=== PATIENT | male | born 1940 | race Caucasian/White ===

== ENCOUNTER 2020-04-04 17:44 | Inpatient (IN) | payer MEDICARE ==
[2020-04-04] MEDS ORDERED: IPRATROPIUM-ALBUTEROL 3 ML NEB INHALATION PRN (17:57)
[2020-04-04] MEDS ORDERED: ASPIRIN 325 MG TAB PO STA (17:57)
[2020-04-04] MEDS ORDERED: FUROSEMIDE 10 MG/ML 4 ML VIAL IV SCH (18:00)
--- NOTE | 2020-04-04 18:10 | ED ---
General Adult HPI - General Chief complaint: Shortness of Breath Stated complaint: Dyspnea Time Seen by Provider: 04/04/20 17:45 Source: patient, EMS, RN notes reviewed Mode of arrival: EMS Limitations: no limitations - History of Present Illness Initial comments: Patient is a pleasant 79-year-old male presenting to the emergency department with reported dyspnea. Patient states he feels fine and has no complaints. Patient reportedly was hypoxic appearing with a pulse ox of 70 when EMS arrived. Patient did go to [facility] and was transferred here. Patient was noted to have CHF with elevated troponin and abdominal aortic aneurysm on computed tomography scan. Patient denies any chest pain or abdominal pain. Patient states he feels fine at this time and has no complaints. - Related Data Allergies Allergy/AdvReac Type Severity Reaction Status Date / Time No Known Allergies Allergy Verified 04/04/20 18:01 Review of Systems ROS Statement: Those systems with pertinent positive or pertinent negative responses have been documented in the HPI. ROS Other: All systems not noted in ROS Statement are negative. Constitutional: Denies: fever Eyes: Denies: eye pain ENT: Denies: ear pain Respiratory: Reports: as per HPI Cardiovascular: Denies: chest pain Endocrine: Denies: fatigue Gastrointestinal: Denies: abdominal pain Genitourinary: Denies: dysuria Musculoskeletal: Denies: back pain Skin: Denies: rash Neurological: Denies: weakness Past Medical History Past Medical History: Hypertension, Thyroid Disorder History of Any Multi-Drug Resistant Organisms: None Reported Past Surgical History: No Surgical Hx Reported Past Psychological History: Anxiety Smoking Status: Former smoker Past Alcohol Use History: None Reported Past Drug Use History: None Reported General Exam Limitations: no limitations General appearance: alert, in no apparent distress Head exam: Present: normocephalic Eye exam: Present: normal appearance Neck exam: Present: normal inspection Respiratory exam: Present: decreased breath sounds Cardiovascular Exam: Present: tachycardia GI/Abdominal exam: Present: soft. Absent: distended, tenderness Extremities exam: Present: normal inspection. Absent: pedal edema, calf tenderness Neurological exam: Present: alert, oriented X3. Absent: motor sensory deficit Expanded Motor strength exam: RUE: 5, LUE: 5, RLE: 5, LLE: 5 Psychiatric exam: Present: normal affect, normal mood Skin exam: Present: normal color Course Vital Signs 04/04/20 04/04/2004/04/20 18:02 18:11 18:13 Temperature 99.2 F Pulse Rate 114 H Respiratory 22 22 Rate Blood Pressure 141/124 104/84 O2 Sat by Pulse 94 L Oximetry Medical Decision Making - Medical Decision Making Patient is updated on plan. Case was discussed with with [facility], who will admit. Disposition Clinical Impression: Congestive heart failure Disposition: ADMITTED IP TO THIS HOSP Is patient prescribed a controlled substance at d/c from ED?: No Referrals: Mateus Spencer MD [Primary Care Provider] - 1-2 days Decision Time: 18:22
[2020-04-04] MEDS: NITROGLYCERIN OINT 1 INCH/GM PACKET TOPICAL SCH ×2 (18:23→21:29)
[2020-04-04 19:16] LABS: Hyaline Casts,Urine 8 /lpf (0-2); Mucus,Urine Rare /hpf; RBC,Urine <1 /hpf (0-5); Squamous Epithelial Cell,Urine <1 /hpf (0-4); WBC,Urine 2 /hpf (0-5)
[2020-04-04] MEDS: IPRATROPIUM-ALBUTEROL 3 ML NEB INHALATION SCH (19:16)
[2020-04-04 19:18] LABS: Appearance,Urine Clear (Clear); Color,Urine Yellow
[2020-04-04 19:19] LABS: Bilirubin,Urine Negative (Negative); Blood,Urine Small (Negative); Glucose,Urine (UA) Negative (Negative); Ketones,Urine Negative (Negative); Protein,Urine Negative (Negative); Specific Gravity,Urine 1.005 (1.001-1.035); Urobilinogen,Urine <2.0 mg/dL (<2.0)
[2020-04-04 19:20] LABS: Leukocyte Esterase,Urine Large (Negative); Nitrite,Urine Negative (Negative)
--- NOTE | 2020-04-04 19:27 | CT ---
EXAMINATION TYPE: CT brain wo con DATE OF EXAM: 04/04/2020 HISTORY: ams, confusion CT DLP: 1094.4 mGycm. Automated Exposure Control for Dose Reduction was Utilized. TECHNIQUE: CT scan of the head is performed without contrast. COMPARISON: None. FINDINGS: There is no acute intracranial hemorrhage or midline shift identified. There is diffuse v entricular and sulcal prominence consistent with diffuse cerebral atrophy greatest over bilateral fro ntal lobes. Dalal-white matter differentiation is maintained. Moderate calcified plaque distal interna l carotid arteries bilaterally. The globes are intact and the visualized sinuses are clear. IMPRESSION: No acute intracranial hemorrhage or midline shift. There is mild diffuse cerebral atrop hy greatest over bilateral frontal lobes.
[2020-04-04] MEDS ORDERED: NITROGLYCERIN OINT 1 INCH/GM PACKET TOPICAL PRN (21:35)
[2020-04-04] MEDS: MELATONIN 3 MG TABLET PO SCH (22:42)
[2020-04-04] MEDS: HEPARIN SODIUM,PORCINE 5,000 UNIT/ML 1 ML VIAL SQ SCH (22:42)
[2020-04-04] MEDS: FUROSEMIDE 10 MG/ML 4 ML VIAL IV SCH (22:42)
--- NOTE | 2020-04-05 01:05 | P.HPIM ---
History of Present Illness H&P Date: 04/04/20 Chief Complaint: hypoxemia 79 year old male with hypothryoid, and COPD on home oxygen patient was transferred to our facility from [facility] for suspected acute CHF exacerbation patine tunable to provide any meaningful history , history obtained from reviewing medical records and discussing the patient care with his daughter. patient daughter does not live with him, as patient lives alone. it seems that over the phone he did not sound right to his daughter, who called a nephew who lives nearby to check on him. he found him confused and cyanotic. for which he notified EMS who found that patient supplemental oxygen was not working and was hypoxic in low 70%. for which he was taken to the hospital . where he was found to have small bilateral effusion , and mild pulmonary congestion. CT of the abdomen also showed AAA of 6.5 cm , incidental finding. and no evidence of pulmonary embolism. blood work showed elevate troponin and proBNP. he was started on diuretics and transferred to our facility currently he is laying in bed , comfortable , denies any chest pain or trouble breathing , denies any headache, or focal neurodeficits. his speech alternating between muffled and clear. he has no trouble managing his secretions or swallowing. he has no complaints otherwise, and does not seem to realize that he has muffled speech at times. patient daughter, reported that he was doing well as far as she knows up until yesterday, and that probably some visiting kids has messed up with her fathers oxygen supply. she adds that his nephew has reported some hallucination and abnormal movements during sleep , no further details were provided. no history of heart disease or stroke Review of Systems ROS unobtainable: due to mental status Past Medical History Past Medical History: COPD, Eye Disorder, Hypertension, Thyroid Disorder History of Any Multi-Drug Resistant Organisms: None Reported Past Surgical History: No Surgical Hx Reported Past Psychological History: Anxiety Smoking Status: Never smoker Past Alcohol Use History: None Reported Past Drug Use History: None Reported - Past Family History family Family Medical History: Unable to Obtain Medications and Allergies Home Medications Medication Instructions Recorded Confirmed Type Albuterol Sulfate [Albuterol 2 puff PO RT-Q4H PRN 04/04/20 04/04/20 History Sulfate Hfa] Aspirin 81 mg PO DAILY 04/04/20 04/04/20 History Isosorbide Mononitrate ER [Imdur] 60 mg PO DAILY 04/04/20 04/04/20 History Levothyroxine Sodium 112 mcg PO DAILY 04/04/20 04/04/20 History Allergies Allergy/AdvReac Type Severity Reaction Status Date / Time No Known Allergies Allergy Verified 04/04/20 19:57 Physical Exam Vitals: Vital Signs Temp Pulse Pulse Resp BP BP Pulse Ox 04/04/20 20:22 98.5 F 86 20 131/91 95 04/04/20 19:12 107 H 22 105/93 97 04/04/20 18:28 105 H 22 91 L 04/04/20 18:13 104/84 04/04/20 18:11 22 04/04/20 18:02 99.2 F 114 H 22 141/124 94 L Intake and Output 04/04/20 04/04/20 04/04/20 06:59 14:59 22:59 Output Total 350 Balance -350 Output: Urine 350 Other: # Voids 2 Weight 56.699 kg Constitutional: No acute distress, sleeping , easily arousable, muffled speech at times alternating with clear speech , conversant, pleasant Eyes: Anicteric sclerae, moist conjunctiva, no lid-lag Pupils equal round reactive to light ENMT: NC/AT Oropharynx clear, no erythema, or exudates Neck: Supple, FROM, no masses, or JVD No carotid bruits No thyromegaly Lungs: good breath sounds bilaterally , decreased breath sounds at lung basis Clear to percussion Normal respiratory effort, no accessory muscle use Cardiovascular: Heart regular in rate and rhythm, No murmurs, gallops, or rubs No peripheral edema Abdominal: Soft Nontender, no guarding, rebound or rigidity Abdomen moving with respiration Normoactive bowel sounds No hepatomegaly, No splenomegaly No palpable mass No abdominal wall hernia noted Skin: Normal temperature, tone, texture, turgor No induration No subcutaneous nodules No rash, lesions No ulcers echyotic spots on right elbow Extremities: No digital cyanosis No clubbing Pedal pulses intact and symmetrical Radial pulses intact and symmetrical No calf tenderness Psychiatric: Alert and oriented to person only Appropriate affect poor judgement Neuro Muscles Strength 5/5 in all 4 extremities Sensation to light touch grossly present throughout Cranial nerves II-XII grossly intact (difficulty in evaluating at times, patient does not seem to be able to understand the commands) No focal sensory deficits unable to perform cerebellar exam, patient could not understand the co mmands. and was unable to relax properly to perform the reflexes. Lymphatics: no palpable cervical or supraclavicular , or inguinal lymph nodes Results Labs: Abnormal Lab Results - Last 24 Hours (Table) 04/04/20 04/04/20 Range/Units 18:00 19:07 Troponin I 0.351 H* (0.000-0.034) ng/mL Hyaline Casts 8 H (0-2) /lpf Urine Mucus Rare H (None) /hpf Thrombosis Risk Factor Assmnt - Choose All That Apply Any of the Below Risk Factors Present?: No Other Risk Factors: Yes Each Risk Factor Represents 3 Points: Age 75 years or older Other congenital or acquired thrombophilia - If yes, enter type in comment: No Thrombosis Risk Factor Assessment Total Risk Factor Score: 3 Thrombosis Risk Factor Assessment Level: Moderate Risk Assessment and Plan Assessment: acute on chronic hypoxic respiratory failure copd , compensated elevated troponin rule out NSTEMI /ACS, patient denies any chest pain or SOB pulmonary congestion and small bilateral pleural effusion , rule out new onset acute CHF behavioral changes along with alternating muffled / clear speech, rule out stroke elevated liver enzymes plan exhibit cleaner trend troponin aspirin avoid statin due to elevated liver enzymes Brain CT no acute changes CT angio showed no PE, but incidental finding of AAA 6.5 cm , vascular surgery consult check echo check carotid doppler check vit b12, tsh supportive care supplemental oxygen IV diuresis PT/OT eval cardio consult chronic conditions hypothyroid , resume home meds COPD , supplemental oxygen , Breathing treatment pRN Surrogate decision-maker: daughter CODE STATUS:full code DVT prophylaxis: heparin sc tid Discussed with: Patient, ER, RN Anticipated length of stay > than [address]: home A total of 75 minutes was spent on the care of this complex patient more than 50% of the time was spent in counseling and care coordination.
[2020-04-05] MEDS: LEVOTHYROXINE 112 MCG TAB PO SCH (06:12)
[2020-04-05 08:04] LABS: Basophils % (A) 1 %; Eosinophils % (A) 1 %; HCT 47.9 % (39.0-53.0); HGB 13.6 gm/dL (13.0-17.5); Hypochromasia Marked; Lymphocytes # (A) 1.1 k/uL (1.0-4.8); Lymphocytes % (A) 14 %; MCH 29.2 pg (25.0-35.0); MCHC 28.4 g/dL (31.0-37.0); MCV 102.8 fL (80.0-100.0); Macrocytosis Slight; Mean Platelet Volume 9.1; Monocytes # (A) 0.4 k/uL (0-1.0); Monocytes % (A) 5 %; Neutrophils # (A) 6.2 k/uL (1.3-7.7); Neutrophils % (A) 78 %; Platelet Count 176 k/uL (150-450); RBC 4.66 m/uL (4.30-5.90); RDW 13.3 % (11.5-15.5); WBC 7.9 k/uL (3.8-10.6)
[2020-04-05 08:18] LABS: ALT 160 U/L (4-49); AST 156 U/L (17-59); African American GFR (CKD) >90 (>60 ml/min/1.73 sqM); Albumin 3.7 g/dL (3.5-5.0); Alkaline Phosphatase 91 U/L (38-126); Blood Urea Nitrogen 29 mg/dL (9-20); Calcium 8.2 mg/dL (8.4-10.2); Chloride 86 mmol/L (98-107); Glucose 83 mg/dL (74-99); Non-African American GFR(CKD) 83 (>60 ml/min/1.73 sqM); Potassium 4.9 mmol/L (3.5-5.1); Sodium 144 mmol/L (137-145); Total Bilirubin 0.6 mg/dL (0.2-1.3); Total Protein 7.3 g/dL (6.3-8.2)
[2020-04-05] MEDS: FUROSEMIDE 10 MG/ML 4 ML VIAL IV SCH (08:19)
[2020-04-05] MEDS: HEPARIN SODIUM,PORCINE 5,000 UNIT/ML 1 ML VIAL SQ SCH ×2 (08:19→17:58)
[2020-04-05] MEDS: IPRATROPIUM-ALBUTEROL 3 ML NEB INHALATION SCH ×3 (08:35→15:47)
--- NOTE | 2020-04-05 08:43 | US ---
EXAMINATION TYPE: US carotid duplex BILAT DATE OF EXAM: 04/05/2020 COMPARISON: NONE CLINICAL HISTORY: possible stroke. Exam limited patient sleeping unresponsive. EXAM MEASUREMENTS: RIGHT: Peak Systolic Velocity (PSV) cm/sec ----- Right CCA: 108.9 ----- Right ICA: 112.2 ----- Right ECA: 197.6 ICA/CCA ratio: 1.0 RIGHT: End Diastole cm/sec ----- Right CCA: 37.7 ----- Right ICA: 37.3 ----- Right ECA: 38.7 LEFT: Peak Systolic Velocity (PSV) cm/sec ----- Left CCA: 62.8 ----- Left ICA: 85.4 ----- Left ECA: 67.6 ICA/CCA ratio: 1.4 LEFT: End Diastole cm/sec ----- Left CCA: 32.1 ----- Left ICA: 24.1 ----- Left ECA: 28.8 VERTEBRALS (direction of flow): Right Vertebral: Antegrade Left Vertebral: Antegrade Rhythm: Normal Bilateral plaque visualized.Exam limited. IMPRESSION: 1. Bilateral plaque with no significant hemodynamic stenosis. Criteria for Assigning % of Stenosis / Diameter reduction (Estimation based on the indirect measurements of the internal carotid artery velocities (ICA PSV). 1. Normal (no stenosis)=ICA PSV < 125 cm/s: ratio < 2.0: ICA EDV<40 cm/s. 2. Less than 50% stenosis=ICA PSV < 125 cm/s: ratio < 2.0: ICA EDV<40 cm/s. 3. 50 to 69% stenosis=ICA PSV of 125 to 230 cm/s: ration 2.0 ? 4.0: ICA EDV 40-100 cm/s. 4. Greater than 70% stenosis to near occlusion= ICA PSV > 230 cm/s: ratio > 4.0: ICA EDV > 100 cm/s. 5. Near occlusion= ICA PSV velocities may be low or undetectable: variable ratio and ICA EDV. 6. Total occlusion=unable to detect flow.
[2020-04-05 08:48] LABS: Anion Gap 8 mmol/L; Carbon Dioxide 50 mmol/L (22-30)
[2020-04-05] MEDS: THIAMINE 100 MG/ML 2 ML VIAL IVP SCH (10:05)
[2020-04-05 10:59] LABS: ABG Oxygen Saturation 98.7 % (94-97); ABG PH 7.23 (7.35-7.45); ABG PO2 150 mmHg (83-108); Allen Test Performed? Yes
[2020-04-05 11:04] LABS: ABG PCO2 >120 mmHg (35-45)
--- NOTE | 2020-04-05 11:26 | P.GSCN ---
History of Present Illness History of present illness: 79-year-old gentleman, patient came with history of shortness of breath and congestive heart failure patient had a CT of the chest there is pleural effusion no evidence of PE with some pulmonary fibrosis. Patient had a CT of the chest which also showed partially visualized infrarenal abdominal aortic aneurysm 6.5 no evidence of leak. Patient also had a CT of the brain which was negative for intracranial bleed. And patient also required carotid ultrasound no significant stenosis noted. On examination neck is supple no bruit appreciated Chest patient has a bilateral crackles first and second heart sound normal Abdomen abdomen is soft nontender pulsatile mass noted aorta is nontender Vascular examination brachial radial pulses are present femorals are palpable bilateral PTDP by the Doppler no ischemic ulceration noted Impression is history of COPD and congestive heart failure hypothyroidism incidental finding of abdominal aortic aneurysm partially visualized Plan i discussed with the daughter in detail patient will needing as an outpatient workup for abdominal aortic aneurysm which is stable follow-up with you thank very much Past Medical History Past Medical History: COPD, Eye Disorder, Hypertension, Thyroid Disorder History of Any Multi-Drug Resistant Organisms: None Reported Past Surgical History: No Surgical Hx Reported Past Psychological History: Anxiety Smoking Status: Never smoker Past Alcohol Use History: None Reported Past Drug Use History: None Reported - Past Family History family Family Medical History: Unable to Obtain Medications and Allergies Home Medications Medication Instructions Recorded Confirmed Type Albuterol Sulfate [Albuterol 2 puff PO RT-Q4H PRN 04/04/20 04/04/20 History Sulfate Hfa] Aspirin 81 mg PO DAILY 04/04/20 04/04/20 History Isosorbide Mononitrate ER [Imdur] 60 mg PO DAILY 04/04/20 04/04/20 History Levothyroxine Sodium 112 mcg PO DAILY 04/04/20 04/04/20 History Allergies Allergy/AdvReac Type Severity Reaction Status Date / Time No Known Allergies Allergy Verified 04/04/20 19:57 Surgical - Exam Vital Signs Temp Pulse Resp BP Pulse Ox 99.2 F 114 H 22 141/124 94 L 04/04/20 18:02 04/04/20 18:02 04/04/20 18:02 04/04/20 18:02 04/04/20 18:02 Results - Labs 04/05/20 07:04 04/05/20 07:04 Abnormal Lab Results - Last 24 Hours (Table) 04/04/20 04/04/20 04/05/20 Range/Units 18:00 19:07 07:04 MCV (80.0-100.0) fL MCHC (31.0-37.0) g/dL ABG pH (7.35-7.45) ABG pCO2 (35-45) mmHg ABG pO2 (83-108) mmHg ABG O2 Saturation (94-97) % Chloride (98-107) mmol/L Carbon Dioxide (22-30) mmol/L BUN (9-20) mg/dL Calcium (8.4-10.2) mg/dL AST (17-59) U/L ALT (4-49) U/L Troponin I 0.351 H* 0.432 H* (0.000-0.034) ng/mL Hyaline Casts 8 H (0-2) /lpf Urine Mucus Rare H (None) /hpf 04/05/20 04/05/20 04/05/20 Range/Units 07:04 07:04 10:45 MCV 102.8 H (80.0-100.0) fL MCHC 28.4 L (31.0-37.0) g/dL ABG pH 7.23 L (7.35-7.45) ABG pCO2 >120 H* (35-45) mmHg ABG pO2 150 H (83-108) mmHg ABG O2 Saturation 98.7 H (94-97) % Chloride 86 L (98-107) mmol/L Carbon Dioxide 50 H* (22-30) mmol/L BUN 29 H (9-20) mg/dL Calcium 8.2 L (8.4-10.2) mg/dL AST 156 H (17-59) U/L ALT 160 H (4-49) U/L Troponin I (0.000-0.034) ng/mL Hyaline Casts (0-2) /lpf Urine Mucus (None) /hpf Diabetes panel 04/05/20 Range/Units 07:04 Sodium 144 (137-145) mmol/L Potassium 4.9 (3.5-5.1) mmol/L Chloride 86 L (98-107) mmol/L Carbon Dioxide 50 H* (22-30) mmol/L BUN 29 H (9-20) mg/dL Creatinine 0.87 (0.66-1.25) mg/dL Glucose 83 (74-99) mg/dL Calcium 8.2 L (8.4-10.2) mg/dL AST 156 H (17-59) U/L ALT 160 H (4-49) U/L Alkaline Phosphatase 91 (38-126) U/L Total Protein 7.3 (6.3-8.2) g/dL Albumin 3.7 (3.5-5.0) g/dL Thyroid panel 04/05/20 Range/Units 07:04 TSH 1.980 (0.465-4.680) mIU/L Calcium panel 04/05/20 Range/Units 07:04 Calcium 8.2 L (8.4-10.2) mg/dL Albumin 3.7 (3.5-5.0) g/dL Pituitary panel 04/05/20 Range/Units 07:04 Sodium 144 (137-145) mmol/L Potassium 4.9 (3.5-5.1) mmol/L Chloride 86 L (98-107) mmol/L Carbon Dioxide 50 H* (22-30) mmol/L BUN 29 H (9-20) mg/dL Creatinine 0.87 (0.66-1.25) mg/dL Glucose 83 (74-99) mg/dL Calcium 8.2 L (8.4-10.2) mg/dL TSH 1.980 (0.465-4.680) mIU/L Adrenal panel 04/05/20 Range/Units 07:04 Sodium 144 (137-145) mmol/L Potassium 4.9 (3.5-5.1) mmol/L Chloride 86 L (98-107) mmol/L Carbon Dioxide 50 H* (22-30) mmol/L BUN 29 H (9-20) mg/dL Creatinine 0.87 (0.66-1.25) mg/dL Glucose 83 (74-99) mg/dL Calcium 8.2 L (8.4-10.2) mg/dL Total Bilirubin 0.6 (0.2-1.3) mg/dL AST 156 H (17-59) U/L ALT 160 H (4-49) U/L Alkaline Phosphatase 91 (38-126) U/L Total Protein 7.3 (6.3-8.2) g/dL Albumin 3.7 (3.5-5.0) g/dL
[2020-04-05] MEDS: methylPREDNISolone SOD SUCCI 125 MG/2 ML VIAL IV SCH ×2 (11:51→17:57)
[2020-04-05 11:57] LABS: Amphetamine Screen,Urine Not Detected (NotDetected); Barbiturate Screen,Urine Not Detected (NotDetected); Benzodiazepines Screen,Urine Not Detected (NotDetected); Cocaine Screen,Urine Not Detected (NotDetected); Methadone Screen, Urine Not Detected (NotDetected); Opiate Screen,Urine Not Detected (NotDetected); Oxycodone Screen, Urine Not Detected (NotDetected); Phencyclidine Screen,Urine Not Detected (NotDetected); Urn Cannabinoid Scrn Not Detected (NotDetected)
[2020-04-05 11:58] LABS: Tricyclic Antidepressant,Urine Not Detected (NotDetected)
--- NOTE | 2020-04-05 12:00 | ECHOF ---
Referral Reason:Heart Failure MEASUREMENTS -------- HEIGHT: 162.6 cm WEIGHT: 111.6 kg BP: 119/76 RVIDd: 3.4 cm (< 3.3) IVSd: 1.0 cm (0.6 - 1.1) LVIDd: 4.1 cm (3.9 - 5.3) LVPWd: 1.1 cm (0.6 - 1.1) IVSs: 0.9 cm LVIDs: 3.3 cm LVPWs: 1.1 cm Ao Diam: 2.6 cm (2.0 - 3.7) AV Cusp: 1.7 cm (1.5 - 2.6) LA Diam: 2.2 cm (2.7 - 3.8) MV EXCURSION: 17.354 mm (> 18.000) MV EF SLOPE: 114 mm/s (70 - 150) EPSS: 1.0 cm MV E Cedric: 0.68 m/s MV DecT: 147 ms MV A Cedric: 1.05 m/s MV E/A Ratio: 0.65 RAP: 5.00 mmHg RVSP: 16.55 mmHg FINDINGS -------- Undetermined rhythm. This was a technically adequate study. The left ventricular size is normal. Left ventricular wall thickness is normal. Overall left vent ricular systolic function is low-normal with, an EF between 50 - 55 %. The right ventricle is mildly enlarged. The left atrial size is normal. The right atrial size is normal. The aortic valve is trileaflet and appears structurally normal. The mitral valve is normal. There is trace mitral regurgitation. The tricuspid valve appears structurally normal. Trace tricuspid regurgitation present. Right alice tricular systolic pressure is normal at < 35 mmHg. There is no pulmonic regurgitation present. The aortic root size is normal. Normal inferior vena cava with normal inspiratory collapse consistent with estimated right atrial pre ssure of 5 mmHg. There is no pericardial effusion. CONCLUSIONS -------- 1. Undetermined rhythm. 2. This was a technically adequate study. 3. The left ventricular size is normal. 4. Left ventricular wall thickness is normal. 5. Overall left ventricular systolic function is low-normal with, an EF between 50 - 55 %. 6. The right ventricle is mildly enlarged. 7. The left atrial size is normal. 8. The right atrial size is normal. 9. The aortic valve is trileaflet and appears structurally normal. 10. The mitral valve is normal. 11. There is trace mitral regurgitation. 12. The tricuspid valve appears structurally normal. 13. Trace tricuspid regurgitation present. 14. Right ventricular systolic pressure is normal at < 35 mmHg. 15. There is no pulmonic regurgitation present. 16. The aortic root size is normal. 17. Normal inferior vena cava with normal inspiratory collapse consistent with estimated right atrial pressure of 5 mmHg. 18. There is no pericardial effusion. DEVELOPMENT ADVISOR: Yamileth Anderson RDCS
[2020-04-05] MEDS: levETIRAcetam IV 500 MG in SODIUM CHLORIDE 0.9% 100 ML IVPB SCH ×2 (12:12→21:10)
[2020-04-05] MEDS ORDERED: ASPIRIN 300 MG SUPP RECTAL STA (12:31)
[2020-04-05 13:08] LABS: Glucose,Whole Blood 68 mg/dL (75-99)
[2020-04-05 13:25] LABS: Glucose,Whole Blood 78 mg/dL (75-99)
--- NOTE | 2020-04-05 14:30 | P.CNPUL ---
History of Present Illness Consult date: 04/05/20 Reason for consult: COPD, hypoxemia History of present illness: A 7 79-year-old male patient who was transferred to us from [facility] because of acute hypoxic respiratory failure. The patient is known to have COPD and his dependent on home oxygen. According to the daughter, he is an ex-smoker is not smoking. His been living independently at home and he has been able to perform activities of daily today life. Apparently the patient was having altered mentation he was confused and the daughter called EMS to the scene and the patient was found to be quite hypoxic with a pulse ox of 70s. The patient was placed on a nonrebreather facemask was brought him up to 90% saturation and following that the patient got transferred initially to [facility] and later on to [facility]. During the course of his [facility] stay, the patient underwent a CT angiogram that showed no evidence of any pulmonary embolism. 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 There was no suspicious focal consolidation. There is mild interstitial edema and the patient was suspected to be CHF. Based on that the patient was started on diuresis. There was no evidence of any pulmonary embolism. There was at least a 6.9 cm abdominal aortic and is a bit was noted. CAT scan of the abdomen also confirmed the presence of a large abdominal aortic aneurysm. The blood work that was done showed a glucose of 129, BUN of 27, and a creatinine of 1.0, SGOT was 208, SGPT was 182, calcium level was 8.8, the CPK was 105, lactic acid level was 1.4, magnesium was at 2.1 with a troponin of 0.189. The patient also had a sodium of 142 with a chloride of 92 and a potassium of 4.8. White cell count was at 8.2 with a hemoglobin of 13.3. This morning, the patient was asked to be seen by pulmonary critical care. He was still altered and the family was at the bedside. Note that the patient has undergone a CAT scan of the brain that showed no acute abnormalities. His blood gases was done today and the patient was found to have a pH of 7.23 with episodes of more than 120 and pO2 of 150 and this was done on the percent nonrebreather facemask. He had developed significant metabolic alkalosis with a serum bicarb coming up to 50 while being given Lasix 40 mg every 8 hours. For that reason, the patient was transferred to the intensive care unit. The echocardiogram that was done showed an ejection fraction of 50-55%, the valvular functions were all within normal limits, the patient had normal IVC respiratory collapse indicating that the estimated right atrial pressure was 5. No evidence of any pericardial effusion. Review of Systems ROS unobtainable: due to mental status Past Medical History Past Medical History: COPD, Eye Disorder, Hypertension, Thyroid Disorder History of Any Multi-Drug Resistant Organisms: None Reported Past Surgical History: No Surgical Hx Reported Past Psychological History: Anxiety Smoking Status: Never smoker Past Alcohol Use History: None Reported Past Drug Use History: None Reported - Past Family History family Family Medical History: Unable to Obtain Medications and Allergies Home Medications Medication Instructions Recorded Confirmed Type Albuterol Sulfate [Albuterol 2 puff PO RT-Q4H PRN 04/04/20 04/04/20 History Sulfate Hfa] Aspirin 81 mg PO DAILY 04/04/20 04/04/20 History Isosorbide Mononitrate ER [Imdur] 60 mg PO DAILY 04/04/20 04/04/20 History Levothyroxine Sodium 112 mcg PO DAILY 04/04/20 04/04/20 History Allergies Allergy/AdvReac Type Severity Reaction Status Date / Time No Known Allergies Allergy Verified 04/04/20 19:57 Physical Exam Vitals: Vital Signs Temp Pulse Pulse Resp BP BP Pulse Ox 04/05/20 12:40 100 04/05/20 12:18 100 04/05/20 12:00 97.7 F 99 18 113/63 91 L 04/05/20 08:53 100 04/05/20 08:39 100 04/05/20 08:00 98.5 F 101 H 20 128/66 97 04/05/20 04:00 97.6 F 100 18 119/76 93 L 04/04/20 23:22 76 18 04/04/20 23:18 98.1 F 76 18 139/85 93 L 04/04/20 20:22 98.5 F 86 20 131/91 95 04/04/20 20:15 86 20 04/04/20 19:12 107 H 22 105/93 97 04/04/20 18:28 105 H 22 91 L 04/04/20 18:13 104/84 04/04/20 18:11 22 04/04/20 18:02 99.2 F 114 H 22 141/124 94 L Intake and Output 04/04/20 04/05/20 04/05/20 22:59 06:59 14:59 Intake Total 540 90 Output Total 350 250 Balance 190 -250 90 Intake: Oral 540 90 Output: Urine 350 250 Other: Voiding Method Urinal Urinal Urinal # Voids 2 3 Weight 56.699 kg 112 kg Gen. appearance is lethargic, sleepy, arousable, muffled speech and looks quite cachectic and emaciated. No signs of any significant respiratory distress and the patient is not using accessory muscles of breathing. At times he twitches. He is able to follows some simple commands. Head exam was generally normal. There was no scleral icterus or corneal arcus. Mucous membranes were moist. Neck was supple and without jugular venous distension, thyromegaly, or carotid bruits. Carotids were easily palpable bilaterally. There was no adenopathy. lung sounds are markedly diminished bilaterally along with some few rales in the lung bases. Scattered SCANT expiratory wheezes. He is not using excessive muscle breathing. Heart sounds are distant, regular, positive psoas sign is no significant murmurs appreciated. Abdominal exam revealed normal bowel sounds. The abdomen was soft, non-tender, and without masses, organomegaly, or appreciable enlargement of the abdominal aorta. The patient has a pulsatile mass in the mid abdominal area related to his underlying large abdominal aortic aneurysm which is measuring 6.9 cm in size on the CAT scan of the chest and abdomen. Extremities revealed no edema and there is no cyanosis or clubbing. No open wounds or sores. Examination of the skin revealed no evidence of significant rashes, suspicious appearing nevi or other concerning lesions. Neurologically the patient is able to move all 4 extremities. Strength is essentially diminished 4 out of 5 in all 4 extremities, symmetrical. During our rapid neurologic evaluation, the patient was withdrawing to painful stimulation. Does not seem to be able to understand events of been ongoing with him. On and off he was twitching. No seizure activity has been noted. Cranial nerves are grossly intact with equal and symmetrical. Without any nystagmus. No clonus. No Babinski at this point in time. Gait cannot be assessed. Sensory functions cannot be assessed. Results - Laboratory Findings CBC and BMP: 04/05/20 07:04 04/05/20 07:04 ABG ABG pH 7.23 (7.35-7.45) L 04/05/20 10:45 ABG pCO2 >120 mmHg (35-45) H* 04/05/20 10:45 ABG pO2 150 mmHg (83-108) H 04/05/20 10:45 ABG O2 Saturation 98.7 % (94-97) H 04/05/20 10:45 Abnormal lab findings: Abnormal Labs 04/04/20 04/04/20 04/05/20 18:00 19:07 07:04 MCV MCHC ABG pH ABG pCO2 ABG pO2 ABG O2 Saturation Chloride Carbon Dioxide BUN POC Glucose (mg/dL) Calcium AST ALT Troponin I 0.351 H* 0.432 H* Hyaline Casts 8 H Urine Mucus Rare H 04/05/20 04/05/20 04/05/20 07:04 07:04 10:45 MCV 102.8 H MCHC 28.4 L ABG pH 7.23 L ABG pCO2 >120 H* ABG pO2 150 H ABG O2 Saturation 98.7 H Chloride 86 L Carbon Dioxide 50 H* BUN 29 H POC Glucose (mg/dL) Calcium 8.2 L AST 156 H ALT 160 H Troponin I Hyaline Casts Urine Mucus 04/05/20 13:07 MCV MCHC ABG pH ABG pCO2 ABG pO2 ABG O2 Saturation Chloride Carbon Dioxide BUN POC Glucose (mg/dL) 68 L Calcium AST ALT Troponin I Hyaline Casts Urine Mucus - Diagnostic Findings Chest x-ray: image reviewed CT scan - chest: image reviewed Assessment and Plan Plan: 1 acute on chronic hypoxic respiratory failure most echo on the basis of COPD exacerbation. No clear signs of decompensated heart failure. Despite an elevated proBNP level, the patient echo cardiac exam is essentially within normal limits. The patient was subjected diuretics which made him quite alkalotic and the most recent blood gas shows significant alkalosis and wors ening of the hypercapnic respiratory failure. The blood gases consistent with acute on top of chronic hypercapnic respiratory failure. The patient would benefit from Diamox and BiPAP therapy to optimize his acid-base status. Chest x-ray shows no the 70 pneumonia. CAT scan does not show any evidence of pneumonia. 2 acute on chronic hypercapnic respiratory failure, details discussed above 3 advanced COPD with chronic hypoxic respiratory failure 4 altered mentation secondary to CO2 narcosis 5 chronic metabolic alkalosis, Necessity to chronic hypercapnic respiratory failure in addition to worsening due to diuresis 6 abnormal troponin, likely troponin leak without any evidence of ST segment elevation. Consider non-STEMI 7 transaminitis 8 eye bowel aortic aneurysm measuring 6.9 cm in size Plan Transfer the patient to the intensive care unit Reduce Lasix dose of 40 g every 24 hours The patient does of Diamox 500 mg every 12 hours 2 Put the patient on BiPAP at a pressure of 10/5 cm of water and titrate FiO2 to maintain a saturation above 90% Monitor mental status which is essentially related to CO2 narcosis. Neurology is on consult. EEG is to follow Vascular surgery consult regarding her bowel aortic aneurysm Echo was noted Cardiology consult was obtained He is a full code and the family is opted to proceed with intubation mechanical ventilation if needed Resume home medications Bronchodilators with DuoNeb nebulized treatment [id number] IV Solu-Medrol Keep nothing by mouth for now IV fluids with normal saline We'll continue to follow. Long-term prognosis poor baseline above-mentioned comorbidities. Time with Patient: Greater than 30
--- NOTE | 2020-04-05 14:53 | CONS ---
CONSULTATION CHIEF COMPLAINT: Confusion and shortness of breath. This is a 79-year-old gentleman with history of COPD on home O2 and hypothyroidism, who is brought into hospital because of confusion and cyanosis. I obtained information from the daughter this morning as the patient is confused, agitated and is not able to give any meaningful information. He was initially taken to [facility] where he was found to be confused and cyanotic, O2 sats were down in the 70s. He had a chest x-ray that showed small bilateral pleural effusions. A CT scan of the abdomen showed AAA and he apparently had a CT chest that was negative for pulmonary embolism. He had mild elevation in troponin and BNP for which Cardiology had been consulted. I do not believe patient is in overt heart failure at the moment. The elevated troponin is related to respiratory failure. His blood gases show a pH of 7.2, pCO2 is more than 120, PO2 is 150. His BNP is elevated at 10,200, but there is no prior history of congestive heart failure. White cell count is normal. The platelet count is normal too. AST ALT are elevated. Alcohol level was normal. TSH was normal. PAST MEDICAL HISTORY: Significant for COPD and hypothyroidism. MEDICATIONS: Medications at home include albuterol, Imdur, aspirin and Synthroid. Family history, social history and review of systemsI am unable to obtain from the patient who appears confused. PHYSICAL EXAMINATION: On exam, patient is confused and mildly agitated. Heart rate is 100 beats per minute. Blood pressure is 128/66, respiratory is 20. Chest exam reveals diminished air entry, but I do not hear any crackles or rhonchi. Heart exam reveals first and second heart sounds. No gallop. No murmur. Abdomen is soft. Exam of extremities reveals mild edema. Peripheral pulses are felt. LABS: Hemoglobin is 13.6, platelet count is 176, potassium is 4.9. Creatinine is 0.8. Tropes are mildly elevated. BNP is elevated. TSH is normal. Blood gases show respiratory failure with a pCO2 of 120. ASSESSMENT: 1. Confusion, probably related to the acute worsening of chronic respiratory failure. 2. Elevated troponin secondary to respiratory failure. 3. BNP elevation of unclear significance. Patient is not in congestive heart failure. 4. Abdominal aortic aneurysm. PLAN: Continue supportive care. Abdominal aortic aneurysm will be addressed by the vascular surgeon. MMODL / IJN: [id number] /
[2020-04-05] MEDS: ASPIRIN 325 MG TAB PO SCH (14:57)
[2020-04-05] MEDS: SODIUM CHLORIDE 0.9% 1,000 ML IV SCH ×2 (14:57→21:10)
[2020-04-05] MEDS: ISOSORBIDE MONONITRATE ER 60 MG TAB.ER.24H PO SCH (14:57)
--- NOTE | 2020-04-05 15:38 | EEG ---
ELECTROENCEPHALOGRAM REPORT DATE OF SERVICE: 04/04/2020 HISTORY: This is an inpatient EEG performed on a 79-year-old gentleman who was admitted for altered mental status and abnormal involuntary movements. His admission on Sunday occurred after his family found him altered that morning. The patient was found to have abnormally elevated liver enzymes and abnormal involuntary movements that appeared as myoclonic jerks. At the time of this EEG study, the patient was quite altered. He was unable to follow commands. His speech was severely dysarthric. Following the EEG, approximately 20 to 30 minutes later, his mentation improved and he became oriented to time, place, person; however, his speech was still dysarthric. CT scan of the head negative. TECHNICAL REPORT: This is an inpatient EEG performed on the [employer] EEG monitor with electrodes placed according to the international 10-20 system and a single EKG channel. Simultaneous video EEG monitoring was performed. This EEG was reviewed in both longitudinal bipolar common average referential and transverse montages. Neither photic stimulation nor hyperventilation were performed due to the patient's underlying condition. The recording begins with a very slow background for the patient's stated age. Primarily low amplitude mixed theta frequencies predominate the background. Low- amplitude beta activity is prominent over the anterior and central head regions. The EKG is noted to be irregular throughout. Intermittent muscle and movement artifacts contaminate this tracing. Frequently jerks were time-locked with morphology that appeared as polyspike activity lateralized to the bifrontal central temporal head region. This is most notable at 11:24:07. Deeper stages of sleep were not achieved. IMPRESSION: This is an abnormal, predominantly drowsy EEG. No clear wakefulness was noted. This EEG could also be consistent with an encephalopathic state. Several episodes of time- locked movement with body twitches occurred lateralized to the frontal central temporal head region. This appeared morphologically consistent with polyspike activity associated with myoclonic jerks. CLINICAL CORRELATION: This EEG does suggest the patient may have an increased seizure tendency; thus further clinical correlation is needed as well as ruling out underlying metabolic derangement that can lower seizure threshold. Neuro imaging studies are recommended and, if clinically indicated, a more prolonged overnight study and/or serial EEGs. MMODL / IJN: [id number] /
--- NOTE | 2020-04-05 17:43 | MR ---
EXAMINATION TYPE: MR brain wo con DATE OF EXAM: 04/05/2020 COMPARISON: None HISTORY: Confusion, jerking movements, and garbled speech Multiplanar multiecho imaging of the brain was performed with no contrast. There is on the T2 and FLAIR images scattered small foci of increased signal in the periventricular w lucas matter. Total number is approximately 10 and these measure up to 5 mm. There is no mass effect n or midline shift. There is no evidence of intracranial hemorrhage. The brainstem is intact. Cerebellu m is intact. Sella turcica appears normal. The corpus callosum appears intact. The diffusion images s how no evidence of an acute infarct. IMPRESSION: Scattered white matter signal changes probably related to some chronic small vessel ischemia. No acut e intracranial abnormality. Demyelinating disease not excluded.
--- NOTE | 2020-04-05 17:48 | MR ---
EXAMINATION TYPE: MR angio neck wo con DATE OF EXAM: 04/05/2020 COMPARISON: None HISTORY: Confusion. Weakness. MR angiographic images were obtained of the cervical carotid and vertebral arteries. FINDINGS: There is arterial flow in the common internal and external carotid arteries bilaterally. There is alee e motion artifact that degrades the images. As best as one can tell there is approximate 60% stenosis at the origin of the left internal carotid artery. I see no evidence of any significant stenosis of the right internal carotid artery. The vertebral arteries appear widely patent. There is arterial tavo w in the vertebrobasilar artery system. There is arterial flow in the distal internal carotid arterie s bilaterally. I see no evidence of dissection. IMPRESSION: Limited exam. There is approximate 60% stenosis at the origin of the left internal carotid artery.
[2020-04-05] MEDS: BUDESONIDE 0.5 MG/2 ML NEBU INHALATION SCH (19:15)
[2020-04-05] MEDS: FORMOTEROL FUMARATE 20 MCG/2 ML NEBU INHALATION SCH (19:15)
--- NOTE | 2020-04-05 19:16 | P.CNNES ---
History of Present Illness Consult date: 04/05/20 Reason for Consult: altered mental status and myoclonic jerks History of Present Illness: this is a new consult for a 79-year-old gentleman with a known history of COPD on home oxygen and hypothyroidism. He was last seen normal on Sunday night by his son at approximately 8:52 PM. Sunday his daughter called him at about 8:52 in the morning and found that he was very altered. He was telling his daughter that his niece was there with her children which they were not. His speech also was noted to become increasingly slurred and unintelligible. His daughter activated 911. Report indicate there is a pulse oximetry was checked at home which was down in the 70s. Patient initially was seen and [facility] then transferred to [facility]. Patient is undergone a comprehensive workup which includes CTA of the chest showing no evidence at this time of a pulmonary embolism. The patient does however have a quite extensive aortic abdominal aneurysm. The MRI of the brain does not show any acute ischemic infarct or restriction on diffusion-weighted imaging. There is scattered white matter changes secondary to chronic microvascular changes. An MRA of the neck only shows evidence of 60% stenosis of the left internal carotid artery. An MRA of the brain has not been completed yet. Carotid Doppler does not show any evidence of high-grade stenosis. Cardiac echo shows a normal ejection fraction of 50-55%. At the time of the consultation this morning the patient went into acute hypoxic respiratory failure was becoming increasingly altered mentally and presented with significant myoclonic jerks. Due to this deterioration patient was subsequently transferred to the ICU this morning for management. An EEG was obtained which did show several episodes of time lot myoclonic jerks with EEG. The patient was started on Keppra 500 mg IV every 12. At approximately 35-40 minutes after gathering the history from his daughter this morning, and prior to transfer to ICU the patient spontaneously began to improve. His speech still however was slurred and at times difficult to understand. But he did at the time of the second neurological assessment was oriented to time place and person. He was able to follow all commands without difficulty and showed appropriate strength testing and coordination testing. Th e myoclonic jerks however waxed and waned throughout the intake. Past Medical History Past Medical History: COPD, Eye Disorder, Hypertension, Thyroid Disorder History of Any Multi-Drug Resistant Organisms: None Reported Past Surgical History: No Surgical Hx Reported Past Psychological History: Anxiety Smoking Status: Never smoker Past Alcohol Use History: None Reported Past Drug Use History: None Reported - Past Family History family Family Medical History: Unable to Obtain Medications and Allergies Home Medications Medication Instructions Recorded Confirmed Type Albuterol Sulfate [Albuterol 2 puff PO RT-Q4H PRN 04/04/20 04/04/20 History Sulfate Hfa] Aspirin 81 mg PO DAILY 04/04/20 04/04/20 History Isosorbide Mononitrate ER [Imdur] 60 mg PO DAILY 04/04/20 04/04/20 History Levothyroxine Sodium 112 mcg PO DAILY 04/04/20 04/04/20 History Allergies Allergy/AdvReac Type Severity Reaction Status Date / Time No Known Allergies Allergy Verified 04/04/20 19:57 Physical Examination - Vital Signs Vital Signs: Vital Signs Temp Pulse Pulse Resp BP BP Pulse Ox 04/05/20 18:30 121 H 24 106/65 90 L 04/05/20 18:00 112 H 26 H 110/72 94 L 04/05/20 17:30 110 H 22 101/79 93 L 04/05/20 17:00 97.9 F 106 H 23 101/79 92 L 04/05/20 15:00 120 H 20 122/78 90 L 04/05/20 14:30 112 H 17 111/81 93 L 04/05/20 14:00 94 26 H 113/78 95 04/05/20 13:30 98 15 100/76 94 L 04/05/20 13:08 98.0 F 101 H 24 125/100 91 L 04/05/20 12:40 100 04/05/20 12:18 100 04/05/20 12:00 97.7 F 99 18 113/63 91 L 04/05/20 08:53 100 04/05/20 08:39 100 04/05/20 08:00 98.5 F 101 H 20 128/66 97 04/05/20 04:00 97.6 F 100 18 119/76 93 L 04/04/20 23:22 76 18 04/04/20 23:18 98.1 F 76 18 139/85 93 L 04/04/20 20:22 98.5 F 86 20 131/91 95 04/04/20 20:15 86 20 04/04/20 19:12 107 H 22 105/93 97 Intake and Output 04/05/20 04/05/20 04/05/20 06:59 14:59 22:59 Intake Total 90 50 Output Total 250 Balance -250 90 50 Intake: IV 50 Sodium Chloride 0.9% 1, 50 000 ml @ 90 mls/hr IV . [id number] JAD Rx#:[id number] Oral 90 Output: Urine 250 Other: Voiding Method Urinal Urinal Urinal # Voids 3 1 Weight 112 kg Results - Laboratory Findings CBC and BMP: 04/05/20 07:04 04/05/20 07:04 Abnormal Lab Findings: Abnormal Labs 04/04/20 04/04/20 04/05/20 18:00 19:07 07:04 MCV MCHC ABG pH ABG pCO2 ABG pO2 ABG O2 Saturation Chloride Carbon Dioxide BUN POC Glucose (mg/dL) Calcium AST ALT Troponin I 0.351 H* 0.432 H* Hyaline Casts 8 H Urine Mucus Rare H 04/05/20 04/05/20 04/05/20 07:04 07:04 10:45 MCV 102.8 H MCHC 28.4 L ABG pH 7.23 L ABG pCO2 >120 H* ABG pO2 150 H ABG O2 Saturation 98.7 H Chloride 86 L Carbon Dioxide 50 H* BUN 29 H POC Glucose (mg/dL) Calcium 8.2 L AST 156 H ALT 160 H Troponin I Hyaline Casts Urine Mucus 04/05/20 13:07 MCV MCHC ABG pH ABG pCO2 ABG pO2 ABG O2 Saturation Chloride Carbon Dioxide BUN POC Glucose (mg/dL) 68 L Calcium AST ALT Troponin I Hyaline Casts Urine Mucus Assessment and Plan Assessment: 79-year-old gentleman with known history of COPD hypothyroidism prior past history of chronic nicotine abuse. Patient presented with acute altered mental status dysarthria and evolving myoclonic jerks on admission. He was found to have acute hypoxic respiratory failure most likely due to COPD exacerbation. During the initial neurological evaluation the patient was quite altered with slurred speech and unable to follow commands and then within 30 minutes he began to improve to the point at the time of this dictation he has returned to close to baseline. Patient still however has had intermittent now more mild myoclonic jerks. An EEG that did show some evidence of time locked myoclonic jerks with EEG activity. Most likely myoclonic jerks are related to the underlying hypoxemia and should resolve with supportive care. Review of the MRI of the brain does not show any evidence at this time of acute ischemic or hemorrhagic infarct. The MRA a of the neck does not show any high- grade stenosis but there is 60% stenosis in the left internal carotid artery. An MRA of the brain is pending. Recommendations 1. Continue with neuro checks every 2 hours. Notified travel accommodations rater neurology if myoclonic jerks worsen. 2. Continue with Keppra 500 IV every 12. Once patient has returned completely back to baseline we will taper off of this. Unlikely that this patient will have persistent myoclonic jerks 3. Recommend lipid panel in a.m. 4. Speech therapy to evaluate dysarthria and swallow motility. 5. Agree with continued workup for abdominal aortic aneurysm. Thank you for this consultation. Neurology will follow closely on a daily basis and continue to make recommendations as the case evolves.
[2020-04-05] MEDS: MELATONIN 3 MG TABLET PO SCH (21:27)
[2020-04-05 23:11] LABS: Potassium 3.6 mmol/L (3.5-5.1)
[2020-04-06] MEDS: methylPREDNISolone SOD SUCCI 125 MG/2 ML VIAL IV SCH ×4 (00:32→23:34)
[2020-04-06] MEDS: HEPARIN SODIUM,PORCINE 5,000 UNIT/ML 1 ML VIAL SQ SCH ×4 (00:32→23:34)
[2020-04-06 05:23] LABS: Calcium 8.2 mg/dL (8.4-10.2); Potassium 5.7 mmol/L (3.5-5.1)
[2020-04-06 05:29] LABS: HCT 50.1 % (39.0-53.0); Hypochromasia Marked; MCH 29.6 pg (25.0-35.0); MCHC 28.1 g/dL (31.0-37.0); MCV 105.4 fL (80.0-100.0); Macrocytosis Slight; Mean Platelet Volume 9.2; Platelet Count 154 k/uL (150-450); RBC 4.75 m/uL (4.30-5.90); WBC 7.3 k/uL (3.8-10.6)
[2020-04-06 06:09] LABS: Eosinophils # (M) 0.07 k/uL (0-0.7); Lymphocytes # (M) 0.44 k/uL (1.0-4.8); Neutrophils # (M) 6.79 k/uL (1.3-7.7); Neutrophils % (M) 93 %; Nucleated Red Blood Cells 0 /100 WBC (0-0); Total Cells Counted 100
[2020-04-06] MEDS: LEVOTHYROXINE 112 MCG TAB PO SCH ×2 (06:13→09:19)
[2020-04-06] MEDS: FORMOTEROL FUMARATE 20 MCG/2 ML NEBU INHALATION SCH ×2 (08:05→18:51)
[2020-04-06] MEDS: BUDESONIDE 0.5 MG/2 ML NEBU INHALATION SCH ×2 (08:05→18:50)
[2020-04-06 08:39] LABS: ABG Base Excess 23.7 mmol/L; ABG Oxygen Saturation 83.2 % (94-97); ABG PH 7.33 (7.35-7.45); ABG TCO2 53 mmol/L (19-24); Allen Test Performed? Yes
[2020-04-06 08:44] LABS: ABG HCO3 50 mmol/L (21-25); ABG PCO2 94 mmHg (35-45); ABG PO2 48 mmHg (83-108)
--- NOTE | 2020-04-06 08:57 | US ---
EXAMINATION TYPE: US liver DATE OF EXAM: 04/06/2020 COMPARISON: NONE CLINICAL HISTORY: elevated liver enzymes . EXAM MEASUREMENTS: Liver Length: 12.1 cm Gallbladder Wall: 0.2 cm CBD: 0.5 cm Right Kidney: 7.9 x 3.8 x 4.4 cm limited exam on ICU patient unable to roll, all images done supine. Pancreas: wnl Liver: Coarsened echo pattern Gallbladder: No stones seen Evidence for sonographic Stern's sign: No CBD: wnl Right Kidney: lower pole obscured by bowel IMPRESSION: 1. Liver is coarsened in echo pattern. Can be seen with hepatic steatosis or hepatocellular disease c orrelate clinically
--- NOTE | 2020-04-06 08:58 | XR ---
EXAMINATION TYPE: XR chest 1V DATE OF EXAM: 04/06/2020 COMPARISON: 01/27/2012 HISTORY: Shortness of breath TECHNIQUE: Single frontal view of the chest is obtained. FINDINGS: Hyperinflation. The heart is mildly enlarged. Atherosclerotic change aorta. No pneumothora x. Pleural thickening or tiny pleural effusions. Coarsened interstitium. IMPRESSION: 1. Correlate for COPD. Coarsened interstitium can be associated with chronic interstitial lung diseas e, interstitial pneumonitis or mild venous congestion.
[2020-04-06] MEDS ORDERED: FUROSEMIDE 10 MG/ML 4 ML VIAL IV SCH (09:00)
[2020-04-06] MEDS: FUROSEMIDE 40 MG TAB PO SCH (09:18)
[2020-04-06] MEDS: ASPIRIN 325 MG TAB PO SCH (09:19)
[2020-04-06] MEDS: ISOSORBIDE MONONITRATE ER 60 MG TAB.ER.24H PO SCH (09:19)
[2020-04-06] MEDS: levETIRAcetam IV 500 MG in SODIUM CHLORIDE 0.9% 100 ML IVPB SCH ×2 (09:19→19:58)
[2020-04-06] MEDS: THIAMINE 100 MG/ML 2 ML VIAL IVP SCH (09:19)
--- NOTE | 2020-04-06 11:47 | P.PN ---
Subjective Progress Note Date: 04/06/20 A 7 79-year-old male patient who was transferred to us from [facility] because of acute hypoxic respiratory failure. The patient is known to have COPD and his dependent on home oxygen. According to the daughter, he is an ex-smoker is not smoking. His been living independently at home and he has been able to perform activities of daily today life. Apparently the patient was having altered mentation he was confused and the daughter called EMS to the scene and the patient was found to be quite hypoxic with a pulse ox of 70s. The patient was placed on a nonrebreather facemask was brought him up to 90% saturation and following that the patient got transferred initially to [facility] and later on to [facility]. During the course of his [facility] stay, the patient underwent a CT angiogram that showed no evidence of any pulmonary embolism. 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 There was no suspicious focal consolidation. There is mild interstitial edema and the patient was suspected to be CHF. Based on that the patient was started on diuresis. There was no evidence of any pulmonary embolism. There was at least a 6.9 cm abdominal aortic and is a bit was noted. CAT scan of the abdomen also confirmed the presence of a large abdominal aortic aneurysm. The blood work that was done showed a glucose of 129, BUN of 27, and a creatinine of 1.0, SGOT was 208, SGPT was 182, calcium level was 8.8, the CPK was 105, lactic acid level was 1.4, magnesium was at 2.1 with a troponin of 0.189. The patient also had a sodium of 142 with a chloride of 92 and a potassium of 4.8. White cell count was at 8.2 with a hemoglobin of 13.3. This morning, the patient was asked to be seen by pulmonary critical care. He was still altered and the family was at the bedside. Note that the patient has undergone a CAT scan of the brain that showed no acute abnormalities. His blood gases was done today and the patient was found to have a pH of 7.23 with episodes of more than 120 and pO2 of 150 and this was done on the percent nonrebreather facemask. He had developed significant metabolic alkalosis with a serum bicarb coming up to 50 while being given Lasix 40 mg every 8 hours. For that reason, the patient was transferred to the intensive care unit. The echocardiogram that was done showed an ejection fraction of 50-55%, the valvular functions were all within normal limits, the patient had normal IVC respiratory collapse indicating that the estimated right atrial pressure was 5. No evidence of any pericardial effusion. On today's evaluation of 04/05/2020 and seeing this patient for a follow-up. The patient is much more awake and alert compared to yesterday. Is conversing and he seems to be very much appropriate. Note that I kept on his diuretics yesterday as the patient was becoming more alkalotic and he had a significant amount of CO2 and a component of CO2 narcosis. MRI of the brain has been negative. EEG was showing some metabolic encephalopathy. Nevertheless, there was no seizure activity noted and the patient was given IV Keppra per neurology. No focal neurological deficits. This morning, repeat blood gases was done and the patient has a pH of 7.33 with a pCO2 of 94. I gave him to dose of Diamox yesterday and his serum bicarb is no significant cardiac arrhythmias. He will be placed on 40 to about 2 by nasal cannula to improve his hypoxemia. Meanwhile, the patient had a combination of bronchodilators and systemic steroids. As mentioned earlier, I switched his Lasix to oral 40 mg by mouth on a daily basis. He is not accepting any BiPAP use. Objective - Vital Signs Vital signs: Vital Signs Temp 98.1 F 04/06/20 08:00 Pulse 89 04/06/20 10:00 Resp 27 H 04/06/20 10:00 BP 110/82 04/06/20 10:00 Pulse Ox 98 04/06/20 10:00 Intake & Output 04/05/20 04/06/20 04/06/20 18:59 06:59 18:59 Intake Total 190 700 600 Output Total 200 475 Balance 190 500 125 Weight 52.8 kg Intake: IV 100 600 350 Sodium Chloride 0.9% 1, 100 600 250 000 ml @ 50 mls/hr IV . Q20H [facility] Rx#:[id number] levETIRAcetam IV 500 mg 100 In Sodium Chloride 0.9% 100 ml @ 400 mls/hr IVPB Q12HR [facility] Rx#:[id number] Intake, IV Titration 100 Amount levETIRAcetam IV 500 mg 100 In Sodium Chloride 0.9% 100 ml @ 400 mls/hr IVPB Q12HR [facility] Rx#:[id number] Oral 90 250 Output: Urine 200 475 Other: Voiding Method Urinal Bedside Commode Bedside Commode Urinal Urinal # Voids 1 1 - Exam Gen. appearance is alert and awake and communicating and answering questions appropriately. Head exam was generally normal. There was no scleral icterus or corneal arcus. Mucous membranes were moist. Neck was supple and without jugular venous distension, thyromegaly, or carotid bruits. Carotids were easily palpable bilaterally. There was no adenopathy. lung sounds are markedly diminished bilaterally along with some few rales in the lung bases. Scattered SCANT expiratory wheezes. He is not using excessive muscle breathing. Heart sounds are distant, regular, positive psoas sign is no significant murmurs appreciated. Abdominal exam revealed normal bowel sounds. The abdomen was soft, non-tender, and without masses, organomegaly, or appreciable enlargement of the abdominal aorta. The patient has a pulsatile mass in the mid abdominal area related to his underlying large abdominal aortic aneurysm which is measuring 6.9 cm in size on the CAT scan of the chest and abdomen. Extremities revealed no edema and there is no cyanosis or clubbing. No open wounds or sores. Examination of the skin revealed no evidence of significant rashes, suspicious appearing nevi or other concerning lesions. Neurologically the patient is able to move all 4 extremities. Strength is essentially diminished 4 out of 5 in all 4 extremities, symmetrical. Cranial nerves are grossly intact with equal and symmetrical. Without any nystagmus. No clonus. No Babinski at this point in time. Gait cannot be assessed. - Labs CBC & Chem 7: 04/06/20 04:26 04/06/20 04:26 Labs: Abnormal Lab Results - Last 24 Hours (Table) 04/05/20 04/05/20 04/06/20 Range/Units 13:07 22:35 04:26 MCV 105.4 H (80.0-100.0) fL MCHC 28.1 L (31.0-37.0) g/dL Lymphocytes # (Manual) 0.44 L (1.0-4.8) k/uL ABG pH (7.35-7.45) ABG pCO2 (35-45) mmHg ABG pO2 (83-108) mmHg ABG HCO3 (21-25) mmol/L ABG Total CO2 (19-24) mmol/L ABG O2 Saturation (94-97) % Potassium (3.5-5.1) mmol/L Chloride 83 L (98-107) mmol/L Carbon Dioxide 50 H* (22-30) mmol/L BUN 35 H (9-20) mg/dL Glucose 204 H (74-99) mg/dL POC Glucose (mg/dL) 68 L (75-99) mg/dL Calcium 8.0 L (8.4-10.2) mg/dL 04/06/20 04/06/20 Range/Units 04:26 08:36 MCV (80.0-100.0) fL MCHC (31.0-37.0) g/dL Lymphocytes # (Manual) (1.0-4.8) k/uL ABG pH 7.33 L (7.35-7.45) ABG pCO2 94 H* (35-45) mmHg ABG pO2 48 L* (83-108) mmHg ABG HCO3 50 H* (21-25) mmol/L ABG Total CO2 53 H (19-24) mmol/L ABG O2 Saturation 83.2 L (94-97) % Potassium 5.7 H (3.5-5.1) mmol/L Chloride 89 L (98-107) mmol/L Carbon Dioxide 46 H* (22-30) mmol/L BUN 32 H (9-20) mg/dL Glucose 131 H (74-99) mg/dL POC Glucose (mg/dL) (75-99) mg/dL Calcium 8.2 L (8.4-10.2) mg/dL Assessment and Plan Plan: 1 acute on chronic hypoxic respiratory failure most echo on the basis of COPD exacerbation. No clear signs of decompensated heart failure. Despite an elevated proBNP level, the patient echo cardiac exam is essentially within normal limits. The patient was subjected diuretics which made him quite alkalotic and the most recent blood gas shows significant alkalosis and worsening of the hypercapnic respiratory failure. The blood gases consistent with acute on top of chronic hypercapnic respiratory failure. The patient would benefit from Diamox and BiPAP therapy to optimize his acid-base status. Chest x-ray and CAT scan does not show any evidence of pneumonia. On today's evaluation of 04/03/2020, there is improvement in the patient's acid- base status. The patient is still hypoxic. We'll give 2 additional dose of Diamox. We will try to correct the metabolic alkalosis. I reviewed the echocardiogram and there is no significant signs of congestion heart failure and the patient has reserved LV function. Currently on oral Lasix and IV Diamox. The patient will be also will be placed on 40 selective by nasal cannula. 2 acute on chronic hypercapnic respiratory failure, details discussed above 3 advanced COPD with chronic hypoxic respiratory failure 4 altered mentation secondary to CO2 narcosis, MRI of the brain showed scattered white matter signal changes related to chronic small vessel ischemia without any acute abnormalities. The MRA of the brain showed 60% stenosis of the left internal carotid artery 5 chronic metabolic alkalosis, Necessity to chronic hypercapnic respiratory failure in addition to worsening due to diuresis, improving on Diamox and Lasix as this patient oral 40 g by mouth daily. 6 abnormal troponin, likely troponin leak without any evidence of ST segment elevation. Consider non-STEMI 7 transaminitis, ultrasound the liver shows some hepatic steatosis, common bile duct is within normal limits 8 Abdominal aortic aneurysm measuring 6.9 cm in size Plan Lasix 40 mg by mouth daily The patient does of Diamox 500 mg every 12 hours 2 additional doses Continue the bronchodilators and systemic steroids Repeat blood gases in the morning Vascular surgery consult regarding her bowel aortic aneurysm Echo was noted Cardiology consult was obtained He is a full code and the family is opted to proceed with intubation mechanical ventilation if needed Resume home medications Bronchodilators with DuoNeb nebulized treatment [id number] IV Solu-Medrol Advance diet as tolerated and provide this patient a regular diet IV fluids with normal saline We'll continue to follow. Long-term prognosis poor baseline above-mentioned comorbidities. We'll keep the patient ICU for 24 hours.
--- NOTE | 2020-04-06 12:14 | PN ---
PROGRESS NOTE Gael is a 79-year-old gentleman who is admitted to hospital with confusion and was in respiratory failure. This morning he is feeling better. He is more appropriate and less confused and the pCO2 level and his blood gases have gone down from 120-94. An echocardiogram on him shows normal LV function. EXAM: Heart rate is 89 beats. Blood pressure is 110/80. Respirations 18. Chest exam reveals good air entry bilaterally. Heart exam reveals first and second heart sounds. No gallop. No murmur. Abdomen is soft. Exam of extremities reveals mild edema. Peripheral pulses are felt. ASSESSMENT: Confusion secondary to secondary to acute respiratory failure. PLAN: Continue with the current measures. MMODL / IJN: [id number] /
[2020-04-06] MEDS: SODIUM CHLORIDE 0.9% 1,000 ML IV SCH (13:49)
--- NOTE | 2020-04-06 14:35 | P.PN ---
Subjective Progress Note Date: 04/05/20 Principal diagnosis: CHF Patient seen and examined at bedside. Patient resting comfortably in bed. Daughter at bedside. Patient's daughter states that she does not feel like her father is doing any better. Objective - Vital Signs Vital signs: Vital Signs Temp 98.5 F 04/05/20 08:00 Pulse 100 04/05/20 08:53 Resp 20 04/05/20 08:00 BP 128/66 04/05/20 08:00 Pulse Ox 97 04/05/20 08:00 Intake & Output 04/04/20 04/05/20 04/05/20 18:59 06:59 18:59 Intake Total 540 90 Output Total 600 Balance -60 90 Weight 56.699 kg 112 kg Intake: Oral 540 90 Output: Urine 600 Other: Voiding Method Urinal # Voids 3 - Exam General: [non toxic], [no distress], [appears at stated age] Derm: [warm], [dry] Head: [atraumatic], [normocephalic], [symmetric] Eyes: [EOMI], [no lid lag], [anicteric sclera] Mouth: [no lip lesion], [mucus membranes moist] Cardiovascular: [S1S2 reg], [no murmur], [positive posterior tibial pulse bilateral], Lungs: [diminished breath sounds b/l], [no rhonchi, no rales] , [no accessory muscle use] Abdominal: [soft], [ nontender to palpation], [no guarding], [no appreciable organomegaly] Ext: [no gross muscle atrophy], [no edema], [no contractures] Neuro: [ CN II-XI grossly intact], [no focal neuro deficits] Psych: [Alert], [oriented], [appropriate affect] - Labs CBC & Chem 7: 04/05/20 07:04 04/05/20 07:04 Labs: Abnormal Lab Results - Last 24 Hours (Table) 04/04/20 04/04/20 04/05/20 Range/Units 18:00 19:07 07:04 MCV (80.0-100.0) fL MCHC (31.0-37.0) g/dL Chloride (98-107) mmol/L Carbon Dioxide (22-30) mmol/L BUN (9-20) mg/dL Calcium (8.4-10.2) mg/dL AST (17-59) U/L ALT (4-49) U/L Troponin I 0.351 H* 0.432 H* (0.000-0.034) ng/mL Hyaline Casts 8 H (0-2) /lpf Urine Mucus Rare H (None) /hpf 04/05/20 04/05/20 Range/Units 07:04 07:04 MCV 102.8 H (80.0-100.0) fL MCHC 28.4 L (31.0-37.0) g/dL Chloride 86 L (98-107) mmol/L Carbon Dioxide 50 H* (22-30) mmol/L BUN 29 H (9-20) mg/dL Calcium 8.2 L (8.4-10.2) mg/dL AST 156 H (17-59) U/L ALT 160 H (4-49) U/L Troponin I (0.000-0.034) ng/mL Hyaline Casts (0-2) /lpf Urine Mucus (None) /hpf Assessment and Plan Assessment: Acute on chronic hypoxic respiratory failure secondary to COPD exacerbation Rule out acute congestive heart failure with elevated troponin levels and bilateral pleural effusions - ABG ordered - IV lasix and IV steroids - check BNP - pulmonary and cardiology recommendations appreciated Expressive aphagia r/o stroke -CT head negative -await MRI, drug and alcohol screen, and vit b12 level neurology recommendations appreciated AAA -vascular recommendations appreciated Elevated transaminases -check US of liver Hypothyoid -continue levothyroxine GI/DVT prophylaxis AM labs
--- NOTE | 2020-04-06 15:26 | CDI ---
Documentation Clarification Form Date: 04/06/2020 02:36:35 PM From: Sole Sherwood RN CCDS Email: [email or web address] Admit Date: 04/04/2020 05:57:00 PM Patient Name: Gael Reeder Visit Number: [id number] Discharge Date: ATTENTION: The Clinical Documentation Specialists (CDI) and [facility] Coding Staff appreciate your assistance in clarifying documentation. Please respond to the clarification below the line at the bottom and electronically sign. The CDI & [facility] Coding staff will review the response and follow-up if needed. Please note: Queries are made part of the Legal Health Record. If you have any questions, please contact the author of this message via ITS. Dr. Harpreet Lowery Elevated troponin secondary to respiratory failure is documented in your Consult 04/05 History/Risk Factors: 79-year-old male presents to the ED as a transfer from [facility] the patient was found by nephew confused and cyanotic. Medical History COPD and HTN. Clinical Indicators: Per the H&P 04/04 The patient was found confused and cyanotic the supplemental oxygen wasnt working SPO2 in the low 70%. Lab findings: Troponin 04/04 0.351, 04/05 0.432 04/04 EKG: sinus tachycardia 04/04 Vital Signs: 141/124 114 99.2 22 94 % 4L nasal Cannula 04/05 Pulmonology Consult: abnormal troponin, likely troponin leak without any evidence of ST segment elevation. Consider non-STEMI Treatment:04/04 4Lnasal cannula 04/05 Bipap In your professional opinion, can you please clarify the clinical significance of the elevated troponin? Type 2 NE secondary to demand ischemia in the setting of Respiratory Failure Type 2 NE secondary to demand ischemia due to please (specify) Other, please specify Unable to determine (Last Revision: January 2018) MTDD
--- NOTE | 2020-04-06 16:33 | P.PN ---
Subjective Progress Note Date: 04/06/20 (delayed charting seen at 1215) Principal diagnosis: altered mentation Patient is a 71-year-old male with hypothyroidism, COPD on home oxygen end-stage per his outpatient integrity manager Dr. Moon, hypertension, and prior tobacco abuse who presented initially to an outside hospital secondary to confusion and hypoxia. Apparently his nephew checked on him and he is noted to be confused and cyanotic. When EMS arrived he was hypoxic with an O2 sat of 70% was transferred to the hospital. Initial workup showed an abdominal aortic aneurysm 6.5 cm, elevated troponin, elevated BNP, and small bilateral pleural effusions. He was started on diuretics and transferred to our facility. CT brain showed no acute process with mild diffuse cerebral atrophy. He was diagnosed with COPD, elevated troponin with rule out myocardial infarction, and possible CHF secondary to pulmonary congestion with bilateral pleural effusions. He was started on aspirin. He underwent an echocardiogram which showed an ejection fraction of 50-55% without significant valvular disease. Carotid Doppler showed bilateral plaque with no significant hemodynamic stenosis. He was seen by vascular surgery who recommended outpatient follow-up. On the morning after admission he was noted to have continued altered mentation. ABG was checked and was found to be significantly hypercapnic. Pulmonary was consulted he was diagnosed with a COPD exacerbation was started on Diamox as well as titration of his oxygen, IV Solu-Medrol, and bronchodilators. He was transferred to the ICU for closer monitoring. Neurology was consulted for possible stroke versus seizure and he was subsequently diagnosed with myoclonic jerking as EEG demonstrated increased seizure tendency but no active seizure activity. MRI of the brain showed scattered white matter signal changes related to chronic small vessel ischemia. MRA of the neck showed 60% stenosis in the left internal carotid artery. Liver ultrasound showed a coarse echotexture seen with hepatic steatosis. By the morning of 04/06 his CO2 levels are much improved and his mentation had begun to improve. Symmetric archaeology who felt that his troponin was likely elevated secondary to his respiratory failure as his ejection fraction was normal. Patient seen and examined at bedside. He denies any shortness of breath, chest pain, nausea, or vomiting. He appears to be somewhat disoriented and his thinking with flight of ideas. He attempts to talk about CODE STAT[employer] with me, he states that he would be okay being intubated for a short amount of time, but does not want to be kept alive on machines and tubes he then goes on about how him and his daughter has talked about this paperwork filed the compliance project manager. He is uable to tell me at this says/shows. He does report that he follows with Dr. Moon the integrity manager and was told that if he was not close to 81 years old he would be a candidate for lung transplant. He endorses that he smoked for appr oximately 50 years and worked in [employer]. Sitter at bedside as patient is impulsive Objective - Vital Signs Vital signs: Vital Signs Temp 98.1 F 04/06/20 08:00 Pulse 107 H 04/06/20 13:00 Resp 16 04/06/20 13:00 BP 107/68 04/06/20 13:00 Pulse Ox 93 L 04/06/20 13:00 Intake & Output 04/05/20 04/06/20 04/06/20 18:59 06:59 18:59 Intake Total 190 700 900 Output Total 200 475 Balance 190 500 425 Weight 52.8 kg 52.8 kg Intake: IV 100 600 450 Sodium Chloride 0.9% 1, 100 600 350 000 ml @ 50 mls/hr IV . Q20H [facility] Rx#:[id number] levETIRAcetam IV 500 mg 100 In Sodium Chloride 0.9% 100 ml @ 400 mls/hr IVPB Q12HR [facility] Rx#:[id number] Intake, IV Titration 100 Amount levETIRAcetam IV 500 mg 100 In Sodium Chloride 0.9% 100 ml @ 400 mls/hr IVPB Q12HR [facility] Rx#:[id number] Oral 90 450 Output: Urine 200 475 Other: Voiding Method Urinal Bedside Commode Bedside Commode Urinal Urinal # Voids 1 1 - Exam General: non toxic, no distress, appears at stated age, barrel chest Derm: multiple areas of small ecchymosis, warm, dry Head: atraumatic, normocephalic, symmetric Eyes: EOMI, no lid lag, anicteric sclera Mouth: no lip lesion, mucus membranes moist Cardiovascular: S1S2 reg, no murmur, positive posterior tibial pulse bilateral, Lungs: decrease bs bilateral with expiratory wheeze, no rhonchi, no rales , no accessory muscle use Abdominal: soft, nontender to palpation, no guarding, no appreciable organomegaly Ext: no gross muscle atrophy, no edema, no contractures Neuro: CN II-XI grossly intact, no focal neuro deficits Psych: Alert, oriented, very aminated - Labs CBC & Chem 7: 04/06/20 04:26 04/06/20 12:20 Labs: Abnormal Lab Results - Last 24 Hours (Table) 04/05/20 04/06/20 04/06/20 Range/Units 22:35 04:26 04:26 MCV 105.4 H (80.0-100.0) fL MCHC 28.1 L (31.0-37.0) g/dL Lymphocytes # (Manual) 0.44 L (1.0-4.8) k/uL ABG pH (7.35-7.45) ABG pCO2 (35-45) mmHg ABG pO2 (83-108) mmHg ABG HCO3 (21-25) mmol/L ABG Total CO2 (19-24) mmol/L ABG O2 Saturation (94-97) % Potassium 5.7 H (3.5-5.1) mmol/L Chloride 83 L 89 L (98-107) mmol/L Carbon Dioxide 50 H* 46 H* (22-30) mmol/L BUN 35 H 32 H (9-20) mg/dL Glucose 204 H 131 H (74-99) mg/dL Calcium 8.0 L 8.2 L (8.4-10.2) mg/dL 04/06/20 Range/Units 08:36 MCV (80.0-100.0) fL MCHC (31.0-37.0) g/dL Lymphocytes # (Manual) (1.0-4.8) k/uL ABG pH 7.33 L (7.35-7.45) ABG pCO2 94 H* (35-45) mmHg ABG pO2 48 L* (83-108) mmHg ABG HCO3 50 H* (21-25) mmol/L ABG Total CO2 53 H (19-24) mmol/L ABG O2 Saturation 83.2 L (94-97) % Potassium (3.5-5.1) mmol/L Chloride (98-107) mmol/L Carbon Dioxide (22-30) mmol/L BUN (9-20) mg/dL Glucose (74-99) mg/dL Calcium (8.4-10.2) mg/dL Assessment and Plan Assessment: Acute exacerbation of COPD with acute on chronic hypoxic hypercapnic respiratory failure -Pulmonary recommendations appreciated -Continue with Diamox, IV Solu-Medrol, and fixed and when necessary bronchodilators -Pulmonary hygiene -Wean O2 as able -Would benefit from outpatient pulmonary rehab Toxic metabolic encephalopathy likely secondary to CO2 retention -Supportive care -Sitter at bedside -Treatment as above Elevated troponin reflective of hypoxemia -Acute coronary syndrome ruled out -Echocardiogram within normal limits -Cardiology recommendations appreciated Transaminitis -Repeat CMP in a.m. -Liver ultrasound shows signs of steatohepatitis suggested that this may be chronic in nature -Outpatient follow-up Abdominal aortic aneurysm -Incidental finding -Vesicular surgery recommendations appreciated. Outpatient follow-up. History of tobacco abuse DVT prophylaxis: Heparin Discussed with: Patient, nursing, case management Anticipated discharge: 3-[address]: SNF VS with family A total of 65 minutes was spent on the care of this complex patient more than 50% of the time was spent in counseling and care coordination.
[2020-04-06] MEDS: MELATONIN 3 MG TABLET PO SCH (19:58)
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
[2020-04-06] MEDS: QUEtiapine 25 MG TAB PO SCH (21:18)
[2020-04-07 05:05] LABS: HCT 42.3 % (39.0-53.0); HGB 12.2 gm/dL (13.0-17.5); Hypochromasia Marked; MCH 29.8 pg (25.0-35.0); MCHC 28.7 g/dL (31.0-37.0); MCV 103.7 fL (80.0-100.0); Macrocytosis Slight; Mean Platelet Volume 9.4; Platelet Count 155 k/uL (150-450); RBC 4.08 m/uL (4.30-5.90); RDW 13.3 % (11.5-15.5); WBC 6.7 k/uL (3.8-10.6)
[2020-04-07 06:03] LABS: Calcium 8.4 mg/dL (8.4-10.2); Magnesium 2.2 mg/dL (1.6-2.3); Phosphorus 3.9 mg/dL (2.5-4.5)
[2020-04-07] MEDS: FORMOTEROL FUMARATE 20 MCG/2 ML NEBU INHALATION SCH ×2 (07:32→20:25)
[2020-04-07] MEDS: BUDESONIDE 0.5 MG/2 ML NEBU INHALATION SCH ×2 (07:32→20:25)
[2020-04-07 09:06] LABS: ABG Base Excess 17.7 mmol/L; ABG Oxygen Saturation 98.6 % (94-97); ABG PH 7.27 (7.35-7.45); ABG PO2 150 mmHg (83-108); ABG TCO2 48 mmol/L (19-24); Allen Test Performed? Yes
[2020-04-07 09:08] LABS: ABG PCO2 98 mmHg (35-45)
[2020-04-07] MEDS: HEPARIN SODIUM,PORCINE 5,000 UNIT/ML 1 ML VIAL SQ SCH ×3 (09:13→23:51)
[2020-04-07] MEDS: levETIRAcetam ORAL SOLN 500 MG/5 ML CUP PO SCH ×2 (09:14→22:30)
[2020-04-07] MEDS: methylPREDNISolone SOD SUCCI 40 MG/ML 1 ML VIAL IV SCH ×2 (09:14→22:33)
[2020-04-07] MEDS: FUROSEMIDE 40 MG TAB PO SCH (09:14)
[2020-04-07] MEDS: ASPIRIN 325 MG TAB PO SCH (09:14)
[2020-04-07] MEDS: ISOSORBIDE MONONITRATE ER 60 MG TAB.ER.24H PO SCH (09:14)
[2020-04-07] MEDS: THIAMINE 100 MG/ML 2 ML VIAL IVP SCH (10:55)
--- NOTE | 2020-04-07 13:08 | PN ---
PROGRESS NOTE Gael is a 79-year-old gentleman who was admitted to hospital with acute onset respiratory failure with CO2 narcosis. He is resting comfortably in bed, has been agitated and confused earlier in the day. On exam, patient is sleeping. Heart rate is 100 beats per minute. Blood pressure is normal. Chest exam reveals good air entry bilaterally. Heart exam reveals first and second heart sounds. No gallop. Exam of extremities did not reveal any edema. Peripheral pulses are felt. His lab show a hemoglobin of 12.2. Blood gases show a pH of 7.2, pCO2 of 98, PO2 of 150. Potassium is 4, BUN is 38, creatinine is 1.2. ASSESSMENT: 1. Acute exacerbation of chronic respiratory failure. 2. Confusion secondary to above. PLAN: We will continue the patient on Lasix 40 mg daily along with rest of his medications. MMODL / ANTHONYN: [id number] /
--- NOTE | 2020-04-07 13:11 | P.PN ---
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 Moon, hypertension, and prior tobacco abuse who presented initially to an outside hospital secondary to confusion and hypoxia. Apparently his nephew checked on him and he was noted to be confused and cyanotic. When EMS arrived he was hypoxic with an O2 sat of 70% was transferred to the hospital. Initial workup showed an abdominal aortic aneurysm 6.5 cm, elevated troponin, elevated BNP, and small bilateral pleural effusions. He was started on diuretics and transferred to our facility. CT brain showed no acute process with mild diffuse cerebral atrophy. He was diagnosed with COPD, elevated troponin with rule out myocardial infarction, and possible CHF secondary to pulmonary congestion with bilateral pleural effusions. He was started on aspirin. He underwent an echocardiogram which showed an ejection fraction of 50-55% without significant valvular disease. Carotid Doppler showed bilateral plaque with no significant hemodynamic stenosis. He was seen by vascular surgery who recommended outpatient follow-up. On the morning after admission he was noted to have continued altered mentation. ABG was checked and was found to be significantly hypercapnic. Pulmonary was consulted he was diagnosed with a COPD exacerbation was started on Diamox as well as titration of his oxygen, IV Solu-Medrol, and bronchodilators. He was transferred to the ICU for closer monitoring. Neurology was consulted for possible stroke versus seizure and he was subsequently diagnosed with myoclonic jerking as EEG demonstr ated increased seizure tendency but no active seizure activity. MRI of the brain showed scattered white matter signal changes related to chronic small vessel ischemia. MRA of the neck showed 60% stenosis in the left internal carotid artery. Liver ultrasound showed a coarse echotexture seen with hepatic steatosis. By the morning of 04/06 his CO2 levels are much improved and his mentation had begun to improve. He was seen by cardiology who felt that his troponin was likely elevated secondary to his respiratory failure as his ejection fraction was normal. Patient seen and examined at bedside. He is slightly more somonolent today. No chest pain, SOB, nasuea, or vomiting, but he does endorse being tired. D/W pulmonary will continue with diamox and patient does not want to go on bipap. Objective - Vital Signs Vital signs: Vital Signs Temp 98.2 F 04/07/20 04:00 Pulse 86 04/07/20 10:00 Resp 19 04/07/20 11:42 BP 114/78 04/07/20 10:00 Pulse Ox 93 L 04/07/20 10:00 Intake & Output 04/06/20 04/07/20 04/07/20 18:59 06:59 18:59 Intake Total 1150 1000 200 Output Total 900 300 275 Balance 250 700 -75 Weight 52.8 kg 54 kg Intake: IV 700 700 200 Sodium Chloride 0.9% 1, 600 600 200 000 ml @ 50 mls/hr IV . Q20H [facility] Rx#:[id number] levETIRAcetam IV 500 mg 100 100 In Sodium Chloride 0.9% 100 ml @ 400 mls/hr IVPB Q12HR [facility] Rx#:[id number] Oral 450 300 Output: Urine 900 300 275 Other: Voiding Method Bedside Commode Bedside Commode Urinal Urinal # Voids 1 - Exam General: non toxic, no distress, appears at stated age, barrel chest Derm: multiple areas of small ecchymosis, warm, dry Head: atraumatic, normocephalic, symmetric Eyes: EOMI, no lid lag, anicteric sclera Mouth: no lip lesion, mucus membranes moist Cardiovascular: S1S2 reg, no murmur, positive posterior tibial pulse bilateral, Lungs: decrease bs bilateral with expiratory wheeze, no rhonchi, no rales , no accessory muscle use Abdominal: soft, nontender to palpation, no guarding, no appreciable organomegaly Ext: no gross muscle atrophy, no edema, no contractures Neuro: CN II-XI grossly intact, no focal neuro deficits Psych: Alert, more resserved today - Labs CBC & Chem 7: 04/07/20 04:06 04/07/20 04:06 Labs: Abnormal Lab Results - Last 24 Hours (Table) 04/07/20 04/07/20 04/07/20 Range/Units 04:06 04:06 08:52 RBC 4.08 L (4.30-5.90) m/uL Hgb 12.2 L (13.0-17.5) gm/dL MCV 103.7 H (80.0-100.0) fL MCHC 28.7 L (31.0-37.0) g/dL ABG pH 7.27 L (7.35-7.45) ABG pCO2 98 H* (35-45) mmHg ABG pO2 150 H (83-108) mmHg ABG HCO3 45 H* (21-25) mmol/L ABG Total CO2 48 H (19-24) mmol/L ABG O2 Saturation 98.6 H (94-97) % Chloride 93 L (98-107) mmol/L Carbon Dioxide 44 H* (22-30) mmol/L BUN 38 H (9-20) mg/dL Glucose 128 H (74-99) mg/dL Assessment and Plan Assessment: Acute exacerbation of COPD with acute on chronic hypoxic hypercapnic respiratory failure -Pulmonary recommendations appreciated -Continue with Diamox, IV Solu-Medrol, and fixed and when necessary bronchodilators -Pulmonary hygiene -Wean O2 as able -Would benefit from outpatient pulmonary rehab Toxic metabolic encephalopathy likely secondary to CO2 retention -Supportive care -Sitter at bedside -Treatment as above Elevated troponin reflective of hypoxemia -Acute coronary syndrome ruled out -Echocardiogram within normal limits -Cardiology recommendations appreciated Transaminitis -Repeat CMP in a.m. -Liver ultrasound shows signs of steatohepatitis suggested that this may be chronic in nature -Outpatient follow-up Myoclonic jerking - neuro recs appreciated - on Keppra wean, felt to be due to hypoxia and likely reversible Abdominal aortic aneurysm -Incidental finding -Vesicular surgery recommendations appreciated. Outpatient follow-up. Carotid stenosis L - outpatient follow-up History of tobacco abuse DVT prophylaxis: Heparin Discussed with: Patient, nursing, case management Anticipated discharge: 2-[address]: with family and / supervision A total of 25 minutes was spent on the care of this complex patient more than 50% of the time was spent in counseling and care coordination.
--- NOTE | 2020-04-07 13:11 | XR ---
EXAMINATION TYPE: XR chest 1V portable DATE OF EXAM: 04/07/2020 HISTORY: Shortness of breath. COMPARISON: 04/06/2020 TECHNIQUE: Single view of the chest is submitted. FINDINGS: Demonstrated are scattered senescent parenchymal change. There is no evidence for focal infiltrate. Mild interstitial prominence right lower lobe could reflec t interstitial pneumonitis. Correlate clinically. The heart is stable. Hilar and mediastinal structures are within normal limits. Degenerative changes are seen of the dorsal spine. IMPRESSION: 1. Mild interstitial prominence right lower lobe could reflect interstitial pneumonitis. Correlate c linically.
--- NOTE | 2020-04-07 14:47 | P.PN ---
Subjective Progress Note Date: 04/07/20 A 7 79-year-old male patient who was transferred to us from [facility] because of acute hypoxic respiratory failure. The patient is known to have COPD and his dependent on home oxygen. According to the daughter, he is an ex-smoker is not smoking. His been living independently at home and he has been able to perform activities of daily today life. Apparently the patient was having altered mentation he was confused and the daughter called EMS to the scene and the patient was found to be quite hypoxic with a pulse ox of 70s. The patient was placed on a nonrebreather facemask was brought him up to 90% saturation and following that the patient got transferred initially to [facility] and later on to [facility]. During the course of his [facility] stay, the patient underwent a CT angiogram that showed no evidence of any pulmonary embolism. 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 There was no suspicious focal consolidation. There is mild interstitial edema and the patient was suspected to be CHF. Based on that the patient was started on diuresis. There was no evidence of any pulmonary embolism. There was at least a 6.9 cm abdominal aortic and is a bit was noted. CAT scan of the abdomen also confirmed the presence of a large abdominal aortic aneurysm. The blood work that was done showed a glucose of 129, BUN of 27, and a creatinine of 1.0, SGOT was 208, SGPT was 182, calcium level was 8.8, the CPK was 105, lactic acid level was 1.4, magnesium was at 2.1 with a troponin of 0.189. The patient also had a sodium of 142 with a chloride of 92 and a potassium of 4.8. White cell count was at 8.2 with a hemoglobin of 13.3. This morning, the patient was asked to be seen by pulmonary critical care. He was still altered and the family was at the bedside. Note that the patient has undergone a CAT scan of the brain that showed no acute abnormalities. His blood gases was done today and the patient was found to have a pH of 7.23 with episodes of more than 120 and pO2 of 150 and this was done on the percent nonrebreather facemask. He had developed significant metabolic alkalosis with a serum bicarb coming up to 50 while being given Lasix 40 mg every 8 hours. For that reason, the patient was transferred to the intensive care unit. The echocardiogram that was done showed an ejection fraction of 50-55%, the valvular functions were all within normal limits, the patient had normal IVC respiratory collapse indicating that the estimated right atrial pressure was 5. No evidence of any pericardial effusion. On today's evaluation of 04/05/2020 and seeing this patient for a follow-up. The patient is much more awake and alert compared to yesterday. Is conversing and he seems to be very much appropriate. Note that I kept on his diuretics yesterday as the patient was becoming more alkalotic and he had a significant amount of CO2 and a component of CO2 narcosis. MRI of the brain has been negative. EEG was showing some metabolic encephalopathy. Nevertheless, there was no seizure activity noted and the patient was given IV Keppra per neurology. No focal neurological deficits. This morning, repeat blood gases was done and the patient has a pH of 7.33 with a pCO2 of 94. I gave him to dose of Diamox yesterday and his serum bicarb is no significant cardiac arrhythmias. He will be placed on 40 to about 2 by nasal cannula to improve his hypoxemia. Meanwhile, the patient had a combination of bronchodilators and systemic steroids. As mentioned earlier, I switched his Lasix to oral 40 mg by mouth on a daily basis. He is not accepting any BiPAP use. On 12/17/2019, the patient is doing well and he is resting comfortably in bed. The patient is currently utilizing 4 L of oxygen by nasal cannula. I repeated the blood gas today and the patient continues to have a component of hypercapnic respiratory failure. Based on morning blood gases, the patient's pH is at 7.27 with a pCO2 of 98 and pO2 of 150 and I reduced oxygen flow down to 2 L of oxygen by nasal cannula. The patient's is denying having any significant respiratory distress. He is currently receiving Diamox and Lasix. The metabolic alkalosis is improved and his serum bicarb level is down to 44.the neurologist evaluated this patient as the patient was having some altered mental status. Apparently was having some occasional slurred speech. I find him quite oriented to time and place and people. He is able to follow commands and he has adequate strength for now. Note that the patient's was initially started on Keppra for concerns of seizure activity. The medications currently being weaned off by neurology. He is afebrile. Hemodynamically stable. Objective - Vital Signs Vital signs: Vital Signs Temp 98.2 F 04/07/20 04:00 Pulse 89 04/07/20 13:00 Resp 19 04/07/20 13:00 BP 101/71 04/07/20 13:00 Pulse Ox 92 L 04/07/20 13:00 Intake & Output 04/06/20 04/07/20 04/07/20 18:59 06:59 18:59 Intake Total 1150 1000 200 Output Total 900 300 275 Balance 250 700 -75 Weight 52.8 kg 54 kg Intake: IV 700 700 200 Sodium Chloride 0.9% 1, 600 600 200 000 ml @ 50 mls/hr IV . Q20H [facility] Rx#:[id number] levETIRAcetam IV 500 mg 100 100 In Sodium Chloride 0.9% 100 ml @ 400 mls/hr IVPB Q12HR [facility] Rx#:[id number] Oral 450 300 Output: Urine 900 300 275 Other: Voiding Method Bedside Commode Bedside Commode Urinal Urinal # Voids 1 - Exam Gen. appearance is alert and awake and communicating and answering questions appropriately. Head exam was generally normal. There was no scleral icterus or corneal arcus. Mucous membranes were moist. Neck was supple and without jugular venous distension, thyromegaly, or carotid bruits. Carotids were easily palpable bilaterally. There was no adenopathy. lung sounds are markedly diminished bilaterally along with some few rales in the lung bases. Scattered SCANT expiratory wheezes. He is not using excessive muscle breathing. Heart sounds are distant, regular, positive psoas sign is no significant murmurs appreciated. Abdominal exam revealed normal bowel sounds. The abdomen was soft, non-tender, and without masses, organomegaly, or appreciable enlargement of the abdominal aorta. The patient has a pulsatile mass in the mid abdominal area related to his underlying large abdominal aortic aneurysm which is measuring 6.9 cm in size on the CAT scan of the chest and abdomen. Extremities revealed no edema and there is no cyanosis or clubbing. No open wounds or sores. Examination of the skin revealed no evidence of significant rashes, suspicious appearing nevi or other concerning lesions. Neurologically the patient is able to move all 4 extremities. Strength is essentially diminished 4 out of 5 in all 4 extremities, symmetrical. Cranial nerves are grossly intact with equal and symmetrical. Without any nystagmus. No clonus. No Babinski at this point in time. Gait cannot be assessed. - Labs CBC & Chem 7: 04/07/20 04:06 04/07/20 04:06 Labs: Abnormal Lab Results - Last 24 Hours (Table) 04/07/20 04/07/20 04/07/20 Range/Units 04:06 04:06 08:52 RBC 4.08 L (4.30-5.90) m/uL Hgb 12.2 L (13.0-17.5) gm/dL MCV 103.7 H (80.0-100.0) fL MCHC 28.7 L (31.0-37.0) g/dL ABG pH 7.27 L (7.35-7.45) ABG pCO2 98 H* (35-45) mmHg ABG pO2 150 H (83-108) mmHg ABG HCO3 45 H* (21-25) mmol/L ABG Total CO2 48 H (19-24) mmol/L ABG O2 Saturation 98.6 H (94-97) % Chloride 93 L (98-107) mmol/L Carbon Dioxide 44 H* (22-30) mmol/L BUN 38 H (9-20) mg/dL Glucose 128 H (74-99) mg/dL Assessment and Plan Plan: 1 acute on chronic hypoxic respiratory failure mostly on the basis of COPD exacerbation. No clear signs of decompensated heart failure. The follow-up blood gases shows ongoing respiratory acidosis which is acute on top of chronic and the patient's blood work is showing metabolic alkalosis. The patient's metabolic alkalosis is improving with Diamox. His COPD is also being optimized with a combination of bronchodilators and steroids. Last bronchus spastic and wheezy on today's evaluation. Oxygenation is improved and the patient will be weaned down to 2 L of oxygen by nasal cannula. 2 acute on chronic hypercapnic respiratory failure, details discussed above 3 advanced COPD with chronic hypoxic respiratory failure 4 altered mentation secondary to CO2 narcosis, MRI of the brain showed scattered white matter signal changes related to chronic small vessel ischemia without any acute abnormalities. 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 Neurology on the case. The patient was started on Keppra and this will be gradually weaned off. 5 chronic metabolic alkalosis, Necessity to chronic hypercapnic respiratory failure in addition to worsening due to diuresis, improving on Diamox and Lasix as this patient oral 40 mg by mouth daily. 6 abnormal troponin, likely troponin leak without any evidence of ST segment elevation. Consider non-STEMI 7 transaminitis, ultrasound the liver shows some hepatic steatosis, common bile duct is within normal limits 8 Abdominal aortic aneurysm measuring 6.9 cm in size Plan Lasix 40 mg by mouth daily The patient does of Diamox 500 mg every 12 hours and monitor the serum bicarb level and monitor the blood gases findings to check this base status on a daily basis. Continue the bronchodilators and systemic steroids, wean down the Solu-Medrol to 40 mg every 12 hours Repeat blood gases in the morning Vascular surgery consult regarding her bowel aortic aneurysm Echo was noted Cardiology consult was obtained We'll continue to follow. Long-term prognosis poor baseline above-mentioned comorbidities. We'll keep the patient ICU for 24 hours.
--- NOTE | 2020-04-07 14:55 | FL ---
Modified barium swallow. HISTORY: Dysphagia. Modified barium swallow was performed with the department of speech pathology. The patient was prese nted with various consistencies of barium. Mild aspiration noted with thin liquid barium and cracker mixed. Full report is to follow from the de partment of speech pathology. Impression: Mild aspiration noted on one occasion.
[2020-04-07] MEDS ORDERED: ADENOSINE 3 MG/ML 2 ML VIAL IVP ONE (20:17)
[2020-04-07] MEDS ORDERED: ADENOSINE 3 MG/ML 2 ML VIAL IVP STA (20:19)
[2020-04-07] MEDS ORDERED: DILTIAZEM DRIP BOLUS FROM BAG 1 MG SOLN IV ONE (20:23)
[2020-04-07] MEDS: DILTIAZEM 125 MG in SODIUM CHLORIDE 0.9% 100 ML IV SCH (20:40)
[2020-04-07 21:04] LABS: Basophils % (A) 0 %; Eosinophils # (A) 0.1 k/uL (0-0.7); Eosinophils % (A) 1 %; HCT 45.1 % (39.0-53.0); HGB 12.9 gm/dL (13.0-17.5); Hypochromasia Marked; Lymphocytes # (A) 0.5 k/uL (1.0-4.8); Lymphocytes % (A) 6 %; MCH 29.2 pg (25.0-35.0); MCHC 28.6 g/dL (31.0-37.0); MCV 102.3 fL (80.0-100.0); Macrocytosis Slight; Mean Platelet Volume 8.8; Monocytes # (A) 0.6 k/uL (0-1.0); Monocytes % (A) 7 %; Neutrophils # (A) 7.2 k/uL (1.3-7.7); Neutrophils % (A) 85 %; Platelet Count 183 k/uL (150-450); RBC 4.41 m/uL (4.30-5.90); RDW 13.2 % (11.5-15.5); WBC 8.4 k/uL (3.8-10.6)
[2020-04-07 21:10] LABS: Albumin 3.3 g/dL (3.5-5.0); Calcium 8.9 mg/dL (8.4-10.2); Magnesium 2.2 mg/dL (1.6-2.3); Phosphorus 2.4 mg/dL (2.5-4.5); Potassium 4.1 mmol/L (3.5-5.1); Total Bilirubin 0.2 mg/dL (0.2-1.3); Total Protein 6.5 g/dL (6.3-8.2)
[2020-04-07 21:25] LABS: INR 1.1 (<1.2); Prothrombin Time 10.9 sec (9.0-12.0)
[2020-04-07 21:26] LABS: Partial Thromboplastin Time 23.4 sec (22.0-30.0)
[2020-04-07] MEDS: QUEtiapine 25 MG TAB PO SCH (22:30)
[2020-04-07] MEDS: SODIUM CHLORIDE 0.9% 1,000 ML IV SCH (22:31)
[2020-04-07] MEDS: MELATONIN 3 MG TABLET PO SCH (22:33)
--- NOTE | 2020-04-08 00:51 | XR ---
EXAMINATION TYPE: XR chest 1V portable DATE OF EXAM: 04/07/2020 COMPARISON: Today HISTORY: Short of breath TECHNIQUE: FINDINGS: There is no heart failure nor confluent pneumonic infiltrate. There is some pleural reactio n at the lung bases bilaterally. There are no hilar masses. Thoracic aorta is atheromatous. There are chest leads. IMPRESSION: Bilateral basilar pleural reaction. No heart failure seen. Inspiration improved slightly compared to exam this morning.
[2020-04-08 05:30] LABS: Basophils % (A) 0 %; Eosinophils % (A) 1 %; HCT 43.2 % (39.0-53.0); HGB 12.5 gm/dL (13.0-17.5); Hypochromasia Marked; Lymphocytes # (A) 0.4 k/uL (1.0-4.8); Lymphocytes % (A) 7 %; MCH 30.1 pg (25.0-35.0); MCHC 28.9 g/dL (31.0-37.0); MCV 104.2 fL (80.0-100.0); Macrocytosis Slight; Mean Platelet Volume 8.8; Monocytes # (A) 0.2 k/uL (0-1.0); Monocytes % (A) 3 %; Neutrophils # (A) 5.7 k/uL (1.3-7.7); Neutrophils % (A) 90 %; Platelet Count 152 k/uL (150-450); RBC 4.15 m/uL (4.30-5.90); WBC 6.4 k/uL (3.8-10.6)
[2020-04-08 05:47] LABS: Calcium 8.5 mg/dL (8.4-10.2); Potassium 3.7 mmol/L (3.5-5.1)
[2020-04-08] MEDS ORDERED: Potassium Replacement Protocol 1 EACH MISC MISCELLANE PRN (06:14)
[2020-04-08] MEDS: LEVOTHYROXINE 112 MCG TAB PO SCH (06:25)
[2020-04-08] MEDS: DILTIAZEM 125 MG in SODIUM CHLORIDE 0.9% 100 ML IV SCH (06:25)
[2020-04-08] MEDS: POTASSIUM CHLORIDE 10 MEQ in WATER FOR INJECTION 1 100ML.BAG IVPB SCH ×2 (06:25→08:15)
[2020-04-08] MEDS: FORMOTEROL FUMARATE 20 MCG/2 ML NEBU INHALATION SCH ×2 (07:40→19:52)
[2020-04-08] MEDS: BUDESONIDE 0.5 MG/2 ML NEBU INHALATION SCH ×2 (07:40→19:52)
[2020-04-08 07:58] LABS: ABG Base Excess 19.2 mmol/L; ABG PH 7.23 (7.35-7.45); ABG PO2 155 mmHg (83-108); ABG TCO2 50 mmol/L (19-24); Allen Test Performed? Yes
[2020-04-08 08:00] LABS: ABG PCO2 112 mmHg (35-45)
[2020-04-08 08:01] LABS: ABG HCO3 47 mmol/L (21-25)
[2020-04-08] MEDS: ISOSORBIDE MONONITRATE ER 60 MG TAB.ER.24H PO SCH (08:14)
[2020-04-08] MEDS: HEPARIN SODIUM,PORCINE 5,000 UNIT/ML 1 ML VIAL SQ SCH ×2 (08:14→16:03)
[2020-04-08] MEDS: ASPIRIN 325 MG TAB PO SCH (08:14)
[2020-04-08] MEDS: FUROSEMIDE 40 MG TAB PO SCH (08:14)
[2020-04-08] MEDS: levETIRAcetam ORAL SOLN 500 MG/5 ML CUP PO SCH ×2 (08:14→20:41)
[2020-04-08] MEDS: THIAMINE 100 MG/ML 2 ML VIAL IVP SCH (08:15)
[2020-04-08] MEDS: methylPREDNISolone SOD SUCCI 40 MG/ML 1 ML VIAL IV SCH ×2 (08:15→20:41)
[2020-04-08] MEDS: THEOPHYLLINE 24 HOUR 300 MG CAP.ER.24H PO SCH (08:39)
[2020-04-08 08:57] LABS: ABG Base Excess 19.8 mmol/L; ABG Oxygen Saturation 75.4 % (94-97); ABG PH 7.29 (7.35-7.45); ABG TCO2 49 mmol/L (19-24); Allen Test Performed? Yes
[2020-04-08 09:00] LABS: ABG PCO2 97 mmHg (35-45)
[2020-04-08 09:01] LABS: ABG HCO3 46 mmol/L (21-25); ABG PO2 44 mmHg (83-108)
--- NOTE | 2020-04-08 14:21 | P.PN ---
Subjective Progress Note Date: 04/08/20 A 7 79-year-old male patient who was transferred to us from [facility] because of acute hypoxic respiratory failure. The patient is known to have COPD and his dependent on home oxygen. According to the daughter, he is an ex-smoker is not smoking. His been living independently at home and he has been able to perform activities of daily today life. Apparently the patient was having altered mentation he was confused and the daughter called EMS to the scene and the patient was found to be quite hypoxic with a pulse ox of 70s. The patient was placed on a nonrebreather facemask was brought him up to 90% saturation and following that the patient got transferred initially to [facility] and later on to [facility]. During the course of his [facility] stay, the patient underwent a CT angiogram that showed no evidence of any pulmonary embolism. 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 There was no suspicious focal consolidation. There is mild interstitial edema and the patient was suspected to be CHF. Based on that the patient was started on diuresis. There was no evidence of any pulmonary embolism. There was at least a 6.9 cm abdominal aortic and is a bit was noted. CAT scan of the abdomen also confirmed the presence of a large abdominal aortic aneurysm. The blood work that was done showed a glucose of 129, BUN of 27, and a creatinine of 1.0, SGOT was 208, SGPT was 182, calcium level was 8.8, the CPK was 105, lactic acid level was 1.4, magnesium was at 2.1 with a troponin of 0.189. The patient also had a sodium of 142 with a chloride of 92 and a potassium of 4.8. White cell count was at 8.2 with a hemoglobin of 13.3. This morning, the patient was asked to be seen by pulmonary critical care. He was still altered and the family was at the bedside. Note that the patient has undergone a CAT scan of the brain that showed no acute abnormalities. His blood gases was done today and the patient was found to have a pH of 7.23 with episodes of more than 120 and pO2 of 150 and this was done on the percent nonrebreather facemask. He had developed significant metabolic alkalosis with a serum bicarb coming up to 50 while being given Lasix 40 mg every 8 hours. For that reason, the patient was transferred to the intensive care unit. The echocardiogram that was done showed an ejection fraction of 50-55%, the valvular functions were all within normal limits, the patient had normal IVC respiratory collapse indicating that the estimated right atrial pressure was 5. No evidence of any pericardial effusion. On today's evaluation of 04/05/2020 and seeing this patient for a follow-up. The patient is much more awake and alert compared to yesterday. Is conversing and he seems to be very much appropriate. Note that I kept on his diuretics yesterday as the patient was becoming more alkalotic and he had a significant amount of CO2 and a component of CO2 narcosis. MRI of the brain has been negative. EEG was showing some metabolic encephalopathy. Nevertheless, there was no seizure activity noted and the patient was given IV Keppra per neurology. No focal neurological deficits. This morning, repeat blood gases was done and the patient has a pH of 7.33 with a pCO2 of 94. I gave him to dose of Diamox yesterday and his serum bicarb is no significant cardiac arrhythmias. He will be placed on 40 to about 2 by nasal cannula to improve his hypoxemia. Meanwhile, the patient had a combination of bronchodilators and systemic steroids. As mentioned earlier, I switched his Lasix to oral 40 mg by mouth on a daily basis. He is not accepting any BiPAP use. On 12/17/2019, the patient is doing well and he is resting comfortably in bed. The patient is currently utilizing 4 L of oxygen by nasal cannula. I repeated the blood gas today and the patient continues to have a component of hypercapnic respiratory failure. Based on morning blood gases, the patient's pH is at 7.27 with a pCO2 of 98 and pO2 of 150 and I reduced oxygen flow down to 2 L of oxygen by nasal cannula. The patient's is denying having any significant respiratory distress. He is currently receiving Diamox and Lasix. The metabolic alkalosis is improved and his serum bicarb level is down to 44.the neurologist evaluated this patient as the patient was having some altered mental status. Apparently was having some occasional slurred speech. I find him quite oriented to time and place and people. He is able to follow commands and he has adequate strength for now. Note that the patient's was initially started on Keppra for concerns of seizure activity. The medications currently being weaned off by neurology. He is afebrile. Hemodynamically stable. On today's evaluation of 04/08/2020, the patient is being seen in follow-up. Continues to be on of confused and is still having episodes of CO2 narcosis. I repeated her blood gases today. One of the blood gases showed adequate oxygenation with significant CO2 retention. The second blood gases showed impairment and oxygenation with CO2 retention. In any rate, the patient continues to have chronic hypoxic and hypercapnic respiratory failure. He is being given Diamox for his metabolic alkalosis. His COPD is being optimized. His been gently diuresed. He will be also offered BiPAP today for respiratory support regards to his hypercapnic respiratory failure. Note that I placed him on oxygen at 2 L to maintain a saturation above 90%. Lowering oxygen flow below 2 L will make an profoundly hypoxic. Chest x-ray from today shows no acute abnormalities. His breath sounds are quite diminished and the patient has gissell ed diminished breath sounds bilaterally. The patient did pass his swallow evaluation. He demonstrated only mild aspiration on 1 occasion. For now his taken his oral intake without any major difficulties. Hemodynamically, he is stable. No focal neurological deficits. On and off he was noted to be lethargic and confused and I think this is related to his CO2 narcosis. Neurology did not find any seizure activity on him. Denies being weaned and the patient is on low-dose Seroquel. He is on DuoNeb of activity around the clock and he is on a combination of Perforomist and Pulmicort. Most recent blood gas showed a pH of 7.29 with a pCO2 of 97 and pO2 of 44 and this was done on 1 L of oxygen by nasal cannula and his oxygen flow was increased up to 2 L. the patient did have a bout of SVT yesterday which she was given adenosine and following that he had a Cardizem bolus and then a drip at 70 g an hour and he converted within the next few hours. Note that he has a preserved LV function with an ejection fraction of 50-55%. Objective - Vital Signs Vital signs: Vital Signs Temp 98.2 F 04/08/20 12:00 Pulse 80 04/08/20 13:00 Resp 17 04/08/20 13:00 BP 130/73 04/08/20 13:00 Pulse Ox 91 L 04/08/20 13:00 Intake & Output 04/07/20 04/08/20 04/08/20 18:59 06:59 18:59 Intake Total 700 247.5 414.5 Output Total 525 440 300 Balance 175 -192.5 114.5 Weight 52.1 kg Intake: IV 200 155 160 Diltiazem 125 mg In 30 Sodium Chloride 0.9% 100 ml @ Per Protocol IV .Q0M JAD Rx#:[id number] Potassium Chloride 10 meq 100 100 In Water For Injection 1 100ml.bag @ 100 mls/hr IVPB Q1H JAD Rx#: [id number] Sodium Chloride 0.9% 1, 200 55 30 000 ml @ 5 mls/hr IV . Q24H JAD Rx#:[id number] Intake, IV Titration 92.5 14.5 Amount Diltiazem 125 mg In 92.5 14.5 Sodium Chloride 0.9% 100 ml @ Per Protocol IV .Q0M JAD Rx#:[id number] Oral 500 240 Output: Urine 525 440 300 Other: Voiding Method Bedside Commode Bedside Commode Bedside Commode Urinal Urinal Urinal # Voids 0 1 - Exam Gen. appearance is alert and awake and communicating and answering questions appropriately. Head exam was generally normal. There was no scleral icterus or corneal arcus. Mucous membranes were moist. Neck was supple and without jugular venous distension, thyromegaly, or carotid bruits. Carotids were easily palpable bilaterally. There was no adenopathy. lung sounds are markedly diminished bilaterally along with some few rales in the lung bases. Scattered SCANT expiratory wheezes. He is not using excessive muscle breathing. Heart sounds are distant, regular, positive psoas sign is no significant murmurs appreciated. Abdominal exam revealed normal bowel sounds. The abdomen was soft, non-tender, and without masses, organomegaly, or appreciable enlargement of the abdominal aorta. The patient has a pulsatile mass in the mid abdominal area related to his underlying large abdominal aortic aneurysm which is measuring 6.9 cm in size on the CAT scan of the chest and abdomen. Extremities revealed no edema and there is no cyanosis or clubbing. No open wounds or sores. Examination of the skin revealed no evidence of significant rashes, suspicious appearing nevi or other concerning lesions. Neurologically the patient is able to move all 4 extremities. Strength is essentially diminished 4 out of 5 in all 4 extremities, symmetrical. Cranial nerves are grossly intact with equal and symmetrical. Without any nystagmus. No clonus. No Babinski at this point in time. Gait cannot be assessed. - Labs CBC & Chem 7: 04/08/20 04:44 04/08/20 04:44 Labs: Abnormal Lab Results - Last 24 Hours (Table) 04/07/20 04/07/20 04/07/20 Range/Units 20:36 20:36 20:36 RBC (4.30-5.90) m/uL Hgb 12.9 L (13.0-17.5) gm/dL MCV 102.3 H (80.0-100.0) fL MCHC 28.6 L (31.0-37.0) g/dL Lymphocytes # 0.5 L (1.0-4.8) k/uL ABG pH (7.35-7.45) ABG pCO2 (35-45) mmHg ABG pO2 (83-108) mmHg ABG HCO3 (21-25) mmol/L ABG Total CO2 (19-24) mmol/L ABG O2 Saturation (94-97) % Chloride 92 L (98-107) mmol/L Carbon Dioxide 46 H* (22-30) mmol/L BUN 39 H (9-20) mg/dL Glucose 125 H (74-99) mg/dL Phosphorus 2.4 L (2.5-4.5) mg/dL ALT 76 H (4-49) U/L Troponin I 0.132 H* (0.000-0.034) ng/mL Albumin 3.3 L (3.5-5.0) g/dL 04/08/20 04/08/20 04/08/20 Range/Units 04:44 04:44 07:49 RBC 4.15 L (4.30-5.90) m/uL Hgb 12.5 L (13.0-17.5) gm/dL MCV 104.2 H (80.0-100.0) fL MCHC 28.9 L (31.0-37.0) g/dL Lymphocytes # 0.4 L (1.0-4.8) k/uL ABG pH 7.23 L (7.35-7.45) ABG pCO2 112 H* (35-45) mmHg ABG pO2 155 H (83-108) mmHg ABG HCO3 47 H* (21-25) mmol/L ABG Total CO2 50 H (19-24) mmol/L ABG O2 Saturation 99.0 H (94-97) % Chloride 95 L (98-107) mmol/L Carbon Dioxide 46 H* (22-30) mmol/L BUN 39 H (9-20) mg/dL Glucose 124 H (74-99) mg/dL Phosphorus (2.5-4.5) mg/dL ALT (4-49) U/L Troponin I (0.000-0.034) ng/mL Albumin (3.5-5.0) g/dL 04/08/20 Range/Units 08:47 RBC (4.30-5.90) m/uL Hgb (13.0-17.5) gm/dL MCV (80.0-100.0) fL MCHC (31.0-37.0) g/dL Lymphocytes # (1.0-4.8) k/uL ABG pH 7.29 L (7.35-7.45) ABG pCO2 97 H* (35-45) mmHg ABG pO2 44 L* (83-108) mmHg ABG HCO3 46 H* (21-25) mmol/L ABG Total CO2 49 H (19-24) mmol/L ABG O2 Saturation 75.4 L (94-97) % Chloride (98-107) mmol/L Carbon Dioxide (22-30) mmol/L BUN (9-20) mg/dL Glucose (74-99) mg/dL Phosphorus (2.5-4.5) mg/dL ALT (4-49) U/L Troponin I (0.000-0.034) ng/mL Albumin (3.5-5.0) g/dL Assessment and Plan Plan: 1 acute on chronic hypoxic respiratory failure mostly on the basis of COPD exac erbation. No clear signs of decompensated heart failure. The follow-up blood gases shows ongoing respiratory acidosis which is acute on top of chronic and the patient's blood work is showing metabolic alkalosis. Limited improvement in terms of his CO2 retention. We'll continue optimizing his COPD with a combination of bronchodilators and steroids. We will treat his underlying metabolic alkalosis with Diamox. He is being gently diuresed. With theophylline to optimize his respiratory drive. We'll also add BiPAP for respiratory support. 2 acute on chronic hypercapnic respiratory failure, details discussed above 3 advanced COPD with chronic hypoxic respiratory failure 4 altered mentation secondary to CO2 narcosis, MRI of the brain showed scattered white matter signal changes related to chronic small vessel ischemia without any acute abnormalities. 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 Neurology on the case. The patient was started on K eppra and this will be gradually weaned off. 5 chronic metabolic alkalosis, Necessity to chronic hypercapnic respiratory failure in addition to worsening due to diuresis, improving on Diamox and Lasix as this patient oral 40 mg by mouth daily. 6 abnormal troponin, likely troponin leak without any evidence of ST segment elevation. Consider non-STEMI 7 transaminitis, ultrasound the liver shows some hepatic steatosis, common bile duct is within normal limits 8 Abdominal aortic aneurysm measuring 6.9 cm in size 9 single episode of SVT occurred yesterday and the patient converted back to n ormal sinus rhythm with a few hours. He was given adenosine. He was given Cardizem drip. Plan Lasix 40 mg by mouth daily Continue Diamox and repeat the blood gas. Continue the bronchodilators and systemic steroids, Solu-Medrol to 40 mg every 12 hours Utilizes BiPAP for respiratory support to watch out some of his CO2 in the BiPAP is being utilized a pressure of 10/5 cm of water Repeat blood gases in the morning Initiate theophylline Wean off Cardizem drip and discontinue Echo was noted We'll continue to follow. Long-term prognosis poor baseline above-mentioned comorbidities. We'll keep the patient ICU for 24 hours. Prognosis poor obviously has the patient advanced lung disease with chronic and severe hypoxic and hypercapnic respiratory failure
[2020-04-08] MEDS: SODIUM CHLORIDE 0.9% 1,000 ML IV SCH (16:03)
--- NOTE | 2020-04-08 18:14 | P.PN ---
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 Moon, hypertension, and prior tobacco abuse who presented initially to an outside hospital secondary to confusion and hypoxia. Apparently his nephew checked on him and he was noted to be confused and cyanotic. When EMS arrived he was hypoxic with an O2 sat of 70% was transferred to the hospital. Initial workup showed an abdominal aortic aneurysm 6.5 cm, elevated troponin, elevated BNP, and small bilateral pleural effusions. He was started on diuretics and transferred to our facility. CT brain showed no acute process with mild diffuse cerebral atrophy. He was diagnosed with COPD, elevated troponin with rule out myocardial infarction, and possible CHF secondary to pulmonary congestion with bilateral pleural effusions. He was started on aspirin. He underwent an echocardiogram which showed an ejection fraction of 50-55% without significant valvular disease. Carotid Doppler showed bilateral plaque with no significant hemodynamic stenosis. He was seen by vascular surgery who recommended outpatient follow-up. On the morning after admission he was noted to have continued altered mentation. ABG was checked and was found to be significantly hypercapnic. Pulmonary was consulted he was diagnosed with a COPD exacerbation was started on Diamox as well as titration of his oxygen, IV Solu-Medrol, and bronchodilators. He was transferred to the ICU for closer monitoring. Neurology was consulted for possible stroke versus seizure and he was subsequently diagnosed with myoclonic jerking as EEG demonstrated increased seizure tendency but no active seizure activity. MRI of the brain showed scattered white matter signal changes related to chronic small vessel ischemia. MRA of the neck showed 60% stenosis in the left internal carotid artery. He was started on a tapered dose of Keppra. Liver ultrasound showed a coarse echotexture seen with hepatic steatosis. By the morning of 04/06 his CO2 levels are much improved and his mentation had begun to improve. He was seen by cardiology who felt that his troponin was likely elevated secondary to his respiratory failure as his ejection fraction was normal. He continued to struggle with hypercapnia and hypoxia despite diamox therapy and intermitted BiPap. He developed SVT on the evening of 04/06 and was started on cardizem gtt. Patient seen and examined at bedside. He is confused again today. He denies chest apin, or shortness of breath. He states that he is felling good. Objective - Vital Signs Vital signs: Vital Signs Temp 98 F 04/08/20 16:00 Pulse 82 04/08/20 18:00 Resp 26 H 04/08/20 18:00 BP 137/102 04/08/20 18:00 Pulse Ox 89 L 04/08/20 18:00 Intake & Output 04/07/20 04/08/20 04/08/20 18:59 06:59 18:59 Intake Total 700 247.5 524.5 Output Total 701 760 8838 Balance 175 -192.5 -575.5 Weight 52.1 kg Intake: IV 200 155 210 Diltiazem 125 mg In 55 Sodium Chloride 0.9% 100 ml @ Per Protocol IV .Q0M JAD Rx#:[id number] Potassium Chloride 10 meq 100 100 In Water For Injection 1 100ml.bag @ 100 mls/hr IVPB Q1H JAD Rx#: [id number] Sodium Chloride 0.9% 1, 200 55 55 000 ml @ 5 mls/hr IV . Q24H JAD Rx#:[id number] Intake, IV Titration 92.5 14.5 Amount Diltiazem 125 mg In 92.5 14.5 Sodium Chloride 0.9% 100 ml @ Per Protocol IV .Q0M JAD Rx#:[id number] Oral 500 300 Output: Urine 531 394 9251 Other: Voiding Method Bedside Commode Bedside Commode Bedside Commode Urinal Urinal Urinal # Voids 0 1 - Exam General: non toxic, no distress, appears at stated age, barrel chest Derm: multiple areas of small ecchymosis with large ecchymosis left arm, warm, dry Head: atraumatic, normocephalic, symmetric Eyes: EOMI, no lid lag, anicteric sclera Mouth: no lip lesion, mucus membranes dry Cardiovascular: S1S2 reg, no murmur, positive posterior tibial pulse bilateral, Lungs: decrease bs bilateral, no rhonchi, no rales , no accessory muscle use Abdominal: soft, nontender to palpation, no guarding, no appreciable organomegaly Ext: no gross muscle atrophy, no edema, no contractures Neuro: CN II-XI grossly intact, no focal neuro deficits Psych: awake but with some confusion - Labs CBC & Chem 7: 04/08/20 04:44 04/08/20 04:44 Labs: Abnormal Lab Results - Last 24 Hours (Table) 04/07/20 04/07/20 04/07/20 Range/Units 20:36 20:36 20:36 RBC (4.30-5.90) m/uL Hgb 12.9 L (13.0-17.5) gm/dL MCV 102.3 H (80.0-100.0) fL MCHC 28.6 L (31.0-37.0) g/dL Lymphocytes # 0.5 L (1.0-4.8) k/uL ABG pH (7.35-7.45) ABG pCO2 (35-45) mmHg ABG pO2 (83-108) mmHg ABG HCO3 (21-25) mmol/L ABG Total CO2 (19-24) mmol/L ABG O2 Saturation (94-97) % Chloride 92 L (98-107) mmol/L Carbon Dioxide 46 H* (22-30) mmol/L BUN 39 H (9-20) mg/dL Glucose 125 H (74-99) mg/dL Phosphorus 2.4 L (2.5-4.5) mg/dL ALT 76 H (4-49) U/L Troponin I 0.132 H* (0.000-0.034) ng/mL Albumin 3.3 L (3.5-5.0) g/dL 04/08/20 04/08/20 04/08/20 Range/Units 04:44 04:44 07:49 RBC 4.15 L (4.30-5.90) m/uL Hgb 12.5 L (13.0-17.5) gm/dL MCV 104.2 H (80.0-100.0) fL MCHC 28.9 L (31.0-37.0) g/dL Lymphocytes # 0.4 L (1.0-4.8) k/uL ABG pH 7.23 L (7.35-7.45) ABG pCO2 112 H* (35-45) mmHg ABG pO2 155 H (83-108) mmHg ABG HCO3 47 H* (21-25) mmol/L ABG Total CO2 50 H (19-24) mmol/L ABG O2 Saturation 99.0 H (94-97) % Chloride 95 L (98-107) mmol/L Carbon Dioxide 46 H* (22-30) mmol/L BUN 39 H (9-20) mg/dL Glucose 124 H (74-99) mg/dL Phosphorus (2.5-4.5) mg/dL ALT (4-49) U/L Troponin I (0.000-0.034) ng/mL Albumin (3.5-5.0) g/dL 04/08/20 Range/Units 08:47 RBC (4.30-5.90) m/uL Hgb (13.0-17.5) gm/dL MCV (80.0-100.0) fL MCHC (31.0-37.0) g/dL Lymphocytes # (1.0-4.8) k/uL ABG pH 7.29 L (7.35-7.45) ABG pCO2 97 H* (35-45) mmHg ABG pO2 44 L* (83-108) mmHg ABG HCO3 46 H* (21-25) mmol/L ABG Total CO2 49 H (19-24) mmol/L ABG O2 Saturation 75.4 L (94-97) % Chloride (98-107) mmol/L Carbon Dioxide (22-30) mmol/L BUN (9-20) mg/dL Glucose (74-99) mg/dL Phosphorus (2.5-4.5) mg/dL ALT (4-49) U/L Troponin I (0.000-0.034) ng/mL Albumin (3.5-5.0) g/dL Assessment and Plan Assessment: Acute exacerbation of COPD with acute on chronic hypoxic hypercapnic respiratory failure -Pulmonary recommendations appreciated -Continue with Diamox, IV Solu-Medrol decreased per pulmonary, and fixed and when necessary bronchodilators -Pulmonary hygiene -Wean O2 as able -Would benefit from outpatient pulmonary rehab SVT - Cardizem gtt - echo this admission with preserved EF Toxic metabolic encephalopathy likely secondary to CO2 retention/ hypoxia -Supportive care -Treatment as above Elevated troponin reflective of hypoxemia -Acute coronary syndrome ruled out -Echocardiogram within normal limits -Cardiology recommendations appreciated Transaminitis, improved no need for further testing -Liver ultrasound shows signs of steatohepatitis suggested that this may be chronic in nature -Outpatient follow-up Myoclonic jerking - neuro recs appreciated - on Keppra wean, felt to be due to hypoxia and likely reversible Abdominal aortic aneurysm -Incidental finding -Vesicular surgery recommendations appreciated. Outpatient follow-up. Carotid stenosis L - outpatient follow-up History of tobacco abuse DVT prophylaxis: Heparin Discussed with: Patient, nursing, case management Anticipated discharge: 2-[address]: with family and 24/7 supervision A total of 35 minutes was spent on the care of this complex patient more than 50% of the time was spent in counseling and care coordination.
[2020-04-08] MEDS: QUEtiapine 25 MG TAB PO SCH (20:41)
[2020-04-08] MEDS: MELATONIN 3 MG TABLET PO SCH (20:42)
--- NOTE | 2020-04-08 21:10 | PN ---
PROGRESS NOTE FOLLOW-UP NOTE: This patient is a 79-year-old gentleman who is admitted to hospital with respiratory failure. This morning patient is feeling better. He is less confused. He is on a BiPAP machine. On exam, heart rate is 76 beats per minute. Blood pressure is 111/63, respiratory rate is 16, oxygen saturation 95%. There is no jugular venous distention. Chest exam reveals bilateral rhonchi. Heart exam reveals first and second heart sounds. No gallop. Examination of extremities did not reveal any edema. Peripheral pulses are felt. Blood gases show a pH of 7.2, pCO2 of 97, PO2 of 44. ASSESSMENT: Acute exacerbation of chronic respiratory failure. PLAN: The patient will continue current medications, including Lasix, Imdur. MMODL / IJN: [id number] /
[2020-04-09] MEDS: HEPARIN SODIUM,PORCINE 5,000 UNIT/ML 1 ML VIAL SQ SCH ×3 (00:58→16:31)
[2020-04-09 05:31] LABS: ABG Base Excess 17.1 mmol/L; ABG Oxygen Saturation 93.7 % (94-97); ABG PH 7.35 (7.35-7.45); ABG PO2 70 mmHg (83-108); ABG TCO2 45 mmol/L (19-24); Allen Test Performed? Yes
[2020-04-09 05:44] LABS: HCT 34.4 % (39.0-53.0); HGB 11.8 gm/dL (13.0-17.5); MCH 30.8 pg (25.0-35.0); MCHC 34.3 g/dL (31.0-37.0); Mean Platelet Volume 9.6; RBC 3.83 m/uL (4.30-5.90); RDW 13.6 % (11.5-15.5); WBC 5.9 k/uL (3.8-10.6)
[2020-04-09 05:46] LABS: ABG HCO3 43 mmol/L (21-25); ABG PCO2 78 mmHg (35-45)
[2020-04-09 05:50] LABS: African American GFR (CKD) >90 (>60 ml/min/1.73 sqM); Anion Gap 5 mmol/L; Blood Urea Nitrogen 19 mg/dL (9-20); Calcium 8.5 mg/dL (8.4-10.2); Carbon Dioxide 24 mmol/L (22-30); Chloride 111 mmol/L (98-107); Glucose 161 mg/dL (74-99); Non-African American GFR(CKD) >90 (>60 ml/min/1.73 sqM); Potassium 3.8 mmol/L (3.5-5.1); Sodium 140 mmol/L (137-145)
[2020-04-09 05:59] LABS: MCV 89.8 fL (80.0-100.0)
[2020-04-09 06:34] LABS: Platelet Count 98 k/uL (150-450)
[2020-04-09] MEDS: POTASSIUM CHLORIDE 10 MEQ in WATER FOR INJECTION 1 100ML.BAG IVPB SCH ×3 (06:39→23:59)
[2020-04-09] MEDS: DILTIAZEM 125 MG in SODIUM CHLORIDE 0.9% 100 ML IV SCH (06:39)
[2020-04-09] MEDS: LEVOTHYROXINE 112 MCG TAB PO SCH (06:39)
[2020-04-09] MEDS: FORMOTEROL FUMARATE 20 MCG/2 ML NEBU INHALATION SCH ×3 (07:12→20:39)
[2020-04-09] MEDS: BUDESONIDE 0.5 MG/2 ML NEBU INHALATION SCH ×3 (07:12→20:38)
[2020-04-09] MEDS: FUROSEMIDE 40 MG TAB PO SCH (09:15)
[2020-04-09] MEDS: ASPIRIN 325 MG TAB PO SCH (09:15)
[2020-04-09] MEDS: METOPROLOL SUCCINATE (ER) 25 MG TAB.ER.24H PO SCH (09:15)
[2020-04-09] MEDS: THEOPHYLLINE 24 HOUR 300 MG CAP.ER.24H PO SCH (09:16)
[2020-04-09] MEDS: ISOSORBIDE MONONITRATE ER 60 MG TAB.ER.24H PO SCH (09:16)
[2020-04-09] MEDS: levETIRAcetam ORAL SOLN 500 MG/5 ML CUP PO SCH (09:16)
[2020-04-09] MEDS: THIAMINE 100 MG/ML 2 ML VIAL IVP SCH (09:17)
[2020-04-09] MEDS: predniSONE 20 MG TAB PO SCH (09:18)
--- NOTE | 2020-04-09 14:10 | P.PN ---
Subjective Progress Note Date: 04/09/20 A 7 79-year-old male patient who was transferred to us from [facility] because of acute hypoxic respiratory failure. The patient is known to have COPD and his dependent on home oxygen. According to the daughter, he is an ex-smoker is not smoking. His been living independently at home and he has been able to perform activities of daily today life. Apparently the patient was having altered mentation he was confused and the daughter called EMS to the scene and the patient was found to be quite hypoxic with a pulse ox of 70s. The patient was placed on a nonrebreather facemask was brought him up to 90% saturation and following that the patient got transferred initially to [facility] and later on to [facility]. During the course of his [facility] stay, the patient underwent a CT angiogram that showed no evidence of any pulmonary embolism. 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 There was no suspicious focal consolidation. There is mild interstitial edema and the patient was suspected to be CHF. Based on that the patient was started on diuresis. There was no evidence of any pulmonary embolism. There was at least a 6.9 cm abdominal aortic and is a bit was noted. CAT scan of the abdomen also confirmed the presence of a large abdominal aortic aneurysm. The blood work that was done showed a glucose of 129, BUN of 27, and a creatinine of 1.0, SGOT was 208, SGPT was 182, calcium level was 8.8, the CPK was 105, lactic acid level was 1.4, magnesium was at 2.1 with a troponin of 0.189. The patient also had a sodium of 142 with a chloride of 92 and a potassium of 4.8. White cell count was at 8.2 with a hemoglobin of 13.3. This morning, the patient was asked to be seen by pulmonary critical care. He was still altered and the family was at the bedside. Note that the patient has undergone a CAT scan of the brain that showed no acute abnormalities. His blood gases was done today and the patient was found to have a pH of 7.23 with episodes of more than 120 and pO2 of 150 and this was done on the percent nonrebreather facemask. He had developed significant metabolic alkalosis with a serum bicarb coming up to 50 while being given Lasix 40 mg every 8 hours. For that reason, the patient was transferred to the intensive care unit. The echocardiogram that was done showed an ejection fraction of 50-55%, the valvular functions were all within normal limits, the patient had normal IVC respiratory collapse indicating that the estimated right atrial pressure was 5. No evidence of any pericardial effusion. On today's evaluation of 04/05/2020 and seeing this patient for a follow-up. The patient is much more awake and alert compared to yesterday. Is conversing and he seems to be very much appropriate. Note that I kept on his diuretics yesterday as the patient was becoming more alkalotic and he had a significant amount of CO2 and a component of CO2 narcosis. MRI of the brain has been negative. EEG was showing some metabolic encephalopathy. Nevertheless, there was no seizure activity noted and the patient was given IV Keppra per neurology. No focal neurological deficits. This morning, repeat blood gases was done and the patient has a pH of 7.33 with a pCO2 of 94. I gave him to dose of Diamox yesterday and his serum bicarb is no significant cardiac arrhythmias. He will be placed on 40 to about 2 by nasal cannula to improve his hypoxemia. Meanwhile, the patient had a combination of bronchodilators and systemic steroids. As mentioned earlier, I switched his Lasix to oral 40 mg by mouth on a daily basis. He is not accepting any BiPAP use. On 12/17/2019, the patient is doing well and he is resting comfortably in bed. The patient is currently utilizing 4 L of oxygen by nasal cannula. I repeated the blood gas today and the patient continues to have a component of hypercapnic respiratory failure. Based on morning blood gases, the patient's pH is at 7.27 with a pCO2 of 98 and pO2 of 150 and I reduced oxygen flow down to 2 L of oxygen by nasal cannula. The patient's is denying having any significant respiratory distress. He is currently receiving Diamox and Lasix. The metabolic alkalosis is improved and his serum bicarb level is down to 44.the neurologist evaluated this patient as the patient was having some altered mental status. Apparently was having some occasional slurred speech. I find him quite oriented to time and place and people. He is able to follow commands and he has adequate strength for now. Note that the patient's was initially started on Keppra for concerns of seizure activity. The medications currently being weaned off by neurology. He is afebrile. Hemodynamically stable. On today's evaluation of 04/08/2020, the patient is being seen in follow-up. Continues to be on of confused and is still having episodes of CO2 narcosis. I repeated her blood gases today. One of the blood gases showed adequate oxygenation with significant CO2 retention. The second blood gases showed impairment and oxygenation with CO2 retention. In any rate, the patient continues to have chronic hypoxic and hypercapnic respiratory failure. He is being given Diamox for his metabolic alkalosis. His COPD is being optimized. His been gently diuresed. He will be also offered BiPAP today for respiratory support regards to his hypercapnic respiratory failure. Note that I placed him on oxygen at 2 L to maintain a saturation above 90%. Lowering oxygen flow below 2 L will make an profoundly hypoxic. Chest x-ray from today shows no acute abnormalities. His breath sounds are quite diminished and the patient has gissell ed diminished breath sounds bilaterally. The patient did pass his swallow evaluation. He demonstrated only mild aspiration on 1 occasion. For now his taken his oral intake without any major difficulties. Hemodynamically, he is stable. No focal neurological deficits. On and off he was noted to be lethargic and confused and I think this is related to his CO2 narcosis. Neurology did not find any seizure activity on him. Denies being weaned and the patient is on low-dose Seroquel. He is on DuoNeb of activity around the clock and he is on a combination of Perforomist and Pulmicort. Most recent blood gas showed a pH of 7.29 with a pCO2 of 97 and pO2 of 44 and this was done on 1 L of oxygen by nasal cannula and his oxygen flow was increased up to 2 L. the patient did have a bout of SVT yesterday which she was given adenosine and following that he had a Cardizem bolus and then a drip at 70 g an hour and he converted within the next few hours. Note that he has a preserved LV function with an ejection fraction of 50-55%. On 04/09/2020, I'm seeing the patient for a follow-up. More awake and alert compared to yesterday and the blood gases from today shows improvement in his acid base status. As such, his lethargy and increased sleepiness is probably related to CO2 narcosis. He does have some ongoing confusion however. Overall, he is improved. The blood gases from today showed a pH of 7.35 with a pCO2 of 78 and pO2 of 70 and this was done 2 L about 2 by nasal cannula. Note that the patient was being given AVAPS treatment with a tidal volume target of 350 overnight and he was able to tolerate stable without any major difficulties. He was also given Diamox. Serum bicarb level is improved and the bicarb level is down to 24. The patient is on normal saline. Of an hour. The patient is also a Cardizem drip at 5 mg an hour. He is currently on 2.5 L with a pulse ox of 93%. No focal neurological deficit. No chest pain. He has a congested cough, unable to bring up much of sputum. No other significant events otherwise for now. The patient is resting comfortably in bed and his communicating and daughter is at the bedside. Objective - Vital Signs Vital signs: Vital Signs Temp 98.2 F 04/09/20 12:00 Pulse 86 04/09/20 12:00 Resp 22 04/09/20 12:00 BP 137/88 04/09/20 12:00 Pulse Ox 95 04/09/20 12:00 Intake & Output 04/08/20 04/09/20 04/09/20 18:59 06:59 18:59 Intake Total 524.5 275.5 345 Output Total 1100 575 475 Balance -575.5 -299.5 -130 Weight 49.3 kg 49.3 kg Intake: IV 210 65 225 Diltiazem 125 mg In 55 5 Sodium Chloride 0.9% 100 ml @ Per Protocol IV .Q0M JAD Rx#:[id number] Potassium Chloride 10 meq 100 200 In Water For Injection 1 100ml.bag @ 100 mls/hr IVPB Q1H JAD Rx#: [id number] Sodium Chloride 0.9% 1, 55 60 25 000 ml @ 5 mls/hr IV . Q24H JAD Rx#:[id number] Intake, IV Titration 14.5 110.5 Amount Diltiazem 125 mg In 14.5 110.5 Sodium Chloride 0.9% 100 ml @ Per Protocol IV .Q0M JAD Rx#:[id number] Oral 300 100 120 Output: Urine 1100 575 475 Other: Voiding Method Bedside Commode Bedside Commode Bedside Commode Urinal Urinal Urinal # Voids 1 1 - Exam Gen. appearance is alert and awake and communicating and answering questions appropriately. Currently on 2.5 L about 2 by nasal cannula. Head exam was generally normal. There was no scleral icterus or corneal arcus. Mucous membranes were moist. Neck was supple and without jugular venous distension, thyromegaly, or carotid bruits. Carotids were easily palpable bilaterally. There was no adenopathy. lung sounds are markedly diminished bilaterally along with some few rales in the lung bases. Scattered SCANT expiratory wheezes. He is not using excessive muscle breathing. Heart sounds are distant, regular, positive psoas sign is no significant murmurs appreciated. Abdominal exam revealed normal bowel sounds. The abdomen was soft, non-tender, and without masses, organomegaly, or appreciable enlargement of the abdominal aorta. The patient has a pulsatile mass in the mid abdominal area related to his underlying large abdominal aortic aneurysm which is measuring 6.9 cm in size on the CAT scan of the chest and abdomen. Extremities revealed no edema and there is no cyanosis or clubbing. No open wounds or sores. Examination of the skin revealed no evidence of significant rashes, suspicious appearing nevi or other concerning lesions. Neurologically the patient is able to move all 4 extremities. Strength is essentially diminished 4 out of 5 in all 4 extremities, symmetrical. Cranial nerves are grossly intact with equal and symmetrical. Without any nystagmus. No clonus. No Babinski at this point in time. Gait cannot be assessed. - Labs CBC & Chem 7: 04/09/20 04:56 04/09/20 04:56 Labs: Abnormal Lab Results - Last 24 Hours (Table) 04/09/20 04/09/20 04/09/20 Range/Units 04:56 04:56 05:26 RBC 3.83 L (4.30-5.90) m/uL Hgb 11.8 L (13.0-17.5) gm/dL Hct 34.4 L (39.0-53.0) % Plt Count 98 L (150-450) k/uL ABG pCO2 78 H* (35-45) mmHg ABG pO2 70 L (83-108) mmHg ABG HCO3 43 H* (21-25) mmol/L ABG Total CO2 45 H (19-24) mmol/L ABG O2 Saturation 93.7 L (94-97) % Chloride 111 H (98-107) mmol/L Creatinine 0.46 L (0.66-1.25) mg/dL Glucose 161 H (74-99) mg/dL Assessment and Plan Plan: 1 acute on chronic hypoxic respiratory failure mostly on the basis of COPD exacerbation. Patient has chronic hypercapnic and hypoxic respiratory failure and the patient had significant CO2 retention with CO2 narcosis which is currently optimized and he is referred to the most recent blood gas. 2 acute on chronic hypercapnic respiratory failure, details discussed above 3 advanced COPD with chronic hypoxic respiratory failure 4 altered mentation secondary to CO2 narcosis, MRI of the brain showed scattered white matter signal changes related to chronic small vessel ischemia without any acute abnormalities. The MRA of the brain showed 60% stenosis of the left i nternal carotid artery . Neurology on the case. The patient was started on Keppra and this will be gradually weaned off. 5 chronic metabolic alkalosis, Necessity to chronic hypercapnic respiratory failure in addition to worsening due to diuresis, improving on Diamox and a serum bicarb is down to 24 6 abnormal troponin , Consider non-STEMI 7 transaminitis, ultrasound the liver shows some hepatic steatosis, common bile duct is within normal limits 8 Abdominal aortic aneurysm measuring 6.9 cm in size 9 single episode of SVT occurred yesterday and the patient converted back to normal sinus rhythm with a few hours. He was given adenosine. He was given Cardizem drip. Plan discontinue the Diamox Discontinue the Cardizem patient on Toprol This continued IV Solu-Medrol and put the patient prednisone burst taper continue Perforomist and Pulmicort nebulized treatments around the clock Continue theophylline Continue DuoNeb nebulized treatments around the clock Blood gases was noted and the patient shows improvement and acid base status We'll try to arrange a AVAPS machine for this patient utilizes on outpatient basis. We'll work with [facility] [employer] in this regard.
--- NOTE | 2020-04-09 14:56 | PN ---
PROGRESS NOTE Gael is a 79-year-old patient who is admitted to the hospital with confusion secondary to respiratory failure and severe respiratory acidosis. The patient was on BiPAP through yesterday and is feeling much better, less confused, agitated and is more alert. PHYSICAL EXAMINATION: On exam, patient is afebrile. Heart rate is 90 beats per minute. Blood pressure is 131/87, respiratory rate is 18. Chest exam reveals diminished air entry at the bases. Heart exam reveals first and second heart sounds. No gallop. No murmur. Abdomen soft. Exam of extremities did not reveal any edema. Peripheral pulses are felt. Labs show that the blood gases show a pH of 7.3, pCO2 78, PO2 is 70. Hemoglobin is 11.8. ASSESSMENT: 1. Acute exacerbation of chronic respiratory failure. 2. Mild congestive heart failure probably diastolic. We will continue current medications. ANGELA / MANOLO: [id number] /
[2020-04-09] MEDS: SODIUM CHLORIDE 0.9% 1,000 ML IV SCH (16:35)
--- NOTE | 2020-04-09 17:45 | P.PN ---
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 Moon, hypertension, and prior tobacco abuse who presented initially to an outside hospital secondary to confusion and hypoxia. Apparently his nephew checked on him and he was noted to be confused and cyanotic. When EMS arrived he was hypoxic with an O2 sat of 70% was transferred to the hospital. Initial workup showed an abdominal aortic aneurysm 6.5 cm, elevated troponin, elevated BNP, and small bilateral pleural effusions. He was started on diuretics and transferred to our facility. CT brain showed no acute process with mild diffuse cerebral atrophy. He was diagnosed with COPD, elevated troponin with rule out myocardial infarction, and possible CHF secondary to pulmonary congestion with bilateral pleural effusions. He was started on aspirin. He underwent an echocardiogram which showed an ejection fraction of 50-55% without significant valvular disease. Carotid Doppler showed bilateral plaque with no significant hemodynamic stenosis. He was seen by vascular surgery who recommended outpatient follow-up. On the morning after admission he was noted to have continued altered mentation. ABG was checked and was found to be significantly hypercapnic. Pulmonary was consulted he was diagnosed with a COPD exacerbation was started on Diamox as well as titration of his oxygen, IV Solu-Medrol, and bronchodilators. He was transferred to the ICU for closer monitoring. Neurology was consulted for possible stroke versus seizure and he was subsequently diagnosed with myoclonic jerking as EEG demonstr ated increased seizure tendency but no active seizure activity. MRI of the brain showed scattered white matter signal changes related to chronic small vessel ischemia. MRA of the neck showed 60% stenosis in the left internal carotid artery. He was started on a tapered dose of Keppra. Liver ultrasound showed a coarse echotexture seen with hepatic steatosis. By the morning of 04/06 his CO2 levels are much improved and his mentation had begun to improve. He was seen by cardiology who felt that his troponin was likely elevated secondary to his respiratory failure as his ejection fraction was normal. He continued to struggle with hypercapnia and hypoxia despite diamox therapy and intermitted BiPap. He developed SVT on the evening of 04/06 and was started on cardizem gtt. He was started on theophylline. By the morning of 04/10 his mentation had improved slightly and he seemed more regulated. AVAPS was order for home. Patient seen and examined at bedside. No complaints currently. States he is doing good, wearing BiPap mask, per naughter at bedside ate small amounts. Objective - Vital Signs Vital signs: Vital Signs Temp 98.4 F 04/09/20 16:00 Pulse 96 04/09/20 16:00 Resp 20 04/09/20 16:00 BP 107/67 04/09/20 16:00 Pulse Ox 93 L 04/09/20 16:00 Intake & Output 04/08/20 04/09/20 04/09/20 18:59 06:59 18:59 Intake Total 524.5 275.5 365 Output Total 4434 480 5549 Balance -575.5 -299.5 -985 Weight 49.3 kg 49.3 kg Intake: IV 210 65 245 Diltiazem 125 mg In 55 5 Sodium Chloride 0.9% 100 ml @ Per Protocol IV .Q0M JAD Rx#:[id number] Potassium Chloride 10 meq 100 200 In Water For Injection 1 100ml.bag @ 100 mls/hr IVPB Q1H JAD Rx#: [id number] Sodium Chloride 0.9% 1, 55 60 45 000 ml @ 5 mls/hr IV . Q24H JAD Rx#:[id number] Intake, IV Titration 14.5 110.5 Amount Diltiazem 125 mg In 14.5 110.5 Sodium Chloride 0.9% 100 ml @ Per Protocol IV .Q0M JAD Rx#:[id number] Oral 300 100 120 Output: Urine 3004 381 9828 Other: Voiding Method Bedside Commode Bedside Commode Bedside Commode Urinal Urinal Urinal # Voids 1 1 2 - Exam General: ill appearing, no distress, appears at stated age, barrel chest Derm: multiple areas of small ecchymosis with large ecchymosis left arm, warm, dry Head: atraumatic, normocephalic, symmetric Eyes: EOMI, no lid lag, anicteric sclera Mouth: no lip lesion, mucus membranes dry Cardiovascular: S1S2 reg, no murmur, positive posterior tibial pulse bilateral, Lungs: decrease bs bilateral, no rhonchi, no rales , no accessory muscle use Abdominal: soft, nontender to palpation, no guarding, no appreciable organomegaly Ext: no gross muscle atrophy, no edema, no contractures Neuro: CN II-XI grossly intact, no focal neuro deficits Psych: awake but with some confusion - Labs CBC & Chem 7: 04/09/20 04:56 04/09/20 04:56 Labs: Abnormal Lab Results - Last 24 Hours (Table) 04/09/20 04/09/20 04/09/20 Range/Units 04:56 04:56 05:26 RBC 3.83 L (4.30-5.90) m/uL Hgb 11.8 L (13.0-17.5) gm/dL Hct 34.4 L (39.0-53.0) % Plt Count 98 L (150-450) k/uL ABG pCO2 78 H* (35-45) mmHg ABG pO2 70 L (83-108) mmHg ABG HCO3 43 H* (21-25) mmol/L ABG Total CO2 45 H (19-24) mmol/L ABG O2 Saturation 93.7 L (94-97) % Chloride 111 H (98-107) mmol/L Creatinine 0.46 L (0.66-1.25) mg/dL Glucose 161 H (74-99) mg/dL Assessment and Plan Assessment: Acute exacerbation of COPD with acute on chronic hypoxic hypercapnic respiratory failure -Pulmonary recommendations appreciated - Prednisone - fixed and when necessary bronchodilators - theophylline - BiPap as needed -Pulmonary hygiene -Wean O2 as able -Would benefit from outpatient pulmonary rehab - Diamox Therpay completed Toxic metabolic encephalopathy likely secondary to CO2 retention/ hypoxia -Supportive care -Treatment as above -Stop Seroquel, increase melatonin to see if this helps Transaminitis, improved no need for further testing -Liver ultrasound shows signs of steatohepatitis suggested that this may be ch ronic in nature -Outpatient follow-up Thrombocytopenia - likely reactive - follow CBC Myoclonic jerking - neuro recs appreciated - on Keppra wean, felt to be due to hypoxia and likely reversible Abdominal aortic aneurysm -Incidental finding -Vesicular surgery recommendations appreciated. Outpatient follow-up. Elevated troponin reflective of hypoxemia -Acute coronary syndrome ruled out -Echocardiogram within normal limits -Cardiology recommendations appreciated Carotid stenosis L - outpatient follow-up History of tobacco abuse SVT, resolved DVT prophylaxis: Heparin Discussed with: Patient, nursing, case management Anticipated discharge: 2-[address]: with family and 07/05 supervision A total of 35 minutes was spent on the care of this complex patient more than 50% of the time was spent in counseling and care coordination.
[2020-04-09] MEDS ORDERED: DEXTROSE 5% IN WATER 100 ML with AMIODARONE 150 MG IV ONE (20:31)
[2020-04-09] MEDS ORDERED: AMIODARONE 360 MG in DEXTROSE 5% IN WATER 200 ML IV ONE ×2 (20:32)
[2020-04-09] MEDS: MELATONIN 5 MG TABLET PO SCH (21:00)
[2020-04-09] MEDS ORDERED: Potassium Replacement Protocol 1 EACH MISC MISCELLANE PRN (23:32)
[2020-04-10] MEDS: HEPARIN SODIUM,PORCINE 5,000 UNIT/ML 1 ML VIAL SQ SCH (01:20)
[2020-04-10] MEDS: POTASSIUM CHLORIDE 10 MEQ in WATER FOR INJECTION 1 100ML.BAG IVPB SCH (01:22)
[2020-04-10] MEDS: AMIODARONE 300 MG in DEXTROSE 5% IN WATER 250 ML IV SCH ×4 (02:59→13:00)
[2020-04-10 06:08] LABS: HCT 43.9 % (39.0-53.0); HGB 13.2 gm/dL (13.0-17.5); Hypochromasia Marked; MCH 30.4 pg (25.0-35.0); MCHC 30.2 g/dL (31.0-37.0); Mean Platelet Volume 8.9; RBC 4.36 m/uL (4.30-5.90); RDW 13.4 % (11.5-15.5); WBC 7.7 k/uL (3.8-10.6)
[2020-04-10 06:15] LABS: MCV 100.6 fL (80.0-100.0); Platelet Count 183 k/uL (150-450)
[2020-04-10] MEDS: LEVOTHYROXINE 112 MCG TAB PO SCH (06:30)
[2020-04-10 06:35] LABS: Calcium 8.6 mg/dL (8.4-10.2); Magnesium 2.1 mg/dL (1.6-2.3); Phosphorus 1.8 mg/dL (2.5-4.5)
--- NOTE | 2020-04-10 06:55 | XR ---
EXAMINATION TYPE: XR chest 1V portable DATE OF EXAM: 04/10/2020 HISTORY: COPD. REFERENCE: Previous study dated 04/07/2020. FINDINGS: There has developed a 40-50% pneumothorax on the left. The lungs are overinflated. The hear t is mildly enlarged. There is blunting of both CP angles. It be difficult to exclude small, bilatera l effusions. IMPRESSION: 1. COPD. 2. INTERVAL DEVELOPMENT OF A LEFT-SIDED PNEUMOTHORAX. This report was phoned to Tono in the ICU at the time of reporting.
--- NOTE | 2020-04-10 07:39 | XR ---
EXAMINATION TYPE: XR chest 1V portable DATE OF EXAM: 04/10/2020 HISTORY: Possible Pneumothorax. REFERENCE: Previous study dated 04/10/2020. FINDINGS: There is a worsening left-sided pneumothorax. This now approaches 50% by volume. Overall the lungs are overinflated. Heart is mildly enlarged. There is blunting of both CP angles. I could not exclude small effusions. IMPRESSION: WORSENING LEFT-SIDED PNEUMOTHORAX.
[2020-04-10] MEDS: BUDESONIDE 0.5 MG/2 ML NEBU INHALATION SCH ×2 (08:32→19:13)
[2020-04-10] MEDS: FORMOTEROL FUMARATE 20 MCG/2 ML NEBU INHALATION SCH ×2 (08:32→19:13)
--- NOTE | 2020-04-10 08:35 | P.PN ---
Subjective Progress Note Date: 04/10/20 Principal diagnosis: altered mentation Patient is a 79-year-old male with hypothyroidism, COPD on home oxygen end-stage per his outpatient technical sales associate Dr. Moon, hypertension, and prior tobacco abuse who presented initially to an outside hospital secondary to confusion and hypoxia. Apparently his nephew checked on him and he was noted to be confused and cyanotic. When EMS arrived he was hypoxic with an O2 sat of 70% was transferred to the hospital. Initial workup showed an abdominal aortic aneurysm 6.5 cm, elevated troponin, elevated BNP, and small bilateral pleural effusions. He was started on diuretics and transferred to our facility. CT brain showed no acute process with mild diffuse cerebral atrophy. He was diagnosed with COPD, elevated troponin with rule out myocardial infarction, and possible CHF secondary to pulmonary congestion with bilateral pleural effusions. He was started on aspirin. He underwent an echocardiogram which showed an ejection fraction of 50-55% without significant valvular disease. Carotid Doppler showed bilateral plaque with no significant hemodynamic stenosis. He was seen by vascular surgery who recommended outpatient follow-up. On the morning after admission he was noted to have continued altered mentation. ABG was checked and was found to be significantly hypercapnic. Pulmonary was consulted he was diagnosed with a COPD exacerbation was started on Diamox as well as titration of his oxygen, IV Solu-Medrol, and bronchodilators. He was transferred to the ICU for closer monitoring. Neurology was consulted for possible stroke versus seizure and he was subsequently diagnosed with myoclonic jerking as EEG demonstr ated increased seizure tendency but no active seizure activity. MRI of the brain showed scattered white matter signal changes related to chronic small vessel ischemia. MRA of the neck showed 60% stenosis in the left internal carotid artery. He was started on a tapered dose of Keppra. Liver ultrasound showed a coarse echotexture seen with hepatic steatosis. By the morning of 04/06 his CO2 levels are much improved and his mentation had begun to improve. He was seen by cardiology who felt that his troponin was likely elevated secondary to his respiratory failure as his ejection fraction was normal. He continued to struggle with hypercapnia and hypoxia despite diamox therapy and intermitted BiPap. He developed SVT on the evening of 04/06 and was started on cardizem gtt. He was started on theophylline. By the morning of 04/10 his mentation had improved slightly and he seemed more regulated. AVAPS was order for home. He was noted to have SVT again overnight on 04/10 and he was started on amio gtt. He developed a PXT that worsened. Patient seen and examined at bedside. Reports that he had some chest pain and thought that he was going to last night but states that it is much better now. He states that his shortness of breath is the same as last night. No nausea or vomiting. Objective - Vital Signs Vital signs: Vital Signs Temp 98.2 F 04/10/20 08:00 Pulse 80 04/10/20 08:00 Resp 20 04/10/20 08:00 BP 128/81 04/10/20 08:00 Pulse Ox 99 04/10/20 08:00 Intake & Output 04/09/20 04/10/20 04/10/20 18:59 06:59 18:59 Intake Total 495 260 35 Output Total 1350 900 150 Balance -855 -640 -115 Weight 49.3 kg 50.5 kg Intake: IV 255 60 35 Amiodarone 300 mg In 25 Dextrose 5% in Water 250 ml @ 0.5 MG/MIN 25 mls/hr IV .Q10H JAD Rx#: [id number] Potassium Chloride 10 meq 200 In Water For Injection 1 100ml.bag @ 100 mls/hr IVPB Q1H JAD Rx#: [id number] Sodium Chloride 0.9% 1, 55 60 10 000 ml @ 5 mls/hr IV . Q24H JAD Rx#:[id number] Intake, IV Titration 200 Amount Potassium Chloride 10 meq 200 In Water For Injection 1 100ml.bag @ 100 mls/hr IVPB Q1H JAD Rx#: [id number] Oral 240 Output: Urine 1350 900 150 Other: Voiding Method Bedside Commode Bedside Commode Urinal Urinal # Voids 2 - Exam General: ill appearing, no distress, appears at stated age, barrel chest Derm: multiple areas of small ecchymosis with large ecchymosis left arm, warm, dry Head: atraumatic, normocephalic, symmetric Eyes: EOMI, no lid lag, anicteric sclera Mouth: no lip lesion, mucus membranes dry Cardiovascular: S1S2 irreg, no murmur, positive posterior tibial pulse bilateral, Lungs: absent breath sounds left apex, course breath sounds right apex and bilateral bases, no accessory muscle use Abdominal: soft, nontender to palpation, no guarding, no appreciable organomegaly Ext: no gross muscle atrophy, no edema, no contractures Neuro: CN II-XI grossly intact, no focal neuro deficits Psych: awake but with some confusion - Labs CBC & Chem 7: 04/10/20 05:16 04/10/20 05:16 Labs: Abnormal Lab Results - Last 24 Hours (Table) 04/10/20 04/10/20 Range/Units 05:16 05:16 MCV 100.6 H D (80.0-100.0) fL MCHC 30.2 L (31.0-37.0) g/dL Chloride 93 L (98-107) mmol/L Carbon Dioxide 50 H* (22-30) mmol/L BUN 42 H (9-20) mg/dL Phosphorus 1.8 L (2.5-4.5) mg/dL Assessment and Plan Assessment: Acute exacerbation of COPD with acute on chronic hypoxic hypercapnic respiratory failure - Pulmonary recommendations appreciated - Prednisone - fixed and when necessary bronchodilators - theophylline - BiPap as needed - Pulmonary hygiene - Wean O2 as able - Would benefit from outpatient pulmonary rehab - Diamox Therpay completed Left PTX - plan is for chest tube this AM - Pain control - Pulm management Toxic metabolic encephalopathy likely secondary to CO2 retention/ hypoxia - Supportive care - Treatment as above - Stop Seroquel, increase melatonin to see if this helps Myoclonic jerking, resolved - neuro recs appreciated - on Keppra wean, felt to be due to hypoxia and likely reversible Abdominal aortic aneurysm -Incidental finding -Vesicular surgery recommendations appreciated. Outpatient follow-up. Elevated troponin reflective of hypoxemia -Acute coronary syndrome ruled out -Echocardiogram within normal limits -Cardiology recommendations appreciated Carotid stenosis L - outpatient follow-up History of tobacco abuse SVT, resolved Transaminitis, improved Thrombocytopenia, improved DVT prophylaxis: Heparin Discussed with: Patient, nursing Anticipated discharge: 2-[address]: with family and 07/05 supervision A total of 35 minutes was spent on the care of this complex patient more than 50% of the time was spent in counseling and care coordination.
[2020-04-10 08:54] LABS: ABG Base Excess 20.7 mmol/L; ABG Oxygen Saturation 95.6 % (94-97); ABG PH 7.38 (7.35-7.45); ABG PO2 79 mmHg (83-108); ABG TCO2 48 mmol/L (19-24); Allen Test Performed? Yes
--- NOTE | 2020-04-10 09:15 | XR ---
EXAMINATION TYPE: XR chest 1V portable DATE OF EXAM: 04/10/2020 HISTORY: s/p thoravent insertion. REFERENCE: Previous study dated 04/10/2020. FINDINGS: A left-sided thoravent has been inserted. There is a left-sided residual pneumothorax appro aching 50% by volume. The right lung is clear. Heart size upper limits of normal. Note is made of con trast within the colon from a previous CT scan. IMPRESSION: CONTINUING LEFT-SIDED PNEUMOTHORAX APPROACHING 50% BY VOLUME.
[2020-04-10] MEDS: ASPIRIN 325 MG TAB PO SCH (09:39)
[2020-04-10] MEDS: APIXABAN 5 MG TAB PO SCH ×2 (09:39→20:29)
[2020-04-10] MEDS: levETIRAcetam ORAL SOLN 500 MG/5 ML CUP PO SCH (09:39)
[2020-04-10] MEDS: FUROSEMIDE 40 MG TAB PO SCH (09:39)
[2020-04-10] MEDS: predniSONE 20 MG TAB PO SCH (09:39)
[2020-04-10] MEDS: ISOSORBIDE MONONITRATE ER 60 MG TAB.ER.24H PO SCH (09:39)
[2020-04-10] MEDS: THIAMINE 100 MG/ML 2 ML VIAL IVP SCH (09:40)
[2020-04-10] MEDS: METOPROLOL SUCCINATE (ER) 25 MG TAB.ER.24H PO SCH (09:40)
[2020-04-10] MEDS: THEOPHYLLINE 24 HOUR 300 MG CAP.ER.24H PO SCH (09:40)
--- NOTE | 2020-04-10 10:38 | PN ---
PROGRESS NOTE Gael is a 79-year-old gentleman who was admitted to hospital with respiratory failure and developed a spontaneous pneumothorax and had a pleura vac placed today. The patient has had runs of atrial fibrillation. He had an episode 2 days ago and again today. The most recent episode lasted for about 6 hours. The patient converted back to sinus rhythm. He is on amiodarone and he is also receiving Theophylline. I am going to continue the patient on amiodarone and start him on Eliquis. On exam, heart rate is 80 beats per minute. Blood pressure is 128/80. Respirations 18. O2 saturation is 99% on 2 L. chest exam reveals diminished air entry at the left base. Heart exam reveals first and second heart sounds and a systolic murmur at the left lower sternal border. Abdomen is soft. Exam of extremities did not reveal any edema. Blood gases show a pH of 7.3, pCO2 78, PO2 of 79, potassium is 4, creatinine is 1. Hemoglobin is 13.2. ASSESSMENT: 1. Paroxysmal atrial fibrillation. 2. Respiratory failure. PLAN: The patient will be started on Eliquis. We will also start him on amiodarone for rhythm suppression. If he has further episodes of afib, we might consider stopping the Theophylline. MMODL / IJN: [id number] /
--- NOTE | 2020-04-10 13:15 | P.PN ---
Subjective Progress Note Date: 04/10/20 A 7 79-year-old male patient who was transferred to us from [facility] because of acute hypoxic respiratory failure. The patient is known to have COPD and his dependent on home oxygen. According to the daughter, he is an ex-smoker is not smoking. His been living independently at home and he has been able to perform activities of daily today life. Apparently the patient was having altered mentation he was confused and the daughter called EMS to the scene and the patient was found to be quite hypoxic with a pulse ox of 70s. The patient was placed on a nonrebreather facemask was brought him up to 90% saturation and following that the patient got transferred initially to [facility] and later on to [facility]. During the course of his [facility] stay, the patient underwent a CT angiogram that showed no evidence of any pulmonary embolism. 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 There was no suspicious focal consolidation. There is mild interstitial edema and the patient was suspected to be CHF. Based on that the patient was started on diuresis. There was no evidence of any pulmonary embolism. There was at least a 6.9 cm abdominal aortic and is a bit was noted. CAT scan of the abdomen also confirmed the presence of a large abdominal aortic aneurysm. The blood work that was done showed a glucose of 129, BUN of 27, and a creatinine of 1.0, SGOT was 208, SGPT was 182, calcium level was 8.8, the CPK was 105, lactic acid level was 1.4, magnesium was at 2.1 with a troponin of 0.189. The patient also had a sodium of 142 with a chloride of 92 and a potassium of 4.8. White cell count was at 8.2 with a hemoglobin of 13.3. This morning, the patient was asked to be seen by pulmonary critical care. He was still altered and the family was at the bedside. Note that the patient has undergone a CAT scan of the brain that showed no acute abnormalities. His blood gases was done today and the patient was found to have a pH of 7.23 with episodes of more than 120 and pO2 of 150 and this was done on the percent nonrebreather facemask. He had developed significant metabolic alkalosis with a serum bicarb coming up to 50 while being given Lasix 40 mg every 8 hours. For that reason, the patient was transferred to the intensive care unit. The echocardiogram that was done showed an ejection fraction of 50-55%, the valvular functions were all within normal limits, the patient had normal IVC respiratory collapse indicating that the estimated right atrial pressure was 5. No evidence of any pericardial effusion. On today's evaluation of 04/05/2020 and seeing this patient for a follow-up. The patient is much more awake and alert compared to yesterday. Is conversing and he seems to be very much appropriate. Note that I kept on his diuretics yesterday as the patient was becoming more alkalotic and he had a significant amount of CO2 and a component of CO2 narcosis. MRI of the brain has been negative. EEG was showing some metabolic encephalopathy. Nevertheless, there was no seizure activity noted and the patient was given IV Keppra per neurology. No focal neurological deficits. This morning, repeat blood gases was done and the patient has a pH of 7.33 with a pCO2 of 94. I gave him to dose of Diamox yesterday and his serum bicarb is no significant cardiac arrhythmias. He will be placed on 40 to about 2 by nasal cannula to improve his hypoxemia. Meanwhile, the patient had a combination of bronchodilators and systemic steroids. As mentioned earlier, I switched his Lasix to oral 40 mg by mouth on a daily basis. He is not accepting any BiPAP use. On 12/17/2019, the patient is doing well and he is resting comfortably in bed. The patient is currently utilizing 4 L of oxygen by nasal cannula. I repeated the blood gas today and the patient continues to have a component of hypercapnic respiratory failure. Based on morning blood gases, the patient's pH is at 7.27 with a pCO2 of 98 and pO2 of 150 and I reduced oxygen flow down to 2 L of oxygen by nasal cannula. The patient's is denying having any significant respiratory distress. He is currently receiving Diamox and Lasix. The metabolic alkalosis is improved and his serum bicarb level is down to 44.the neurologist evaluated this patient as the patient was having some altered mental status. Apparently was having some occasional slurred speech. I find him quite oriented to time and place and people. He is able to follow commands and he has adequate strength for now. Note that the patient's was initially started on Keppra for concerns of seizure activity. The medications currently being weaned off by neurology. He is afebrile. Hemodynamically stable. On today's evaluation of 04/08/2020, the patient is being seen in follow-up. Continues to be on of confused and is still having episodes of CO2 narcosis. I repeated her blood gases today. One of the blood gases showed adequate oxygenation with significant CO2 retention. The second blood gases showed impairment and oxygenation with CO2 retention. In any rate, the patient continues to have chronic hypoxic and hypercapnic respiratory failure. He is being given Diamox for his metabolic alkalosis. His COPD is being optimized. His been gently diuresed. He will be also offered BiPAP today for respiratory support regards to his hypercapnic respiratory failure. Note that I placed him on oxygen at 2 L to maintain a saturation above 90%. Lowering oxygen flow below 2 L will make an profoundly hypoxic. Chest x-ray from today shows no acute abnormalities. His breath sounds are quite diminished and the patient has gissell ed diminished breath sounds bilaterally. The patient did pass his swallow evaluation. He demonstrated only mild aspiration on 1 occasion. For now his taken his oral intake without any major difficulties. Hemodynamically, he is stable. No focal neurological deficits. On and off he was noted to be lethargic and confused and I think this is related to his CO2 narcosis. Neurology did not find any seizure activity on him. Denies being weaned and the patient is on low-dose Seroquel. He is on DuoNeb of activity around the clock and he is on a combination of Perforomist and Pulmicort. Most recent blood gas showed a pH of 7.29 with a pCO2 of 97 and pO2 of 44 and this was done on 1 L of oxygen by nasal cannula and his oxygen flow was increased up to 2 L. the patient did have a bout of SVT yesterday which she was given adenosine and following that he had a Cardizem bolus and then a drip at 70 g an hour and he converted within the next few hours. Note that he has a preserved LV function with an ejection fraction of 50-55%. On 04/09/2020, I'm seeing the patient for a follow-up. More awake and alert compared to yesterday and the blood gases from today shows improvement in his acid base status. As such, his lethargy and increased sleepiness is probably related to CO2 narcosis. He does have some ongoing confusion however. Overall, he is improved. The blood gases from today showed a pH of 7.35 with a pCO2 of 78 and pO2 of 70 and this was done 2 L about 2 by nasal cannula. Note that the patient was being given AVAPS treatment with a tidal volume target of 350 overnight and he was able to tolerate stable without any major difficulties. He was also given Diamox. Serum bicarb level is improved and the bicarb level is down to 24. The patient is on normal saline. Of an hour. The patient is also a Cardizem drip at 5 mg an hour. He is currently on 2.5 L with a pulse ox of 93%. No focal neurological deficit. No chest pain. He has a congested cough, unable to bring up much of sputum. No other significant events otherwise for now. The patient is resting comfortably in bed and his communicating and daughter is at the bedside. On 04/10/2020, the patient is calm and comfortable. No respiratory difficulties and his overall doing well and is much more alert and awake and there are no signs of any significant encephalopathy with drowsiness or sleepiness or loly rdation. However, the chest x-rays was done this morning showed a left-sided pneumothorax that was estimated to be around 30-40%. A repeat chest x-ray was done that confirmed the findings. It performed a bedside evaluation and I inserted the Thoravent in this patient, 11-Ugandan tube and I was able to drain the pneumothorax. The chest tube is attached to a Pleur-evac and there is positive air leak and the Chambers for now. The patient did tolerate the procedure well without any major complications. The patient overnight went into atrial fibrillation with rapid ventricular response. He was given amiodarone bolus and he was started on a loading regimen and currently amiodarone is running at 0.5 mg per minute. His cardiac rhythm within the next 3-4 hours after amiodarone initiation went back to sinus. We are planning to continue the loading and transition him to oral maintenance total milligrams by mouth twice a day. Is using incentive spirometer. The blood gases was obtained after the Thoravent insertion showed a pH of 7.38 with a pCO2 of 78 and pO2 of 79 which is essentially compatible to yesterday's blood gases. The serum bicarb is still elevated at 50. The patient is a 28% FiO2. No angina. No palpitation. No chest pain. No other significant events overnight. He has a preserved LV function. Please refer to his most his echocardiogram. Objective - Vital Signs Vital signs: Vital Signs Temp 98.2 F 04/10/20 08:00 Pulse 78 04/10/20 10:00 Resp 26 H 04/10/20 10:00 BP 134/77 04/10/20 10:00 Pulse Ox 94 L 04/10/20 10:00 Intake & Output 04/09/20 04/10/20 04/10/20 18:59 06:59 18:59 Intake Total 495 260 155 Output Total 1350 900 575 Balance -855 -640 -420 Weight 49.3 kg 50.5 kg Intake: IV 255 60 155 Amiodarone 300 mg In 125 Dextrose 5% in Water 250 ml @ 0.5 MG/MIN 25 mls/hr IV .Q10H JAD Rx#: [id number] Potassium Chloride 10 meq 200 In Water For Injection 1 100ml.bag @ 100 mls/hr IVPB Q1H JAD Rx#: [id number] Sodium Chloride 0.9% 1, 55 60 30 000 ml @ 5 mls/hr IV . Q24H JAD Rx#:[id number] Intake, IV Titration 200 Amount Potassium Chloride 10 meq 200 In Water For Injection 1 100ml.bag @ 100 mls/hr IVPB Q1H JAD Rx#: [id number] Oral 240 Output: Chest Tube Drainage 0 Thora-Vent Left Upper Mid 0 -Clavicular Chest Urine 1350 900 575 Other: Voiding Method Bedside Commode Bedside Commode Urinal Urinal Urinal # Voids 2 1 - Exam Gen. appearance is alert and awake and communicating and answering questions appropriately. Currently on 2.5 L about 2 by nasal cannula. Head exam was generally normal. There was no scleral icterus or corneal arcus. Mucous membranes were moist. Neck was supple and without jugular venous distension, thyromegaly, or carotid bruits. Carotids were easily palpable bilaterally. There was no adenopathy. lung sounds are markedly diminished bilaterally along with some few rales in the lung bases. Scattered SCANT expiratory wheezes. He is not using excessive muscle breathing. The patient has a Thoravent 11-Ugandan catheter left anterior chest area and the positive air leak Heart sounds are distant, regular, positive psoas sign is no significant murmurs appreciated. Abdominal exam revealed normal bowel sounds. The abdomen was soft, non-tender, and without masses, organomegaly, or appreciable enlargement of the abdominal aorta. The patient has a pulsatile mass in the mid abdominal area related to his underlying large abdominal aortic aneurysm which is measuring 6.9 cm in size on the CAT scan of the chest and abdomen. Extremities revealed no edema and there is no cyanosis or clubbing. No open wounds or sores. Examination of the skin revealed no evidence of significant rashes, suspicious appearing nevi or other concerning lesions. Neurologically the patient is able to move all 4 extremities. Strength is essentially diminished 4 out of 5 in all 4 extremities, symmetrical. Cranial nerves are grossly intact with equal and symmetrical. Without any nystagmus. No clonus. No Babinski at this point in time. Gait cannot be assessed. - Labs CBC & Chem 7: 04/10/20 05:16 04/10/20 05:16 Labs: Abnormal Lab Results - Last 24 Hours (Table) 04/10/20 04/10/20 04/10/20 Range/Units 05:16 05:16 08:52 MCV 100.6 H D (80.0-100.0) fL MCHC 30.2 L (31.0-37.0) g/dL ABG pCO2 78 H* (35-45) mmHg ABG pO2 79 L (83-108) mmHg ABG HCO3 46 H* (21-25) mmol/L ABG Total CO2 48 H (19-24) mmol/L Chloride 93 L (98-107) mmol/L Carbon Dioxide 50 H* (22-30) mmol/L BUN 42 H (9-20) mg/dL Phosphorus 1.8 L (2.5-4.5) mg/dL Assessment and Plan Plan: 1 acute on chronic hypoxic/hypercapnic respiratory failure mostly on the basis of COPD exacerbation. Patient has chronic hypercapnic and hypoxic respiratory failure and the patient had significant CO2 retention with CO2 narcosis which is currently optimized and he is referred to the most recent blood gas. On today's evaluation, the lungs gas shows no significant decompensation the patient's oxygenation and CO2 retention and this is despite development of a spontaneous pneumothorax on the left. I was able to insert the Thoravent, 11-Ugandan cath into the left hemithorax and there is positive air leak. Follow-up chest x-ray is to be done to monitor the progression of the left-sided pneumothorax. 2 spontaneous secondary left-sided pneumothorax post Thoravent insertion 3 advanced COPD with chronic hypoxic respiratory failure 4 altered mentation secondary to CO2 narcosis, MRI of the brain showed scattered white matter signal changes related to chronic small vessel ischemia without any acute abnormalities. 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 Neurology on the case. The patient was started on Keppra and this will be gradually weaned off. 5 chronic metabolic alkalosis, Necessity to chronic hypercapnic respiratory failure in addition to worsening due to diuresis, improving on Diamox and a serum bicarb is still elevated at 50 and the patient was not given any further Diamox as the patient's blood gases showed improvement and acid base status. 6 abnormal troponin , Consider non-STEMI 7 transaminitis, ultrasound the liver shows some hepatic steatosis, common bile duct is within normal limits 8 Abdominal aortic aneurysm measuring 6.9 cm in size 9 single episode of SVT /atrial fibrillation. The patient was given another amiodarone loading and he will be kept on a maintenance amiodarone of 200 mg by mouth twice a day. Cardiology also plans to start the patient on antic oagulants. Plan Keep the Thoravent attached to a Pleur-evac and monitor the air leaks Daily chest x-ray Daily blood gases Prednisone burst taper continue Perforomist and Pulmicort nebulized treatments around the clock Continue theophylline Continue DuoNeb nebulized treatments around the clock Continue the amiodarone loading and following that switch this patient to oral amiodarone 200 mg by mouth twice a day Started patient Eliquis 5 mg by mouth twice a day May consider stopping the theophylline if the patient continues to have episodes of atrial fibrillation Continue metoprolol 25 mg by mouth twice a day We'll try to arrange a AVAPS machine for this patient utilizes on outpatient basis. We'll work with [facility] [employer] in this regard.
--- NOTE | 2020-04-10 13:18 | P.PCN ---
Date of Procedure: 04/10/20 Preoperative Diagnosis: Left-sided pneumothorax Postoperative Diagnosis: Left-sided pneumothorax Procedure(s) Performed: Insertion of a Thoravent, 11-[place] chest tube Anesthesia: local Surgeon: Christiano Prieto Estimated Blood Loss (ml): 0 Pathology: none sent Condition: critical Disposition: ICU Operative Findings: This procedure was done at the bedside. The procedure including the potential complicated was extended to the patient. The patient was placed supine in bed with that of the bed elevated at around 20. Left anterior chest was cleaned using ChloraPrep. The second intercostal space lateral to the sternum was palpated. The skin was infiltrated with 1% lidocaine. Following that, a scalpel was used to make a incision over the left anterior chest. Following that, a 11-[place] Korean Thoravent chest tube was inserted successfully over a trocar into the left hemithorax. The trocar was removed. The chest tube was secured in place. At that point, aspiration of the air through a 3-way stopcock was done with a total of 400 mL of air was evacuated from the left hemithorax. I asked the Thoravent the pleural VAC and a chest x-ray showed improvement in the left-sided pneumothorax. The Thoravent had a positive air leak. No bedside complications. No bleeding. The patient tolerated the procedure well without any major difficulties.
[2020-04-10] MEDS: SODIUM CHLORIDE 0.9% 1,000 ML IV SCH (15:52)
[2020-04-10] MEDS ORDERED: Phosphorus Replacement Protoco 1 EACH MISC MISCELLANE PRN (16:05)
[2020-04-10] MEDS: SODIUM PHOSPHATE 10 MMOL in SODIUM CHLORIDE 0.9% 250 ML IVPB SCH ×2 (16:48→19:00)
[2020-04-10] MEDS: MELATONIN 5 MG TABLET PO SCH (20:28)
[2020-04-10] MEDS: AMIODARONE 200 MG TAB PO SCH ×2 (20:28)
[2020-04-11 05:21] LABS: ABG Base Excess 24.4 mmol/L; ABG Oxygen Saturation 90.6 % (94-97); ABG PH 7.38 (7.35-7.45); ABG PO2 61 mmHg (83-108); ABG TCO2 52 mmol/L (19-24); Allen Test Performed? Yes
[2020-04-11 05:26] LABS: Basophils % (A) 0 %; Eosinophils # (A) 0.1 k/uL (0-0.7); Eosinophils % (A) 1 %; HCT 44.2 % (39.0-53.0); HGB 13.2 gm/dL (13.0-17.5); Hypochromasia Marked; Lymphocytes # (A) 0.7 k/uL (1.0-4.8); Lymphocytes % (A) 8 %; MCH 29.3 pg (25.0-35.0); MCHC 29.8 g/dL (31.0-37.0); MCV 98.1 fL (80.0-100.0); Mean Platelet Volume 8.9; Monocytes # (A) 0.7 k/uL (0-1.0); Monocytes % (A) 8 %; Neutrophils # (A) 7.2 k/uL (1.3-7.7); Neutrophils % (A) 83 %; Platelet Count 159 k/uL (150-450); RDW 13.7 % (11.5-15.5); WBC 8.7 k/uL (3.8-10.6)
[2020-04-11 05:33] LABS: African American GFR (CKD) >90 (>60 ml/min/1.73 sqM); Blood Urea Nitrogen 37 mg/dL (9-20); Calcium 8.4 mg/dL (8.4-10.2); Chloride 93 mmol/L (98-107); Glucose 102 mg/dL (74-99); Non-African American GFR(CKD) 84 (>60 ml/min/1.73 sqM); Phosphorus 2.6 mg/dL (2.5-4.5); Potassium 3.6 mmol/L (3.5-5.1); Sodium 139 mmol/L (137-145)
[2020-04-11 05:41] LABS: Anion Gap 2 mmol/L
[2020-04-11 05:42] LABS: ABG PCO2 84 mmHg (35-45)
[2020-04-11 05:43] LABS: ABG HCO3 50 mmol/L (21-25)
[2020-04-11 05:53] LABS: Carbon Dioxide 44 mmol/L (22-30)
[2020-04-11] MEDS ORDERED: Potassium Replacement Protocol 1 EACH MISC MISCELLANE PRN (05:55)
[2020-04-11] MEDS: POTASSIUM CHLORIDE 10 MEQ in WATER FOR INJECTION 1 100ML.BAG IVPB SCH ×2 (06:08→07:04)
--- NOTE | 2020-04-11 06:21 | XR ---
EXAMINATION TYPE: XR chest 1V portable DATE OF EXAM: 04/11/2020 HISTORY: dyspnea. REFERENCE: Previous study dated 04/10/2020. FINDINGS: The left thoracic vent is in place. Its tip appears to extend beyond the confines of the ri b cage. There is worsening subcutaneous emphysema. There continues to be a left-sided pneumothorax. R ight lung appears clear. There is blunting of the right CP angle and I cannot exclude a small effusio n. The heart is mildly prominent. IMPRESSION: 1. 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 2. CONTINUING LEFT-SIDED PNEUMOTHORAX. 3. MILD CARDIOMEGALY. 4. I COULD NOT EXCLUDE A SMALL RIGHT-SIDED EFFUSION.
[2020-04-11] MEDS: LEVOTHYROXINE 112 MCG TAB PO SCH (06:43)
[2020-04-11] MEDS: APIXABAN 5 MG TAB PO SCH ×2 (08:22→20:13)
[2020-04-11] MEDS: FORMOTEROL FUMARATE 20 MCG/2 ML NEBU INHALATION SCH ×2 (09:05→21:22)
[2020-04-11] MEDS: BUDESONIDE 0.5 MG/2 ML NEBU INHALATION SCH ×2 (09:05→21:22)
--- NOTE | 2020-04-11 10:05 | PN ---
PROGRESS NOTE Gael is a 79-year-old gentleman who is admitted to hospital with respiratory failure and developed pneumothorax yesterday. He also had paroxysmal episodes of atrial fibrillation. This morning, he is comfortable at rest. Remains in sinus rhythm. Did not have further episodes of atrial fibrillation. He has a pneumo vac in place, continues to have pneumothorax without any significant improvement since yesterday. On exam, heart rate is 73 beats per minute. Blood pressure is 128/86. Respirations 18. Chest exam reveals diminished air entry at the left base. Heart exam reveals first and second heart sounds. No gallop. Abdomen is soft. Exam of extremities did not reveal any edema. Peripheral pulses are felt. Labs show that the pH is 7.3, pCO2 is 84, PO2 is 60. Hemoglobin is 13.2. Platelet count is 159, potassium is 3.6, creatinine is 0.8. ASSESSMENT: 1. Paroxysmal atrial fibrillation. 2. Respiratory failure. 3. Left-sided pneumothorax. PLAN: I will continue the patient on Toprol-XL 25 mg daily, Eliquis 5 mg b.i.d., and the amiodarone that I started earlier. We will decrease his aspirin dose to 81 mg daily. MMODL / IJN: [id number] /
--- NOTE | 2020-04-11 10:09 | XR ---
EXAMINATION TYPE: XR chest 1V portable DATE OF EXAM: 04/11/2020 HISTORY: pxt. REFERENCE: Previous study of earlier today. FINDINGS: The patient's thoracic vent now projects at the level of the clavicle there is worsening em bcutaneous emphysema on the left. There is a worsening left-sided effusion. No definite pneumothorax is seen.. There continues to be contrast within the colon from a recent barium examination. IMPRESSION: 1. WORSENING SUBCUTANEOUS EMPHYSEMA. 2. I NO LONGER SEE A DEFINITE PNEUMOTHORAX. 3. WORSENING LEFT-SIDED EFFUSION.
[2020-04-11] MEDS: ISOSORBIDE MONONITRATE ER 60 MG TAB.ER.24H PO SCH (10:16)
[2020-04-11] MEDS: levETIRAcetam ORAL SOLN 500 MG/5 ML CUP PO SCH (10:16)
[2020-04-11] MEDS: FUROSEMIDE 40 MG TAB PO SCH (10:16)
[2020-04-11] MEDS: AMIODARONE 200 MG TAB PO SCH ×2 (10:16→20:13)
[2020-04-11] MEDS: METOPROLOL SUCCINATE (ER) 25 MG TAB.ER.24H PO SCH (10:17)
[2020-04-11] MEDS: predniSONE 20 MG TAB PO SCH (10:18)
[2020-04-11] MEDS: THEOPHYLLINE 24 HOUR 300 MG CAP.ER.24H PO SCH (10:18)
[2020-04-11] MEDS: THIAMINE 100 MG/ML 2 ML VIAL IVP SCH (10:18)
--- NOTE | 2020-04-11 10:58 | P.PN ---
Subjective Progress Note Date: 04/11/20 A 7 79-year-old male patient who was transferred to us from [facility] because of acute hypoxic respiratory failure. The patient is known to have COPD and his dependent on home oxygen. According to the daughter, he is an ex-smoker is not smoking. His been living independently at home and he has been able to perform activities of daily today life. Apparently the patient was having altered mentation he was confused and the daughter called EMS to the scene and the patient was found to be quite hypoxic with a pulse ox of 70s. The patient was placed on a nonrebreather facemask was brought him up to 90% saturation and following that the patient got transferred initially to [facility] and later on to [facility]. During the course of his [facility] stay, the patient underwent a CT angiogram that showed no evidence of any pulmonary embolism. 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 There was no suspicious focal consolidation. There is mild interstitial edema and the patient was suspected to be CHF. Based on that the patient was started on diuresis. There was no evidence of any pulmonary embolism. There was at least a 6.9 cm abdominal aortic and is a bit was noted. CAT scan of the abdomen also confirmed the presence of a large abdominal aortic aneurysm. The blood work that was done showed a glucose of 129, BUN of 27, and a creatinine of 1.0, SGOT was 208, SGPT was 182, calcium level was 8.8, the CPK was 105, lactic acid level was 1.4, magnesium was at 2.1 with a troponin of 0.189. The patient also had a sodium of 142 with a chloride of 92 and a potassium of 4.8. White cell count was at 8.2 with a hemoglobin of 13.3. This morning, the patient was asked to be seen by pulmonary critical care. He was still altered and the family was at the bedside. Note that the patient has undergone a CAT scan of the brain that showed no acute abnormalities. His blood gases was done today and the patient was found to have a pH of 7.23 with episodes of more than 120 and pO2 of 150 and this was done on the percent nonrebreather facemask. He had developed significant metabolic alkalosis with a serum bicarb coming up to 50 while being given Lasix 40 mg every 8 hours. For that reason, the patient was transferred to the intensive care unit. The echocardiogram that was done showed an ejection fraction of 50-55%, the valvular functions were all within normal limits, the patient had normal IVC respiratory collapse indicating that the estimated right atrial pressure was 5. No evidence of any pericardial effusion. On today's evaluation of 04/05/2020 and seeing this patient for a follow-up. The patient is much more awake and alert compared to yesterday. Is conversing and he seems to be very much appropriate. Note that I kept on his diuretics yesterday as the patient was becoming more alkalotic and he had a significant amount of CO2 and a component of CO2 narcosis. MRI of the brain has been negative. EEG was showing some metabolic encephalopathy. Nevertheless, there was no seizure activity noted and the patient was given IV Keppra per neurology. No focal neurological deficits. This morning, repeat blood gases was done and the patient has a pH of 7.33 with a pCO2 of 94. I gave him to dose of Diamox yesterday and his serum bicarb is no significant cardiac arrhythmias. He will be placed on 40 to about 2 by nasal cannula to improve his hypoxemia. Meanwhile, the patient had a combination of bronchodilators and systemic steroids. As mentioned earlier, I switched his Lasix to oral 40 mg by mouth on a daily basis. He is not accepting any BiPAP use. On 12/17/2019, the patient is doing well and he is resting comfortably in bed. The patient is currently utilizing 4 L of oxygen by nasal cannula. I repeated the blood gas today and the patient continues to have a component of hypercapnic respiratory failure. Based on morning blood gases, the patient's pH is at 7.27 with a pCO2 of 98 and pO2 of 150 and I reduced oxygen flow down to 2 L of oxygen by nasal cannula. The patient's is denying having any significant respiratory distress. He is currently receiving Diamox and Lasix. The metabolic alkalosis is improved and his serum bicarb level is down to 44.the neurologist evaluated this patient as the patient was having some altered mental status. Apparently was having some occasional slurred speech. I find him quite oriented to time and place and people. He is able to follow commands and he has adequate strength for now. Note that the patient's was initially started on Keppra for concerns of seizure activity. The medications currently being weaned off by neurology. He is afebrile. Hemodynamically stable. On today's evaluation of 04/08/2020, the patient is being seen in follow-up. Continues to be on of confused and is still having episodes of CO2 narcosis. I repeated her blood gases today. One of the blood gases showed adequate oxygenation with significant CO2 retention. The second blood gases showed impairment and oxygenation with CO2 retention. In any rate, the patient continues to have chronic hypoxic and hypercapnic respiratory failure. He is being given Diamox for his metabolic alkalosis. His COPD is being optimized. His been gently diuresed. He will be also offered BiPAP today for respiratory support regards to his hypercapnic respiratory failure. Note that I placed him on oxygen at 2 L to maintain a saturation above 90%. Lowering oxygen flow below 2 L will make an profoundly hypoxic. Chest x-ray from today shows no acute abnormalities. His breath sounds are quite diminished and the patient has gissell ed diminished breath sounds bilaterally. The patient did pass his swallow evaluation. He demonstrated only mild aspiration on 1 occasion. For now his taken his oral intake without any major difficulties. Hemodynamically, he is stable. No focal neurological deficits. On and off he was noted to be lethargic and confused and I think this is related to his CO2 narcosis. Neurology did not find any seizure activity on him. Denies being weaned and the patient is on low-dose Seroquel. He is on DuoNeb of activity around the clock and he is on a combination of Perforomist and Pulmicort. Most recent blood gas showed a pH of 7.29 with a pCO2 of 97 and pO2 of 44 and this was done on 1 L of oxygen by nasal cannula and his oxygen flow was increased up to 2 L. the patient did have a bout of SVT yesterday which she was given adenosine and following that he had a Cardizem bolus and then a drip at 70 g an hour and he converted within the next few hours. Note that he has a preserved LV function with an ejection fraction of 50-55%. On 04/09/2020, I'm seeing the patient for a follow-up. More awake and alert compared to yesterday and the blood gases from today shows improvement in his acid base status. As such, his lethargy and increased sleepiness is probably related to CO2 narcosis. He does have some ongoing confusion however. Overall, he is improved. The blood gases from today showed a pH of 7.35 with a pCO2 of 78 and pO2 of 70 and this was done 2 L about 2 by nasal cannula. Note that the patient was being given AVAPS treatment with a tidal volume target of 350 overnight and he was able to tolerate stable without any major difficulties. He was also given Diamox. Serum bicarb level is improved and the bicarb level is down to 24. The patient is on normal saline. Of an hour. The patient is also a Cardizem drip at 5 mg an hour. He is currently on 2.5 L with a pulse ox of 93%. No focal neurological deficit. No chest pain. He has a congested cough, unable to bring up much of sputum. No other significant events otherwise for now. The patient is resting comfortably in bed and his communicating and daughter is at the bedside. On 04/10/2020, the patient is calm and comfortable. No respiratory difficulties and his overall doing well and is much more alert and awake and there are no signs of any significant encephalopathy with drowsiness or sleepiness or loly rdation. However, the chest x-rays was done this morning showed a left-sided pneumothorax that was estimated to be around 30-40%. A repeat chest x-ray was done that confirmed the findings. It performed a bedside evaluation and I inserted the Thoravent in this patient, 11-Marshallese tube and I was able to drain the pneumothorax. The chest tube is attached to a Pleur-evac and there is positive air leak and the Chambers for now. The patient did tolerate the procedure well without any major complications. The patient overnight went into atrial fibrillation with rapid ventricular response. He was given amiodarone bolus and he was started on a loading regimen and currently amiodarone is running at 0.5 mg per minute. His cardiac rhythm within the next 3-4 hours after amiodarone initiation went back to sinus. We are planning to continue the loading and transition him to oral maintenance total milligrams by mouth twice a day. Is using incentive spirometer. The blood gases was obtained after the Thoravent insertion showed a pH of 7.38 with a pCO2 of 78 and pO2 of 79 which is essentially compatible to yesterday's blood gases. The serum bicarb is still elevated at 50. The patient is a 28% FiO2. No angina. No palpitation. No chest pain. No other significant events overnight. He has a preserved LV function. Please refer to his most his echocardiogram. On today's evaluation of 04/11/2020, the patient is essentially the same without any worsening shortness of breath. As mentioned earlier, a 11-Marshallese Thoravent was inserted in the left hemithorax and was attached to the Pleur-evac. I noticed some increased subcutaneous emphysema on the left chest. I noted that the air leak. I flushed the Thoravent and I was able to establish some ongoing leaking and repeat chest x-ray shows some improvement in the left-sided pneumothorax. There is still however some subcutaneous emphysema along the left neck and the chest area. Despite all this, the patient is doing well. This patient at 7.38 with a pCO2 of 84 and pO2 of 61 and this was done with an FiO2 of 35%. He is not having any fever. His serum bicarbs of 44. The rest of the electrodes are all within normal limits. His cardiac rhythm is sinus and we have not seen any episodes of atrial fibrillation since yesterday. He'll be placed on a amiodarone maintenance for now. Was also started on anticoagulation with Eliquis. Objective - Vital Signs Vital signs: Vital Signs Temp 97.4 F L 04/11/20 04:00 Pulse 85 04/11/20 10:00 Resp 28 H 04/11/20 10:00 BP 131/86 04/11/20 10:00 Pulse Ox 95 04/11/20 10:00 Intake & Output 04/10/20 04/11/20 04/11/20 18:59 06:59 18:59 Intake Total 615 371.25 240 Output Total 850 680 150 Balance -235 -308.75 90 Weight 52 kg Intake: IV 365 170 40 Amiodarone 300 mg In 275 50 Dextrose 5% in Water 250 ml @ 0.5 MG/MIN 25 mls/hr IV .Q10H JAD Rx#: [id number] Sodium Chloride 0.9% 1, 90 120 40 000 ml @ 10 mls/hr IV . Q24H JAD Rx#:[id number] Intake, IV Titration 250 201.25 Amount Amiodarone 300 mg In 250 201.25 Dextrose 5% in Water 250 ml @ 0.5 MG/MIN 25 mls/hr IV .Q10H JAD Rx#: [id number] Oral 200 Output: Chest Tube Drainage 0 30 Thora-Vent Left Upper Mid 0 30 -Clavicular Chest Urine 850 650 150 Other: Voiding Method Urinal Urinal # Voids 0 0 - Exam Gen. appearance is alert and awake and communicating and answering questions appropriately. Currently on 2.5 L about 2 by nasal cannula. Head exam was generally normal. There was no scleral icterus or corneal arcus. Mucous membranes were moist. Neck was supple and without jugular venous distension, thyromegaly, or carotid bruits. Carotids were easily palpable bilaterally. There was no adenopathy. lung sounds are markedly diminished bilaterally along with some few rales in the lung bases. Scattered SCANT expiratory wheezes. He is not using excessive muscle breathing. The patient has a Thoravent 11-Marshallese catheter left anterior chest area and the positive air leak . The patient has also developed some subcutaneous emphysema along the left chest area and the left neck area. Heart sounds are distant, regular, positive psoas sign is no significant murmurs appreciated. Abdominal exam revealed normal bowel sounds. The abdomen was soft, non-tender, and without masses, organomegaly, or appreciable enlargement of the abdominal aorta. The patient has a pulsatile mass in the mid abdominal area related to his underlying large abdominal aortic aneurysm which is measuring 6.9 cm in size on the CAT scan of the chest and abdomen. Extremities revealed no edema and there is no cyanosis or clubbing. No open wounds or sores. Examination of the skin revealed no evidence of significant rashes, suspicious appearing nevi or other concerning lesions. Neurologically the patient is able to move all 4 extremities. Strength is essentially diminished 4 out of 5 in all 4 extremities, symmetrical. Cranial nerves are grossly intact with equal and symmetrical. Without any nystagmus. No clonus. No Babinski at this point in time. Gait cannot be assessed. - Labs CBC & Chem 7: 04/11/20 04:42 04/11/20 04:42 Labs: Abnormal Lab Results - Last 24 Hours (Table) 04/11/20 04/11/20 04/11/20 Range/Units 04:42 04:42 05:18 MCHC 29.8 L (31.0-37.0) g/dL Lymphocytes # 0.7 L (1.0-4.8) k/uL ABG pCO2 84 H* (35-45) mmHg ABG pO2 61 L (83-108) mmHg ABG HCO3 50 H* (21-25) mmol/L ABG Total CO2 52 H (19-24) mmol/L ABG O2 Saturation 90.6 L (94-97) % Chloride 93 L (98-107) mmol/L Carbon Dioxide 44 H* (22-30) mmol/L BUN 37 H (9-20) mg/dL Glucose 102 H (74-99) mg/dL Assessment and Plan Plan: 1 acute on chronic hypoxic/hypercapnic respiratory failure mostly on the basis of COPD exacerbation. Patient has chronic hypercapnic and hypoxic respiratory failure and the patient had significant CO2 retention with CO2 narcosis which is currently optimized and he is referred to the most recent blood gas. The ABGs today shows compensated hypercapnic respiratory failure with a serum bicarb of 44, serum pCO2 of 84. PH is at 7.38. 2 spontaneous secondary left-sided pneumothorax post Thoravent insertion. There is ongoing air leak and the Thoravent will be kept on suctioning. We have noticed some increased appearance emphysema lung left chest area which is probably later to the loss in the leak that occurred overnight from the Thoravent. 3 advanced COPD with chronic hypoxic respiratory failure 4 altered mentation secondary to CO2 narcosis, MRI of the brain showed scattered white matter signal changes related to chronic small vessel ischemia without any acute abnormalities. 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 Neurology on the case. The patient was started on Keppra and this will be gradually weaned off. 5 chronic metabolic alkalosis, Necessity to chronic hypercapnic respiratory failure in addition to worsening due to diuresis, improving on Diamox and a serum bicarb is still elevated at 50 and the patient was not given any further Diamox as the patient's blood gases showed improvement and acid base status. 6 abnormal troponin , Consider non-STEMI 7 transaminitis, ultrasound the liver shows some hepatic steatosis, common bile duct is within normal limits 8 Abdominal aortic aneurysm measuring 6.9 cm in size 9 single episode of SVT /atrial fibrillation. The patient was given another amiodarone loading and he will be kept on a maintenance amiodarone of 200 mg by mouth twice a day. Cardiology also plans to start the patient on anticoagulants. Plan Keep the Thoravent attached to a Pleur-evac and monitor the air leaks Daily chest x-ray Daily blood gases Prednisone burst taper continue Perforomist and Pulmicort nebulized treatments around the clock Continue theophylline Continue DuoNeb nebulized treatments around the clock Amiodarone 200 mg by mouth twice a day and that has been discontinued Eliquis 5 mg by mouth twice a day May consider stopping the theophylline if the patient continues to have episodes of atrial fibrillation Continue metoprolol 25 mg by mouth twice a day We'll try to arrange a AVAPS machine for this patient utilizes on outpatient basis. We'll work with [facility] in this regard. We will insert a chest tube if the patient's continues to have difficulties with pneumothorax and sepsis emphysema.
[2020-04-11] MEDS ORDERED: LACTULOSE 20 GM/30 ML CUP PO ONE (11:55)
[2020-04-11] MEDS ORDERED: LACTULOSE 20 GM/30 ML CUP PO PRN (11:55)
--- NOTE | 2020-04-11 12:01 | P.PN ---
Subjective Progress Note Date: 04/11/20 (delayed charting seen at 8 am) Principal diagnosis: altered mentation Patient is a 79-year-old male with hypothyroidism, COPD on home oxygen end-stage per his outpatient email engineer Dr. Moon, hypertension, and prior tobacco abuse who presented initially to an outside hospital secondary to confusion and hypoxia. Apparently his nephew checked on him and he was noted to be confused and cyanotic. When EMS arrived he was hypoxic with an O2 sat of 70% was transferred to the hospital. Initial workup showed an abdominal aortic aneurysm 6.5 cm, elevated troponin, elevated BNP, and small bilateral pleural effusions. He was started on diuretics and transferred to our facility. CT brain showed no acute process with mild diffuse cerebral atrophy. He was diagnosed with COPD, elevated troponin with rule out myocardial infarction, and possible CHF secondary to pulmonary congestion with bilateral pleural effusions. He was started on aspirin. He underwent an echocardiogram which showed an ejection fraction of 50-55% without significant valvular disease. Carotid Doppler showed bilateral plaque with no significant hemodynamic stenosis. He was seen by vascular surgery who recommended outpatient follow-up. On the morning after admission he was noted to have continued altered mentation. ABG was checked and was found to be significantly hypercapnic. Pulmonary was consulted he was diagnosed with a COPD exacerbation was started on Diamox as well as titration of his oxygen, IV Solu-Medrol, and bronchodilators. He was transferred to the ICU for closer monitoring. Neurology was consulted for possible stroke versus seizure and he was subsequently diagnosed with myoclonic jerking as EEG demonstrated increased seizure tendency but no active seizure activity. MRI of the brain showed scattered white matter signal changes related to chronic small vessel ischemia. MRA of the neck showed 60% stenosis in the left internal carotid artery. He was started on a tapered dose of Keppra. Liver ultrasound showed a coarse echotexture seen with hepatic steatosis. By the morning of 04/06 his CO2 levels are much improved and his mentation had begun to improve. He was seen by cardiology who felt that his troponin was likely elevated secondary to his respiratory failure as his ejection fraction was normal. He continued to struggle with hypercapnia and hypoxia despite diamox therapy and intermitted BiPap. He developed SVT on the evening of 04/06 and was started on cardizem gtt. He was started on theophylline. By the morning of 04/10 his mentation had improved slightly and he seemed more regulated. AVAPS was order for home. He was noted to have SVT again overnight on 04/10 and he was started on amio gtt. He developed a PXT on the morning for 04/10 and a thoravent was placed. On the morning of 04/11 his PTX was persistent despite thoravent. This was manipulated and PTX resolved but patient was noted to have a left sided pleural effusion. Patient seen and examined at bedside. he denies any change in shortness of breath though she appears more dyspneic and person lip breathing compared to yesterday. He denies any chest pain, nausea, vomiting, or diarrhea. Discussed with nursing patient has been having left agitation, restlessness, and hallucinations at night. Seroquel was discontinued several days ago and this seems be improving. Patient discussed with Dr. Prieto at bedside. Objective - Vital Signs Vital signs: Vital Signs Temp 97.4 F L 04/11/20 04:00 Pulse 85 04/11/20 11:00 Resp 21 04/11/20 11:00 BP 124/75 04/11/20 11:00 Pulse Ox 95 04/11/20 11:00 Intake & Output 04/10/20 04/11/20 04/11/20 18:59 06:59 18:59 Intake Total 615 371.25 250 Output Total 850 680 150 Balance -235 -308.75 100 Weight 52 kg Intake: IV 365 170 50 Amiodarone 300 mg In 275 50 Dextrose 5% in Water 250 ml @ 0.5 MG/MIN 25 mls/hr IV .Q10H JAD Rx#: [id number] Sodium Chloride 0.9% 1, 90 120 50 000 ml @ 10 mls/hr IV . Q24H JAD Rx#:[id number] Intake, IV Titration 250 201.25 Amount Amiodarone 300 mg In 250 201.25 Dextrose 5% in Water 250 ml @ 0.5 MG/MIN 25 mls/hr IV .Q10H JAD Rx#: [id number] Oral 200 Output: Chest Tube Drainage 0 30 Thora-Vent Left Upper Mid 0 30 -Clavicular Chest Urine 850 650 150 Other: Voiding Method Urinal Urinal # Voids 0 0 - Exam General: ill appearing, no distress, appears at stated age, barrel chest Derm: multiple areas of small ecchymosis with large ecchymosis left arm, warm, dry Head: atraumatic, normocephalic, symmetric Eyes: EOMI, no lid lag, anicteric sclera Mouth: no lip lesion, mucus membranes dry Cardiovascular: S1S2 irreg, no murmur, positive posterior tibial pulse bilateral, Lungs: decreased breath sounds left apex, course breath sounds right apex and bilateral bases, no accessory muscle use, pursed lip breathing, + subcutaneous emphysema Abdominal: soft, nontender to palpation, no guarding, no appreciable org anomegaly Ext: no gross muscle atrophy, no edema, no contractures Neuro: CN II-XI grossly intact, no focal neuro deficits Psych: awake more alert today - Labs CBC & Chem 7: 04/11/20 04:42 04/11/20 04:42 Labs: Abnormal Lab Results - Last 24 Hours (Table) 04/11/20 04/11/20 04/11/20 Range/Units 04:42 04:42 05:18 MCHC 29.8 L (31.0-37.0) g/dL Lymphocytes # 0.7 L (1.0-4.8) k/uL ABG pCO2 84 H* (35-45) mmHg ABG pO2 61 L (83-108) mmHg ABG HCO3 50 H* (21-25) mmol/L ABG Total CO2 52 H (19-24) mmol/L ABG O2 Saturation 90.6 L (94-97) % Chloride 93 L (98-107) mmol/L Carbon Dioxide 44 H* (22-30) mmol/L BUN 37 H (9-20) mg/dL Glucose 102 H (74-99) mg/dL Assessment and Plan Assessment: Acute exacerbation of COPD with acute on chronic hypoxic hypercapnic respiratory failure - Pulmonary recommendations appreciated - Prednisone - fixed and when necessary bronchodilators - theophylline - BiPap as needed; AVAPS ordered for discharge - Pulmonary hygiene - Wean O2 as able - Would benefit from outpatient pulmonary rehab - Diamox Therpay completed Left PTX - improved after thoravent - Pain control - Pulm management P. A. fib - cardio recs appreciated - Eliquis: will need to involve family in risks vs benefit if patient is having some falls at home - Amio is oral - Toprol Toxic metabolic encephalopathy likely secondary to CO2 retention/ hypoxia - Supportive care - Treatment as above - off Seroquel, Melatonin Abdominal aortic aneurysm -Incidental finding -Vascular surgery recommendations appreciated. Outpatient follow-up. Elevated troponin reflective of hypoxemia -Acute coronary syndrome ruled out -Echocardiogram within normal limits -Cardiology recommendations appreciated Carotid stenosis L - outpatient follow-up History of tobacco abuse SVT, resolved Transaminitis, improved Thrombocytopenia, improved Myoclonic jerking, resolved DVT prophylaxis: Heparin Discussed with: Patient, nursing Anticipated discharge: 2-[address]: with family and 07/05 supervision, family will have palliative care as well A total of 35 minutes was spent on the care of this complex patient more than 50% of the time was spent in counseling and care coordination.
[2020-04-11 12:17] LABS: ABG Base Excess 23.8 mmol/L; ABG Oxygen Saturation 93.8 % (94-97); ABG PH 7.34 (7.35-7.45); ABG PO2 73 mmHg (83-108); ABG TCO2 53 mmol/L (19-24); Allen Test Performed? Yes
[2020-04-11 12:21] LABS: ABG HCO3 50 mmol/L (21-25); ABG PCO2 93 mmHg (35-45)
[2020-04-11] MEDS: SODIUM CHLORIDE 0.9% 1,000 ML IV SCH (15:00)
[2020-04-11] MEDS: MELATONIN 5 MG TABLET PO SCH (20:46)
[2020-04-11] MEDS: HEPARIN SODIUM,PORCINE 5,000 UNIT/ML 1 ML VIAL SQ SCH (21:39)
[2020-04-11] MEDS: methylPREDNISolone SOD SUCCI 40 MG/ML 1 ML VIAL IV SCH (21:39)
[2020-04-11] MEDS: methylPREDNISolone SOD SUCCI 125 MG/2 ML VIAL IV SCH (21:41)
[2020-04-12 04:50] LABS: Basophils % (A) 0 %; Eosinophils # (A) 0.1 k/uL (0-0.7); Eosinophils % (A) 1 %; HCT 44.8 % (39.0-53.0); HGB 13.4 gm/dL (13.0-17.5); Hypochromasia Marked; Lymphocytes # (A) 0.6 k/uL (1.0-4.8); Lymphocytes % (A) 7 %; MCH 29.8 pg (25.0-35.0); MCV 99.6 fL (80.0-100.0); Mean Platelet Volume 8.9; Monocytes # (A) 0.5 k/uL (0-1.0); Monocytes % (A) 6 %; Neutrophils % (A) 86 %; Platelet Count 170 k/uL (150-450); RDW 13.3 % (11.5-15.5); WBC 8.2 k/uL (3.8-10.6)
[2020-04-12 05:00] LABS: African American GFR (CKD) >90 (>60 ml/min/1.73 sqM); Blood Urea Nitrogen 32 mg/dL (9-20); Calcium 8.4 mg/dL (8.4-10.2); Chloride 89 mmol/L (98-107); Glucose 90 mg/dL (74-99); Magnesium 2.1 mg/dL (1.6-2.3); Non-African American GFR(CKD) 86 (>60 ml/min/1.73 sqM); Potassium 3.9 mmol/L (3.5-5.1); Sodium 139 mmol/L (137-145)
[2020-04-12 05:07] LABS: Anion Gap 3 mmol/L
[2020-04-12 05:08] LABS: Carbon Dioxide 47 mmol/L (22-30)
[2020-04-12] MEDS: LEVOTHYROXINE 112 MCG TAB PO SCH (05:55)
[2020-04-12] MEDS ORDERED: POTASSIUM CHLORIDE ER 20 MEQ TAB.ER PO SCH (06:00)
--- NOTE | 2020-04-12 07:04 | CDI ---
Documentation Clarification Form Date: 04/06/2020 02:36:35 PM From: Sole Sherwood RN CCDS Email: [email or web address] Admit Date: 04/04/2020 05:57:00 PM Patient Name: Gael Reeder Visit Number: [id number] Discharge Date: ATTENTION: The Clinical Documentation Specialists (CDI) and [facility] Coding Staff appreciate your assistance in clarifying documentation. Please respond to the clarification below the line at the bottom and electronically sign. The CDI & [facility] Coding staff will review the response and follow-up if needed. Please note: Queries are made part of the Legal Health Record. If you have any questions, please contact the author of this message via ITS. Dr. Harpreet Lowery Elevated troponin secondary to respiratory failure is documented in your Consult 04/05 History/Risk Factors: 79-year-old male presents to the ED as a transfer from [facility] the patient was found by nephew confused and cyanotic. Medical History COPD and HTN. Clinical Indicators: Per the H&P 04/04 The patient was found confused and cyanotic the supplemental oxygen wasnt working SPO2 in the low 70%. Lab findings: Troponin 04/04 0.351, 04/05 0.432 04/04 EKG: sinus tachycardia 04/04 Vital Signs: 141/124 114 99.2 22 94 % 4L nasal Cannula 04/05 Pulmonology Consult: abnormal troponin, likely troponin leak without any evidence of ST segment elevation. Consider non-STEMI Treatment:04/04 4Lnasal cannula 04/05 Bipap In your professional opinion, can you please clarify the clinical significance of the elevated troponin? Type 2 WA secondary to demand ischemia in the setting of Respiratory Failure Type 2 WA secondary to demand ischemia due to please (specify) Other, please specify Unable to determine (Last Revision: January 2018) unable to determine MTDD
[2020-04-12 07:15] LABS: ABG HCO3 45 mmol/L (21-25)
[2020-04-12 07:20] LABS: ABG PCO2 78 mmHg (35-45)
[2020-04-12 07:21] LABS: ABG HCO3 46 mmol/L (21-25)
[2020-04-12] MEDS: BUDESONIDE 0.5 MG/2 ML NEBU INHALATION SCH ×2 (07:29→19:33)
[2020-04-12] MEDS: FORMOTEROL FUMARATE 20 MCG/2 ML NEBU INHALATION SCH ×2 (07:29→19:32)
--- NOTE | 2020-04-12 07:45 | XR ---
EXAMINATION TYPE: XR chest 1V portable DATE OF EXAM: 04/12/2020 COMPARISON: 04/11/2020 HISTORY: Shortness of breath TECHNIQUE: Single frontal view of the chest is obtained. FINDINGS: There is severe left-sided subcutaneous emphysema left-sided chest tube seen. Cannot exclu de a tiny 5% loss left apical pneumothorax. Bilateral lower lobe consolidation and small effusion. Co ntrast within the bowel. Heart size stable with atherosclerotic change aorta. Arthropathy shoulders. IMPRESSION: 1. Diffuse severe subcutaneous emphysema. Minimal tiny apical pneumothorax suspected measuring 5% les s. 2. COPD correlate for bilateral atelectasis versus early infiltrate with pleural thickening or tiny e ffusion.
[2020-04-12] MEDS: THEOPHYLLINE 24 HOUR 300 MG CAP.ER.24H PO SCH (09:34)
[2020-04-12] MEDS: AMIODARONE 200 MG TAB PO SCH ×2 (09:34→19:59)
[2020-04-12] MEDS: APIXABAN 5 MG TAB PO SCH ×2 (09:34→19:59)
[2020-04-12] MEDS: predniSONE 20 MG TAB PO SCH (09:34)
[2020-04-12] MEDS: ASPIRIN 81 MG PO SCH (09:35)
[2020-04-12] MEDS: THIAMINE 100 MG/ML 2 ML VIAL IVP SCH (09:35)
[2020-04-12] MEDS: METOPROLOL SUCCINATE (ER) 25 MG TAB.ER.24H PO SCH (09:36)
[2020-04-12] MEDS: ISOSORBIDE MONONITRATE ER 60 MG TAB.ER.24H PO SCH (09:36)
[2020-04-12] MEDS: FUROSEMIDE 40 MG TAB PO SCH (09:36)
--- NOTE | 2020-04-12 11:43 | PN ---
PROGRESS NOTE Gael is a 79-year-old gentleman who is admitted to hospital with respiratory failure. He is looking better this morning. Still has a small pneumothorax. Remains in sinus rhythm. Did not have further episodes of atrial fibrillation. On exam, comfortable at rest. Heart rate is 87 beats per minute. Blood pressure is 115/65, respiratory rate 18, O2 saturation is 97% on 3 L. There is no jugular venous distention. Chest exam reveals diminished air entry with occasional rhonchi. Heart exam reveals first and second heart sounds. No gallop. Exam of extremities did not reveal any edema. Labs show potassium of 3.9, creatinine is 0.79, hemoglobin is 13.4, platelet count is 170. ASSESSMENT: 1. Respiratory failure. 2. Paroxysmal atrial fibrillation. PLAN: Patient will continue the Eliquis and the amiodarone that he is currently on. MMODL / IJN: [id number] /
--- NOTE | 2020-04-12 12:34 | PN ---
PROGRESS NOTE Gael is a 79-year-old gentleman who is admitted to hospital with respiratory failure and developed left-sided pneumothorax. We are following him because of episodes of atrial fibrillation. This morning, he states that he is feeling better. Heart rate is 87 beats per minute. Blood pressure is 150/65, respiratory rate is 18. O2 saturation is 97% on 3 L. There is no jugular venous distention. Chest exam reveals diminished air entry at the left base. Heart exam reveals first and second heart sounds. No gallop. Abdomen is soft. Exam of extremities did not reveal any edema. Peripheral pulses are felt. Labs show a hemoglobin of 13.4, platelet count is 170. Potassium is 3.9. Creatinine 0.79. ASSESSMENT: 1. Respiratory failure. 2. Paroxysmal atrial fibrillation. 3. Left-sided pneumothorax. PLAN: Patient will continue with the BiPAP. Continue on the oral amiodarone, Eliquis and Toprol. MMODL / IJN: [id number] /
--- NOTE | 2020-04-12 13:07 | P.GSCN ---
History of Present Illness Consult date: 04/12/20 Reason for Consult: Pneumothorax Requesting physician: Clemencia Schaefer History of present illness: This is a 79-year-old gentleman who follows on an outpatient basis with Dr. Spencer. He has a previous medical history of COPD with home oxygen dependence, previous tobacco dependence, hypertension, and hypothyroid. He was transferred from [facility] for acute hypoxic respiratory failure and mental status changes. Apparently his daughter called EMS after she found him to be very confused and hypoxic with oxygen saturation in the 70s. While at [facility] he had a CT angiogram demonstrating no evidence of pulmonary embolism but there was background emphysema and chronic pulmonary fibrotic changes in the left lung base along with tiny left-sided pleural effusion and right-sided pleural effusion. There was also interstitial edema and he was suspected to be in heart failure. In addition, there was noted to be a 6.5 cm infrarenal abdominal aortic aneurysm without evidence of leak. He was placed on IV diuretics and was transferred to [facility]. Once admitted here, consultation was placed to cardiology, neurology, vascular surgery, and pulmonology. The patient had workup including transthoracic echocardiogram, carotid Dopplers, brain MRI, and neck MRA, liver ultrasound, and daily chest x- rays. On the morning of 04/10/2020 chest x-ray demonstrated left-sided pneumothorax around 30-40%. Thoravent was placed by Dr. Prieto and connected to an atrium with continuous wall suction. He was noted to have an air leak. On the morning of the he continued to have a left-sided pneumothorax, air was aspirated from the thoravent and reconnected to continuous wall suction with improvement in the left-sided pneumothorax. He was noted to have subcu emphysema present to the left chest wall extending up into the neck area. He had no increased difficulty in breathing. This morning's chest x-ray demonstrates tiny apical pneumothorax with extensive subcutaneous emphysema. The patient continues to have an intermittent air leak with coughing. Dr. Gordon from cardiothoracic surgery was consulted for recommendations. Review of Systems Review of systems was completed and was negative except as noted - Respiratory Reports cough, Reports dyspnea Past Medical History Past Medical History: COPD, Eye Disorder, Hypertension, Thyroid Disorder History of Any Multi-Drug Resistant Organisms: None Reported Past Surgical History: No Surgical Hx Reported Past Psychological History: Anxiety Smoking Status: Former smoker Past Alcohol Use History: None Reported Past Drug Use History: None Reported - Past Family History family Family Medical History: Unable to Obtain Medications and Allergies Home Medications Medication Instructions Recorded Confirmed Type Albuterol Sulfate [Albuterol 2 puff PO RT-Q4H PRN 04/04/20 04/04/20 History Sulfate Hfa] Aspirin 81 mg PO DAILY 04/04/20 04/04/20 History Isosorbide Mononitrate ER [Imdur] 60 mg PO DAILY 04/04/20 04/04/20 History Levothyroxine Sodium 112 mcg PO DAILY 04/04/20 04/04/20 History Allergies Allergy/AdvReac Type Severity Reaction Status Date / Time No Known Allergies Allergy Verified 04/04/20 19:57 Surgical - Exam Vital Signs Temp Pulse Resp BP Pulse Ox 99.2 F 114 H 22 141/124 94 L 04/04/20 18:02 04/04/20 18:02 04/04/20 18:02 04/04/20 18:02 04/04/20 18:02 - General well developed, well nourished, no distress, no pain, chronically ill - Eyes normal ocular movement - ENT decreased hearing - Neck no masses, no bruits, trachea midline - Respiratory Lungs sounds diminished bilaterally with coarse breath sounds in the bases. Respirations even, nonlabored. Currently on 3 L nasal cannula with oxygen saturation 95%. Left-sided thoravent present, connected to atrium with -20 cm wall suction, minimal drainage, intermittent air leak with strong coughing - Cardiovascular S1, S2 present. Regular rate and rhythm, sinus rhythm on telemetry. Palpable peripheral pulses bilaterally. No edema present. No calf pain or tenderness noted. - Abdomen Abdomen: soft, non tender, bowel sounds - Genitourinary Deferred - Rectum Deferred - Integumentary no rash, no growths - Neurologic normal sensation - Musculoskeletal normal posture - Psychiatric oriented to time, oriented to person, oriented to place, speech is normal Results - Labs 04/12/20 04:09 04/12/20 04:09 Abnormal Lab Results - Last 24 Hours (Table) 04/07/20 04/10/20 04/12/20 Range/Units 08:52 08:52 04:09 MCHC (31.0-37.0) g/dL Lymphocytes # (1.0-4.8) k/uL ABG pCO2 78 H* (35-45) mmHg ABG HCO3 45 H* 46 H* (21-25) mmol/L Chloride 89 L (98-107) mmol/L Carbon Dioxide 47 H* (22-30) mmol/L BUN 32 H (9-20) mg/dL 04/12/20 Range/Units 04:09 MCHC 30.0 L (31.0-37.0) g/dL Lymphocytes # 0.6 L (1.0-4.8) k/uL ABG pCO2 (35-45) mmHg ABG HCO3 (21-25) mmol/L Chloride (98-107) mmol/L Carbon Dioxide (22-30) mmol/L BUN (9-20) mg/dL Diabetes panel 04/12/20 Range/Units 04:09 Sodium 139 (137-145) mmol/L Potassium 3.9 (3.5-5.1) mmol/L Chloride 89 L (98-107) mmol/L Carbon Dioxide 47 H* (22-30) mmol/L BUN 32 H (9-20) mg/dL Creatinine 0.79 (0.66-1.25) mg/dL Glucose 90 (74-99) mg/dL Calcium 8.4 (8.4-10.2) mg/dL Calcium panel 04/12/20 Range/Units 04:09 Calcium 8.4 (8.4-10.2) mg/dL Pituitary panel 04/12/20 Range/Units 04:09 Sodium 139 (137-145) mmol/L Potassium 3.9 (3.5-5.1) mmol/L Chloride 89 L (98-107) mmol/L Carbon Dioxide 47 H* (22-30) mmol/L BUN 32 H (9-20) mg/dL Creatinine 0.79 (0.66-1.25) mg/dL Glucose 90 (74-99) mg/dL Calcium 8.4 (8.4-10.2) mg/dL Adrenal panel 04/12/20 Range/Units 04:09 Sodium 139 (137-145) mmol/L Potassium 3.9 (3.5-5.1) mmol/L Chloride 89 L (98-107) mmol/L Carbon Dioxide 47 H* (22-30) mmol/L BUN 32 H (9-20) mg/dL Creatinine 0.79 (0.66-1.25) mg/dL Glucose 90 (74-99) mg/dL Calcium 8.4 (8.4-10.2) mg/dL - Imaging Chest x-ray: report reviewed, image reviewed Assessment and Plan Assessment: 1. Spontaneous left-sided pneumothorax, status post thoravent placement by Dr. Prieto 2. Acute on chronic hypoxic respiratory failure with hypercapnia 3. Altered mental status on admission 4. COPD 5. Previous tobacco dependence 6. New onset paroxysmal atrial fibrillation, currently normal sinus rhythm, currently on amiodarone and Eliquis Plan: The patient was seen and examined at the bedside. Chart/diagnostics were reviewed. The case will be discussed in detail with Dr. Gordon. At this time continue thoravent to continuous wall suction. Will monitor for air leak resolution. Monitor for increasing subcutaneous emphysema which does not appear to be occurring at this time. Wean O2 as tolerated. Incentive spirometry ordered and should be encouraged. Increase activity, ambulate as tolerated. Bronchodilators, steroids per pulmonology. Medical management of other comorbidities per primary care service, cardiology, pulmonology. Thank you Dr. Schaefer for this consult. We look forward to working with you in the care of your patient. Time with Patient: Greater than 30
--- NOTE | 2020-04-12 14:27 | P.PN ---
Subjective Progress Note Date: 04/12/20 Principal diagnosis: Acute on chronic hypoxic and hypercapnic respiratory failure secondary to severe COPD exacerbation. Acute. A 7 79-year-old male patient who was transferred to us from [facility] because of acute hypoxic respiratory failure. The patient is known to have COPD and his dependent on home oxygen. According to the daughter, he is an ex-smoker is not smoking. His been living independently at home and he has been able to perform activities of daily today life. Apparently the patient was having altered mentation he was confused and the daughter called EMS to the scene and the patient was found to be quite hypoxic with a pulse ox of 70s. The patient was placed on a nonrebreather facemask was brought him up to 90% saturation and following that the patient got transferred initially to [facility] and later on to [facility]. During the course of his [facility] stay, the patient underwent a CT angiogram that showed no evidence of any pulmonary embolism. 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 There was no suspicious focal consolidation. There is mild interstitial edema and the patient was suspected to be CHF. Based on that the patient was started on diuresis. There was no evidence of any pulmonary embolism. There was at least a 6.9 cm abdominal aortic and is a bit was noted. CAT scan of the abdomen also confirmed the presence of a large abdominal aortic aneurysm. The blood work that was done showed a glucose of 129, BUN of 27, and a creatinine of 1.0, SGOT was 208, SGPT was 182, calcium level was 8.8, the CPK was 105, lactic acid level was 1.4, magnesium was at 2.1 with a troponin of 0.189. The patient also had a sodium of 142 with a chloride of 92 and a potassium of 4.8. White cell count was at 8.2 with a hemoglobin of 13.3. On today's evaluation of 04/11/2020, the patient is essentially the same without any worsening shortness of breath. As mentioned earlier, a 11-[place] Thoravent was inserted in the left hemithorax and was attached to the Pleur-evac. I noticed some increased subcutaneous emphysema on the left chest. I noted that the air leak. I flushed the Thoravent and I was able to establish some ongoing leaking and repeat chest x-ray shows some improvement in the left-sided pneumothorax. There is still however some subcutaneous emphysema along the left neck and the chest area. Despite all this, the patient is doing well. This patient at 7.38 with a pCO2 of 84 and pO2 of 61 and this was done with an FiO2 of 35%. He is not having any fever. His serum bicarbs of 44. The rest of the electrodes are all within normal limits. His cardiac rhythm is sinus and we have not seen any episodes of atrial fibrillation since yesterday. He'll be placed on a amiodarone maintenance for now. Was also started on anticoagulation with Eliquis. Patient was reevaluated today on 04/12/20, patient remains in the intensive care unit, being treated for acute exacerbation of COPD, spontaneous left-sided pneumothorax requiring chest tube placement/thoravent. Patient had supraventricular tachycardia few days ago, he remains on amiodarone and Eliquis. Chest x-ray continues to show significant left-sided subcutaneous emphysema, left-sided apical pneumothorax, and the patient is comfortable, I did recommend surgical evaluation, and it may take a long time for his pneumothorax to resolve. And the patient continues to have a bit of air leak. He is now on 1.5 L nasal cannula, he has AVAPS at bedside, and he is set at a tidal volume of 350 rate of 12 and EPAP of 5 minimal pressure of 79 from pressure of 15 FiO2 is 35%. ABG yesterday showed a pO2 of 73 pCO2 of 93 pH of 7.34. Electrolytes today are normal bicarb is 47. CBC is relatively normal Objective - Vital Signs Vital signs: Vital Signs Temp 98.0 F 04/12/20 12:00 Pulse 94 04/12/20 13:00 Resp 24 04/12/20 13:00 BP 125/75 04/12/20 13:00 Pulse Ox 98 04/12/20 13:00 Intake & Output 04/11/20 04/12/20 04/12/20 18:59 06:59 18:59 Intake Total 320 120 470 Output Total 700 650 50 Balance -380 -530 420 Weight 52.2 kg Intake: IV 120 120 70 Sodium Chloride 0.9% 1, 120 120 70 000 ml @ 10 mls/hr IV . Q24H [facility] Rx#:[id number] Oral 200 400 Output: Urine 700 650 50 Other: Voiding Method Urinal Urinal Urinal # Voids 1 - Exam Gen. appearance revealed a 79-year-old white male, frail looking, chronically ill, in no distress, on 1.5 L nasal cannula. HEENT: Head atraumatic, normocephalic, PERRLA, EOMI, no icterus, neck masses, no JVD. Neck was supple and without jugular venous distension, thyromegaly, lung revealed symmetrical chest expansion. Left sided chest tube is noted. Subcutaneous emphysema is noted. Positive air leak noted in the pleural VAC. Heart normal S1 and S2, no S3 gallop. Abdominal exam revealed normal bowel sounds. The abdomen was soft, non-tender, and without masses, organomegaly, or appreciable enlargement of the abdominal aorta. The patient has a pulsatile mass in the mid abdominal area related to his underlying large abdominal aortic aneurysm which is measuring 6.9 cm in size on the CAT scan of the chest and abdomen. Extremities: No clubbing edema or cyanosis Skin: No rashes. Neurologically alert and oriented 3 focal deficits. Psychiatric: Normal mood affect and normal mental status examination - Labs CBC & Chem 7: 04/12/20 04:09 04/12/20 04:09 Labs: Abnormal Lab Results - Last 24 Hours (Table) 04/07/20 04/10/20 04/12/20 Range/Units 08:52 08:52 04:09 MCHC (31.0-37.0) g/dL Lymphocytes # (1.0-4.8) k/uL ABG pCO2 78 H* (35-45) mmHg ABG HCO3 45 H* 46 H* (21-25) mmol/L Chloride 89 L (98-107) mmol/L Carbon Dioxide 47 H* (22-30) mmol/L BUN 32 H (9-20) mg/dL 04/12/20 Range/Units 04:09 MCHC 30.0 L (31.0-37.0) g/dL Lymphocytes # 0.6 L (1.0-4.8) k/uL ABG pCO2 (35-45) mmHg ABG HCO3 (21-25) mmol/L Chloride (98-107) mmol/L Carbon Dioxide (22-30) mmol/L BUN (9-20) mg/dL Assessment and Plan Assessment: Impression: Acute on chronic hypoxic and hypercapnic respiratory failure secondary to COPD exacerbation. Acute spontaneous secondary left-sided pneumothorax, post thoravent insertion. Acute CO2 narcosis, improved. Chronic metabolic alkalosis, compensating for his chronic respiratory acidosis. Possible non-ST elevation myocardial infarction with elevated troponin Abdominal aortic aneurysm measuring 6.9 cm in size Single episode of SVT/atrial fibrillation. Remains on amiodarone. Recommendation: Continue chest tube to suction. Continue to monitor his COPD status and continue bronchodilators including alb uterol Atrovent Perforomist Pulmicort and theophylline Continue amiodarone and Eliquis. Continue metoprolol. Continue avaps Will ask thoracic surgery to stay on board, assuming his left sided air leak does not resolve in time. Although the patient is at extremely high surgical risk We'll continue to follow Time with Patient: Less than 30
--- NOTE | 2020-04-12 18:15 | P.PN ---
Subjective Progress Note Date: 04/12/20 Principal diagnosis: Pneumothorax Patient was seen and examined. No acute events overnight. Patient reports considerable improvement in his breathing since yesterday. He denies any chest pain. He denies any nausea or vomiting. No fever or chills. Chest x-ray this morning shows diffuse severe subcutaneous emphysema and tiny apical pneumothorax 5% plus, COPD correlate for bilateral atelectasis versus early infiltrate. Objective - Vital Signs Vital signs: Vital Signs Temp 98.1 F 04/12/20 16:00 Pulse 81 04/12/20 17:00 Resp 24 04/12/20 17:00 BP 127/76 04/12/20 17:00 Pulse Ox 97 04/12/20 17:00 Intake & Output 04/11/20 04/12/20 04/12/20 18:59 06:59 18:59 Intake Total 320 120 560 Output Total 700 650 50 Balance -380 -530 510 Weight 52.2 kg Intake: IV 120 120 110 Sodium Chloride 0.9% 1, 120 120 110 000 ml @ 10 mls/hr IV . Q24H [facility] Rx#:[id number] Oral 200 450 Output: Urine 700 650 50 Other: Voiding Method Urinal Urinal Urinal # Voids 1 - Exam General: [Ill-appearing], [no distress], [appears at stated age] Derm: [warm], [dry] Head: [atraumatic], [normocephalic], [symmetric] Eyes: [EOMI], [no lid lag], [anicteric sclera] Mouth: [no lip lesion], [mucus membranes moist] Cardiovascular: [S1S2 irregular], [no murmur], [positive posterior tibial pulse bilateral], Lungs: [Coarse breath sounds bilaterally with subcutaneous emphysema and left-sided chest tube], [no rhonchi, no rales] , [no accessory muscle use] Abdominal: [soft], [ nontender to palpation], [no guarding], [no appreciable organomegaly] Ext: [no gross muscle atrophy], [no edema], [no contractures] Neuro: [no focal neuro deficits] Psych: [Alert], [oriented], [appropriate affect] - Labs CBC & Chem 7: 04/12/20 04:09 04/12/20 04:09 Labs: Abnormal Lab Results - Last 24 Hours (Table) 04/07/20 04/10/20 04/12/20 Range/Units 08:52 08:52 04:09 MCHC (31.0-37.0) g/dL Lymphocytes # (1.0-4.8) k/uL ABG pCO2 78 H* (35-45) mmHg ABG HCO3 45 H* 46 H* (21-25) mmol/L Chloride 89 L (98-107) mmol/L Carbon Dioxide 47 H* (22-30) mmol/L BUN 32 H (9-20) mg/dL 04/12/20 Range/Units 04:09 MCHC 30.0 L (31.0-37.0) g/dL Lymphocytes # 0.6 L (1.0-4.8) k/uL ABG pCO2 (35-45) mmHg ABG HCO3 (21-25) mmol/L Chloride (98-107) mmol/L Carbon Dioxide (22-30) mmol/L BUN (9-20) mg/dL Assessment and Plan Assessment: Acute exacerbation of COPD with acute on chronic hypoxic hypercapnic respiratory failure - Pulmonary recommendations appreciated - Prednisone - fixed and when necessary bronchodilators - theophylline - BiPap as needed; AVAPS ordered for discharge - Pulmonary hygiene - Wean O2 as able - Would benefit from outpatient pulmonary rehab - Diamox Therpay completed Left PTX - improved after thoravent -Cardiothoracic surgery consulted appreciated recommendations - Pain control - Pulm management P. A. fib - cardio recs appreciated - Eliquis: will need to involve family in risks vs benefit if patient is having some falls at home - Amio is oral - Toprol Toxic metabolic encephalopathy likely secondary to CO2 retention/ hypoxia - Supportive care - Treatment as above - off Seroquel, Melatonin Abdominal aortic aneurysm -Incidental finding -Vascular surgery recommendations appreciated. Outpatient follow-up. Elevated troponin reflective of hypoxemia -Acute coronary syndrome ruled out -Echocardiogram within normal limits -Cardiology recommendations appreciated Carotid stenosis L - outpatient follow-up History of tobacco abuse SVT, resolved Transaminitis, improved Thrombocytopenia, improved Myoclonic jerking, resolved
[2020-04-12] MEDS: SODIUM CHLORIDE 0.9% 1,000 ML IV SCH (18:41)
[2020-04-12] MEDS: MELATONIN 5 MG TABLET PO SCH (19:59)
[2020-04-13 05:46] LABS: African American GFR (CKD) >90 (>60 ml/min/1.73 sqM); Blood Urea Nitrogen 35 mg/dL (9-20); Calcium 8.3 mg/dL (8.4-10.2); Chloride 89 mmol/L (98-107); Glucose 90 mg/dL (74-99); Non-African American GFR(CKD) >90 (>60 ml/min/1.73 sqM); Potassium 4.3 mmol/L (3.5-5.1); Sodium 137 mmol/L (137-145)
[2020-04-13 05:53] LABS: Anion Gap 2 mmol/L; Basophils % (A) 0 %; Eosinophils # (A) 0.1 k/uL (0-0.7); Eosinophils % (A) 1 %; HCT 44.2 % (39.0-53.0); HGB 13.1 gm/dL (13.0-17.5); Hypochromasia Marked; Lymphocytes # (A) 0.5 k/uL (1.0-4.8); Lymphocytes % (A) 6 %; MCH 29.1 pg (25.0-35.0); MCHC 29.6 g/dL (31.0-37.0); MCV 98.3 fL (80.0-100.0); Monocytes # (A) 0.5 k/uL (0-1.0); Monocytes % (A) 6 %; Neutrophils # (A) 7.2 k/uL (1.3-7.7); Neutrophils % (A) 86 %; Platelet Count 163 k/uL (150-450); RDW 13.5 % (11.5-15.5); WBC 8.4 k/uL (3.8-10.6)
[2020-04-13] MEDS: LEVOTHYROXINE 112 MCG TAB PO SCH (06:10)
[2020-04-13 06:22] LABS: Carbon Dioxide 46 mmol/L (22-30)
[2020-04-13] MEDS: FORMOTEROL FUMARATE 20 MCG/2 ML NEBU INHALATION SCH ×2 (08:05→19:14)
[2020-04-13] MEDS: BUDESONIDE 0.5 MG/2 ML NEBU INHALATION SCH ×2 (08:05→19:14)
[2020-04-13] MEDS: THEOPHYLLINE 24 HOUR 300 MG CAP.ER.24H PO SCH (08:50)
[2020-04-13] MEDS: FUROSEMIDE 40 MG TAB PO SCH (08:50)
[2020-04-13] MEDS: APIXABAN 5 MG TAB PO SCH ×2 (08:50→19:39)
[2020-04-13] MEDS: AMIODARONE 200 MG TAB PO SCH ×2 (08:50→19:40)
[2020-04-13] MEDS: ASPIRIN 81 MG PO SCH (08:51)
[2020-04-13] MEDS: METOPROLOL SUCCINATE (ER) 25 MG TAB.ER.24H PO SCH (08:51)
[2020-04-13] MEDS: ISOSORBIDE MONONITRATE ER 60 MG TAB.ER.24H PO SCH (08:51)
[2020-04-13] MEDS: THIAMINE 100 MG/ML 2 ML VIAL IVP SCH (08:52)
[2020-04-13] MEDS: predniSONE 20 MG TAB PO SCH (08:52)
--- NOTE | 2020-04-13 10:12 | XR ---
EXAMINATION TYPE: XR chest 1V portable DATE OF EXAM: 04/13/2020 COMPARISON: Prior chest x-ray 04/12/2020 HISTORY: Chest tube, pneumothorax TECHNIQUE: Single frontal view of the chest is obtained. FINDINGS: Findings are similar to prior exam. Left-sided chest tube is present. There is apical left -sided pneumothorax present. Extensive subcutaneous emphysema present over the left chest and neck. T here is blunting the left costophrenic angle. Patient is rotated. Heart is stable. Aorta is dense. Pa tchy density persists the right costophrenic angle. Retained contrast is present within the colon lef t upper quadrant. IMPRESSION: Small left apical pneumothorax is thought to persist. Difficult to exclude basilar airsp lauri disease, effusion. Subcutaneous emphysema.
--- NOTE | 2020-04-13 10:21 | XR ---
EXAMINATION TYPE: XR chest 1V portable DATE OF EXAM: 04/13/2020 COMPARISON: Prior chest x-ray same dated earlier time HISTORY: Pneumothorax, chest tube TECHNIQUE: Single frontal view of the chest is obtained. FINDINGS: Findings are similar to prior exam. Patient's chest tube and valve overlie the left upper lobe which limits evaluation. Chest tube courses along the left lung in a caudal direction as on prio r. Patient is less rotated. No sizable pneumothorax is evident. Left pulmonary artery appears promine ntly. Correlate for pulmonary artery hypertension. IMPRESSION: No sizable pneumothorax, correlate for basilar pneumonia.
--- NOTE | 2020-04-13 11:01 | P.PN ---
Subjective Progress Note Date: 04/13/20 Principal diagnosis: This is a 79-year-old gentleman who follows on an outpatient basis with Dr. Spencer. He has a past medical history significant for COPD with home oxygen dependence, previous tobacco dependence, hypertension, and hypothyroid. He was transferred from [facility] for acute hypoxic respiratory failure and mental status changes. Apparently, his daughter called EMS after she found him to be very confused and hypoxic with oxygen saturation in the 70s. While at [facility] he had a CT chest angiogram demonstrating no evidence of pulmonary embolism but there was background emphysema and chronic pulmonary fibrotic changes in the left lung base along with tiny left-sided pleural effusion and right-sided pleural effusion. There was also interstitial edema and he was suspected to be in heart failure. In addition, there was noted to be a 6.5 cm infrarenal abdominal aortic aneurysm without evidence of leak. He was placed on IV diuretics and was transferred to [facility] for further evaluation and treatment. Once admitted here, a consultation was placed to cardiology, neurology, vascular surgery, and pulmonology. The patient had workup including transthoracic echocardiogram, carotid Dopplers, brain MRI, and neck MRA, liver ultrasound, and daily chest x-rays. On the morning of 04/10/2020 chest x-ray demonstrated left-sided pneumothorax around 30-40%. A left chest Thoravent was placed by Dr. Prieto and connected to an atrium with continuous wall suction. He was noted to have an intermittent air leak. On the morning of the he continued to have a left-sided pneumothorax, air was aspirated from the thoravent and reconnected to continuous wall suction with improvement in the left-sided pneumothorax. He was noted to have subcu emphysema present to the left chest wall extending up into the neck area. He had no increased difficulty in breathing. The chest x-ray from 04/12/2020 demonstrated tiny apical pneumothorax with extensive subcutaneous emphysema. The patient had an intermittent air leak with coughing. Dr. Gordon from cardiothoracic surgery was consulted for recommendations. Status post day #3 left chest Thoravent placement by Dr. Prieto. The patient was seen in follow-up today on 04/13/2020 at his bedside in the intensive care unit. He is awake, alert and oriented 3 and is in no acute dis tress. Currently he denies any complaints of pain or shortness of breath. Oxygen saturation are 96% on 1.5 L of oxygen and he is achieving 250 mL on his incentive spirometry with much encouragement. Left chest Thoravent remains in place to low continuous wall suction -20 cm H2O. No air leak is present. Draining thin serosanguineous drainage with 10 mL output in the last 24 hours. The patient's chest x-ray from this morning shows a small left apical pneumothorax, extensive subcutaneous emphysema over the left chest and neck and a patchy density which persists in the right costophrenic angle. The patient reports he has been getting up out of bed and ambulating in his room with minimal assistance. Bedside telemetry showing normal sinus rhythm heart rate 79 BPM. He remains hemodynamically stable and is currently on no inotropic or pressor support. Objective - Vital Signs Vital signs: Vital Signs Temp 98.2 F 04/13/20 08:00 Pulse 79 04/13/20 10:00 Resp 14 04/13/20 10:00 BP 127/70 04/13/20 10:00 Pulse Ox 94 L 04/13/20 10:00 Intake & Output 04/12/20 04/13/20 04/13/20 18:59 06:59 18:59 Intake Total 720 220 290 Output Total 50 500 150 Balance 670 -280 140 Weight 51.9 kg 51.9 kg Intake: IV 120 120 40 Sodium Chloride 0.9% 1, 120 120 40 000 ml @ 10 mls/hr IV . Q24H [facility] Rx#:[id number] Oral 600 100 250 Output: Urine 50 500 150 Other: Voiding Method Urinal Urinal Urinal # Voids 1 - Exam This is a pleasant 79-year-old male gentleman who is lying comfortably in bed in the intensive care unit. He is awake, alert and oriented 3 and is in no apparent distress. Oxygen saturation are 96% on 1.5 L of nasal cannula. - Constitutional General appearance: Present: cooperative, no acute distress, thin - EENT Eyes: Present: PERRLA, normal appearance. Absent: scleral icterus ENT: Present: hearing grossly normal - Neck Details: Subcutaneous emphysema present to his left neck. No JVD. - Respiratory Details: Lungs are essentially diminished throughout. No wheezes, crackles or rhonchi. Respirations are symmetrical and nonlabored. Oxygen saturation is 96% on 1.5 L of nasal cannula. Achieving 250 mL on his incentive spirometry with much encouragement. Left chest Thoravent remains in place to low continuous wall suction -20 cm H2O. No air leak is present. Draining thin serosanguineous drainage with 10 mL output in the last 24 hours. - Cardiovascular Details: Regular rhythm and rate. S1 and S2 present, negative for S3, gallop or murmur. No edema present. Bedside telemetry showing normal sinus rhythm heart rate 79 BPM. - Gastrointestinal Gastrointestinal Comment(s): Abdomen is soft, nontender and nondistended. Active bowel sounds present in all 4 abdominal quadrants. No guarding or rigidity. No organomegaly appreciated. - Genitourinary Genitourinary Comment(s): Voiding clear yellow urine. - Integumentary Integumentary Comment(s): Skin is warm and dry. No clubbing or cyanosis is present. Several scattered small ecchymotic area to his upper extremities. - Neurologic Neurologic: Present: CNII-XII intact - Musculoskeletal Musculoskeletal: Present: gait normal, generalized weakness, strength equal bilaterally - Psychiatric Psychiatric: Present: A&O x's 3, appropriate affect, intact judgment & insight - Allied health notes Allied health notes reviewed: nursing - Labs CBC & Chem 7: 04/13/20 04:41 04/13/20 04:41 Labs: Abnormal Lab Results - Last 24 Hours (Table) 04/13/20 04/13/20 Range/Units 04:41 04:41 MCHC 29.6 L (31.0-37.0) g/dL Lymphocytes # 0.5 L (1.0-4.8) k/uL Chloride 89 L (98-107) mmol/L Carbon Dioxide 46 H* (22-30) mmol/L BUN 35 H (9-20) mg/dL Creatinine 0.59 L (0.66-1.25) mg/dL Calcium 8.3 L (8.4-10.2) mg/dL - Imaging and Cardiology Chest x-ray: report reviewed, image reviewed Assessment and Plan Assessment: 1. Spontaneous left-sided pneumothorax, status post thoravent placement by Dr. Prieto 2. Acute on chronic hypoxic respiratory failure with hypercapnia 3. Altered mental status on admission 4. Chronic obstructive pulmonary disease 5. Remote history of tobacco dependence, quit 25 years ago 6. New onset paroxysmal atrial fibrillation, currently normal sinus rhythm, currently on amiodarone and Eliquis Plan: 1. Keep left chest Thoravent in place, place left chest Thoravent to waterseal. No airleak present this a.m. 2. Repeat chest x-ray in 2 hours post placing the Thoravent to waterseal to reevaluate for pneumothorax. 3. Encourage use of his incentive spirometry 10 times every hour while awake. 4. Increase activity as tolerated, out of bed for all meals. 5. Bronchodilators, steroids for pulmonary/critical care medicine management. 6. Continue to monitor daily chest x-rays. 7. Medical management and other comorbidities per primary care service, cardiology and pulmonary critical care medicine. 8. Continue to monitor subcutaneous emphysema. 9. More recommendations to follow based on patient's clinical course. Time with Patient: Greater than 30
--- NOTE | 2020-04-13 12:16 | P.PN ---
Subjective Progress Note Date: 04/13/20 Principal diagnosis: Pneumothorax Patient was seen and examined. No acute events overnight. Patient reports considerable improvement in his breathing since yesterday. He denies any chest pain. He denies any nausea or vomiting. No fever or chills. Left-sided chest tube to suction turned off this morning. Chest x-ray this morning shows no sizable pneumothorax. Saturating mid 90s on 2 L nasal cannula. Objective - Vital Signs Vital signs: Vital Signs Temp 98.2 F 04/13/20 08:00 Pulse 90 04/13/20 11:00 Resp 19 04/13/20 11:45 BP 103/78 04/13/20 11:00 Pulse Ox 96 04/13/20 11:00 Intake & Output 04/12/20 04/13/20 04/13/20 18:59 06:59 18:59 Intake Total 720 220 550 Output Total 50 500 275 Balance 670 -280 275 Weight 51.9 kg 51.9 kg Intake: IV 120 120 50 Sodium Chloride 0.9% 1, 120 120 50 000 ml @ 10 mls/hr IV . Q24H [facility] Rx#:[id number] Oral 600 100 500 Output: Urine 50 500 275 Other: Voiding Method Urinal Urinal Urinal # Voids 1 - Exam General: [Ill-appearing], [no distress], [appears at stated age] Derm: [warm], [dry] Head: [atraumatic], [normocephalic], [symmetric] Eyes: [EOMI], [no lid lag], [anicteric sclera] Mouth: [no lip lesion], [mucus membranes moist] Cardiovascular: [S1S2 irregular], [no murmur], [positive DP pulse bilateral], Lungs: [Decreased breath sounds bilaterally with subcutaneous emphysema and left-sided chest tube], [no rhonchi, no rales] , [no accessory muscle use] Abdominal: [soft], [ nontender to palpation], [no guarding], [no appreciable organomegaly] Ext: [no gross muscle atrophy], [no edema], [no contractures] Neuro: [no focal neuro deficits] Psych: [Alert], [oriented], [appropriate affect] - Labs CBC & Chem 7: 04/13/20 04:41 04/13/20 04:41 Labs: Abnormal Lab Results - Last 24 Hours (Table) 04/13/20 04/13/20 Range/Units 04:41 04:41 MCHC 29.6 L (31.0-37.0) g/dL Lymphocytes # 0.5 L (1.0-4.8) k/uL Chloride 89 L (98-107) mmol/L Carbon Dioxide 46 H* (22-30) mmol/L BUN 35 H (9-20) mg/dL Creatinine 0.59 L (0.66-1.25) mg/dL Calcium 8.3 L (8.4-10.2) mg/dL Assessment and Plan Assessment: Acute exacerbation of COPD with acute on chronic hypoxic hypercapnic respiratory failure - Pulmonary recommendations appreciated - Prednisone - fixed and when necessary bronchodilators - theophylline - BiPap as needed; AVAPS ordered for discharge - Pulmonary hygiene - Wean O2 as able - Would benefit from outpatient pulmonary rehab - Diamox Therpay completed Left PTX - improved after thoravent - Cardiothoracic surgery consulted appreciated recommendations, plans repeat chest x-ray tomorrow - Pain control - Pulm management P. A. fib - cardio recs appreciated - Eliquis: will need to involve family in risks vs benefit if patient is having some falls at home - Amio is oral - Toprol Toxic metabolic encephalopathy likely secondary to CO2 retention/ hypoxia - Supportive care - Treatment as above - off Seroquel, Melatonin Abdominal aortic aneurysm -Incidental finding -Vascular surgery recommendations appreciated. Outpatient follow-up. Elevated troponin reflective of hypoxemia -Acute coronary syndrome ruled out -Echocardiogram within normal limits -Cardiology recommendations appreciated Carotid stenosis L - outpatient follow-up History of tobacco abuse SVT, resolved Transaminitis, improved Thrombocytopenia, improved Myoclonic jerking, resolved [Patient is shown considerable improvement since admission. Chest tube to waterseal. Repeat chest x-ray tomorrow morning. Plans on possible DC home in 1-2 days with palliative care. Discussed with nursing and case management.]
--- NOTE | 2020-04-13 13:32 | P.PN ---
Subjective Progress Note Date: 04/13/20 Principal diagnosis: Acute on chronic hypoxic and hypercapnic respiratory failure secondary to severe COPD exacerbation. A 7 79-year-old male patient who was transferred to us from [facility] because of acute hypoxic respiratory failure. The patient is known to have COPD and his dependent on home oxygen. According to the daughter, he is an ex-smoker is not smoking. His been living independently at home and he has been able to perform activities of daily today life. Apparently the patient was having altered mentation he was confused and the daughter called EMS to the scene and the patient was found to be quite hypoxic with a pulse ox of 70s. The patient was placed on a nonrebreather facemask was brought him up to 90% saturation and following that the patient got transferred initially to [facility] and later on to [facility]. During the course of his [facility] stay, the patient underwent a CT angiogram that showed no evidence of any pulmonary embolism. 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 There was no suspicious focal consolidation. There is mild interstitial edema and the patient was suspected to be CHF. Based on that the patient was started on diuresis. There was no evidence of any pulmonary embolism. There was at least a 6.9 cm abdominal aortic and is a bit was noted. CAT scan of the abdomen also confirmed the presence of a large abdominal aortic aneurysm. The blood work that was done showed a glucose of 129, BUN of 27, and a creatinine of 1.0, SGOT was 208, SGPT was 182, calcium level was 8.8, the CPK was 105, lactic acid level was 1.4, magnesium was at 2.1 with a troponin of 0.189. The patient also had a sodium of 142 with a chloride of 92 and a potassium of 4.8. White cell count was at 8.2 with a hemoglobin of 13.3. On today's evaluation of 04/11/2020, the patient is essentially the same without any worsening shortness of breath. As mentioned earlier, a 11-[place] Thoravent was inserted in the left hemithorax and was attached to the Pleur-evac. I noticed some increased subcutaneous emphysema on the left chest. I noted that the air leak. I flushed the Thoravent and I was able to establish some ongoing leaking and repeat chest x-ray shows some improvement in the left-sided pneumothorax. There is still however some subcutaneous emphysema along the left neck and the chest area. Despite all this, the patient is doing well. This patient at 7.38 with a pCO2 of 84 and pO2 of 61 and this was done with an FiO2 of 35%. He is not having any fever. His serum bicarbs of 44. The rest of the electrodes are all within normal limits. His cardiac rhythm is sinus and we have not seen any episodes of atrial fibrillation since yesterday. He'll be placed on a amiodarone maintenance for now. Was also started on anticoagulation with Eliquis. Patient was reevaluated today on 04/12/20, patient remains in the intensive care unit, being treated for acute exacerbation of COPD, spontaneous left-sided pneumothorax requiring chest tube placement/thoravent. Patient had supraventricular tachycardia few days ago, he remains on amiodarone and Eliquis. Chest x-ray continues to show significant left-sided subcutaneous emphysema, l eft-sided apical pneumothorax, and the patient is comfortable, I did recommend surgical evaluation, and it may take a long time for his pneumothorax to resolve. And the patient continues to have a bit of air leak. He is now on 1.5 L nasal cannula, he has AVAPS at bedside, and he is set at a tidal volume of 350 rate of 12 and EPAP of 5 minimal pressure of 79 from pressure of 15 FiO2 is 35%. ABG yesterday showed a pO2 of 73 pCO2 of 93 pH of 7.34. Electrolytes today are normal bicarb is 47. CBC is relatively normal Patient was reevaluated today on , remains in the ICU, patient is on 2 L nasal cannula, and his O2 saturation is 94%. Chest x-ray continues to show subcutaneous emphysema, no evidence of pneumothorax. No air leak was noted today from the chest tube, hence the chest tube was placed off suction. Clinically the patient is feeling better, breathing easier, and repeat chest x- ray was done after 2 hours of chest tube off suction, showed no change. Hence we will likely consider removing the chest tube in the next 24 hours of the patient continues to do well. Again the patient continues to have significant subcu emphysema. CBC today is relatively normal electrolytes are basically normal except for bicarb of 46. Patient continues to have avaps respirator next to his bed, and it to be used as needed the plan is to eventually arrange for one to have a home. Objective - Vital Signs Vital signs: Vital Signs Temp 98.2 F 04/13/20 08:00 Pulse 96 04/13/20 13:00 Resp 25 H 04/13/20 13:00 BP 118/71 04/13/20 13:00 Pulse Ox 96 04/13/20 13:00 Intake & Output 04/12/20 04/13/20 04/13/20 18:59 06:59 18:59 Intake Total 720 220 570 Output Total 50 500 275 Balance 670 -280 295 Weight 51.9 kg 51.9 kg Intake: IV 120 120 70 Sodium Chloride 0.9% 1, 120 120 70 000 ml @ 10 mls/hr IV . Q24H [facility] Rx#:[id number] Oral 600 100 500 Output: Urine 50 500 275 Other: Voiding Method Urinal Urinal Urinal # Voids 1 - Exam Gen. appearance revealed a 79-year-old white male, frail looking, chronically ill, in no distress, on 2 L nasal cannula HEENT: Head atraumatic, normocephalic, PERRLA, EOMI, no icterus, neck masses, no JVD. Neck was supple and without jugular venous distension, thyromegaly, lung revealed symmetrical chest expansion. Left sided chest tube is noted. Subcutaneous emphysema is noted. No air leak was noted today. Heart normal S1 and S2, no S3 gallop. Abdominal exam revealed normal bowel sounds. The abdomen was soft, non-tender, and without masses, organomegaly, or appreciable enlargement of the abdominal aorta. The patient has a pulsatile mass in the mid abdominal area related to his underlying large abdominal aortic aneurysm which is measuring 6.9 cm in size on the CAT scan of the chest and abdomen. Extremities: No clubbing edema or cyanosis Skin: No rashes. Neurologically alert and oriented 3 focal deficits. Psychiatric: Normal mood affect and normal mental status examination - Labs CBC & Chem 7: 04/13/20 04:41 04/13/20 04:41 Labs: Abnormal Lab Results - Last 24 Hours (Table) 04/13/20 04/13/20 Range/Units 04:41 04:41 MCHC 29.6 L (31.0-37.0) g/dL Lymphocytes # 0.5 L (1.0-4.8) k/uL Chloride 89 L (98-107) mmol/L Carbon Dioxide 46 H* (22-30) mmol/L BUN 35 H (9-20) mg/dL Creatinine 0.59 L (0.66-1.25) mg/dL Calcium 8.3 L (8.4-10.2) mg/dL Assessment and Plan Assessment: Impression: Acute on chronic hypoxic and hypercapnic respiratory failure secondary to COPD exacerbation. Acute spontaneous secondary left-sided pneumothorax, post thoravent insertion. Acute CO2 narcosis, improved. Chronic metabolic alkalosis, compensating for his chronic respiratory acidosis. Possible non-ST elevation myocardial infarction with elevated troponin Abdominal aortic aneurysm measuring 6.9 cm in size Single episode of SVT/atrial fibrillation. Being addressed by cardiology. Recommendation: Continue chest tube off suction. Continue to monitor his COPD status and continue bronchodilators including albuterol Atrovent Perforomist Pulmicort and theophylline Continue amiodarone and Eliquis. Continue metoprolol. Continue avaps as needed and at night. When he goes to bed. We'll continue to follow Time with Patient: Less than 30
--- NOTE | 2020-04-13 16:00 | CDI ---
Documentation Clarification Form Date: 04/13/2020 03:41:58 PM From: Sole Sherwood RN CCDS Email: [email or web address] Admit Date: 04/04/2020 05:57:00 PM Patient Name: Gael Reeder Visit Number: [id number] Discharge Date: ATTENTION: The Clinical Documentation Specialists (CDI) and [facility] Coding Staff appreciate your assistance in clarifying documentation. Please respond to the clarification below the line at the bottom and electronically sign. The CDI & [facility] Coding staff will review the response and follow-up if needed. Please note: Queries are made part of the Legal Health Record. If you have any questions, please contact the author of this message via ITS. Dr. Harpreet Lowery Mild congestive heart failure probably diastolic is documented in your note 04/09 History/Risk Factors: 79-year-old male presents to the ED as a transfer for suspected Acute CHF exacerbation. Medical history Hypothyroid, COPD on home oxygen Clinical Indicators: 04/04 Vitals on admission: 141/124, 114, 99.2, 22, 94% 4L nasal cannula 04/05 BNP: 88970 04/05 Echocardiogram Results: Left ventricular systolic function is low normal with, an EF between 50-55%. The right ventricle is mildly enlarged. The right ventricle is mildly enlarged. Trace mitral regurgitation trace tricuspid regurgitation present. 04/06 Chest X Ray: Correlate for COPD. Coarsened interstitium can be associated with chronic interstitial lung disease, interstitial pneumonitis or mild venous congestion. Treatment: 04/04 Lasik 40mg Ivp changed 04/06 Lasix 40mg PO Daily. 04/05 Imdur 60mg PO Daily, 04/09 Toprol XL 25mg PO Daily In your professional opinion, can you please clarify the acuity of CHF if known? Acute Diastolic Heart Failure Acute on Chronic Diastolic Heart Failure Chronic Diastolic Heart Failure Heart Failure Ruled Out Unable to Determine Other, please specify (Last Revision: January 2018) herat failure ruled out MTDD
--- NOTE | 2020-04-13 16:33 | P.PN ---
Subjective Progress Note Date: 04/13/20 Patient was seen for initial consultation by Dr. Lake on 04/05/2020. Please refer to her note for details. Patient admitted with some altered mental status and had COPD exacerbation. Patient was transferred to ICU for acute hypoxic respiratory failure. It was reported by Dr. Lake in the signout note, that patient has history of REM behavior disorder. Patient was seen for a follow-up today. Patient is sitting in the recliner. Patient is fully alert and awake. Wants to go home. Denies any focal symptoms. Denies headache. Spoke to the nurse, who states that patient had some mental status change, which was felt to be related to CO2 retention and metabolic encephalopathy. Patient also had some myoclonic jerks, which now seems to have resolved. MRI of brain without contrast revealed scattered white matter signal changes probably related to some chronic small vessel ischemia. No acute intracranial abnormality. Demyelinating disease is not excluded. Carotid Doppler showed bilateral plaque but no significant hemodynamic stenosis. Antegrade flow in both vertebral arteries. MRA of the neck was limited examination. Showed approximate 60% stenosis at the origin of left ICA. 2-D echo showed normal left-ventricular size. Left ventricular wall thickness is normal. EF between 50-55%. Right ventricle is mildly enlarged. Left atrial size is normal. EEG report was reviewed. Patient's last ABG from 04/11/2020 showed pH of 7.34, pCO2 93, pO2 73 and saturation 93.8. Patient on 36% FiO2. Patient's BUN is 35, creatinine 0.59. B12 631, TSH 1.98 normal. Total cholesterol 206, LDL 122, HDL 62 and triglycerides 107. UA and urine drug screen negative. Patient is currently on Apixaban 5 mg twice a day, aspirin 81 mg. Objective - Vital Signs Vital signs: Vital Signs Temp 98.2 F 04/13/20 08:00 Pulse 94 04/13/20 15:00 Resp 25 H 04/13/20 15:00 BP 121/79 04/13/20 15:00 Pulse Ox 93 L 04/13/20 15:00 Intake & Output 04/12/20 04/13/20 04/13/20 18:59 06:59 18:59 Intake Total 720 220 580 Output Total 50 500 600 Balance 670 -280 -20 Weight 51.9 kg 51.9 kg Intake: IV 120 120 80 Sodium Chloride 0.9% 1, 120 120 80 000 ml @ 10 mls/hr IV . Q24H [facility] Rx#:[id number] Oral 600 100 500 Output: Urine 50 500 600 Other: Voiding Method Urinal Urinal Urinal # Voids 1 - Exam On examination patient is an elderly male, in no distress. He is mild short of breath, which got worse after muscle strength testing. Patient knows that it is March and the year is 2019. He knows he is in [place] and name of the current president. Speech and language functions are normal. Muscle strength is normal in the arms and legs. Patient started panting after muscle strength testing. No asterixis or myoclonic jerks noted of outstretched hands. - Labs CBC & Chem 7: 04/13/20 04:41 04/13/20 04:41 Labs: Abnormal Lab Results - Last 24 Hours (Table) 04/13/20 04/13/20 Range/Units 04:41 04:41 MCHC 29.6 L (31.0-37.0) g/dL Lymphocytes # 0.5 L (1.0-4.8) k/uL Chloride 89 L (98-107) mmol/L Carbon Dioxide 46 H* (22-30) mmol/L BUN 35 H (9-20) mg/dL Creatinine 0.59 L (0.66-1.25) mg/dL Calcium 8.3 L (8.4-10.2) mg/dL Assessment and Plan Assessment: * Altered mental status, likely related to metabolic encephalopathy, which now seems to have mostly resolved. * Myoclonic jerks, likely due to above. Myoclonic jerks also resolved * COPD, with recent respiratory failure. * Recent pneumothorax. Plan: * Neurologically patient is stable at this time. Patient's mentation is clear. He is still slightly inattentive, likely related to underlying cardiopulmonary dysfunction, with oxygen/CO2 mismatch. * At present patient does not have any myoclonic jerks or asterixis. * No other neurological workup indicated. * Neurology will sign off. Please call neurology if any other concerns.
--- NOTE | 2020-04-13 18:30 | PN ---
PROGRESS NOTE FOLLOW-UP NOTE: Gael is a 79-year-old gentleman who is admitted to hospital with respiratory failure and developed pneumothorax on the left side. He has had episodes of paroxysmal atrial fibrillation, currently in sinus rhythm, hemodynamically stable. Respiratory status appears stable. On exam, heart rate is 90 beats per minute. Blood pressure is 104/78, respiratory rate is 18. Chest exam reveals good air entry bilaterally. Heart exam reveals first and second heart sounds. No gallop. Abdomen is soft. Examination of extremities did not reveal any edema. Peripheral pulses are felt. ASSESSMENT: 1. Paroxysmal atrial fibrillation. The patient is currently on amiodarone and Eliquis, which I am going to continue along with Toprol. 2. Respiratory failure. 3. Left-sided pneumothorax. PLAN: Continue current medications. MMODL / IJN: [id number] /
[2020-04-13] MEDS: MELATONIN 5 MG TABLET PO SCH (21:52)
[2020-04-14 04:45] LABS: Basophils % (A) 0 %; Eosinophils # (A) 0.1 k/uL (0-0.7); Eosinophils % (A) 1 %; HCT 44.1 % (39.0-53.0); HGB 13.1 gm/dL (13.0-17.5); Hypochromasia Moderate; Lymphocytes # (A) 0.5 k/uL (1.0-4.8); Lymphocytes % (A) 6 %; MCHC 29.8 g/dL (31.0-37.0); MCV 97.5 fL (80.0-100.0); Mean Platelet Volume 8.8; Monocytes # (A) 0.5 k/uL (0-1.0); Monocytes % (A) 6 %; Neutrophils % (A) 87 %; Platelet Count 199 k/uL (150-450); RBC 4.53 m/uL (4.30-5.90); RDW 13.5 % (11.5-15.5); WBC 8.1 k/uL (3.8-10.6)
[2020-04-14 04:56] LABS: African American GFR (CKD) >90 (>60 ml/min/1.73 sqM); Blood Urea Nitrogen 32 mg/dL (9-20); Calcium 8.5 mg/dL (8.4-10.2); Chloride 87 mmol/L (98-107); Glucose 103 mg/dL (74-99); Non-African American GFR(CKD) 86 (>60 ml/min/1.73 sqM); Potassium 4.2 mmol/L (3.5-5.1); Sodium 137 mmol/L (137-145)
[2020-04-14 05:03] LABS: Anion Gap 5 mmol/L
[2020-04-14 05:05] LABS: Carbon Dioxide 45 mmol/L (22-30)
[2020-04-14] MEDS: LEVOTHYROXINE 112 MCG TAB PO SCH (06:08)
[2020-04-14] MEDS: BUDESONIDE 0.5 MG/2 ML NEBU INHALATION SCH ×2 (08:07→20:26)
[2020-04-14] MEDS: FORMOTEROL FUMARATE 20 MCG/2 ML NEBU INHALATION SCH ×2 (08:07→20:26)
[2020-04-14] MEDS: predniSONE 20 MG TAB PO SCH (08:33)
[2020-04-14] MEDS: THIAMINE 100 MG/ML 2 ML VIAL IVP SCH (08:33)
[2020-04-14] MEDS: ASPIRIN 81 MG PO SCH (08:33)
[2020-04-14] MEDS: THEOPHYLLINE 24 HOUR 300 MG CAP.ER.24H PO SCH (08:33)
[2020-04-14] MEDS: ISOSORBIDE MONONITRATE ER 60 MG TAB.ER.24H PO SCH (08:33)
[2020-04-14] MEDS: APIXABAN 5 MG TAB PO SCH ×2 (08:34→20:56)
[2020-04-14] MEDS: AMIODARONE 200 MG TAB PO SCH ×2 (08:34→20:56)
[2020-04-14] MEDS: FUROSEMIDE 40 MG TAB PO SCH (08:34)
[2020-04-14] MEDS: METOPROLOL SUCCINATE (ER) 25 MG TAB.ER.24H PO SCH (08:35)
--- NOTE | 2020-04-14 08:53 | XR ---
EXAMINATION TYPE: XR chest 1V portable DATE OF EXAM: 04/14/2020 COMPARISON: 04/13/2020 HISTORY: Pneumothorax follow-up TECHNIQUE: Single frontal view of the chest is obtained. FINDINGS: Diffuse soft tissue emphysema. Right lung clear. Heart size normal. Atherosclerotic change aorta. Diffuse osteopenia. Chest tube appears to be dislodged. Correlate clinically. Suspect there i s a left apical pneumothorax measuring approximately 5-10%. Mild costophrenic angle and subsegmental consolidation at the left lung base IMPRESSION: 1. Chest tube appears dislodged. Severe soft tissue emphysema obscures the chest. Suspect there may b e a new 5-10% apical pneumothorax.
--- NOTE | 2020-04-14 10:06 | XR ---
EXAMINATION TYPE: XR chest 1V portable DATE OF EXAM: 04/14/2020 COMPARISON: 04/14/2020 HISTORY: Follow up left pneumothorax TECHNIQUE: Single frontal view of the chest is obtained. FINDINGS: Diffuse soft tissue emphysema. Right lung clear. Heart size normal. Atherosclerotic change aorta. Diffuse osteopenia. Chest tube appears to be dislodged. Correlate clinically. Suspect there i s a left apical pneumothorax measuring approximately 5-10%. Mild costophrenic angle and subsegmental consolidation at the left lung base IMPRESSION: 1. Severe subcutaneous emphysema with a chest tube overlying the left clavicle likely outside the tho racic cavity. Report called to ICU nurse. There does appear to be a residual 5-10% left apical pneumo thorax.
--- NOTE | 2020-04-14 10:15 | P.PN ---
Subjective Progress Note Date: 04/14/20 Principal diagnosis: This is a 79-year-old gentleman who follows on an outpatient basis with Dr. Spencer. He has a past medical history significant for COPD with home oxygen dependence, previous tobacco dependence, hypertension, and hypothyroid. He was transferred from [facility] for acute hypoxic respiratory failure and mental status changes. Apparently, his daughter called EMS after she found him to be very confused and hypoxic with oxygen saturation in the 70s. While at [facility] he had a CT chest angiogram demonstrating no evidence of pulmonary embolism but there was background emphysema and chronic pulmonary fibrotic changes in the left lung base along with tiny left-sided pleural effusion and right-sided pleural effusion. There was also interstitial edema and he was suspected to be in heart failure. In addition, there was noted to be a 6.5 cm infrarenal abdominal aortic aneurysm without evidence of leak. He was placed on IV diuretics and was transferred to [facility] for further evaluation and treatment. Once admitted here, a consultation was placed to cardiology, neurology, vascular surgery, and pulmonology. The patient had workup including transthoracic echocardiogram, carotid Dopplers, brain MRI, and neck MRA, liver ultrasound, and daily chest x-rays. On the morning of 04/10/2020 chest x-ray demonstrated left-sided pneumothorax around 30-40%. A left chest Thoravent was placed by Dr. Prieto and connected to an atrium with continuous wall suction. He was noted to have an intermittent air leak. On the morning of the he continued to have a left-sided pneumothorax, air was aspirated from the thoravent and reconnected to continuous wall suction with improvement in the left-sided pneumothorax. He was noted to have subcu emphysema present to the left chest wall extending up into the neck area. He had no increased difficulty in breathing. The chest x-ray from 04/12/2020 demonstrated tiny apical pneumothorax with extensive subcutaneous emphysema. The patient had an intermittent air leak with coughing. Dr. Gordon from cardiothoracic surgery was consulted for recommendations. Status post day #4 left chest Thoravent placement by Dr. Prieto. The patient was seen in follow-up today on 04/14/2020 at his bedside in the intensive care unit. The patient is currently sitting up to the bedside edge a nd is in no acute stress. He is tolerating his breakfast. Currently he denies any complaints of pain or shortness of breath. He remains hemodynamically stable and is currently on no inotropic pressure support. Oxygen saturation are 92% on 2 L nasal cannula and he is achieving around 250 mL on his incentive spirometry with much encouragement. Left chest Thoravent remains in place and is to waterseal. No air leak is present. Draining scant thin serosanguineous drainage. His chest x-ray this morning demonstrates a small 5-10% left apical pneumothorax with extensive left chest and left neck subcutaneous emphysema. His bedside telemetry showing normal sinus rhythm heart rate 70. Objective - Vital Signs Vital signs: Vital Signs Temp 98.2 F 04/14/20 08:00 Pulse 95 04/14/20 09:00 Resp 25 H 04/14/20 09:00 BP 104/66 04/14/20 09:00 Pulse Ox 90 L 04/14/20 09:00 Intake & Output 04/13/20 04/14/20 04/14/20 18:59 06:59 18:59 Intake Total 780 Output Total 1400 475 0 Balance -620 -475 0 Weight 51.9 kg 51.2 kg Intake: IV 80 Sodium Chloride 0.9% 1, 80 000 ml @ 10 mls/hr IV . Q24H [facility] Rx#:[id number] Oral 700 Output: Urine 1400 475 0 Other: Voiding Method Urinal Urinal Urinal - Exam This is a pleasant 79-year-old male gentleman who is sitting up to the bedside edge eating his breakfast in the intensive care unit. He is awake, alert and oriented 3 and is in no apparent distress. Oxygen saturation are 92% on 2 L of nasal cannula. - Constitutional General appearance: Present: cooperative, no acute distress, thin - EENT ENT: Present: hearing grossly normal - Neck Details: Neck is supple, no JVD, no lymphadenopathy. - Respiratory Details: Lung sounds essentially clear but diminished throughout. No wheezes, rhonchi or crackles. Respirations are symmetrical and nonlabored. Oxygen saturation are 92% on 2 L nasal cannula. Achieving 250 mL on his incentive spirometry with much encouragement. Left chest Thoravent remains in place to water seal. No air leak is present. Draining scant thin serosanguineous drainage. - Cardiovascular Details: Regular rhythm and rate. S1 and S2 present, negative for S3, gallop or murmur. No edema present. Bedside telemetry showing normal sinus rhythm heart rate 70 bpm. - Gastrointestinal Gastrointestinal Comment(s): Abdomen is soft, nontender and nondistended. Active bowel sounds present in all 4 abdominal quadrants. No guarding or rigidity. No organomegaly appreciated. Tolerating oral intake. - Genitourinary Genitourinary Comment(s): Voiding clear maria antonia urine. - Integumentary Integumentary Comment(s): Skin is warm and dry. No clubbing or cyanosis is present. Several scattered small ecchymotic areas to his bilateral upper extremities. Dressing is clean dry and in place to his left chest Thoravent. - Neurologic Neurologic: Present: CNII-XII intact - Musculoskeletal Musculoskeletal: Present: gait normal, generalized weakness, strength equal bilaterally - Psychiatric Psychiatric: Present: A&O x's 3, appropriate affect, intact judgment & insight - Allied health notes Allied health notes reviewed: nursing - Labs CBC & Chem 7: 04/14/20 04:06 04/14/20 04:06 Labs: Abnormal Lab Results - Last 24 Hours (Table) 04/14/20 04/14/20 Range/Units 04:06 04:06 MCHC 29.8 L (31.0-37.0) g/dL Lymphocytes # 0.5 L (1.0-4.8) k/uL Chloride 87 L (98-107) mmol/L Carbon Dioxide 45 H* (22-30) mmol/L BUN 32 H (9-20) mg/dL Glucose 103 H (74-99) mg/dL - Imaging and Cardiology Chest x-ray: report reviewed, image reviewed Assessment and Plan Assessment: 1. Spontaneous left-sided pneumothorax, status post thoravent placement by Dr. Prieto 2. Acute on chronic hypoxic respiratory failure with hypercapnia 3. Altered mental status on admission 4. Chronic obstructive pulmonary disease 5. Remote history of tobacco dependence, quit 25 years ago 6. New onset paroxysmal atrial fibrillation, currently normal sinus rhythm, currently on amiodarone and Eliquis Plan: 1. Place left chest Thoravent to low continuous wall suction -20 cm H2O. 2. Bronchodilators, steroids for pulmonary/critical care medicine management. 3. Encourage use of his incentive spirometry 10 times every hour while awake. 4. Increase activity as tolerated, out of bed for all meals. Physical therapy is following. 5. Continue to monitor daily chest x-rays, monitor for resolution of left apical pneumothorax. 6. Medical management and other comorbidities per primary care service, cardiology and pulmonary critical care medicine. 7. Continue to monitor subcutaneous emphysema. 8. More recommendations to follow based on patient's clinical course. Time with Patient: Greater than 30
--- NOTE | 2020-04-14 12:18 | P.PN ---
Subjective Progress Note Date: 04/14/20 Principal diagnosis: Pneumothorax Patient was seen and examined. No acute events overnight. Patient reports no changes in his breathing since yesterday. He denies any chest pain. He denies any nausea or vomiting. No fever or chills. Left-sided chest tube placed back on suction this morning. Chest x-ray this morning shows severe subcutaneous emphysema which chest tube overlying the left clavicle likely outside the thoracic cavity, residual 5-10% left apical pneumothorax. Saturating low 90s on 2 L nasal cannula. Objective - Vital Signs Vital signs: Vital Signs Temp 97.9 F 04/14/20 12:00 Pulse 85 04/14/20 12:00 Resp 17 04/14/20 12:00 BP 109/61 04/14/20 12:00 Pulse Ox 90 L 04/14/20 12:00 Intake & Output 04/13/20 04/14/20 04/14/20 18:59 06:59 18:59 Intake Total 780 Output Total 1400 475 100 Balance -620 -475 -100 Weight 51.9 kg 51.2 kg Intake: IV 80 Sodium Chloride 0.9% 1, 80 000 ml @ 10 mls/hr IV . Q24H [facility] Rx#:[id number] Oral 700 Output: Urine 1400 475 100 Other: Voiding Method Urinal Urinal Urinal - Exam General: [Ill-appearing], [no distress], [appears at stated age] Derm: [warm], [dry] Head: [atraumatic], [normocephalic], [symmetric] Eyes: [EOMI], [no lid lag], [anicteric sclera] Mouth: [no lip lesion], [mucus membranes moist] Cardiovascular: [S1S2 irregular], [no murmur], [positive DP pulse bilateral], Lungs: [Decreased breath sounds bilaterally with subcutaneous emphysema and left-sided chest tube], [no rhonchi, no rales] , [no accessory muscle use] Abdominal: [soft], [ nontender to palpation], [no guarding], [no appreciable organomegaly] Ext: [no gross muscle atrophy], [no edema], [no contractures] Neuro: [no focal neuro deficits] Psych: [Alert], [oriented], [appropriate affect] - Labs CBC & Chem 7: 04/14/20 04:06 04/14/20 04:06 Labs: Abnormal Lab Results - Last 24 Hours (Table) 04/14/20 04/14/20 Range/Units 04:06 04:06 MCHC 29.8 L (31.0-37.0) g/dL Lymphocytes # 0.5 L (1.0-4.8) k/uL Chloride 87 L (98-107) mmol/L Carbon Dioxide 45 H* (22-30) mmol/L BUN 32 H (9-20) mg/dL Glucose 103 H (74-99) mg/dL Assessment and Plan Assessment: Acute exacerbation of COPD with acute on chronic hypoxic hypercapnic respiratory failure - Pulmonary recommendations appreciated - Prednisone - fixed and when necessary bronchodilators - theophylline - BiPap as needed; AVAPS ordered for discharge - Pulmonary hygiene - Wean O2 as able - Would benefit from outpatient pulmonary rehab -Discus with pulmonology regarding initiation of Diamox Left PTX - improved after thoravent, placed back on suction by cardiothoracic surgery - Cardiothoracic surgery consulted appreciated recommendations, plans repeat chest x-ray tomorrow - Pain control - Pulm management P. A. fib - cardio recs appreciated - Eliquis: will need to involve family in risks vs benefit if patient is having some falls at home - Amio is oral - Toprol Toxic metabolic encephalopathy likely secondary to CO2 retention/ hypoxia - Supportive care - Treatment as above - off Seroquel, Melatonin Abdominal aortic aneurysm -Incidental finding -Vascular surgery recommendations appreciated. Outpatient follow-up. Elevated troponin reflective of hypoxemia -Acute coronary syndrome ruled out -Echocardiogram within normal limits -Cardiology recommendations appreciated Carotid stenosis L - outpatient follow-up History of tobacco abuse SVT, resolved Transaminitis, improved Thrombocytopenia, improved Myoclonic jerking, resolved [Patient is shown considerable improvement since admission. Chest tube to suction. Repeat chest x-ray tomorrow morning. Plans on possible DC home in 1-2 days with palliative care. Discussed with nursing and case management.]
--- NOTE | 2020-04-14 12:28 | P.PN ---
Subjective Progress Note Date: 04/14/20 Principal diagnosis: Acute on chronic hypoxic and hypercapnic respiratory failure secondary to severe COPD exacerbation. A 7 79-year-old male patient who was transferred to us from [facility] because of acute hypoxic respiratory failure. The patient is known to have COPD and his dependent on home oxygen. According to the daughter, he is an ex-smoker is not smoking. His been living independently at home and he has been able to perform activities of daily today life. Apparently the patient was having altered mentation he was confused and the daughter called EMS to the scene and the patient was found to be quite hypoxic with a pulse ox of 70s. The patient was placed on a nonrebreather facemask was brought him up to 90% saturation and following that the patient got transferred initially to [facility] and later on to [facility]. During the course of his [facility] stay, the patient underwent a CT angiogram that showed no evidence of any pulmonary embolism. 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 There was no suspicious focal consolidation. There is mild interstitial edema and the patient was suspected to be CHF. Based on that the patient was started on diuresis. There was no evidence of any pulmonary embolism. There was at least a 6.9 cm abdominal aortic and is a bit was noted. CAT scan of the abdomen also confirmed the presence of a large abdominal aortic aneurysm. The blood work that was done showed a glucose of 129, BUN of 27, and a creatinine of 1.0, SGOT was 208, SGPT was 182, calcium level was 8.8, the CPK was 105, lactic acid level was 1.4, magnesium was at 2.1 with a troponin of 0.189. The patient also had a sodium of 142 with a chloride of 92 and a potassium of 4.8. White cell count was at 8.2 with a hemoglobin of 13.3. On today's evaluation of 04/11/2020, the patient is essentially the same without any worsening shortness of breath. As mentioned earlier, a 11-Swazi Thoravent was inserted in the left hemithorax and was attached to the Pleur-evac. I noticed some increased subcutaneous emphysema on the left chest. I noted that the air leak. I flushed the Thoravent and I was able to establish some ongoing leaking and repeat chest x-ray shows some improvement in the left-sided pneumothorax. There is still however some subcutaneous emphysema along the left neck and the chest area. Despite all this, the patient is doing well. This patient at 7.38 with a pCO2 of 84 and pO2 of 61 and this was done with an FiO2 of 35%. He is not having any fever. His serum bicarbs of 44. The rest of the electrodes are all within normal limits. His cardiac rhythm is sinus and we have not seen any episodes of atrial fibrillation since yesterday. He'll be placed on a amiodarone maintenance for now. Was also started on anticoagulation with Eliquis. Patient was reevaluated today on 04/12/20, patient remains in the intensive care unit, being treated for acute exacerbation of COPD, spontaneous left-sided pneumothorax requiring chest tube placement/thoravent. Patient had supraventricular tachycardia few days ago, he remains on amiodarone and Eliquis. Chest x-ray continues to show significant left-sided subcutaneous emphysema, l eft-sided apical pneumothorax, and the patient is comfortable, I did recommend surgical evaluation, and it may take a long time for his pneumothorax to resolve. And the patient continues to have a bit of air leak. He is now on 1.5 L nasal cannula, he has AVAPS at bedside, and he is set at a tidal volume of 350 rate of 12 and EPAP of 5 minimal pressure of 79 from pressure of 15 FiO2 is 35%. ABG yesterday showed a pO2 of 73 pCO2 of 93 pH of 7.34. Electrolytes today are normal bicarb is 47. CBC is relatively normal Patient was reevaluated today on 04/13/20, remains in the ICU, patient is on 2 L nasal cannula, and his O2 saturation is 94%. Chest x-ray continues to show subcutaneous emphysema, no evidence of pneumothorax. No air leak was noted today from the chest tube, hence the chest tube was placed off suction. Clinically the patient is feeling better, breathing easier, and repeat chest x- ray was done after 2 hours of chest tube off suction, showed no change. Hence we will likely consider removing the chest tube in the next 24 hours of the patient continues to do well. Again the patient continues to have significant subcu emphysema. CBC today is relatively normal electrolytes are basically normal except for bicarb of 46. Patient continues to have avaps respirator next to his bed, and it to be used as needed the plan is to eventually arrange for one to have a home. Patient was reevaluated today on 04/14/20, remains in the ICU, intermittently on AVAPS presently on 1 L nasal cannula, follow-up chest x-ray this morning showed left apical pneumothorax, and worsening left subcutaneous emphysema, hence the chest tube was placed back on suction. Intermittent air leak is noted/minimal. Clinically however the patient is feeling about the same. No change in spite of his apical pneumothorax. The size of the pneumothorax is about 5-10%. Again the chest tube was placed on suction, and we'll continue as such for the next 24 hours again. Labs were all reviewed bicarb is 45 left lites are normal otherwise. CBC is relatively normal. Last ABG from 2 days ago showed a pO2 of 73 pCO2 of 93 pH of 7.34 Objective - Vital Signs Vital signs: Vital Signs Temp 97.9 F 04/14/20 12:00 Pulse 85 04/14/20 12:00 Resp 17 04/14/20 12:00 BP 109/61 04/14/20 12:00 Pulse Ox 90 L 04/14/20 12:00 Intake & Output 04/13/20 04/14/20 04/14/20 18:59 06:59 18:59 Intake Total 780 Output Total 1400 475 100 Balance -620 -475 -100 Weight 51.9 kg 51.2 kg Intake: IV 80 Sodium Chloride 0.9% 1, 80 000 ml @ 10 mls/hr IV . Q24H [facility] Rx#:[id number] Oral 700 Output: Urine 1400 475 100 Other: Voiding Method Urinal Urinal Urinal - Exam Gen. appearance revealed a 79-year-old white male, frail looking, on 1 L O2 nasal cannula. HEENT: Head atraumatic, normocephalic, PERRLA, EOMI, no icterus, neck masses, no JVD. Neck was supple and without jugular venous distension, thyromegaly, lung revealed symmetrical chest expansion. Left sided chest tube is noted. Subcutaneous emphysema is noted. Intermittent air leak noted from the chest tube Heart normal S1 and S2, no S3 gallop. Abdominal exam revealed normal bowel sounds. The abdomen was soft, non-tender, and without masses, organomegaly, or appreciable enlargement of the abdominal aorta. The patient has a pulsatile mass in the mid abdominal area related to his underlying large abdominal aortic aneurysm which is measuring 6.9 cm in size on the CAT scan of the chest and abdomen. Extremities: No clubbing edema or cyanosis Skin: No rashes. Neurologically alert and oriented 3 focal deficits. Psychiatric: Normal mood affect and normal mental status examination - Labs CBC & Chem 7: 04/14/20 04:06 04/14/20 04:06 Labs: Abnormal Lab Results - Last 24 Hours (Table) 04/14/20 04/14/20 Range/Units 04:06 04:06 MCHC 29.8 L (31.0-37.0) g/dL Lymphocytes # 0.5 L (1.0-4.8) k/uL Chloride 87 L (98-107) mmol/L Carbon Dioxide 45 H* (22-30) mmol/L BUN 32 H (9-20) mg/dL Glucose 103 H (74-99) mg/dL Assessment and Plan Assessment: Impression: Acute on chronic hypoxic and hypercapnic respiratory failure secondary to COPD exacerbation. Acute spontaneous secondary left-sided pneumothorax, post thoravent insertion. Acute CO2 narcosis, improved. Chronic metabolic alkalosis, compensating for his chronic respiratory acidosis. Possible non-ST elevation myocardial infarction with elevated troponin Abdominal aortic aneurysm measuring 6.9 cm in size Single episode of SVT/atrial fibrillation. Being addressed by cardiology. Recommendation: Continue chest tube off suction. Continue to monitor his COPD status and continue bronchodilators including albuterol Atrovent Perforomist Pulmicort and theophylline Continue amiodarone and Eliquis. Continue metoprolol. Continue avaps as needed and at night. When he goes to bed. Not ready for discharge planning as long as the patient continues to have ongoing pneumothorax and air leak. We'll continue to follow Time with Patient: Less than 30
--- NOTE | 2020-04-14 14:52 | PN ---
PROGRESS NOTE Gael is a 79-year-old gentleman who is admitted to hospital with acute respiratory failure and developed pneumothorax. We are involved in his care because of atrial fibrillation. He is currently adequately anticoagulated and he is on amiodarone. Remains in sinus rhythm. On exam, heart rate is 70 beats per minute, blood pressure is 106/90, respiratory rate is 16. Chest exam reveals diminished air entry at the left base. Heart exam reveals first and second heart sounds. No gallop. Exam of extremities did not reveal any edema. Peripheral pulses are felt. Labs show a potassium of 4.2, creatinine of 0.8, hemoglobin is 13.1. ASSESSMENT: 1. Acute respiratory failure. 2. Paroxysmal atrial fibrillation. PLAN: Patient is doing better. Continue current medications. MMODL / IJN: [id number] /
[2020-04-14] MEDS: MELATONIN 5 MG TABLET PO SCH (20:56)
[2020-04-15] MEDS: LEVOTHYROXINE 112 MCG TAB PO SCH (06:05)
[2020-04-15 07:53] LABS: Basophils % (A) 0 %; Eosinophils # (A) 0.1 k/uL (0-0.7); Eosinophils % (A) 1 %; HCT 45.2 % (39.0-53.0); HGB 13.5 gm/dL (13.0-17.5); Hypochromasia Marked; Lymphocytes # (A) 0.7 k/uL (1.0-4.8); Lymphocytes % (A) 9 %; MCH 29.2 pg (25.0-35.0); MCHC 29.9 g/dL (31.0-37.0); MCV 97.8 fL (80.0-100.0); Mean Platelet Volume 8.5; Monocytes # (A) 0.6 k/uL (0-1.0); Monocytes % (A) 8 %; Neutrophils # (A) 5.9 k/uL (1.3-7.7); Neutrophils % (A) 81 %; Platelet Count 263 k/uL (150-450); RBC 4.62 m/uL (4.30-5.90); RDW 13.5 % (11.5-15.5); WBC 7.2 k/uL (3.8-10.6)
[2020-04-15 08:04] LABS: African American GFR (CKD) >90 (>60 ml/min/1.73 sqM); Blood Urea Nitrogen 32 mg/dL (9-20); Calcium 8.5 mg/dL (8.4-10.2); Chloride 85 mmol/L (98-107); Glucose 81 mg/dL (74-99); Non-African American GFR(CKD) 84 (>60 ml/min/1.73 sqM); Potassium 4.3 mmol/L (3.5-5.1); Sodium 139 mmol/L (137-145)
[2020-04-15 08:12] LABS: Anion Gap 1 mmol/L
[2020-04-15 08:13] LABS: Carbon Dioxide 53 mmol/L (22-30)
[2020-04-15] MEDS: THIAMINE 100 MG/ML 2 ML VIAL IVP SCH (08:40)
[2020-04-15] MEDS: AMIODARONE 200 MG TAB PO SCH ×2 (08:41→22:25)
[2020-04-15] MEDS: THEOPHYLLINE 24 HOUR 300 MG CAP.ER.24H PO SCH (08:41)
[2020-04-15] MEDS: ISOSORBIDE MONONITRATE ER 60 MG TAB.ER.24H PO SCH (08:41)
[2020-04-15] MEDS: FUROSEMIDE 40 MG TAB PO SCH (08:41)
[2020-04-15] MEDS: METOPROLOL SUCCINATE (ER) 25 MG TAB.ER.24H PO SCH (08:41)
[2020-04-15] MEDS: APIXABAN 5 MG TAB PO SCH ×2 (08:41→22:25)
[2020-04-15] MEDS: predniSONE 20 MG TAB PO SCH (08:41)
[2020-04-15] MEDS: ASPIRIN 81 MG PO SCH (08:41)
[2020-04-15] MEDS: BUDESONIDE 0.5 MG/2 ML NEBU INHALATION SCH ×2 (09:49→20:07)
[2020-04-15] MEDS: FORMOTEROL FUMARATE 20 MCG/2 ML NEBU INHALATION SCH ×2 (09:49→20:07)
--- NOTE | 2020-04-15 10:23 | P.PN ---
Subjective Progress Note Date: 04/15/20 Principal diagnosis: Spontaneous left-sided pneumothorax, cute on chronic hypoxic respiratory failure with hypercapnia, altered mental status on admission. Previous medical history of chronic obstructive pulmonary disease, remote history of tobacco dependence, abdominal aortic aneurysm. New onset paroxysmal atrial fibrillation, currently on amiodarone and Eliquis POD #5 left chest thoravent placement by Dr. Prieto Patient's currently sitting up in the recliner in the intensive care unit in no acute distress. Denies pain, states shortness of breath is better than on a dmission. Remains in sinus rhythm, hemodynamically stable. Left-sided thoravent present to continuous wall suction, no air leak present. No new concerns. Objective - Vital Signs Vital signs: Vital Signs Temp 97.9 F 04/15/20 08:00 Pulse 94 04/15/20 10:05 Resp 18 04/15/20 10:00 BP 140/89 04/15/20 10:00 Pulse Ox 97 04/15/20 10:00 Intake & Output 04/14/20 04/15/20 04/15/20 18:59 06:59 18:59 Output Total 1000 575 0 Balance -1000 -575 0 Weight 50 kg Output: Chest Tube Drainage 0 Thora-Vent Left Upper Mid 0 -Clavicular Chest Urine 1000 575 0 Other: Voiding Method Urinal Urinal Bedside Commode # Voids 1 # Bowel Movements 1 - Constitutional General appearance: Present: cooperative, no acute distress - Respiratory Details: Lungs sounds diminished bilaterally. Respirations even, nonlabored. Currently on 2 L nasal cannula with oxygen saturation 97%. Only able to achieve 500 mL on his incentive spirometry. Left sided thoravent present, connected to atrium, connected to continuous wall suction, no air leak present, minimal drainage. Subcutaneous emphysema present, outlined, no increase. - Cardiovascular Details: S1, S2 present. Regular rate and rhythm, sinus rhythm on telemetry. Palpable peripheral pulses bilaterally. No edema present. No calf pain or tenderness noted. - Gastrointestinal Gastrointestinal Comment(s): Abdomen soft, nontender, nondistended. Active bowel sounds present 4 quadrants. Tolerating diet. - Genitourinary Genitourinary Comment(s): Continues to void - Integumentary Integumentary Comment(s): Skin is warm and dry. - Neurologic Neurologic: Present: CNII-XII intact - Musculoskeletal Musculoskeletal: Present: strength equal bilaterally - Psychiatric Psychiatric: Present: A&O x's 3, appropriate affect, intact judgment & insight - Allied health notes Allied health notes reviewed: nursing - Labs CBC & Chem 7: 04/15/20 06:40 04/15/20 06:40 Labs: Abnormal Lab Results - Last 24 Hours (Table) 04/15/20 04/15/20 Range/Units 06:40 06:40 MCHC 29.9 L (31.0-37.0) g/dL Lymphocytes # 0.7 L (1.0-4.8) k/uL Chloride 85 L (98-107) mmol/L Carbon Dioxide 53 H* (22-30) mmol/L BUN 32 H (9-20) mg/dL - Imaging and Cardiology Chest x-ray: image reviewed Assessment and Plan Assessment: 1. Spontaneous left-sided pneumothorax, status post thoravent placement by Dr. Prieto 2. Acute on chronic hypoxic respiratory failure with hypercapnia 3. Altered mental status on admission 4. COPD 5. Previous tobacco dependence 6. New onset paroxysmal atrial fibrillation, currently normal sinus rhythm, currently on amiodarone and Eliquis Plan: 1. Left chest Thoravent placed to [employer] cliniceal. Monitor for any respiratory distress. 2. Bronchodilators, steroids for pulmonary/critical care medicine management. 3. Wean O2 as tolerated. Encourage use of his incentive spirometry 10 times every hour while awake. 4. Increase activity as tolerated, out of bed for all meals. Physical therapy is following. 5. Continue to monitor daily chest x-rays 6. Medical management and other comorbidities per primary care service, cardiology and pulmonary critical care medicine. 7. Continue to monitor subcutaneous emphysema. 8. More recommendations to follow based on patient's clinical course. Time with Patient: Greater than 30
--- NOTE | 2020-04-15 10:29 | XR ---
EXAMINATION TYPE: XR chest 1V portable DATE OF EXAM: 04/15/2020 COMPARISON: Prior chest x-ray 04/14/2020 HISTORY: Chest tube, pneumothorax TECHNIQUE: Single frontal view of the chest is obtained. FINDINGS: Findings are similar to prior exam. Left-sided thoracic vent is in place. Suspect some imp rovement in the left-sided pneumothorax. There is overlying subcutaneous emphysema. There are overlyi ng cardiac leads. Basilar increased attenuation is present in the retrocardiac region. Aorta is dense . Heart size is stable. IMPRESSION: Findings are similar to prior exam. There may be some improvement in left-sided pneumoth orax. Subcutaneous emphysema somewhat limits evaluation, correlate for possible basilar pneumonia or atelectasis. Chest CT may be of benefit.
--- NOTE | 2020-04-15 12:57 | P.PN ---
Subjective Progress Note Date: 04/15/20 Principal diagnosis: Acute on chronic hypoxic and hypercapnic respiratory failure secondary to severe COPD exacerbation. A 7 79-year-old male patient who was transferred to us from [facility] because of acute hypoxic respiratory failure. The patient is known to have COPD and his dependent on home oxygen. According to the daughter, he is an ex-smoker is not smoking. His been living independently at home and he has been able to perform activities of daily today life. Apparently the patient was having altered mentation he was confused and the daughter called EMS to the scene and the patient was found to be quite hypoxic with a pulse ox of 70s. The patient was placed on a nonrebreather facemask was brought him up to 90% saturation and following that the patient got transferred initially to [facility] and later on to [facility]. During the course of his [facility] stay, the patient underwent a CT angiogram that showed no evidence of any pulmonary embolism. 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 There was no suspicious focal consolidation. There is mild interstitial edema and the patient was suspected to be CHF. Based on that the patient was started on diuresis. There was no evidence of any pulmonary embolism. There was at least a 6.9 cm abdominal aortic and is a bit was noted. CAT scan of the abdomen also confirmed the presence of a large abdominal aortic aneurysm. The blood work that was done showed a glucose of 129, BUN of 27, and a creatinine of 1.0, SGOT was 208, SGPT was 182, calcium level was 8.8, the CPK was 105, lactic acid level was 1.4, magnesium was at 2.1 with a troponin of 0.189. The patient also had a sodium of 142 with a chloride of 92 and a potassium of 4.8. White cell count was at 8.2 with a hemoglobin of 13.3. On today's evaluation of 04/11/2020, the patient is essentially the same without any worsening shortness of breath. As mentioned earlier, a 11-Mongolian Thoravent was inserted in the left hemithorax and was attached to the Pleur-evac. I noticed some increased subcutaneous emphysema on the left chest. I noted that the air leak. I flushed the Thoravent and I was able to establish some ongoing leaking and repeat chest x-ray shows some improvement in the left-sided pneumothorax. There is still however some subcutaneous emphysema along the left neck and the chest area. Despite all this, the patient is doing well. This patient at 7.38 with a pCO2 of 84 and pO2 of 61 and this was done with an FiO2 of 35%. He is not having any fever. His serum bicarbs of 44. The rest of the electrodes are all within normal limits. His cardiac rhythm is sinus and we have not seen any episodes of atrial fibrillation since yesterday. He'll be placed on a amiodarone maintenance for now. Was also started on anticoagulation with Eliquis. Patient was reevaluated today on 04/12/20, patient remains in the intensive care unit, being treated for acute exacerbation of COPD, spontaneous left-sided pneumothorax requiring chest tube placement/thoravent. Patient had supraventricular tachycardia few days ago, he remains on amiodarone and Eliquis. Chest x-ray continues to show significant left-sided subcutaneous emphysema, l eft-sided apical pneumothorax, and the patient is comfortable, I did recommend surgical evaluation, and it may take a long time for his pneumothorax to resolve. And the patient continues to have a bit of air leak. He is now on 1.5 L nasal cannula, he has AVAPS at bedside, and he is set at a tidal volume of 350 rate of 12 and EPAP of 5 minimal pressure of 79 from pressure of 15 FiO2 is 35%. ABG yesterday showed a pO2 of 73 pCO2 of 93 pH of 7.34. Electrolytes today are normal bicarb is 47. CBC is relatively normal Patient was reevaluated today on 04/13/20, remains in the ICU, patient is on 2 L nasal cannula, and his O2 saturation is 94%. Chest x-ray continues to show subcutaneous emphysema, no evidence of pneumothorax. No air leak was noted today from the chest tube, hence the chest tube was placed off suction. Clinically the patient is feeling better, breathing easier, and repeat chest x- ray was done after 2 hours of chest tube off suction, showed no change. Hence we will likely consider removing the chest tube in the next 24 hours of the patient continues to do well. Again the patient continues to have significant subcu emphysema. CBC today is relatively normal electrolytes are basically normal except for bicarb of 46. Patient continues to have avaps respirator next to his bed, and it to be used as needed the plan is to eventually arrange for one to have a home. Patient was reevaluated today on 04/14/20, remains in the ICU, intermittently on AVAPS presently on 1 L nasal cannula, follow-up chest x-ray this morning showed left apical pneumothorax, and worsening left subcutaneous emphysema, hence the chest tube was placed back on suction. Intermittent air leak is noted/minimal. Clinically however the patient is feeling about the same. No change in spite of his apical pneumothorax. The size of the pneumothorax is about 5-10%. Again the chest tube was placed on suction, and we'll continue as such for the next 24 hours again. Labs were all reviewed bicarb is 45 left lites are normal otherwise. CBC is relatively normal. Last ABG from 2 days ago showed a pO2 of 73 pCO2 of 93 pH of 7.34 Patient was reevaluated today on 04/15/20, remains in the ICU, sitting in a recliner, has shortness of breath upon any activity. His left sided thoravent was on suction earlier, and now it is off suction, no air leak is noted. Chest x-ray continues to show significant subcutaneous emphysema. His a left sided pneumothorax is significantly improved. Objective - Vital Signs Vital signs: Vital Signs Temp 97.9 F 04/15/20 08:00 Pulse 85 04/15/20 11:00 Resp 20 04/15/20 11:00 BP 118/74 04/15/20 11:00 Pulse Ox 92 L 04/15/20 11:00 Intake & Output 04/14/20 04/15/20 04/15/20 18:59 06:59 18:59 Output Total 1000 575 0 Balance -1000 -575 0 Weight 50 kg Output: Chest Tube Drainage 0 Thora-Vent Left Upper Mid 0 -Clavicular Chest Urine 1000 575 0 Other: Voiding Method Urinal Urinal Urinal # Voids 1 # Bowel Movements 1 - Exam Gen. appearance revealed a 79-year-old white male, frail looking, on 2 L O2 nasal cannula. HEENT: Head atraumatic, normocephalic, PERRLA, EOMI, no icterus, neck masses, no JVD. Neck was supple and without jugular venous distension, thyromegaly, lung revealed symmetrical chest expansion. Left sided chest tube is noted. Subcutaneous emphysema is noted. No evidence of air leak noted today. Heart normal S1 and S2, no S3 gallop. Abdominal exam revealed normal bowel sounds. The abdomen was soft, non-tender, and without masses, organomegaly, or appreciable enlargement of the abdominal aorta. The patient has a pulsatile mass in the mid abdominal area related to his underlying large abdominal aortic aneurysm which is measuring 6.9 cm in size on the CAT scan of the chest and abdomen. Extremities: No clubbing edema or cyanosis Skin: No rashes. Neurologically alert and oriented 3 focal deficits. Psychiatric: Normal mood affect and normal mental status examination - Labs CBC & Chem 7: 04/15/20 06:40 04/15/20 06:40 Labs: Abnormal Lab Results - Last 24 Hours (Table) 04/15/20 04/15/20 Range/Units 06:40 06:40 MCHC 29.9 L (31.0-37.0) g/dL Lymphocytes # 0.7 L (1.0-4.8) k/uL Chloride 85 L (98-107) mmol/L Carbon Dioxide 53 H* (22-30) mmol/L BUN 32 H (9-20) mg/dL Assessment and Plan Assessment: Impression: Acute on chronic hypoxic and hypercapnic respiratory failure secondary to COPD exacerbation. Acute spontaneous secondary left-sided pneumothorax, post thoravent insertion. Today the tube is off suction. Acute CO2 narcosis, improved. Chronic metabolic alkalosis, compensating for his chronic respiratory acidosis. Possible non-ST elevation myocardial infarction with elevated troponin Abdominal aortic aneurysm measuring 6.9 cm in size Single episode of SVT/atrial fibrillation. Being addressed by cardiology. Recommendation: Continue chest tube off suction. Continue to monitor his COPD status and continue bronchodilators including albuterol Atrovent Perforomist Pulmicort and theophylline Continue amiodarone and Eliquis. Continue metoprolol. Continue avaps as needed and at night. As needed Not ready for discharge planning as long as the patient continues to have chest tube in place. We'll continue to follow. Time with Patient: Less than 30
--- NOTE | 2020-04-15 14:16 | PN ---
PROGRESS NOTE Gael is a 79-year-old gentleman who is admitted to hospital with acute respiratory failure, developed left-sided pneumothorax and has had paroxysmal atrial fibrillation for which I have been following him. He is currently on Eliquis 5 b.i.d., Cordarone 200 b.i.d., aspirin, Lasix 40 daily, Imdur, Synthroid, Toprol-XL 25 mg daily. On exam, comfortable at rest. Heart rate is 90 beats per minute. Blood pressure is 140/89, respiratory is 18. Chest exam reveals diminished air entry at the left base. Heart exam reveals first and second heart sounds. No gallop. Exam of extremities did not reveal any edema. Peripheral pulses are felt. LABS: Show a hemoglobin of 13.5, platelet count is 263. Potassium is 4.3, anion gap is progressively increasing. ASSESSMENT: 1. Paroxysmal atrial fibrillation. 2. Respiratory failure. 3. Left-sided pneumothorax. PLAN: From cardiac standpoint, he is stable. We will continue the amiodarone and the Eliquis that I started him on. We will follow the patient on an as-needed basis at this time. MMODL / IJN: [id number] /
[2020-04-15 14:32] VITALS: BMI 18.9
--- NOTE | 2020-04-15 15:23 | P.PN ---
Subjective Progress Note Date: 04/15/20 Principal diagnosis: Pneumothorax Patient was seen and examined. No acute events overnight. Chest tube to waterseal this morning. Discussed with nursing. Patient with acute onset delirium but easily redirectable. Patient is delirious at this time and is unable to answer questions appropriately. Chest x-ray shows findings similar to yesterday with possible improvement in left-sided pneumothorax. Objective - Vital Signs Vital signs: Vital Signs Temp 97.9 F 04/15/20 08:00 Pulse 99 04/15/20 15:00 Resp 23 04/15/20 15:00 BP 155/84 04/15/20 15:00 Pulse Ox 93 L 04/15/20 15:00 Intake & Output 04/14/20 04/15/20 04/15/20 18:59 06:59 18:59 Output Total 1000 575 0 Balance -1000 -575 0 Weight 50 kg 50 kg Output: Chest Tube Drainage 0 Thora-Vent Left Upper Mid 0 -Clavicular Chest Urine 1000 575 0 Other: Voiding Method Urinal Urinal Urinal # Voids 1 # Bowel Movements 1 - Exam General: [Ill-appearing], [no distress], [appears at stated age] Derm: [warm], [dry] Head: [atraumatic], [normocephalic], [symmetric] Eyes: [EOMI], [no lid lag], [anicteric sclera] Mouth: [no lip lesion], [mucus membranes moist] Cardiovascular: [S1S2 irregular], [no murmur], [positive DP pulse bilateral], Lungs: [Decreased breath sounds bilaterally with subcutaneous emphysema and left-sided chest tube], [no rhonchi, no rales] , [no accessory muscle use] Abdominal: [soft], [ nontender to palpation], [no guarding], [no appreciable organomegaly] Ext: [no gross muscle atrophy], [no edema], [no contractures] Neuro: [no focal neuro deficits] Psych: [Delirious but easily redirectable - Labs CBC & Chem 7: 04/15/20 06:40 04/15/20 06:40 Labs: Abnormal Lab Results - Last 24 Hours (Table) 04/15/20 04/15/20 Range/Units 06:40 06:40 MCHC 29.9 L (31.0-37.0) g/dL Lymphocytes # 0.7 L (1.0-4.8) k/uL Chloride 85 L (98-107) mmol/L Carbon Dioxide 53 H* (22-30) mmol/L BUN 32 H (9-20) mg/dL Assessment and Plan Assessment: Toxic metabolic encephalopathy likely secondary to CO2 retention/ hypoxia, ICU delirium -One-to-one sitter if available - Treatment as above - Avoid antipsychotic medication at this time - off Seroquel, Melatonin Acute exacerbation of COPD with acute on chronic hypoxic hypercapnic respiratory failure - Pulmonary recommendations appreciated - Prednisone - fixed and when necessary bronchodilators - theophylline - BiPap as needed; AVAPS ordered for discharge - Pulmonary hygiene - Wean O2 as able - Would benefit from outpatient pulmonary rehab -Pulmonology does not recommend Diamox at this time Left PTX - improved after thoravent, placed on waterseal by cardiothoracic surgery - Cardiothoracic surgery consulted appreciated recommendations, plans repeat chest x-ray tomorrow - Pain control - Pulm management P. A. fib - cardio recs appreciated - Eliquis: will need to involve family in risks vs benefit if patient is having some falls at home - Amio is oral - Toprol Abdominal aortic aneurysm -Incidental finding -Vascular surgery recommendations appreciated. Outpatient follow-up. Elevated troponin reflective of hypoxemia -Acute coronary syndrome ruled out -Echocardiogram within normal limits -Cardiology recommendations appreciated Carotid stenosis L - outpatient follow-up History of tobacco abuse SVT, resolved Transaminitis, improved Thrombocytopenia, improved Myoclonic jerking, resolved [Patient is shown considerable improvement since admission. Chest tube to waterseal. Repeat chest x-ray tomorrow morning. Plans on possible DC home in 1-2 days with palliative care. Discussed with nursing and case management.]
[2020-04-15] MEDS: MELATONIN 5 MG TABLET PO SCH (22:25)
[2020-04-16 05:11] LABS: HCT 45.2 % (39.0-53.0); Hypochromasia Marked; MCH 30.5 pg (25.0-35.0); MCHC 30.9 g/dL (31.0-37.0); MCV 98.6 fL (80.0-100.0); Platelet Count 298 k/uL (150-450); RBC 4.59 m/uL (4.30-5.90); RDW 13.4 % (11.5-15.5); WBC 9.6 k/uL (3.8-10.6)
[2020-04-16 05:19] LABS: African American GFR (CKD) >90 (>60 ml/min/1.73 sqM); Blood Urea Nitrogen 35 mg/dL (9-20); Calcium 8.7 mg/dL (8.4-10.2); Chloride 85 mmol/L (98-107); Glucose 85 mg/dL (74-99); Non-African American GFR(CKD) 84 (>60 ml/min/1.73 sqM); Potassium 3.8 mmol/L (3.5-5.1); Sodium 136 mmol/L (137-145)
[2020-04-16 05:26] LABS: Anion Gap 3 mmol/L
[2020-04-16 05:27] LABS: Carbon Dioxide 48 mmol/L (22-30)
[2020-04-16] MEDS: POTASSIUM CHLORIDE 10 MEQ in WATER FOR INJECTION 1 100ML.BAG IVPB SCH ×2 (07:16→07:50)
[2020-04-16] MEDS: LEVOTHYROXINE 112 MCG TAB PO SCH (07:16)
[2020-04-16] MEDS: THIAMINE 100 MG/ML 2 ML VIAL IVP SCH (08:22)
[2020-04-16] MEDS: THEOPHYLLINE 24 HOUR 300 MG CAP.ER.24H PO SCH (08:22)
[2020-04-16] MEDS: ISOSORBIDE MONONITRATE ER 60 MG TAB.ER.24H PO SCH (08:22)
[2020-04-16] MEDS: METOPROLOL SUCCINATE (ER) 25 MG TAB.ER.24H PO SCH (08:23)
[2020-04-16] MEDS: AMIODARONE 200 MG TAB PO SCH ×2 (08:23→20:15)
[2020-04-16] MEDS: FUROSEMIDE 40 MG TAB PO SCH (08:23)
[2020-04-16] MEDS: ASPIRIN 81 MG PO SCH (08:23)
[2020-04-16] MEDS: APIXABAN 5 MG TAB PO SCH ×2 (08:23→20:15)
[2020-04-16] MEDS: predniSONE 20 MG TAB PO SCH (08:23)
[2020-04-16] MEDS: BUDESONIDE 0.5 MG/2 ML NEBU INHALATION SCH ×2 (08:45→20:27)
[2020-04-16] MEDS: FORMOTEROL FUMARATE 20 MCG/2 ML NEBU INHALATION SCH ×2 (08:45→20:27)
--- NOTE | 2020-04-16 08:57 | XR ---
EXAMINATION TYPE: XR chest 1V portable DATE OF EXAM: 04/16/2020 COMPARISON: 04/15/2020 HISTORY: Left pneumothorax TECHNIQUE: Single frontal view of the chest is obtained. FINDINGS: Chest tube again appears to be overlying the lateral margin the rib cage near the axilla. May be dislodged from the thoracic cavity. Severe subcutaneous emphysema noted. Minimal less than 5% left apical pneumothorax suspected. Bilateral blunting of the costophrenic angles with basilar subseg mental consolidation. Underlying COPD noted. Heart size normal. IMPRESSION: 1. Minimal less than 5% left apical pneumothorax. 2. Diffuse subcutaneous emphysema. 3. COPD
--- NOTE | 2020-04-16 09:01 | P.PN ---
Subjective Progress Note Date: 04/16/20 Principal diagnosis: Spontaneous left-sided pneumothorax, cute on chronic hypoxic respiratory failure with hypercapnia, altered mental status on admission. Previous medical history of chronic obstructive pulmonary disease, remote history of tobacco dependence, abdominal aortic aneurysm. New onset paroxysmal atrial fibrillation, currently on amiodarone and Eliquis POD #6 left chest thoravent placement by Dr. Prieto Patient's currently sitting up in bed in the intensive care unit in no acute distress. Denies pain, states shortness of breath is better than on admission. Remains in sinus rhythm, hemodynamically stable. Left-sided thoravent present to water seal, no air leak present. Very diminished breath sounds on the left this morning, T-piece placed to Thoravent and small amount tissue aspirated, afterwards there was fluctuation in the red diaphram with couphing but no air leak in the atrium. Patient was very confused and combative last night, was up all night, required 1:1 sitter, increased oxygen. Objective - Vital Signs Vital signs: Vital Signs Temp 96.6 F L 04/16/20 04:00 Pulse 92 04/16/20 07:00 Resp 19 04/16/20 07:00 BP 140/112 04/16/20 07:00 Pulse Ox 96 04/16/20 07:00 Intake & Output 04/15/20 04/16/20 04/16/20 18:59 06:59 18:59 Output Total 200 514 0 Balance -200 -514 0 Weight 50 kg 49.2 kg Output: Chest Tube Drainage 4 Thora-Vent Left Upper Mid 4 -Clavicular Chest Urine 200 510 0 Other: Voiding Method Urinal Urinal # Voids 1 1 0 # Bowel Movements 1 1 - Constitutional General appearance: Present: cooperative, no acute distress - Respiratory Details: Lungs sounds diminished bilaterally, very diminished on the left side. Respirations even, nonlabored. Currently on 6 L high flow nasal cannula with oxygen saturation 97%. Barely able to achieve 500 mL on his incentive spirometry. Left sided thoravent present to water seal, no air leak present. Subcutaneous emphysema present, outlined, no increase. - Cardiovascular Details: S1, S2 present. Regular rate and rhythm, sinus rhythm on telemetry. Palpable peripheral pulses bilaterally. No edema present. No calf pain or tenderness noted. - Gastrointestinal Gastrointestinal Comment(s): Abdomen soft, nontender, nondistended. Active bowel sounds present 4 quadrants. Tolerating diet. - Genitourinary Genitourinary Comment(s): Continues to void - Integumentary Integumentary Comment(s): Skin is warm and dry. - Neurologic Neurologic: Present: CNII-XII intact - Musculoskeletal Musculoskeletal: Present: strength equal bilaterally - Psychiatric Psychiatric Comment(s): Confused, animated, telling stories which make no sense. Does follow commands - Allied health notes Allied health notes reviewed: nursing - Labs CBC & Chem 7: 04/16/20 04:50 04/16/20 04:50 Labs: Abnormal Lab Results - Last 24 Hours (Table) 04/16/20 04/16/20 Range/Units 04:50 04:50 MCHC 30.9 L (31.0-37.0) g/dL Sodium 136 L (137-145) mmol/L Chloride 85 L (98-107) mmol/L Carbon Dioxide 48 H* (22-30) mmol/L BUN 35 H (9-20) mg/dL - Imaging and Cardiology Chest x-ray: image reviewed Assessment and Plan Assessment: 1. Spontaneous left-sided pneumothorax, status post thoravent placement by Dr. Prieto 2. Acute on chronic hypoxic respiratory failure with hypercapnia 3. Altered mental status on admission 4. COPD 5. Previous tobacco dependence 6. New onset paroxysmal atrial fibrillation, currently normal sinus rhythm, currently on amiodarone and Eliquis Plan: 1. Continue left thoravent off suction, atrium discontinued and air vent cap placed. Will plug thoravent when no air leak present. Discussed with pulmonary. 2. Bronchodilators, steroids for pulmonary/critical care medicine management. 3. Wean O2 as tolerated. Encourage use of his incentive spirometry 10 times every hour while awake. 4. Increase activity as tolerated, out of bed for all meals. Physical therapy is following. 5. Continue to monitor daily chest x-rays 6. Medical management and other comorbidities per primary care service, cardiology and pulmonary critical care medicine. 7. Continue to monitor subcutaneous emphysema. 8. More recommendations to follow based on patient's clinical course. Time with Patient: Greater than 30
--- NOTE | 2020-04-16 11:16 | P.PN ---
Subjective Progress Note Date: 04/16/20 Principal diagnosis: Acute on chronic hypoxic and hypercapnic respiratory failure secondary to severe COPD exacerbation. A 7 79-year-old male patient who was transferred to us from [facility] because of acute hypoxic respiratory failure. The patient is known to have COPD and his dependent on home oxygen. According to the daughter, he is an ex-smoker is not smoking. His been living independently at home and he has been able to perform activities of daily today life. Apparently the patient was having altered mentation he was confused and the daughter called EMS to the scene and the patient was found to be quite hypoxic with a pulse ox of 70s. The patient was placed on a nonrebreather facemask was brought him up to 90% saturation and following that the patient got transferred initially to [facility] and later on to [facility]. During the course of his [facility] stay, the patient underwent a CT angiogram that showed no evidence of any pulmonary embolism. 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 There was no suspicious focal consolidation. There is mild interstitial edema and the patient was suspected to be CHF. Based on that the patient was started on diuresis. There was no evidence of any pulmonary embolism. There was at least a 6.9 cm abdominal aortic and is a bit was noted. CAT scan of the abdomen also confirmed the presence of a large abdominal aortic aneurysm. The blood work that was done showed a glucose of 129, BUN of 27, and a creatinine of 1.0, SGOT was 208, SGPT was 182, calcium level was 8.8, the CPK was 105, lactic acid level was 1.4, magnesium was at 2.1 with a troponin of 0.189. The patient also had a sodium of 142 with a chloride of 92 and a potassium of 4.8. White cell count was at 8.2 with a hemoglobin of 13.3. On today's evaluation of 04/11/2020, the patient is essentially the same without any worsening shortness of breath. As mentioned earlier, a 11-[place] Thoravent was inserted in the left hemithorax and was attached to the Pleur-evac. I noticed some increased subcutaneous emphysema on the left chest. I noted that the air leak. I flushed the Thoravent and I was able to establish some ongoing leaking and repeat chest x-ray shows some improvement in the left-sided pneumothorax. There is still however some subcutaneous emphysema along the left neck and the chest area. Despite all this, the patient is doing well. This patient at 7.38 with a pCO2 of 84 and pO2 of 61 and this was done with an FiO2 of 35%. He is not having any fever. His serum bicarbs of 44. The rest of the electrodes are all within normal limits. His cardiac rhythm is sinus and we have not seen any episodes of atrial fibrillation since yesterday. He'll be placed on a amiodarone maintenance for now. Was also started on anticoagulation with Eliquis. Patient was reevaluated today on 04/12/20, patient remains in the intensive care unit, being treated for acute exacerbation of COPD, spontaneous left-sided pneumothorax requiring chest tube placement/thoravent. Patient had supraventricular tachycardia few days ago, he remains on amiodarone and Eliquis. Chest x-ray continues to show significant left-sided subcutaneous emphysema, l eft-sided apical pneumothorax, and the patient is comfortable, I did recommend surgical evaluation, and it may take a long time for his pneumothorax to resolve. And the patient continues to have a bit of air leak. He is now on 1.5 L nasal cannula, he has AVAPS at bedside, and he is set at a tidal volume of 350 rate of 12 and EPAP of 5 minimal pressure of 79 from pressure of 15 FiO2 is 35%. ABG yesterday showed a pO2 of 73 pCO2 of 93 pH of 7.34. Electrolytes today are normal bicarb is 47. CBC is relatively normal Patient was reevaluated today on 04/13/20, remains in the ICU, patient is on 2 L nasal cannula, and his O2 saturation is 94%. Chest x-ray continues to show subcutaneous emphysema, no evidence of pneumothorax. No air leak was noted today from the chest tube, hence the chest tube was placed off suction. Clinically the patient is feeling better, breathing easier, and repeat chest x- ray was done after 2 hours of chest tube off suction, showed no change. Hence we will likely consider removing the chest tube in the next 24 hours of the patient continues to do well. Again the patient continues to have significant subcu emphysema. CBC today is relatively normal electrolytes are basically normal except for bicarb of 46. Patient continues to have avaps respirator next to his bed, and it to be used as needed the plan is to eventually arrange for one to have a home. Patient was reevaluated today on 04/14/20, remains in the ICU, intermittently on AVAPS presently on 1 L nasal cannula, follow-up chest x-ray this morning showed left apical pneumothorax, and worsening left subcutaneous emphysema, hence the chest tube was placed back on suction. Intermittent air leak is noted/minimal. Clinically however the patient is feeling about the same. No change in spite of his apical pneumothorax. The size of the pneumothorax is about 5-10%. Again the chest tube was placed on suction, and we'll continue as such for the next 24 hours again. Labs were all reviewed bicarb is 45 left lites are normal otherwise. CBC is relatively normal. Last ABG from 2 days ago showed a pO2 of 73 pCO2 of 93 pH of 7.34 Patient was reevaluated today on 04/15/20, remains in the ICU, sitting in a recliner, has shortness of breath upon any activity. His left sided thoravent was on suction earlier, and now it is off suction, no air leak is noted. Chest x-ray continues to show significant subcutaneous emphysema. His a left sided pneumothorax is significantly improved. Reevaluated today on 04/16/20, patient remains in the ICU, his chest tube remains off suction, patient is on 6 L high flow nasal cannula. Chest x-ray today showed very minimal left apical pneumothorax, and diffuse subcutaneous emphysema. Clinically the patient is feeling better, breathing easier, and asking to be discharged home as soon as possible. Seen by thoracic surgery, and the plan is to cap His chest tube, and if tomorrow no change, then the chest tube will be removed. In the meantime patient remains on bronchodilators for his underlying COPD Objective - Vital Signs Vital signs: Vital Signs Temp 99 F 04/16/20 08:00 Pulse 88 04/16/20 11:00 Resp 19 04/16/20 11:00 BP 103/74 04/16/20 11:00 Pulse Ox 93 L 04/16/20 11:00 Intake & Output 04/15/20 04/16/20 04/16/20 18:59 06:59 18:59 Intake Total 100 Output Total 200 514 150 Balance -200 -514 -50 Weight 50 kg 49.2 kg Intake: Intake, IV Titration 100 Amount Potassium Chloride 10 meq 100 In Water For Injection 1 100ml.bag @ 100 mls/hr IVPB Q1H [facility] Rx#: [id number] Oral 0 Output: Chest Tube Drainage 4 0 Thora-Vent Left Upper Mid 4 0 -Clavicular Chest Urine 200 510 150 Other: Voiding Method Urinal Urinal # Voids 1 1 0 # Bowel Movements 1 1 - Exam Gen. appearance revealed a 79-year-old white male, frail looking, on 6 L high flow nasal cannula. HEENT: Head atraumatic, normocephalic, PERRLA, EOMI, no icterus, neck masses, no JVD. Neck was supple and without jugular venous distension, thyromegaly, lung revealed symmetrical chest expansion. Left sided chest tube is noted. Subcutaneous emphysema is noted. No evidence of air leak noted today. Heart normal S1 and S2, no S3 gallop. Abdominal exam revealed normal bowel sounds. The abdomen was soft, non-tender, and without masses, organomegaly, or appreciable enlargement of the abdominal aorta. The patient has a pulsatile mass in the mid abdominal area related to his underlying large abdominal aortic aneurysm which is measuring 6.9 cm in size on the CAT scan of the chest and abdomen. Extremities: No clubbing edema or cyanosis Skin: No rashes. Neurologically alert and oriented 3 focal deficits. Psychiatric: Normal mood affect and normal mental status examination - Labs CBC & Chem 7: 04/16/20 04:50 04/16/20 04:50 Labs: Abnormal Lab Results - Last 24 Hours (Table) 04/16/20 04/16/20 Range/Units 04:50 04:50 MCHC 30.9 L (31.0-37.0) g/dL Sodium 136 L (137-145) mmol/L Chloride 85 L (98-107) mmol/L Carbon Dioxide 48 H* (22-30) mmol/L BUN 35 H (9-20) mg/dL Assessment and Plan Assessment: Impression: Acute on chronic hypoxic and hypercapnic respiratory failure secondary to COPD exacerbation. Acute spontaneous secondary left-sided pneumothorax, post thoravent insertion. Today the tube is off suction. Acute CO2 narcosis, improved. Chronic metabolic alkalosis, compensating for his chronic respiratory acidosis. Possible non-ST elevation myocardial infarction with elevated troponin Abdominal aortic aneurysm measuring 6.9 cm in size Single episode of SVT/atrial fibrillation. Being addressed by cardiology. Recommendation: Agree with capping of the chest tube. Continue to monitor his COPD status and continue bronchodilators including albuterol Atrovent Perforomist Pulmicort and theophylline Continue amiodarone and Eliquis. Continue metoprolol. Continue avaps as needed and at night. As needed Possible discharge planning in the next 24-48 hours Time with Patient: Less than 30
[2020-04-16 12:13] LABS: Glucose,Whole Blood 117 mg/dL (75-99)
--- NOTE | 2020-04-16 15:46 | P.PN ---
Subjective Progress Note Date: 04/16/20 Principal diagnosis: Pneumothorax Patient was seen and examined. No acute events overnight. Chest tube to waterseal since yesterday, atrium discontinued and air vent Placed. Discussed with nursing, patient continues to be delirious with sitter at bedside but much improved from yesterday. Patient denies any shortness of breath or chest pain. Chest x-ray shows minimal less than 5% left apical pneumothorax, diffuse subcutaneous emphysema. Objective - Vital Signs Vital signs: Vital Signs Temp 98 F 04/16/20 12:00 Pulse 87 04/16/20 15:00 Resp 16 04/16/20 15:00 BP 120/95 04/16/20 15:00 Pulse Ox 92 L 04/16/20 15:00 Intake & Output 04/15/20 04/16/20 04/16/20 18:59 06:59 18:59 Intake Total 200 Output Total 200 514 360 Balance -200 -514 -160 Weight 50 kg 49.2 kg Intake: Intake, IV Titration 100 Amount Potassium Chloride 10 meq 100 In Water For Injection 1 100ml.bag @ 100 mls/hr IVPB Q1H [facility] Rx#: [id number] Oral 100 Output: Chest Tube Drainage 4 10 Thora-Vent Left Upper Mid 4 10 -Clavicular Chest Urine 200 510 350 Other: Voiding Method Urinal Urinal Urinal # Voids 1 1 1 # Bowel Movements 1 1 1 - Exam General: [Ill-appearing], [no distress], [appears at stated age] Derm: [warm], [dry] Head: [atraumatic], [normocephalic], [symmetric] Eyes: [EOMI], [no lid lag], [anicteric sclera] Mouth: [no lip lesion], [mucus membranes moist] Cardiovascular: [S1S2 irregular], [no murmur], [positive DP pulse bilateral], Lungs: [Decreased breath sounds bilaterally with subcutaneous emphysema and left-sided chest tube], [no rhonchi, no rales] , [no accessory muscle use] Abdominal: [soft], [ nontender to palpation], [no guarding], [no appreciable organomegaly] Ext: [no gross muscle atrophy], [no edema], [no contractures] Neuro: [no focal neuro deficits] Psych: [Delirious but easily redirectable - Labs CBC & Chem 7: 04/16/20 04:50 04/16/20 04:50 Labs: Abnormal Lab Results - Last 24 Hours (Table) 04/16/20 04/16/20 04/16/20 Range/Units 04:50 04:50 12:09 MCHC 30.9 L (31.0-37.0) g/dL Sodium 136 L (137-145) mmol/L Chloride 85 L (98-107) mmol/L Carbon Dioxide 48 H* (22-30) mmol/L BUN 35 H (9-20) mg/dL POC Glucose (mg/dL) 117 H (75-99) mg/dL Assessment and Plan Assessment: Toxic metabolic encephalopathy likely secondary to CO2 retention/ hypoxia, ICU delirium -One-to-one sitter if available - Treatment as above - Avoid antipsychotic medication at this time - off Seroquel, Melatonin Acute exacerbation of COPD with acute on chronic hypoxic hypercapnic respiratory failure - Pulmonary recommendations appreciated - Prednisone - fixed and when necessary bronchodilators - theophylline - BiPap as needed; AVAPS ordered for discharge - Pulmonary hygiene - Wean O2 as able - Would benefit from outpatient pulmonary rehab -Pulmonology does not recommend Diamox at this time Left PTX - improved after thoravent, placed on waterseal, atrium discontinued and air vent Placed by cardiothoracic surgery - Cardiothoracic surgery consulted appreciated recommendations, plans repeat chest x-ray tomorrow - Pain control - Pulm management P. A. fib - cardio recs appreciated - Eliquis: will need to involve family in risks vs benefit if patient is having some falls at home - Amio is oral - Toprol Abdominal aortic aneurysm -Incidental finding -Vascular surgery recommendations appreciated. Outpatient follow-up. Elevated troponin reflective of hypoxemia -Acute coronary syndrome ruled out -Echocardiogram within normal limits -Cardiology recommendations appreciated Carotid stenosis L - outpatient follow-up History of tobacco abuse SVT, resolved Transaminitis, improved Thrombocytopenia, improved Myoclonic jerking, resolved [Patient is shown considerable improvement since admission. Chest tube to waterseal. Repeat chest x-ray tomorrow morning. Patient continues to be delirious but improved from yesterday, sitter at bedside, use frequent redirection. Plans on possible DC home in 1-2 days with palliative care. Discussed with nursing and case management.]
[2020-04-16] MEDS: MELATONIN 5 MG TABLET PO SCH (20:15)
[2020-04-17 05:27] LABS: HCT 40.9 % (39.0-53.0); HGB 12.8 gm/dL (13.0-17.5); Hypochromasia Moderate; MCH 30.6 pg (25.0-35.0); MCHC 31.2 g/dL (31.0-37.0); MCV 98.1 fL (80.0-100.0); Mean Platelet Volume 8.2; Platelet Count 283 k/uL (150-450); RBC 4.18 m/uL (4.30-5.90); RDW 13.7 % (11.5-15.5); WBC 9.9 k/uL (3.8-10.6)
[2020-04-17 05:36] LABS: Calcium 8.3 mg/dL (8.4-10.2); Potassium 3.9 mmol/L (3.5-5.1)
[2020-04-17] MEDS: LEVOTHYROXINE 112 MCG TAB PO SCH (06:52)
[2020-04-17] MEDS ORDERED: POTASSIUM BICARBONATE/CIT AC 20 MEQ TABLET.EFF NG-TUBE SCH (07:00)
--- NOTE | 2020-04-17 07:24 | XR ---
EXAMINATION TYPE: XR chest 1V portable DATE OF EXAM: 04/17/2020 COMPARISON: 04/16/2020 INDICATION: Left pneumothorax TECHNIQUE: Single frontal view of the chest is obtained. FINDINGS: The heart size is normal. The pulmonary vasculature is normal. The lungs are clear. Left-sided chest tube is present. No pneumothorax is evident. Large amount of subcutaneous emphysema is present on the left which is slightly diminished from comparison. IMPRESSION: 1. No residual pneumothorax. Left-sided chest tube remains in position.
[2020-04-17] MEDS: FORMOTEROL FUMARATE 20 MCG/2 ML NEBU INHALATION SCH ×2 (08:08→20:22)
[2020-04-17] MEDS: BUDESONIDE 0.5 MG/2 ML NEBU INHALATION SCH ×2 (08:08→20:22)
[2020-04-17] MEDS: THIAMINE 100 MG/ML 2 ML VIAL IVP SCH (08:22)
[2020-04-17] MEDS: METOPROLOL SUCCINATE (ER) 25 MG TAB.ER.24H PO SCH (08:22)
[2020-04-17] MEDS: FUROSEMIDE 40 MG TAB PO SCH (08:22)
[2020-04-17] MEDS: APIXABAN 5 MG TAB PO SCH ×2 (08:22→20:46)
[2020-04-17] MEDS: ASPIRIN 81 MG PO SCH (08:23)
[2020-04-17] MEDS: THEOPHYLLINE 24 HOUR 300 MG CAP.ER.24H PO SCH (08:23)
[2020-04-17] MEDS: AMIODARONE 200 MG TAB PO SCH ×2 (08:23→20:46)
[2020-04-17] MEDS: predniSONE 20 MG TAB PO SCH (08:23)
--- NOTE | 2020-04-17 09:47 | P.PN ---
Subjective Progress Note Date: 04/17/20 Principal diagnosis: Spontaneous left-sided pneumothorax, acute on chronic hypoxic respiratory failure with hypercapnia, altered mental status on admission. Past medical history significant for chronic obstructive pulmonary disease, remote history of tobacco dependence, abdominal aortic aneurysm. New onset paroxysmal atrial fibrillation, currently on amiodarone and Eliquis. Status post day #7 left chest Thoravent placement by Dr. Prieto. The patient was seen in follow-up today on 04/17/2020 at his bedside in the intensive care unit. The patient is currently laying in bed in the intensive care unit with a public safety police present. Currently denies any complaints of pa in, remains hemodynamically stable and is currently on no inotropic or pressor support. Left-sided Thoravent remains in place and is capped with positive intermittent air leak noted with fluctuation of the bed diaphragm on the Thoravent. Oxygen saturation are 96% on 2 L nasal cannula and he is achieving 250 mL with much encouragement. Bedside telemetry showing normal sinus rhythm heart rate 72 BPM. According to his bedside nurse he was quite confused and combative throughout the evening, although this morning he is awake, alert and oriented 3. Objective - Vital Signs Vital signs: Vital Signs Temp 98.3 F 04/17/20 04:00 Pulse 72 04/17/20 07:00 Resp 14 04/17/20 07:00 BP 124/65 04/17/20 07:00 Pulse Ox 96 04/17/20 07:00 Intake & Output 04/16/20 04/17/20 04/17/20 18:59 06:59 18:59 Intake Total 400 340 Output Total 360 416 Balance 40 -76 Weight 46.3 kg Intake: Intake, IV Titration 100 Amount Potassium Chloride 10 meq 100 In Water For Injection 1 100ml.bag @ 100 mls/hr IVPB Q1H [facility] Rx#: [id number] Oral 300 340 Output: Chest Tube Drainage 10 16 Thora-Vent Left Upper Mid 10 16 -Clavicular Chest Urine 350 400 Other: Voiding Method Urinal Urinal # Voids 1 0 # Bowel Movements 1 1 - Exam This is a pleasant 79-year-old male gentleman who is currently laying in bed in the intensive care unit. He is awake, alert and oriented 3 and is in no acute apparent distress. Oxygen saturation are 96% on 2 L nasal cannula. - Constitutional General appearance: Present: cooperative, no acute distress, thin - EENT Eyes: Present: normal appearance. Absent: scleral icterus ENT: Present: hearing grossly normal - Neck Details: Neck is supple, no JVD. - Respiratory Details: Lung sounds are essentially diminished throughout. No wheezes, rhonchi or crackles present. Subcutaneous emphysema present to his left neck and left chest. Left chest Thoravent in place and is currently capped. Intermittent air leak noted with fluctuation in the red diaphragm on the Thoravent. Oxygen saturation is 96% on 2 L nasal cannula and he is able to achieve 250 mL on his incentive spirometry with much encouragement. - Cardiovascular Details: Regular rhythm and rate. S1 and S2 present, negative for S3, gallop or murmur. No edema present. Knee-high sequential compression devices in place was bilateral lower extremities. - Gastrointestinal Gastrointestinal Comment(s): Abdomen is soft, nontender and nondistended. Active bowel sounds present in all 4 abdominal quadrants. No guarding or rigidity. Tolerating oral intake. - Genitourinary Genitourinary Comment(s): Voiding clear yellow urine. - Integumentary Integumentary Comment(s): Skin is warm and dry. No clubbing or cyanosis is present. Scattered small ecchymotic areas to his bilateral upper extremities. - Neurologic Neurologic: Present: CNII-XII intact - Musculoskeletal Musculoskeletal: Present: generalized weakness, strength equal bilaterally - Allied health notes Allied health notes reviewed: nursing - Labs CBC & Chem 7: 04/17/20 04:57 04/17/20 04:57 Labs: Abnormal Lab Results - Last 24 Hours (Table) 04/16/20 04/17/20 04/17/20 Range/Units 12:09 04:57 04:57 RBC 4.18 L (4.30-5.90) m/uL Hgb 12.8 L (13.0-17.5) gm/dL Sodium 136 L (137-145) mmol/L Chloride 86 L (98-107) mmol/L Carbon Dioxide 49 H* (22-30) mmol/L BUN 44 H (9-20) mg/dL POC Glucose (mg/dL) 117 H (75-99) mg/dL Calcium 8.3 L (8.4-10.2) mg/dL - Imaging and Cardiology Chest x-ray: report reviewed, image reviewed Assessment and Plan Assessment: 1. Spontaneous left-sided pneumothorax, status post thoravent placement by Dr. Prieto 2. Acute on chronic hypoxic respiratory failure with hypercapnia 3. Altered mental status on admission 4. Chronic obstructive pulmonary disease 5. Remote history of tobacco dependence, quit 25 years ago 6. New onset paroxysmal atrial fibrillation, currently normal sinus rhythm, currently on amiodarone and Eliquis Plan: 1. Keep left chest Thoravent capped, monitor for air leak resolution. 2. Bronchodilators, steroids for pulmonary/critical care medicine management. 3. Encourage use of his incentive spirometry 10 times every hour while awake. 4. Increase activity as tolerated, out of bed for all meals. Physical therapy is following. 5. Continue to monitor daily chest x-rays. 6. Medical management and other comorbidities per primary care service, card iology and pulmonary critical care medicine. 7. Continue to monitor subcutaneous emphysema. 8. More recommendations to follow based on patient's clinical course. Time with Patient: Less than 30
[2020-04-17] MEDS: ISOSORBIDE MONONITRATE ER 60 MG TAB.ER.24H PO SCH (11:55)
--- NOTE | 2020-04-17 13:18 | P.PN ---
Subjective Progress Note Date: 04/17/20 Principal diagnosis: Acute on chronic hypoxic and hypercapnic respiratory failure secondary to severe COPD exacerbation. A 7 79-year-old male patient who was transferred to us from [facility] because of acute hypoxic respiratory failure. The patient is known to have COPD and his dependent on home oxygen. According to the daughter, he is an ex-smoker is not smoking. His been living independently at home and he has been able to perform activities of daily today life. Apparently the patient was having altered mentation he was confused and the daughter called EMS to the scene and the patient was found to be quite hypoxic with a pulse ox of 70s. The patient was placed on a nonrebreather facemask was brought him up to 90% saturation and following that the patient got transferred initially to [facility] and later on to [facility]. During the course of his [facility] stay, the patient underwent a CT angiogram that showed no evidence of any pulmonary embolism. 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 There was no suspicious focal consolidation. There is mild interstitial edema and the patient was suspected to be CHF. Based on that the patient was started on diuresis. There was no evidence of any pulmonary embolism. There was at least a 6.9 cm abdominal aortic and is a bit was noted. CAT scan of the abdomen also confirmed the presence of a large abdominal aortic aneurysm. The blood work that was done showed a glucose of 129, BUN of 27, and a creatinine of 1.0, SGOT was 208, SGPT was 182, calcium level was 8.8, the CPK was 105, lactic acid level was 1.4, magnesium was at 2.1 with a troponin of 0.189. The patient also had a sodium of 142 with a chloride of 92 and a potassium of 4.8. White cell count was at 8.2 with a hemoglobin of 13.3. On today's evaluation of 04/11/2020, the patient is essentially the same without any worsening shortness of breath. As mentioned earlier, a 11-[place] Thoravent was inserted in the left hemithorax and was attached to the Pleur-evac. I noticed some increased subcutaneous emphysema on the left chest. I noted that the air leak. I flushed the Thoravent and I was able to establish some ongoing leaking and repeat chest x-ray shows some improvement in the left-sided pneumothorax. There is still however some subcutaneous emphysema along the left neck and the chest area. Despite all this, the patient is doing well. This patient at 7.38 with a pCO2 of 84 and pO2 of 61 and this was done with an FiO2 of 35%. He is not having any fever. His serum bicarbs of 44. The rest of the electrodes are all within normal limits. His cardiac rhythm is sinus and we have not seen any episodes of atrial fibrillation since yesterday. He'll be placed on a amiodarone maintenance for now. Was also started on anticoagulation with Eliquis. Patient was reevaluated today on 04/12/20, patient remains in the intensive care unit, being treated for acute exacerbation of COPD, spontaneous left-sided pneumothorax requiring chest tube placement/thoravent. Patient had supraventricular tachycardia few days ago, he remains on amiodarone and Eliquis. Chest x-ray continues to show significant left-sided subcutaneous emphysema, l eft-sided apical pneumothorax, and the patient is comfortable, I did recommend surgical evaluation, and it may take a long time for his pneumothorax to resolve. And the patient continues to have a bit of air leak. He is now on 1.5 L nasal cannula, he has AVAPS at bedside, and he is set at a tidal volume of 350 rate of 12 and EPAP of 5 minimal pressure of 79 from pressure of 15 FiO2 is 35%. ABG yesterday showed a pO2 of 73 pCO2 of 93 pH of 7.34. Electrolytes today are normal bicarb is 47. CBC is relatively normal Patient was reevaluated today on 04/13/20, remains in the ICU, patient is on 2 L nasal cannula, and his O2 saturation is 94%. Chest x-ray continues to show subcutaneous emphysema, no evidence of pneumothorax. No air leak was noted today from the chest tube, hence the chest tube was placed off suction. Clinically the patient is feeling better, breathing easier, and repeat chest x- ray was done after 2 hours of chest tube off suction, showed no change. Hence we will likely consider removing the chest tube in the next 24 hours of the patient continues to do well. Again the patient continues to have significant subcu emphysema. CBC today is relatively normal electrolytes are basically normal except for bicarb of 46. Patient continues to have avaps respirator next to his bed, and it to be used as needed the plan is to eventually arrange for one to have a home. Patient was reevaluated today on 04/14/20, remains in the ICU, intermittently on AVAPS presently on 1 L nasal cannula, follow-up chest x-ray this morning showed left apical pneumothorax, and worsening left subcutaneous emphysema, hence the chest tube was placed back on suction. Intermittent air leak is noted/minimal. Clinically however the patient is feeling about the same. No change in spite of his apical pneumothorax. The size of the pneumothorax is about 5-10%. Again the chest tube was placed on suction, and we'll continue as such for the next 24 hours again. Labs were all reviewed bicarb is 45 left lites are normal otherwise. CBC is relatively normal. Last ABG from 2 days ago showed a pO2 of 73 pCO2 of 93 pH of 7.34 Patient was reevaluated today on 04/15/20, remains in the ICU, sitting in a recliner, has shortness of breath upon any activity. His left sided thoravent was on suction earlier, and now it is off suction, no air leak is noted. Chest x-ray continues to show significant subcutaneous emphysema. His a left sided pneumothorax is significantly improved. Reevaluated today on 04/16/20, patient remains in the ICU, his chest tube remains off suction, patient is on 6 L high flow nasal cannula. Chest x-ray today showed very minimal left apical pneumothorax, and diffuse subcutaneous emphysema. Clinically the patient is feeling better, breathing easier, and asking to be discharged home as soon as possible. Seen by thoracic surgery, and the plan is to cap His chest tube, and if tomorrow no change, then the chest tube will be removed. In the meantime patient remains on bronchodilators for his underlying COPD Patient was reevaluated today on 04/17/20, remains in the ICU, intermittently on avaps continues to have left-sided chest tube/thoravent in place. Patient is hemodynamically stable, not requiring any inotropic. Noted to have intermittent air leak, there is fluctuation of the diaphragm on the chest tube. Patient is maintaining adequate saturation 96% on 2 L. He is intermittently confused, but presently seems to be quite pleasant. Labs today were all reviewed. Objective - Vital Signs Vital signs: Vital Signs Temp 98 F 04/17/20 12:00 Pulse 65 04/17/20 12:00 Resp 18 04/17/20 12:00 BP 107/69 04/17/20 12:00 Pulse Ox 92 L 04/17/20 12:00 Intake & Output 04/16/20 04/17/20 04/17/20 18:59 06:59 18:59 Intake Total 400 340 200 Output Total 360 416 500 Balance 40 -76 -300 Weight 46.3 kg Intake: Intake, IV Titration 100 Amount Potassium Chloride 10 meq 100 In Water For Injection 1 100ml.bag @ 100 mls/hr IVPB Q1H [facility] Rx#: [id number] Oral 300 340 200 Output: Chest Tube Drainage 10 16 0 Thora-Vent Left Upper Mid 10 16 0 -Clavicular Chest Urine 350 400 500 Other: Voiding Method Urinal Urinal Urinal # Voids 1 0 # Bowel Movements 1 1 - Exam Gen. appearance revealed a 79-year-old white male, frail looking, on 2 L nasal cannula. HEENT: Head atraumatic, normocephalic, PERRLA, EOMI, no icterus, neck masses, no JVD. Neck was supple and without jugular venous distension, thyromegaly, lung revealed symmetrical chest expansion. Left sided chest tube is noted. Subcutaneous emphysema is noted. Diaphragm fluctuation noted with breathing on the chest tube/thoravent Heart normal S1 and S2, no S3 gallop. Abdominal exam revealed normal bowel sounds. The abdomen was soft, non-tender, and without masses, organomegaly, or appreciable enlargement of the abdominal aorta. The patient has a pulsatile mass in the mid abdominal area related to his underlying large abdominal aortic aneurysm which is measuring 6.9 cm in size on the CAT scan of the chest and abdomen. Extremities: No clubbing edema or cyanosis Skin: No rashes. Neurologically alert and oriented 3 focal deficits. Psychiatric: Normal mood affect and normal mental status examination - Labs CBC & Chem 7: 04/17/20 04:57 04/17/20 04:57 Labs: Abnormal Lab Results - Last 24 Hours (Table) 04/17/20 04/17/20 Range/Units 04:57 04:57 RBC 4.18 L (4.30-5.90) m/uL Hgb 12.8 L (13.0-17.5) gm/dL Sodium 136 L (137-145) mmol/L Chloride 86 L (98-107) mmol/L Carbon Dioxide 49 H* (22-30) mmol/L BUN 44 H (9-20) mg/dL Calcium 8.3 L (8.4-10.2) mg/dL Assessment and Plan Assessment: Impression: Acute on chronic hypoxic and hypercapnic respiratory failure secondary to COPD exacerbation. Acute spontaneous secondary left-sided pneumothorax, post thoravent insertion. Today the tube is off suction. Acute CO2 narcosis, improved. Chronic metabolic alkalosis, compensating for his chronic respiratory acidosis. Possible non-ST elevation myocardial infarction with elevated troponin Abdominal aortic aneurysm measuring 6.9 cm in size Single episode of SVT/atrial fibrillation. Being addressed by cardiology. Recommendation: Continue the Of the chest tube. With one-way valve. Continue to monitor his COPD status and continue bronchodilators including albuterol Atrovent Perforomist Pulmicort and theophylline Continue amiodarone and Eliquis. Continue metoprolol. Continue avaps as needed and at night. As needed Not ready for discharge planning until the chest tube is in Time with Patient: Less than 30
--- NOTE | 2020-04-17 13:39 | P.PN ---
Subjective Progress Note Date: 04/17/20 Principal diagnosis: Pneumothorax Patient was seen and examined. No acute events overnight. Chest tube to waterseal since yesterday, atrium discontinued and air vent Placed. Discussed with nursing, patient continues to be delirious with sitter at bedside. Patient denies any shortness of breath or chest pain. Chest x-ray shows no residual pneumothorax and left-sided chest tube. Objective - Vital Signs Vital signs: Vital Signs Temp 98 F 04/17/20 12:00 Pulse 70 04/17/20 13:00 Resp 16 04/17/20 13:00 BP 114/67 04/17/20 13:00 Pulse Ox 92 L 04/17/20 12:00 Intake & Output 04/16/20 04/17/20 04/17/20 18:59 06:59 18:59 Intake Total 400 340 400 Output Total 360 416 700 Balance 40 -76 -300 Weight 46.3 kg Intake: Intake, IV Titration 100 Amount Potassium Chloride 10 meq 100 In Water For Injection 1 100ml.bag @ 100 mls/hr IVPB Q1H [facility] Rx#: [id number] Oral 300 340 400 Output: Chest Tube Drainage 10 16 0 Thora-Vent Left Upper Mid 10 16 0 -Clavicular Chest Urine 350 400 700 Other: Voiding Method Urinal Urinal Urinal # Voids 1 0 # Bowel Movements 1 1 - Exam General: [Ill-appearing], [no distress], [appears at stated age] Derm: [warm], [dry] Head: [atraumatic], [normocephalic], [symmetric] Eyes: [EOMI], [no lid lag], [anicteric sclera] Mouth: [no lip lesion], [mucus membranes moist] Cardiovascular: [S1S2 irregular], [no murmur], [positive DP pulse bilateral], Lungs: [Decreased breath sounds bilaterally with subcutaneous emphysema and left-sided chest tube], [no rhonchi, no rales] , [no accessory muscle use] Abdominal: [soft], [ nontender to palpation], [no guarding], [no appreciable organomegaly] Ext: [no gross muscle atrophy], [no edema], [no contractures] Neuro: [no focal neuro deficits] Psych: [Delirious but easily redirectable - Labs CBC & Chem 7: 04/17/20 04:57 04/17/20 04:57 Labs: Abnormal Lab Results - Last 24 Hours (Table) 04/17/20 04/17/20 Range/Units 04:57 04:57 RBC 4.18 L (4.30-5.90) m/uL Hgb 12.8 L (13.0-17.5) gm/dL Sodium 136 L (137-145) mmol/L Chloride 86 L (98-107) mmol/L Carbon Dioxide 49 H* (22-30) mmol/L BUN 44 H (9-20) mg/dL Calcium 8.3 L (8.4-10.2) mg/dL Assessment and Plan Assessment: Toxic metabolic encephalopathy likely secondary to CO2 retention/ hypoxia, ICU delirium -One-to-one sitter if available - Treatment as above - Avoid antipsychotic medication at this time - off Seroquel, Melatonin Acute exacerbation of COPD with acute on chronic hypoxic hypercapnic respiratory failure - Pulmonary recommendations appreciated - Prednisone - fixed and when necessary bronchodilators - theophylline - BiPap as needed; AVAPS ordered for discharge - Pulmonary hygiene - Wean O2 as able - Would benefit from outpatient pulmonary rehab -Pulmonology does not recommend Diamox at this time Left PTX - improved after thoravent, placed on waterseal, atrium discontinued and Thoravent capped by cardiothoracic surgery - Cardiothoracic surgery consulted appreciated recommendations, plans repeat chest x-ray tomorrow - Pain control - Pulm management P. A. fib - cardio recs appreciated - Eliquis: will need to involve family in risks vs benefit if patient is having some falls at home - Amio is oral - Toprol Abdominal aortic aneurysm -Incidental finding -Vascular surgery recommendations appreciated. Outpatient follow-up. Elevated troponin reflective of hypoxemia -Acute coronary syndrome ruled out -Echocardiogram within normal limits -Cardiology recommendations appreciated Carotid stenosis L - outpatient follow-up History of tobacco abuse SVT, resolved Transaminitis, improved Thrombocytopenia, improved Myoclonic jerking, resolved [Patient is shown considerable improvement since admission. Chest tube to waterseal. Repeat chest x-ray tomorrow morning. Patient continues to be delirious but improved from yesterday, sitter at bedside, use frequent redirection. Plans on possible DC home in 1-2 days with palliative care. Discussed with nursing and case management.]
[2020-04-17] MEDS: MELATONIN 5 MG TABLET PO SCH (20:40)
[2020-04-18 05:02] LABS: HCT 41.6 % (39.0-53.0); HGB 13.4 gm/dL (13.0-17.5); Hypochromasia Moderate; MCH 31.4 pg (25.0-35.0); MCHC 32.2 g/dL (31.0-37.0); MCV 97.8 fL (80.0-100.0); Mean Platelet Volume 7.8; Platelet Count 293 k/uL (150-450); RBC 4.26 m/uL (4.30-5.90); RDW 13.3 % (11.5-15.5); WBC 8.7 k/uL (3.8-10.6)
[2020-04-18 05:15] LABS: African American GFR (CKD) >90 (>60 ml/min/1.73 sqM); Blood Urea Nitrogen 40 mg/dL (9-20); Calcium 8.4 mg/dL (8.4-10.2); Chloride 88 mmol/L (98-107); Glucose 106 mg/dL (74-99); Non-African American GFR(CKD) 82 (>60 ml/min/1.73 sqM); Potassium 4.1 mmol/L (3.5-5.1); Sodium 135 mmol/L (137-145)
[2020-04-18 05:21] LABS: Anion Gap 0 mmol/L
[2020-04-18 05:27] LABS: Carbon Dioxide 47 mmol/L (22-30)
--- NOTE | 2020-04-18 07:30 | XR ---
EXAMINATION TYPE: XR chest 1V portable DATE OF EXAM: 04/18/2020 COMPARISON: 04/17/2020 HISTORY: Shortness of breath TECHNIQUE: Single frontal view of the chest is obtained. FINDINGS: There is diffuse severe subcutaneous emphysema. Chest tube is seen along the lateral dm n of the rib cage should be correlated for positioning. No sizable pneumothorax. Underlying COPD and left basilar infiltrate stable. IMPRESSION: 1. No sizable pneumothorax. Persistent diffuse subcutaneous emphysema on the left. 2. Left basilar infiltrate or atelectasis stable
[2020-04-18] MEDS: predniSONE 20 MG TAB PO SCH (08:18)
[2020-04-18] MEDS: ASPIRIN 81 MG PO SCH (08:18)
[2020-04-18] MEDS: FUROSEMIDE 40 MG TAB PO SCH (08:18)
[2020-04-18] MEDS: METOPROLOL SUCCINATE (ER) 25 MG TAB.ER.24H PO SCH (08:18)
[2020-04-18] MEDS: LEVOTHYROXINE 112 MCG TAB PO SCH (08:18)
[2020-04-18] MEDS: APIXABAN 5 MG TAB PO SCH ×2 (08:18→20:15)
[2020-04-18] MEDS: AMIODARONE 200 MG TAB PO SCH ×2 (08:19→20:15)
[2020-04-18] MEDS: THEOPHYLLINE 24 HOUR 300 MG CAP.ER.24H PO SCH (08:19)
[2020-04-18] MEDS: THIAMINE 100 MG/ML 2 ML VIAL IVP SCH (08:19)
[2020-04-18] MEDS: FORMOTEROL FUMARATE 20 MCG/2 ML NEBU INHALATION SCH ×2 (08:20→19:56)
[2020-04-18] MEDS: BUDESONIDE 0.5 MG/2 ML NEBU INHALATION SCH ×2 (08:21→19:56)
--- NOTE | 2020-04-18 08:42 | P.PN ---
Subjective Progress Note Date: 04/18/20 Principal diagnosis: Spontaneous left-sided pneumothorax, acute on chronic hypoxic respiratory failure with hypercapnia, altered mental status on admission. Past medical history significant for chronic obstructive pulmonary disease, remote history of tobacco dependence, abdominal aortic aneurysm. New onset paroxysmal atrial fibrillation, currently on amiodarone and Eliquis. Status post day #8 left chest Thoravent placement by Dr. Prieto. The patient was seen in follow-up today on 04/18/2020 at his bedside in the intensive care unit. The patient is currently lying in bed eating his breakfast. He is in no acute distress, is awake, alert and oriented 3. He is hemodynamically stable and is currently on no inotropic or pressor support. Oxygen saturations are 96% on 2 L nasal cannula and he is achieving 250 mL on his incentive spirometry with encouragement. Left chest Thoravent remains in place and is capped. Positive air leak is noted with movement of the red diaphragm with coughing. Objective - Vital Signs Vital signs: Vital Signs Temp 98 F 04/18/20 04:00 Pulse 72 04/18/20 08:23 Resp 21 04/18/20 07:00 BP 111/73 04/18/20 07:00 Pulse Ox 96 04/18/20 07:00 Intake & Output 04/17/20 04/18/20 04/18/20 18:59 06:59 18:59 Intake Total 890 240 Output Total 950 350 Balance -60 -110 Weight 48 kg Intake: Oral 890 240 Output: Chest Tube Drainage 0 0 Thora-Vent Left Upper Mid 0 0 -Clavicular Chest Urine 950 350 Other: Voiding Method Urinal Urinal # Voids 0 - Exam This is a pleasant 79-year-old male gentleman who is currently laying in bed in the intensive care unit. He is awake, alert and oriented 3 and is in no acute apparent distress. Oxygen saturation are 96% on 2 L nasal cannula. - Constitutional General appearance: Present: cooperative, no acute distress, thin - EENT Eyes: Present: normal appearance. Absent: scleral icterus ENT: Present: hearing grossly normal - Neck Details: Neck is supple, no JVD. - Respiratory Details: Lungs sounds essentially diminished throughout. No wheezes, crackles or rhonchi. Respirations are symmetrical and nonlabored. Oxygen saturation are 96% on 2 L nasal cannula and he is achieving 250 mL on his incentive spirometry. Left chest Thoravent in place and is capped with intermittent fluctuation of the red diaphragm with coughing. - Cardiovascular Details: Regular rhythm and rate. S1 and S2 present, negative for S3, gallop or murmur. No edema present. Knee-high sequential compression devices in place to his bilateral lower extremities. - Gastrointestinal Gastrointestinal Comment(s): Abdomen is soft, nontender and nondistended. Active bowel sounds present in all 4 abdominal quadrants. No guarding or rigidity. Tolerating oral intake. - Genitourinary Genitourinary Comment(s): Continues to void clear maria antonia urine. - Integumentary Integumentary Comment(s): Skin is warm and dry. No clubbing or cyanosis is present. Scattered small ecchymotic areas to his bilateral upper extremities. Subcu emphysema present to his left neck, and left chest. - Neurologic Neurologic: Present: CNII-XII intact - Musculoskeletal Musculoskeletal: Present: gait normal, generalized weakness, strength equal bilaterally - Psychiatric Psychiatric: Present: A&O x's 3, appropriate affect, intact judgment & insight - Allied health notes Allied health notes reviewed: nursing - Labs CBC & Chem 7: 04/18/20 04:45 04/18/20 04:45 Labs: Abnormal Lab Results - Last 24 Hours (Table) 04/18/20 04/18/20 Range/Units 04:45 04:45 RBC 4.26 L (4.30-5.90) m/uL Sodium 135 L (137-145) mmol/L Chloride 88 L (98-107) mmol/L Carbon Dioxide 47 H* (22-30) mmol/L BUN 40 H (9-20) mg/dL Glucose 106 H (74-99) mg/dL - Imaging and Cardiology Chest x-ray: report reviewed, image reviewed Assessment and Plan Assessment: 1. Spontaneous left-sided pneumothorax, status post thoravent placement by Dr. Prieto 2. Acute on chronic hypoxic respiratory failure with hypercapnia 3. Altered mental status on admission 4. Chronic obstructive pulmonary disease 5. Remote history of tobacco dependence, quit 25 years ago 6. New onset paroxysmal atrial fibrillation, currently normal sinus rhythm, currently on amiodarone and Eliquis Plan: 1. Keep left chest Thoravent capped, monitor for air leak resolution. Per the cardiothoracic surgery standpoint the patient may be discharged home with the Thoravent in place and removed out on an outpatient basis. 2. Bronchodilators, steroids for pulmonary/critical care medicine management. 3. Encourage use of his incentive spirometry 10 times every hour while awake. 4. Increase activity as tolerated, out of bed for all meals. Physical therapy is following. 5. Continue to monitor daily chest x-rays. 6. Medical management and other comorbidities per primary care service, cardiology and pulmonary critical care medicine. 7. Continue to monitor subcutaneous emphysema, which is improving. 8. More recommendations to follow based on patient's clinical course. Time with Patient: Less than 30
[2020-04-18] MEDS: ISOSORBIDE MONONITRATE ER 60 MG TAB.ER.24H PO SCH (11:44)
--- NOTE | 2020-04-18 13:38 | P.PN ---
Subjective Progress Note Date: 04/18/20 Principal diagnosis: Acute on chronic hypoxic and hypercapnic respiratory failure secondary to severe COPD exacerbation. A 7 79-year-old male patient who was transferred to us from [facility] because of acute hypoxic respiratory failure. The patient is known to have COPD and his dependent on home oxygen. According to the daughter, he is an ex-smoker is not smoking. His been living independently at home and he has been able to perform activities of daily today life. Apparently the patient was having altered mentation he was confused and the daughter called EMS to the scene and the patient was found to be quite hypoxic with a pulse ox of 70s. The patient was placed on a nonrebreather facemask was brought him up to 90% saturation and following that the patient got transferred initially to [facility] and later on to [facility]. During the course of his [facility] stay, the patient underwent a CT angiogram that showed no evidence of any pulmonary embolism. 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 There was no suspicious focal consolidation. There is mild interstitial edema and the patient was suspected to be CHF. Based on that the patient was started on diuresis. There was no evidence of any pulmonary embolism. There was at least a 6.9 cm abdominal aortic and is a bit was noted. CAT scan of the abdomen also confirmed the presence of a large abdominal aortic aneurysm. The blood work that was done showed a glucose of 129, BUN of 27, and a creatinine of 1.0, SGOT was 208, SGPT was 182, calcium level was 8.8, the CPK was 105, lactic acid level was 1.4, magnesium was at 2.1 with a troponin of 0.189. The patient also had a sodium of 142 with a chloride of 92 and a potassium of 4.8. White cell count was at 8.2 with a hemoglobin of 13.3. On today's evaluation of 04/11/2020, the patient is essentially the same without any worsening shortness of breath. As mentioned earlier, a 11-Icelandic Thoravent was inserted in the left hemithorax and was attached to the Pleur-evac. I noticed some increased subcutaneous emphysema on the left chest. I noted that the air leak. I flushed the Thoravent and I was able to establish some ongoing leaking and repeat chest x-ray shows some improvement in the left-sided pneumothorax. There is still however some subcutaneous emphysema along the left neck and the chest area. Despite all this, the patient is doing well. This patient at 7.38 with a pCO2 of 84 and pO2 of 61 and this was done with an FiO2 of 35%. He is not having any fever. His serum bicarbs of 44. The rest of the electrodes are all within normal limits. His cardiac rhythm is sinus and we have not seen any episodes of atrial fibrillation since yesterday. He'll be placed on a amiodarone maintenance for now. Was also started on anticoagulation with Eliquis. Patient was reevaluated today on 04/12/20, patient remains in the intensive care unit, being treated for acute exacerbation of COPD, spontaneous left-sided pneumothorax requiring chest tube placement/thoravent. Patient had supraventricular tachycardia few days ago, he remains on amiodarone and Eliquis. Chest x-ray continues to show significant left-sided subcutaneous emphysema, l eft-sided apical pneumothorax, and the patient is comfortable, I did recommend surgical evaluation, and it may take a long time for his pneumothorax to resolve. And the patient continues to have a bit of air leak. He is now on 1.5 L nasal cannula, he has AVAPS at bedside, and he is set at a tidal volume of 350 rate of 12 and EPAP of 5 minimal pressure of 79 from pressure of 15 FiO2 is 35%. ABG yesterday showed a pO2 of 73 pCO2 of 93 pH of 7.34. Electrolytes today are normal bicarb is 47. CBC is relatively normal Patient was reevaluated today on 04/13/20, remains in the ICU, patient is on 2 L nasal cannula, and his O2 saturation is 94%. Chest x-ray continues to show subcutaneous emphysema, no evidence of pneumothorax. No air leak was noted today from the chest tube, hence the chest tube was placed off suction. Clinically the patient is feeling better, breathing easier, and repeat chest x- ray was done after 2 hours of chest tube off suction, showed no change. Hence we will likely consider removing the chest tube in the next 24 hours of the patient continues to do well. Again the patient continues to have significant subcu emphysema. CBC today is relatively normal electrolytes are basically normal except for bicarb of 46. Patient continues to have avaps respirator next to his bed, and it to be used as needed the plan is to eventually arrange for one to have a home. Patient was reevaluated today on 04/14/20, remains in the ICU, intermittently on AVAPS presently on 1 L nasal cannula, follow-up chest x-ray this morning showed left apical pneumothorax, and worsening left subcutaneous emphysema, hence the chest tube was placed back on suction. Intermittent air leak is noted/minimal. Clinically however the patient is feeling about the same. No change in spite of his apical pneumothorax. The size of the pneumothorax is about 5-10%. Again the chest tube was placed on suction, and we'll continue as such for the next 24 hours again. Labs were all reviewed bicarb is 45 left lites are normal otherwise. CBC is relatively normal. Last ABG from 2 days ago showed a pO2 of 73 pCO2 of 93 pH of 7.34 Patient was reevaluated today on 04/15/20, remains in the ICU, sitting in a recliner, has shortness of breath upon any activity. His left sided thoravent was on suction earlier, and now it is off suction, no air leak is noted. Chest x-ray continues to show significant subcutaneous emphysema. His a left sided pneumothorax is significantly improved. Reevaluated today on 04/16/20, patient remains in the ICU, his chest tube remains off suction, patient is on 6 L high flow nasal cannula. Chest x-ray today showed very minimal left apical pneumothorax, and diffuse subcutaneous emphysema. Clinically the patient is feeling better, breathing easier, and asking to be discharged home as soon as possible. Seen by thoracic surgery, and the plan is to cap His chest tube, and if tomorrow no change, then the chest tube will be removed. In the meantime patient remains on bronchodilators for his underlying COPD Patient was reevaluated today on 04/17/20, remains in the ICU, intermittently on avaps continues to have left-sided chest tube/thoravent in place. Patient is hemodynamically stable, not requiring any inotropic. Noted to have intermittent air leak, there is fluctuation of the diaphragm on the chest tube. Patient is maintaining adequate saturation 96% on 2 L. He is intermittently confused, but presently seems to be quite pleasant. Labs today were all reviewed. Reevaluated today on 04/18/20, remains in the ICU, basically no change in the last 24 hours, continues to have his chest tube, but positive air leak noted in the movement of the diaphragm on the chest tube. Chest x-ray showed complete expansion of the left lung, and significant subcutaneous emphysema. Clinically the patient is doing great, his mental status is significantly better today, he is alert and oriented 3. And he is hemodynamically stable. Objective - Vital Signs Vital signs: Vital Signs Temp 98.2 F 04/18/20 08:00 Pulse 68 04/18/20 10:00 Resp 12 04/18/20 10:00 BP 119/69 04/18/20 10:00 Pulse Ox 94 L 04/18/20 08:00 Intake & Output 04/17/20 04/18/20 04/18/20 18:59 06:59 18:59 Intake Total 890 240 400 Output Total 950 350 0 Balance -60 -110 400 Weight 48 kg Intake: Oral 890 240 400 Output: Chest Tube Drainage 0 0 0 Thora-Vent Left Upper Mid 0 0 0 -Clavicular Chest Urine 950 350 Other: Voiding Method Urinal Urinal Urinal # Voids 0 - Exam Gen. appearance revealed a 79-year-old white male, frail looking, on 2 L nasal cannula. HEENT: Head atraumatic, normocephalic, PERRLA, EOMI, no icterus, neck masses, no JVD. Neck was supple and without jugular venous distension, thyromegaly, lung revealed symmetrical chest expansion. Left sided chest tube is noted. Subcutaneous emphysema is noted. Diaphragm fluctuation noted with breathing on the chest tube/thoravent Heart normal S1 and S2, no S3 gallop. Abdominal exam revealed normal bowel sounds. The abdomen was soft, non-tender, and without masses, organomegaly, or appreciable enlargement of the abdominal aorta. The patient has a pulsatile mass in the mid abdominal area related to his underlying large abdominal aortic aneurysm which is measuring 6.9 cm in size on the CAT scan of the chest and abdomen. Extremities: No clubbing edema or cyanosis Skin: No rashes. Neurologically alert and oriented 3 focal deficits. Psychiatric: Normal mood affect and normal mental status examination - Labs CBC & Chem 7: 04/18/20 04:45 04/18/20 04:45 Labs: Abnormal Lab Results - Last 24 Hours (Table) 04/18/20 04/18/20 Range/Units 04:45 04:45 RBC 4.26 L (4.30-5.90) m/uL Sodium 135 L (137-145) mmol/L Chloride 88 L (98-107) mmol/L Carbon Dioxide 47 H* (22-30) mmol/L BUN 40 H (9-20) mg/dL Glucose 106 H (74-99) mg/dL Assessment and Plan Assessment: Impression: Acute on chronic hypoxic and hypercapnic respiratory failure secondary to COPD exacerbation. Acute spontaneous secondary left-sided pneumothorax, post thoravent insertion. Presently capped Acute CO2 narcosis, improved. Chronic metabolic alkalosis, compensating for his chronic respiratory acidosis. Possible non-ST elevation myocardial infarction with elevated troponin Abdominal aortic aneurysm measuring 6.9 cm in size Single episode of SVT/atrial fibrillation. Being addressed by cardiology. Recommendation: Continue the Of the chest tube. With one-way valve. Transfer out of the ICU to a monitor bed on selective. Continue to monitor his COPD status and continue bronchodilators including albuterol Atrovent Perforomist Pulmicort and theophylline Continue amiodarone and Eliquis. Continue metoprolol. Continue avaps as needed and at night. As needed Patient may have to be considered for discharge planning with chest tube in place. Time with Patient: Less than 30
--- NOTE | 2020-04-18 14:04 | P.PN ---
Subjective Progress Note Date: 04/18/20 Principal diagnosis: Pneumothorax Patient was seen and examined. No acute events overnight. Chest tube to waterseal for the past 2 days, atrium discontinued and air vent Placed. Discussed with nursing, patients mentation has improved considerably and is back to normal. Patient denies any shortness of breath or chest pain. Chest x-ray shows no residual pneumothorax and left-sided chest tube. Objective - Vital Signs Vital signs: Vital Signs Temp 98.2 F 04/18/20 08:00 Pulse 68 04/18/20 10:00 Resp 12 04/18/20 10:00 BP 119/69 04/18/20 10:00 Pulse Ox 94 L 04/18/20 08:00 Intake & Output 04/17/20 04/18/20 04/18/20 18:59 06:59 18:59 Intake Total 890 240 640 Output Total 950 350 0 Balance -60 -110 640 Weight 48 kg Intake: Oral 890 240 640 Output: Chest Tube Drainage 0 0 0 Thora-Vent Left Upper Mid 0 0 0 -Clavicular Chest Urine 950 350 Other: Voiding Method Urinal Urinal Urinal # Voids 0 - Exam General: [Ill-appearing], [no distress], [appears at stated age] Derm: [warm], [dry] Head: [atraumatic], [normocephalic], [symmetric] Eyes: [EOMI], [no lid lag], [anicteric sclera] Mouth: [no lip lesion], [mucus membranes moist] Cardiovascular: [S1S2 irregular], [no murmur], [positive DP pulse bilateral], Lungs: [Decreased breath sounds bilaterally with subcutaneous emphysema and left-sided chest tube], [no rhonchi, no rales] , [no accessory muscle use] Abdominal: [soft], [ nontender to palpation], [no guarding], [no appreciable organomegaly] Ext: [no gross muscle atrophy], [no edema], [no contractures] Neuro: [no focal neuro deficits] Psych: [Alert and oriented times - Labs CBC & Chem 7: 04/18/20 04:45 04/18/20 04:45 Labs: Abnormal Lab Results - Last 24 Hours (Table) 04/18/20 04/18/20 Range/Units 04:45 04:45 RBC 4.26 L (4.30-5.90) m/uL Sodium 135 L (137-145) mmol/L Chloride 88 L (98-107) mmol/L Carbon Dioxide 47 H* (22-30) mmol/L BUN 40 H (9-20) mg/dL Glucose 106 H (74-99) mg/dL Assessment and Plan Assessment: Acute exacerbation of COPD with acute on chronic hypoxic hypercapnic respiratory failure - Pulmonary recommendations appreciated - Prednisone - fixed and when necessary bronchodilators - theophylline - BiPap as needed; AVAPS ordered for discharge - Pulmonary hygiene - Wean O2 as able - Would benefit from outpatient pulmonary rehab -Pulmonology does not recommend Diamox at this time Left PTX - improved after thoravent, placed on waterseal, atrium discontinued and Thoravent capped by cardiothoracic surgery - Cardiothoracic surgery consulted appreciated recommendations, cleared for discharge, plans to follow-up in the outpatient setting for removal of Toravent - Pain control - Pulm management P. A. fib - cardio recs appreciated - Eliquis: will need to involve family in risks vs benefit if patient is having some falls at home - Amio is oral - Toprol Abdominal aortic aneurysm -Incidental finding -Vascular surgery recommendations appreciated. Outpatient follow-up. Elevated troponin reflective of hypoxemia -Acute coronary syndrome ruled out -Echocardiogram within normal limits -Cardiology recommendations appreciated Carotid stenosis L - outpatient follow-up History of tobacco abuse SVT, resolved Transaminitis, improved Thrombocytopenia, improved Myoclonic jerking, resolved Toxic metabolic encephalopathy, hospital ICU induced delirium [Patient is shown considerable improvement since admission. Chest tube to waterseal. Patient's mentation has improved considerably today. I discussed the case with his daughter, the plan is for him to go home with 24-hour supervi yung but daughter states that they will need some time to arrange for this. I did inform her that his mentation has improved and that he has been cleared by cardiothoracic surgery. Plans on possible DC home tomorrow morning.]
[2020-04-18] MEDS: MELATONIN 5 MG TABLET PO SCH (20:15)
[2020-04-19] MEDS: LEVOTHYROXINE 112 MCG TAB PO SCH (06:06)
[2020-04-19] MEDS: FORMOTEROL FUMARATE 20 MCG/2 ML NEBU INHALATION SCH (08:05)
[2020-04-19] MEDS: BUDESONIDE 0.5 MG/2 ML NEBU INHALATION SCH (08:05)
--- NOTE | 2020-04-19 08:41 | P.PN ---
Subjective Progress Note Date: 04/19/20 Principal diagnosis: Spontaneous left-sided pneumothorax, acute on chronic hypoxic respiratory failure with hypercapnia, altered mental status on admission. Past medical history significant for chronic obstructive pulmonary disease, remote history of tobacco dependence, abdominal aortic aneurysm. New onset paroxysmal atrial fibrillation, currently on amiodarone and Eliquis. Status post day #9 left chest Thoravent placement by Dr. Prieto. The patient was seen in follow-up today on 04/19/2020 at his bedside in the intensive care unit. He is currently laying in bed eating his breakfast, he is alert, oriented 3 and is in no acute apparent distress. Denies any complaints of pain or shortness of breath at this time. He remained hemodynamically stable and is currently in on no inotropic or pressor support. No further reported episodes of confusion or combativeness. Oxygen saturations are 97% on 2 L nasal cannula and he is achieving 250 mL on his incentive spirometry with encouragement. Left chest Thoravent remains in place and capped with intermittent air leak with the red diaphragm fluctuating with coughing. A repeat chest x-ray was completed this morning which demonstrates no sizable pneumothorax and persistent diffuse subcutaneous emphysema on the left chest and left neck. Objective - Vital Signs Vital signs: Vital Signs Temp 98 F 04/19/20 04:00 Pulse 77 04/19/20 08:22 Resp 18 04/19/20 04:00 BP 108/65 04/19/20 04:00 Pulse Ox 97 04/19/20 04:00 Intake & Output 04/18/20 04/19/20 04/19/20 18:59 06:59 18:59 Intake Total 765 600 Output Total 175 825 Balance 590 -225 Weight 48.8 kg Intake: Oral 765 600 Output: Chest Tube Drainage 0 0 Thora-Vent Left Upper Mid 0 0 -Clavicular Chest Urine 175 825 Other: Voiding Method Urinal Urinal - Exam This is a pleasant 79-year-old male gentleman who is currently laying in bed in the intensive care unit. He is awake, alert and oriented 3 and is in no acute apparent distress. Oxygen saturation are 97% on 2 L nasal cannula. - Constitutional General appearance: Present: cooperative, no acute distress, thin - EENT Eyes: Present: PERRLA, normal appearance. Absent: scleral icterus ENT: Present: hearing grossly normal - Neck Details: Neck is supple, no JVD, subcu emphysema present to his left neck. - Respiratory Details: Lung sounds essentially diminished throughout. No wheezes, rhonchi or crackles. Respirations are symmetrical and nonlabored. Oxygen saturation is 97% on 2 L nasal cannula. Achieving 250 mm on his incentive spirometry. Left chest Thoravent in place and capped, intermittent air leak present with fluctuation of the right diaphragm with coughing. - Cardiovascular Details: Regular rhythm and rate. S1 and S2 present, negative for S3, gallop or murmur. No edema present. Knee-high sequential compression devices in place to his bilateral lower extremities. - Gastrointestinal Gastrointestinal Comment(s): Abdomen is soft, nontender and nondistended. Active bowel sounds present in all 4 abdominal quadrants. No guarding or rigidity. No organomegaly appreciated. Tolerating oral intake. - Genitourinary Genitourinary Comment(s): Voiding clear maria antonia urine. - Integumentary Integumentary Comment(s): Skin is warm and dry. No clubbing or cyanosis is present. No rash present. Scattered small ecchymotic areas to his bilateral upper extremities. - Neurologic Neurologic: Present: CNII-XII intact - Musculoskeletal Musculoskeletal: Present: gait normal, generalized weakness, strength equal bilaterally - Psychiatric Psychiatric: Present: A&O x's 3, appropriate affect, intact judgment & insight - Allied health notes Allied health notes reviewed: nursing - Labs CBC & Chem 7: 04/18/20 04:45 04/18/20 04:45 - Imaging and Cardiology Chest x-ray: image reviewed Assessment and Plan Assessment: 1. Spontaneous left-sided pneumothorax, status post thoravent placement by Dr. Prieto 2. Acute on chronic hypoxic respiratory failure with hypercapnia 3. Altered mental status on admission 4. Chronic obstructive pulmonary disease 5. Remote history of tobacco dependence, quit 25 years ago 6. New onset paroxysmal atrial fibrillation, currently normal sinus rhythm, currently on amiodarone and Eliquis Plan: 1. Keep left chest Thoravent capped, monitor for air leak resolution. Per the cardiothoracic surgery standpoint the patient may be discharged home with the Thoravent in place, followed and removed out on an outpatient basis. 2. Bronchodilators, steroids for pulmonary/critical care medicine management. 3. Encourage use of his incentive spirometry 10 times every hour while awake. 4. Increase activity as tolerated, out of bed for all meals. Physical therapy is following. 5. Continue to monitor daily chest x-rays. 6. Medical management and other comorbidities per primary care service, cardiology and pulmonary critical care medicine. 7. Continue to monitor subcutaneous emphysema, which is improving. 8. More recommendations to follow based on patient's clinical course. Time with Patient: Less than 30
--- NOTE | 2020-04-19 08:49 | XR ---
EXAMINATION TYPE: XR chest 1V portable DATE OF EXAM: 04/19/2020 COMPARISON: 04/18/2020 HISTORY: Left pneumothorax TECHNIQUE: Single frontal view of the chest is obtained. FINDINGS: Diffuse subcutaneous emphysema. Underlying COPD. Chest tube overlies the left thorax but m ay be outside of the thoracic cavity. No sizable pneumothorax. Left basilar subsegmental consolidatio n and hemidiaphragm elevation appear improved. Vague nodular density overlying the lateral margin rig ht lower lobe. IMPRESSION: 1. Extensive subcutaneous emphysema with no diagnostic evidence of pneumothorax. 2. Elevated left hemidiaphragm with improving left basilar infiltrate. 3. Nodule along the right lung base measuring 8 mm. Repeat frontal view with nipple marker suggested.
--- NOTE | 2020-04-19 09:12 | P.PN ---
Subjective Progress Note Date: 04/19/20 Principal diagnosis: Acute on chronic hypoxic and hypercapnic respiratory failure, secondary to severe COPD exacerbation, left pneumothorax A 7 79-year-old male patient who was transferred to us from [facility] because of acute hypoxic respiratory failure. The patient is known to have COPD and his dependent on home oxygen. According to the daughter, he is an ex-smoker is not smoking. His been living independently at home and he has been able to perform activities of daily today life. Apparently the patient was having altered mentation he was confused and the daughter called EMS to the scene and the patient was found to be quite hypoxic with a pulse ox of 70s. The patient was placed on a nonrebreather facemask was brought him up to 90% saturation and following that the patient got transferred initially to [facility] and later on to [facility]. During the course of his [facility] stay, the patient underwent a CT angiogram that showed no evidence of any pulmonary embolism. 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 There was no suspicious focal consolidation. There is mild interstitial edema and the patient was suspected to be CHF. Based on that the patient was started on diuresis. There was no evidence of any pulmonary embolism. There was at least a 6.9 cm abdominal aortic and is a bit was noted. CAT scan of the abdomen also confirmed the presence of a large abdominal aortic aneurysm. The blood work that was done showed a glucose of 129, BUN of 27, and a creatinine of 1.0, SGOT was 208, SGPT was 182, calcium level was 8.8, the CPK was 105, lactic acid level was 1.4, magnesium was at 2.1 with a troponin of 0.189. The patient also had a sodium of 142 with a chloride of 92 and a potassium of 4.8. White cell count was at 8.2 with a hemoglobin of 13.3. On today's evaluation of 04/11/2020, the patient is essentially the same without any worsening shortness of breath. As mentioned earlier, a 11-Vietnamese Thoravent was inserted in the left hemithorax and was attached to the Pleur-evac. I noticed some increased subcutaneous emphysema on the left chest. I noted that the air leak. I flushed the Thoravent and I was able to establish some ongoing leaking and repeat chest x-ray shows some improvement in the left-sided pneumothorax. There is still however some subcutaneous emphysema along the left neck and the chest area. Despite all this, the patient is doing well. This patient at 7.38 with a pCO2 of 84 and pO2 of 61 and this was done with an FiO2 of 35%. He is not having any fever. His serum bicarbs of 44. The rest of the electrodes are all within normal limits. His cardiac rhythm is sinus and we have not seen any episodes of atrial fibrillation since yesterday. He'll be placed on a amiodarone maintenance for now. Was also started on anticoagulation with Eliquis. Patient was reevaluated today on 04/12/20, patient remains in the intensive care unit, being treated for acute exacerbation of COPD, spontaneous left-sided pneumothorax requiring chest tube placement/thoravent. Patient had supraventricular tachycardia few days ago, he remains on amiodarone and Eliquis. Chest x-ray continues to show significant left-sided subcutaneous emphysema, left-sided apical pneumothorax, and the patient is comfortable, I did recommend surgical evaluation, and it may take a long time for his pneumothorax to resolve. And the patient continues to have a bit of air leak. He is now on 1.5 L nasal cannula, he has AVAPS at bedside, and he is set at a tidal volume of 350 rate of 12 and EPAP of 5 minimal pressure of 79 from pressure of 15 FiO2 is 35%. ABG yesterday showed a pO2 of 73 pCO2 of 93 pH of 7.34. Electrolytes today are normal bicarb is 47. CBC is relatively normal Patient was reevaluated today on 04/13/20, remains in the ICU, patient is on 2 L nasal cannula, and his O2 saturation is 94%. Chest x-ray continues to show em bcutaneous emphysema, no evidence of pneumothorax. No air leak was noted today from the chest tube, hence the chest tube was placed off suction. Clinically the patient is feeling better, breathing easier, and repeat chest x-ray was done after 2 hours of chest tube off suction, showed no change. Hence we will likely consider removing the chest tube in the next 24 hours of the patient continues t o do well. Again the patient continues to have significant subcu emphysema. CBC today is relatively normal electrolytes are basically normal except for bicarb of 46. Patient continues to have avaps respirator next to his bed, and it to be used as needed the plan is to eventually arrange for one to have a home. Patient was reevaluated today on 04/14/20, remains in the ICU, intermittently on AVAPS presently on 1 L nasal cannula, follow-up chest x-ray this morning showed left apical pneumothorax, and worsening left subcutaneous emphysema, hence the chest tube was placed back on suction. Intermittent air leak is noted/minimal. Clinically however the patient is feeling about the same. No change in spite of his apical pneumothorax. The size of the pneumothorax is about 5-10%. Again the chest tube was placed on suction, and we'll continue as such for the next 24 hours again. Labs were all reviewed bicarb is 45 left lites are normal otherwise. CBC is relatively normal. Last ABG from 2 days ago showed a pO2 of 73 pCO2 of 93 pH of 7.34 Patient was reevaluated today on 04/15/20, remains in the ICU, sitting in a recliner, has shortness of breath upon any activity. His left sided thoravent was on suction earlier, and now it is off suction, no air leak is noted. Chest x-ray continues to show significant subcutaneous emphysema. His a left sided pneumothorax is significantly improved. Reevaluated today on 04/16/20, patient remains in the ICU, his chest tube remains off suction, patient is on 6 L high flow nasal cannula. Chest x-ray today showed very minimal left apical pneumothorax, and diffuse subcutaneous emphysema. Clinically the patient is feeling better, breathing easier, and asking to be discharged home as soon as possible. Seen by thoracic surgery, and the plan is to cap His chest tube, and if tomorrow no change, then the chest tube will be removed. In the meantime patient remains on bronchodilators for his underlying COPD Patient was reevaluated today on 04/17/20, remains in the ICU, intermittently on avaps continues to have left-sided chest tube/thoravent in place. Patient is hemodynamically stable, not requiring any inotropic. Noted to have intermittent air leak, there is fluctuation of the diaphragm on the chest tube. Patient is maintaining adequate saturation 96% on 2 L. He is intermittently confused, but presently seems to be quite pleasant. Labs today were all reviewed. Reevaluated today on 04/18/20, remains in the ICU, basically no change in the last 24 hours, continues to have his chest tube, but positive air leak noted in the movement of the diaphragm on the chest tube. Chest x-ray showed complete expansion of the left lung, and significant subcutaneous emphysema. Clinically the patient is doing great, his mental status is significantly better today, he is alert and oriented 3. And he is hemodynamically stable. On 04/19/2020 patient seen in follow-up in the intensive care unit, he is awake and alert, oriented 3, denies any acute distress, he states his breathing continues to improve, lung sounds are diminished on today's examination, left- sided third event remains in place, today's chest x-ray shows extensive subcutan eous emphysema, with no evidence of pneumothorax, elevated right hemidiaphragm with improving left basilar infiltrate. Chest tube has been to water seal for the past 3 days, atrium has been discontinued and air vent was placed. Patient is currently on 2 L of oxygen, pulse ox 97%, patient apparently has not worn his BiPAP for the past 2 nights one time because of confusion and not being cooperative. Patient is aware that she is being sent home with AVAPS machine and he stated that the entry level marketing representative came out and went over the settings with him. It was stressed to him that is important that he wears it at bedtime and as needed during the day prevent future hospitalization clinical worsening related to his history of severe COPD with chronic hypercapnic and hypoxic respiratory failure. No episodes of arrhythmia, patient is currently in sinus rhythm, he is on oral amiodarone, and Eliquis for anticoagulation, he remains on daily dose of oral Lasix, oral prednisone, theophylline, and breathing treatments. Today's labs have been reviewed, showing white blood cell currently 0.7, hemoglobin at 13.4, sodium is 135, potassium is 4.1, chloride is 88, CO2 is 47, BUN of 40 and creatinine 0.90 Objective - Vital Signs Vital signs: Vital Signs Temp 98 F 04/19/20 04:00 Pulse 77 04/19/20 08:22 Resp 18 04/19/20 04:00 BP 108/65 04/19/20 04:00 Pulse Ox 97 04/19/20 04:00 Intake & Output 07/05/20 07/06/20 07/06/20 18:59 06:59 18:59 Intake Total 765 600 Output Total 175 825 Balance 590 -225 Weight 48.8 kg Intake: Oral 765 600 Output: Chest Tube Drainage 0 0 Thora-Vent Left Upper Mid 0 0 -Clavicular Chest Urine 175 825 Other: Voiding Method Urinal Urinal - Exam GENERAL EXAM: Alert, very pleasant, 79-year-old white male, 2 L of oxygen pulse ox 97% comfortable in no apparent distress. HEAD: Normocephalic/atraumatic. EYES: Normal reaction of pupils, equal size. Conjunctiva pink, sclera white. NOSE: Clear with pink turbinates. THROAT: No erythema or exudates. NECK: No masses, no JVD, no thyroid enlargement, no adenopathy. CHEST: No chest wall deformity. Symmetrical expansion. Left anterior chest for about chest tube in place, to waterseal, disconnected from the atrium LUNGS: Equal air entry with no crackles, wheeze, rhonchi or dullness. CVS: Regular rate and rhythm, normal S1 and S2, no gallops, no murmurs, no rubs ABDOMEN: Soft, nontender. No hepatosplenomegaly, normal bowel sounds, no guarding or rigidity. EXTREMITIES: No clubbing, no edema, no cyanosis, 2+ pulses and upper and lower extremities. MUSCULOSKELETAL: Muscle strength and tone normal. SPINE: No scoliosis or deformity SKIN: No rashes CENTRAL NERVOUS SYSTEM: Alert and oriented -3. No focal deficits, tone is normal in all 4 extremities. PSYCHIATRIC: Alert and oriented -3. Appropriate affect. Intact judgment and insight. - Labs CBC & Chem 7: 04/18/20 04:45 04/18/20 04:45 Assessment and Plan Plan: Assessment: #1. Acute on chronic hypoxic and hypercapnic respiratory failure secondary to COPD exacerbation #2. Acute spontaneous secondary left-sided pneumothorax, postoperative vent insertion, presently #3. Acute CO2 narcosis, improved #4. Chronic metabolic alkalosis, related to chronic hypercapnic respiratory failure #5. Possible non-ST elevated myocardial infarction with elevated troponin #6. Abdominal aortic aneurysm measuring 6.9 cm in size #7. Single episode of SVT/atrial fibrillation, currently on oral amiodarone and Eliquis, and patient has been in sinus rhythm Plan: Patient's left lower vent remains in place with one-way valve, and today's chest x-ray shows no evidence of pneumothorax. CT surgery is following, and is planning on sending the patient home with the cerumen in place with close follow-up in couple of days for repeat chest x-ray and possible discontinuation of the chest tube in the office. Pulmonary perspective patient is stable for discharge home today with home care, and patient has been qualified for AVAPS units at home, has been encouraged to wear it at bedtime and as needed during the day for diagnosis of severe COPD with chronic hypoxic and hypercapnic respir atory failure. States he has his children and his grandchildren at home and and there are people to assist him with his medical needs, we will check with discharge planning and make sure his home care nursing set up for him as well. Will need outpatient follow-up with Dr. Prieto in the office in 7-10 days. He can finish outpatient course of oral prednisone, he will need DuoNeb nebulized treatments, Symbicort, theophylline. Encouraged to abstain from smoking. I performed a history & physical examination of the patient and discussed their management with my nurse practitioner, Violet Richard. I reviewed the nurse practitioner's note and agree with the documented findings and plan of care. Lung sounds are positive for diminished breath sounds. The findings and the impression was discussed with the patient. I attest to the documentation by the nurse practitioner. Time with Patient: Less than 30
[2020-04-19] MEDS: ISOSORBIDE MONONITRATE ER 60 MG TAB.ER.24H PO SCH (10:13)
[2020-04-19] MEDS: THEOPHYLLINE 24 HOUR 300 MG CAP.ER.24H PO SCH (10:13)
[2020-04-19] MEDS: APIXABAN 5 MG TAB PO SCH (10:13)
[2020-04-19] MEDS: THIAMINE 100 MG/ML 2 ML VIAL IVP SCH (10:13)
[2020-04-19] MEDS: FUROSEMIDE 40 MG TAB PO SCH (10:13)
[2020-04-19] MEDS: predniSONE 20 MG TAB PO SCH (10:13)
[2020-04-19] MEDS: ASPIRIN 81 MG PO SCH (10:13)
[2020-04-19] MEDS: AMIODARONE 200 MG TAB PO SCH (10:14)
[2020-04-19] MEDS: METOPROLOL SUCCINATE (ER) 25 MG TAB.ER.24H PO SCH (10:14)
--- NOTE | 2020-04-19 11:09 | P.DS ---
Providers Date of admission: 04/04/20 17:57 Expected date of discharge: 04/19/20 Attending physician: Clemencia Nayak MD Consults: 04/04/20 17:57 Consult Physician Routine Consulting Provider: Stephanie Parker Consult Reason/Comments: chf, elevated trop Do you want consulting provider notified?: Yes 04/04/20 23:54 Consult Physician Routine Consulting Provider: Chris Sotelo Consult Reason/Comments: behavioral changes, speech changes Do you want consulting provider notified?: Yes, Notify in am 04/04/20 23:59 Consult Physician Routine Consulting Provider: Jj Cohen Consult Reason/Comments: AAA Do you want consulting provider notified?: Yes, Notify in am 04/05/20 09:47 Consult Physician Routine Consulting Provider: Christiano Prieto Consult Reason/Comments: copd Do you want consulting provider notified?: Yes 04/12/20 08:52 Consult Physician Routine Consulting Provider: Dc Gordon Consult Reason/Comments: left pneumothorax Do you want consulting provider notified?: Yes Primary care physician: [facility] Course: Patient is a 79-year-old male with hypothyroidism, COPD on home oxygen end-stage per his outpatient administrative project coordinator Dr. Moon, hypertension, and prior tobacco abuse who presented initially to an outside hospital secondary to confusion and hypoxia. Apparently his nephew checked on him and he was noted to be confused and cyanotic. When EMS arrived he was hypoxic with an O2 sat of 70% was transferred to the hospital. Initial workup showed an abdominal aortic aneurysm 6.5 cm, elevated troponin, elevated BNP, and small bilateral pleural effusions. He was started on diuretics and transferred to our facility. CT brain showed no acute process with mild diffuse cerebral atrophy. He was diagnosed with COPD, elevated troponin with rule out myocardial infarction, and possible CHF secondary to pulmonary congestion with bilateral pleural effusions. He was started on aspirin. He underwent an echocardiogram which showed an ejection fraction of 50-55% without significant valvular disease. Carotid Doppler showed bilateral plaque with no significant hemodynamic stenosis. He was seen by vascular surgery who recommended outpatient follow-up. On the morning after admission he was noted to have continued altered mentation. ABG was checked and was found to be significantly hypercapnic. Pulmonary was consulted he was diagnosed with a COPD exacerbation was started on Diamox as well as titration of his oxygen, IV Solu-Medrol, and bronchodilators. He was transferred to the ICU for closer monitoring. Neurology was consulted for possible stroke versus seizure and he was subsequently diagnosed with myoclonic jerking as EEG demonstrated increased seizure tendency but no active seizure activity. MRI of the brain showed scattered white matter signal changes related to chronic small vessel ischemia. MRA of the neck showed 60% stenosis in the left internal carotid artery. He was started on a tapered dose of Keppra. Liver ultrasound showed a coarse echotexture seen with hepatic steatosis. By the morning of 04/06 his CO2 levels are much improved and his mentation had begun to improve. He was seen by cardiology who felt that his troponin was likely elevated secondary to his respiratory failure as his ejection fraction was normal. He continued to struggle with hypercapnia and hypoxia despite diamox therapy and intermitted BiPap. He developed SVT on the evening of 04/06 and was started on cardizem gtt. He was started on theophylline. By the morning of 04/10 his mentation had improved slightly and he seemed more regulated. AVAPS was order for home. He was noted to have SVT again overnight on 04/10 and he was started on amio gtt. This was transitioned to amiodarone by mouth. He developed a PXT on the morning for 04/10 and a thoravent was placed. On the morning of 04/11 his PTX was persistent despite thoravent. This was manipulated and PTX resolved but patient was noted to have a left sided pleural effusion. Cardiothoracic surgery was consulted to follow the patient for his pneumothorax. He was initially placed on suction which was eventually clamped. Cardiothoracic surgery recommended patient be discharged home with that though her vent to be discontinued in the outpatient setting. Patient did develop some ICU delirium which resolved at the time of discharge. Patient was seen and examined. No acute events overnight. Patient reports no shortness of breath. He denies any chest pain. No nausea or vomiting. No fever or chills. General: [Ill-appearing], [no distress], [appears at stated age] Derm: [warm], [dry] Head: [atraumatic], [normocephalic], [symmetric] Eyes: [EOMI], [no lid lag], [anicteric sclera] Mouth: [no lip lesion], [mucus membranes moist] Cardiovascular: [S1S2 irregular], [no murmur], [positive posterior tibial pulse bilateral], Lungs: [Coarse breath sounds bilaterally with subcutaneous emphysema and left- sided chest tube], [no rhonchi, no rales] , [no accessory muscle use] Abdominal: [soft], [ nontender to palpation], [no guarding], [no appreciable organomegaly] Ext: [no gross muscle atrophy], [no edema], [no contractures] Neuro: [no focal neuro deficits] Psych: [Alert], [oriented], [appropriate affect] Acute exacerbation of COPD with acute on chronic hypoxic hypercapnic respiratory failure - Pulmonary recommendations appreciated - Prednisone to be tapered on discharge - fixed and when necessary bronchodilators - theophylline - BiPap as needed; AVAPS ordered for discharge - Pulmonary hygiene - Wean O2 as able - Would benefit from outpatient pulmonary rehab - Pulmonology does not recommend Diamox at this time Left PTX - improved after thoravent, placed on waterseal, atrium discontinued and Thoravent capped by cardiothoracic surgery - Cardiothoracic surgery consulted appreciated recommendations, cleared for discharge, plans to follow-up in the outpatient setting for removal of Toravent - Pain control - Pulm management P. A. fib - cardio recs appreciated - Eliquis: will need to involve family in risks vs benefit if patient is having some falls at home - Amio is oral - Toprol Abdominal aortic aneurysm -Incidental finding -Vascular surgery recommendations appreciated. Outpatient follow-up. Elevated troponin reflective of hypoxemia -Acute coronary syndrome ruled out -Echocardiogram within normal limits -Cardiology recommendations appreciated Carotid stenosis L - outpatient follow-up History of tobacco abuse SVT, resolved Transaminitis, improved Thrombocytopenia, improved Myoclonic jerking, resolved Toxic metabolic encephalopathy, hospital ICU induced delirium [Patient is shown considerable improvement since admission. Thoravent to be discontinued in the outpatient setting with cardiothoracic surgery. Patient's mentation has improved considerably today. I discussed the case with his daughter, the plan is for him to go home with 24-hour supervision but daughter states that they will need some time to arrange for this. I did inform her that his mentation has improved and that he has been cleared by cardiothoracic surgery. Plans on DC home today. This complex DC took about 45 minute to complete.] Pertinent Studies: Chest x-ray, barium swallow, liver ultrasound, neck MRA, brain MRI, EEG, echocardiogram, carotid Doppler, brain CT Procedures: Thora vent Patient Condition at Discharge: Stable Plan - Discharge Summary Discharge Rx Participant: No New Discharge Prescriptions: New Amiodarone [Cordarone] 200 mg PO BID #60 tab Apixaban [Eliquis] 5 mg PO BID #60 tab Furosemide [Lasix] 40 mg PO DAILY #30 tab Formoterol Fumarate [Perforomist] 20 mcg INHALATION RT-BID #60 nebu predniSONE See Taper PO DIRECTED #30 tab Budesonide [Pulmicort] 0.5 mg INHALATION RT-BID #60 ampul Theophylline 24 Hour [Royal-24] 300 mg PO DAILY #30 cap.er.24h Metoprolol Succinate (ER) [Toprol XL] 25 mg PO DAILY #30 tab.er.24h Ipratropium-Albuterol Nebulize [Duoneb 0.5 mg-3 mg/3 ml Soln] 3 ml INHALATION Q4HR PRN #90 neb PRN Reason: SOB or wheezing Continue Isosorbide Mononitrate ER [Imdur] 60 mg PO DAILY Albuterol Sulfate [Albuterol Sulfate Hfa] 2 puff PO RT-Q4H PRN PRN Reason: Shortness Of Breath Levothyroxine Sodium 112 mcg PO DAILY Aspirin 81 mg PO DAILY Discharge Medication List Albuterol Sulfate [Albuterol Sulfate Hfa] 2 puff PO RT-Q4H PRN 04/04/20 [History] Aspirin 81 mg PO DAILY 04/04/20 [History] Isosorbide Mononitrate ER [Imdur] 60 mg PO DAILY 04/04/20 [History] Levothyroxine Sodium 112 mcg PO DAILY 04/04/20 [History] Amiodarone [Cordarone] 200 mg PO BID #60 tab 04/19/20 [Rx] Apixaban [Eliquis] 5 mg PO BID #60 tab 04/19/20 [Rx] Budesonide [Pulmicort] 0.5 mg INHALATION RT-BID #60 ampul 04/19/20 [Rx] Formoterol Fumarate [Perforomist] 20 mcg INHALATION RT-BID #60 nebu 04/19/20 [Rx] Furosemide [Lasix] 40 mg PO DAILY #30 tab 04/19/20 [Rx] Ipratropium-Albuterol Nebulize [Duoneb 0.5 mg-3 mg/3 ml Soln] 3 ml INHALATION Q4HR PRN #90 neb 04/19/20 [Rx] Metoprolol Succinate (ER) [Toprol XL] 25 mg PO DAILY #30 tab.er.24h 04/19/20 [Rx] Theophylline 24 Hour [Royal-24] 300 mg PO DAILY #30 cap.er.24h 04/19/20 [Rx] predniSONE See Taper PO DIRECTED #30 tab 04/19/20 [Rx] Follow up Appointment(s)/Referral(s): Jonna Jensen MD [REFERRING] - 2 Weeks Harman Yao MD [STAFF PHYSICIAN] - 1 Week Brittany Allen DO [STAFF PHYSICIAN] - 2 Weeks [facility], [NON-STAFF] - 1-2 Days Mateus Spencer MD [Primary Care Provider] - 1-2 days [facility] [NON-STAFF] - 1-2 Days (Call company at discharge to notify them for follow up on the AVAPS in the home.) Activity/Diet/Wound Care/Special Instructions: FU PCP within 3 days of DC. FU Pulmonology within 1 week of DC. FU with Cardiothoracic Sx on the appointment given to you. Take all meds as advised. Come back to ED or call 911 for worsening CP, SOB, palpitations, dizziness. Discharge Disposition: HOME SELF-CARE
--- NOTE | 2020-04-19 14:14 | FL ---
Modified barium swallow. HISTORY: Dysphagia. Modified barium swallow was performed with the department of speech pathology. The patient was prese nted with various consistencies of barium. There is no evidence for aspiration or penetration. Full report is to follow from the department of speech pathology.Pt. given [address] Wan. 35 sec fluoro time. Impression: Normal study.
[2020-04-19] MEDS ORDERED: IPRATROPIUM-ALBUTEROL 3 ML NEB INHALATION STA (14:36)
[2020-04-19 14:37] VITALS: TEMP 97.8
[2020-04-19] MEDS ORDERED: IPRATROPIUM-ALBUTEROL 3 ML NEB ONE (14:37)
--- NOTE | 2020-04-19 16:03 | P.PN ---
Subjective Progress Note Date: 04/19/20 This is a 79-year-old gentleman who was admitted with exacerbation of COPD. Patient was seen because of abnormal troponins and paroxysmal atrial fibrillation. Patient also developed pneumothorax and subcutaneous emphysema. Patient seemed overall clinically stable. His maintaining sinus rhythm. No arr hythmias and noted. His primary status is improved. Patient is being discharged home. Follow-up with Dr. Lowery as an outpatient Objective - Vital Signs Vital signs: Vital Signs Temp 97.8 F 04/19/20 12:00 Pulse 90 04/19/20 14:51 Resp 26 H 04/19/20 12:00 BP 109/69 04/19/20 12:00 Pulse Ox 91 L 04/19/20 12:00 Intake & Output 04/18/20 04/19/20 04/19/20 18:59 06:59 18:59 Intake Total 765 600 Output Total 175 825 0 Balance 590 -225 0 Weight 48.8 kg Intake: Oral 765 600 Output: Chest Tube Drainage 0 0 0 Thora-Vent Left Upper Mid 0 0 0 -Clavicular Chest Urine 175 825 Other: Voiding Method Urinal Urinal Urinal - Exam GENERAL EXAM: Patient is alert and oriented and doesn't appear to be in any acute distress HEENT: Normocephalic. Normal reaction of pupils, equal size, normal range of extraocular motion. No erythema or exudates in the throat. NECK: No masses, no nuchal rigidity. CHEST: No chest wall deformity. LUNGS: Diminished breath sounds HEART: S1 and S2 normal with no audible mumurs or gallops. Regular rhythm, femorals equal on both sides.. ABDOMEN: No hepatosplenomegaly, normal bowel sounds, no guarding or rigidity. SKIN: No rashes CENTRAL NERVOUS SYSTEM: No focal deficits. EXTREMITIES: No cyanosis, clubbing or edema. - Labs CBC & Chem 7: 04/18/20 04:45 04/18/20 04:45 Assessment and Plan (1) COPD exacerbation Current Visit: Yes Status: Acute Code(s): J44.1 - CHRONIC OBSTRUCTIVE PULMONARY DISEASE W (ACUTE) EXACERBATION SNOMED Code(s): 721543193 (2) Pneumothorax Current Visit: Yes Status: Acute Code(s): J93.9 - PNEUMOTHORAX, UNSPECIFIED SNOMED Code(s): 88444122 (3) Paroxysmal atrial fibrillation Current Visit: Yes Status: Acute Code(s): I48.0 - PAROXYSMAL ATRIAL FIBRILLATION SNOMED Code(s): 992562961 Plan: Patient is on amiodarone maintaining sinus rhythm. Overall, status is stable. Patient is being discharged home. Follow-up with Dr. Lowery as an outpatient
[2020-04-19 17:25] VITALS: BP 101/89; PULSE 82; RESP 22
== END 2020-04-19 17:42 | disposition home health service (06) | DRG 190 ==
LOC: EC 17:44 → 3SCARD 17:57 → 2SICU 04-05 13:01
PROVIDERS: ADMIT Internal Medicine; ATTEND Internal Medicine
PROC: 5A09457 Assistance with Respiratory Ventilation, 24-96 Consecutive Hours, Continuous Positive Airway Pressure (ICD-10-PCS; principal; 2020-04-08)
PROC: 0W9B30Z Drainage of Left Pleural Cavity with Drainage Device, Percutaneous Approach (ICD-10-PCS; 2020-04-10)
DX: J44.1 Chronic obstructive pulmonary disease with (acute) exacerbation (principal); J96.21 Acute and chronic respiratory failure with hypoxia; G92 Toxic encephalopathy; J96.22 Acute and chronic respiratory failure with hypercapnia; E87.4 Mixed disorder of acid-base balance; I47.1 Supraventricular tachycardia; J93.82 Other air leak; J93.9 Pneumothorax, unspecified; T79.7XXA Traumatic subcutaneous emphysema, initial encounter; J90 Pleural effusion, not elsewhere classified; D69.6 Thrombocytopenia, unspecified; G25.3 Myoclonus; K76.0 Fatty (change of) liver, not elsewhere classified; J84.10 Pulmonary fibrosis, unspecified; I48.0 Paroxysmal atrial fibrillation; Z20.828 Contact with and (suspected) exposure to other viral communicable diseases; R41.0 Disorientation, unspecified; E03.9 Hypothyroidism, unspecified; F41.9 Anxiety disorder, unspecified; G47.52 REM sleep behavior disorder; I10 Essential (primary) hypertension; I65.22 Occlusion and stenosis of left carotid artery; I71.4 Abdominal aortic aneurysm, without rupture; R47.1 Dysarthria and anarthria; R74.0 Nonspecific elevation of levels of transaminase and lactic acid dehydrogenase [LDH]; R79.89 Other specified abnormal findings of blood chemistry; Z79.82 Long term (current) use of aspirin; Z79.890 Hormone replacement therapy; Z79.899 Other long term (current) drug therapy; Z87.891 Personal history of nicotine dependence; Z99.81 Dependence on supplemental oxygen
CPT/HCPCS: 36415; 36600; 70450; 70547; 70551; 71045; 74230; 76705; 80048; 80053; 80306; 80320; 81001; 82607; 82805; 83605; 83735; 83880; 84100; 84132; 84443; 84484; 85025; 85027; 85610; 85730; 93005; 93306; 93880; 94640; 94660; 95816; 99285

== ENCOUNTER → 2020-04-30 | Outpatient (CLI) | payer MEDICARE, OTHER ==
--- NOTE | 2020-04-30 10:57 | XR ---
EXAMINATION TYPE: XR chest 2V DATE OF EXAM: 04/30/2020 HISTORY: left pneumothorax/Thoravent in place COMPARISON: 04/19/2020 TECHNIQUE: Single view of the chest is submitted. FINDINGS: Left sided thoravent is noted to be in place. I do not see evidence for sizable pneumothorax. Resolut ion of previously noted subcutaneous emphysema. Hyperinflation compatible with COPD. There is no evidence for focal infiltrate. The heart is stable. Hilar and mediastinal structures are within normal limits. Degenerative changes are seen of the dorsal spine. IMPRESSION: 1. Left sided thoravent is noted to be in place. I do not see evidence for sizable pneumothorax. Res olution of previously noted subcutaneous emphysema.
== END | disposition home or self-care (01) ==
LOC: RADXRMAIN 09:14
PROVIDERS: ATTEND Nurse Practitioner Family
DX: J93.9 Pneumothorax, unspecified (principal); Z95.811 Presence of heart assist device
CPT/HCPCS: 71046

== ENCOUNTER 2020-05-04 15:44 | Inpatient (IN) | payer MEDICARE ==
[2020-05-04] MEDS ORDERED: IPRATROPIUM-ALBUTEROL 3 ML NEB INHALATION STA (16:01)
--- NOTE | 2020-05-04 16:15 | ED ---
SOB HPI - General Chief Complaint: Shortness of Breath Stated Complaint: COPD Time Seen by Provider: 05/04/20 15:50 Source: patient, EMS Mode of arrival: EMS - History of Present Illness Initial Comments: Patient is a 71-year-old male has a history of COPD, hypertension, thyroid disorder presents to emergency department with reported shortness of breath. Patient recently has 5 for similar complaint. Did have a sore been placed over the left chest wall for a spontaneous pneumothorax. States the tube is in place for the past 3 weeks. His drains at every other day, approximately 50 mL. Denies change in color or amount of output. Today the patient was noted to be 8 0% on his normal 3 L of oxygen. He was confused with hallucinations. called EMS. EMS placed the patient on 6 L and he came up to 99%. Patient not confused upon EMS arrival. They state that during his last hospital admission he did have elevated ammonia levels and this is what family is concerned about. Patient denies any chest pain. No cough or hemoptysis. No fevers or chills. Patient denies any back or flank pain. No abdominal pain. Patient sustained a fall yesterday. There is no blunt head trauma or loss of consciousness. No other alleviating, precipitating or modifying factors - Related Data Home Medications Medication Instructions Recorded Confirmed Albuterol Sulfate [Albuterol 2 puff PO RT-Q4H PRN 04/04/20 05/04/20 Sulfate Hfa] Aspirin 81 mg PO DAILY 04/04/20 05/04/20 Isosorbide Mononitrate ER [Imdur] 60 mg PO DAILY 04/04/20 05/04/20 Levothyroxine Sodium 112 mcg PO DAILY 04/04/20 05/04/20 Previous Rx's Medication Instructions Recorded Amiodarone [Cordarone] 200 mg PO BID #60 tab 04/19/20 Apixaban [Eliquis] 5 mg PO BID #60 tab 04/19/20 Budesonide [Pulmicort] 0.5 mg INHALATION RT-BID #60 ampul 04/19/20 Formoterol Fumarate [Perforomist] 20 mcg INHALATION RT-BID #60 nebu 04/19/20 Furosemide [Lasix] 40 mg PO DAILY #30 tab 04/19/20 Ipratropium-Albuterol Nebulize 3 ml INHALATION Q4HR PRN #90 neb 04/19/20 [Duoneb 0.5 mg-3 mg/3 ml Soln] Metoprolol Succinate (ER) [Toprol 25 mg PO DAILY #30 tab.er.24h 04/19/20 XL] Theophylline 24 Hour [Royal-24] 300 mg PO DAILY #30 cap.er.24h 04/19/20 predniSONE 50 mg PO DAILY #5 tab 05/07/20 Allergies Allergy/AdvReac Type Severity Reaction Status Date / Time No Known Allergies Allergy Verified 05/04/20 16:51 Review of Systems ROS Statement: Those systems with pertinent positive or pertinent negative responses have been documented in the HPI. ROS Other: All systems not noted in ROS Statement are negative. Past Medical History Past Medical History: COPD, Eye Disorder, Hypertension, Thyroid Disorder History of Any Multi-Drug Resistant Organisms: None Reported Past Surgical History: No Surgical Hx Reported Past Psychological History: Anxiety Past Alcohol Use History: None Reported Past Drug Use History: None Reported - Past Family History family Family Medical History: Unable to Obtain General Exam Limitations: altered mental status General appearance: alert, in distress Head exam: Present: atraumatic, normocephalic, normal inspection Eye exam: Present: normal appearance, PERRL, EOMI. Absent: scleral icterus, conjunctival injection, periorbital swelling ENT exam: Present: normal exam, mucous membranes moist Neck exam: Present: normal inspection. Absent: tenderness, meningismus, lymphadenopathy Respiratory exam: Present: wheezes, accessory muscle use, decreased breath sounds, other (left sided chest tube in place filled with approx 50 cc serosanginous drainage). Absent: rales, rhonchi, stridor Cardiovascular Exam: Present: regular rate, normal rhythm, normal heart sounds. Absent: systolic murmur, diastolic murmur, rubs, gallop, clicks GI/Abdominal exam: Present: soft, normal bowel sounds. Absent: distended, tenderness, guarding, rebound, rigid Extremities exam: Present: normal inspection, full ROM, normal capillary refill. Absent: tenderness, pedal edema, joint swelling, calf tenderness Back exam: Present: normal inspection Neurological exam: Present: alert, oriented X3, CN II-XII intact Psychiatric exam: Present: normal affect, normal mood Skin exam: Present: warm, dry, intact, normal color. Absent: rash Course Vital Signs 05/04/20 05/04/20 05/04/20 15:47 16:22 16:33 Temperature 97.9 F Pulse Rate 100 96 Respiratory 24 24 18 Rate Blood Pressure 128/74 O2 Sat by Pulse 92 L Oximetry 05/04/20 05/04/20 05/04/20 16:41 17:50 18:56 Temperature 97.3 F L Pulse Rate 95 96 96 Respiratory 18 Rate Blood Pressure 118/64 107/65 O2 Sat by Pulse 96 95 Oximetry 05/04/20 19:58 Temperature 97.9 F Pulse Rate 93 Respiratory 22 Rate Blood Pressure 123/71 O2 Sat by Pulse 95 Oximetry Medical Decision Making - Medical Decision Making Upon arrival patient is placed in room 5. A thorough history and physical exam is performed. Patient is not confused upon arrival. He is saturating 92% on 5 L. Peripheral IV was established. Patient was given a DuoNeb breathing treatment. Laboratory studies were conducted. CO2 is high at 47. Chest x-ray is performed which is read as a small apical pneumothorax about 3%. I did send the patient over for a CT study to rule out PE which inserts no signs of pulmonary embolus him. Emphysema. Bilateral scarring and atelectasis. Patient was given 125 mg of Solu-Medrol. I did recommend hospital admission for DuoNeb breathing treatments and steroids. Patient did agree to this. Patient will be transferred to the floor in stable condition - Lab Data Result diagrams: 05/07/20 07:06 05/07/20 07:06 Lab Results 05/04/20 05/04/20 05/04/20 Range/Units 16:16 16:16 16:16 WBC 6.1 (3.8-10.6) k/uL RBC 4.39 (4.30-5.90) m/uL Hgb 13.5 (13.0-17.5) gm/dL Hct 42.6 (39.0-53.0) % MCV 97.0 (80.0-100.0) fL MCH 30.8 (25.0-35.0) pg MCHC 31.7 (31.0-37.0) g/dL RDW 13.5 (11.5-15.5) % Plt Count 193 (150-450) k/uL Neutrophils % 83 % Lymphocytes % 9 % Monocytes % 4 % Eosinophils % 2 % Basophils % 1 % Neutrophils # 5.1 (1.3-7.7) k/uL Lymphocytes # 0.6 L (1.0-4.8) k/uL Monocytes # 0.3 (0-1.0) k/uL Eosinophils # 0.1 (0-0.7) k/uL Basophils # 0.0 (0-0.2) k/uL Hypochromasia Moderate PT 9.9 (9.0-12.0) sec INR 1.0 (<1.2) APTT 26.6 (22.0-30.0) sec Sodium 137 (137-145) mmol/L Potassium 4.5 (3.5-5.1) mmol/L Chloride 83 L (98-107) mmol/L Carbon Dioxide 47 H* (22-30) mmol/L Anion Gap 7 mmol/L BUN 33 H (9-20) mg/dL Creatinine 0.87 (0.66-1.25) mg/dL Est GFR (CKD-EPI)AfAm >90 (>60 ml/min/1.73 sqM) Est GFR (CKD-EPI)NonAf 83 (>60 ml/min/1.73 sqM) Glucose 117 H (74-99) mg/dL Plasma Lactic Acid Bird (0.7-2.0) mmol/L Calcium 8.4 (8.4-10.2) mg/dL Total Bilirubin 0.3 (0.2-1.3) mg/dL AST 31 (17-59) U/L ALT 32 (4-49) U/L Alkaline Phosphatase 92 (38-126) U/L Ammonia (<30) umol/L Troponin I (0.000-0.034) ng/mL NT-Pro-B Natriuret Pep pg/mL Total Protein 6.1 L (6.3-8.2) g/dL Albumin 3.4 L (3.5-5.0) g/dL Theophylline ug/mL 05/04/20 05/04/20 05/04/20 Range/Units 16:16 16:16 16:16 WBC (3.8-10.6) k/uL RBC (4.30-5.90) m/uL Hgb (13.0-17.5) gm/dL Hct (39.0-53.0) % MCV (80.0-100.0) fL MCH (25.0-35.0) pg MCHC (31.0-37.0) g/dL RDW (11.5-15.5) % Plt Count (150-450) k/uL Neutrophils % % Lymphocytes % % Monocytes % % Eosinophils % % Basophils % % Neutrophils # (1.3-7.7) k/uL Lymphocytes # (1.0-4.8) k/uL Monocytes # (0-1.0) k/uL Eosinophils # (0-0.7) k/uL Basophils # (0-0.2) k/uL Hypochromasia PT (9.0-12.0) sec INR (<1.2) APTT (22.0-30.0) sec Sodium (137-145) mmol/L Potassium (3.5-5.1) mmol/L Chloride (98-107) mmol/L Carbon Dioxide (22-30) mmol/L Anion Gap mmol/L BUN (9-20) mg/dL Creatinine (0.66-1.25) mg/dL Est GFR (CKD-EPI)AfAm (>60 ml/min/1.73 sqM) Est GFR (CKD-EPI)NonAf (>60 ml/min/1.73 sqM) Glucose (74-99) mg/dL Plasma Lactic Acid Bird 1.3 (0.7-2.0) mmol/L Calcium (8.4-10.2) mg/dL Total Bilirubin (0.2-1.3) mg/dL AST (17-59) U/L ALT (4-49) U/L Alkaline Phosphatase (38-126) U/L Ammonia <9 (<30) umol/L Troponin I 0.013 (0.000-0.034) ng/mL NT-Pro-B Natriuret Pep 867 pg/mL Total Protein (6.3-8.2) g/dL Albumin (3.5-5.0) g/dL Theophylline ug/mL 05/04/20 Range/Units 16:16 WBC (3.8-10.6) k/uL RBC (4.30-5.90) m/uL Hgb (13.0-17.5) gm/dL Hct (39.0-53.0) % MCV (80.0-100.0) fL MCH (25.0-35.0) pg MCHC (31.0-37.0) g/dL RDW (11.5-15.5) % Plt Count (150-450) k/uL Neutrophils % % Lymphocytes % % Monocytes % % Eosinophils % % Basophils % % Neutrophils # (1.3-7.7) k/uL Lymphocytes # (1.0-4.8) k/uL Monocytes # (0-1.0) k/uL Eosinophils # (0-0.7) k/uL Basophils # (0-0.2) k/uL Hypochromasia PT (9.0-12.0) sec INR (<1.2) APTT (22.0-30.0) sec Sodium (137-145) mmol/L Potassium (3.5-5.1) mmol/L Chloride (98-107) mmol/L Carbon Dioxide (22-30) mmol/L Anion Gap mmol/L BUN (9-20) mg/dL Creatinine (0.66-1.25) mg/dL Est GFR (CKD-EPI)AfAm (>60 ml/min/1.73 sqM) Est GFR (CKD-EPI)NonAf (>60 ml/min/1.73 sqM) Glucose (74-99) mg/dL Plasma Lactic Acid Bird (0.7-2.0) mmol/L Calcium (8.4-10.2) mg/dL Total Bilirubin (0.2-1.3) mg/dL AST (17-59) U/L ALT (4-49) U/L Alkaline Phosphatase (38-126) U/L Ammonia (<30) umol/L Troponin I (0.000-0.034) ng/mL NT-Pro-B Natriuret Pep pg/mL Total Protein (6.3-8.2) g/dL Albumin (3.5-5.0) g/dL Theophylline 13.5 ug/mL - EKG Data EKG Comments: EKG demonstrates normal sinus rhythm with a ventricular rate of 98. LA interval 128. QRS 86. QTC 477. Significant baseline artifact. PACs. No acute ST segm ent elevation or depression. Disposition Clinical Impression: Dyspnea, COPD (chronic obstructive pulmonary disease), Encephalopathy Disposition: ADMITTED IP TO THIS [facility] Condition: Stable Is patient prescribed a controlled substance at d/c from ED?: No Decision to Admit Reason: Admit from EC Decision Date: 05/04/20 Decision Time: 18:46
--- NOTE | 2020-05-04 16:44 | XR ---
EXAMINATION TYPE: XR chest 2V DATE OF EXAM: 05/04/2020 COMPARISON: 04/30/2020 HISTORY: Difficulty breathing TECHNIQUE: 2 views FINDINGS: There is slight blunting of the costophrenic angles. There is pulmonary hyperinflation and flattening of the diaphragm. There is left-sided chest tube and probably a 3% left apical pneumothora x. Trachea is midline. Heart size is normal. Thoracic aorta is atheromatous. IMPRESSION: Tiny left apical pneumothorax appears new compared to previous exam. Mild pleural reactio n at the lung bases. Normal heart. There is probably COPD.
[2020-05-04 16:47] LABS: ALT 32 U/L (4-49); AST 31 U/L (17-59); African American GFR (CKD) >90 (>60 ml/min/1.73 sqM); Albumin 3.4 g/dL (3.5-5.0); Alkaline Phosphatase 92 U/L (38-126); Blood Urea Nitrogen 33 mg/dL (9-20); Calcium 8.4 mg/dL (8.4-10.2); Chloride 83 mmol/L (98-107); Glucose 117 mg/dL (74-99); Non-African American GFR(CKD) 83 (>60 ml/min/1.73 sqM); Potassium 4.5 mmol/L (3.5-5.1); Sodium 137 mmol/L (137-145); Total Bilirubin 0.3 mg/dL (0.2-1.3); Total Protein 6.1 g/dL (6.3-8.2)
[2020-05-04 16:48] LABS: Lactic Acid, Venous 1.3 mmol/L (0.7-2.0)
[2020-05-04 16:53] LABS: Anion Gap 7 mmol/L; Partial Thromboplastin Time 26.6 sec (22.0-30.0); Prothrombin Time 9.9 sec (9.0-12.0)
[2020-05-04 16:55] LABS: Basophils % (A) 1 %; Eosinophils # (A) 0.1 k/uL (0-0.7); Eosinophils % (A) 2 %; HCT 42.6 % (39.0-53.0); HGB 13.5 gm/dL (13.0-17.5); Hypochromasia Moderate; Lymphocytes # (A) 0.6 k/uL (1.0-4.8); Lymphocytes % (A) 9 %; MCH 30.8 pg (25.0-35.0); MCHC 31.7 g/dL (31.0-37.0); Monocytes # (A) 0.3 k/uL (0-1.0); Monocytes % (A) 4 %; Neutrophils # (A) 5.1 k/uL (1.3-7.7); Neutrophils % (A) 83 %; Platelet Count 193 k/uL (150-450); RBC 4.39 m/uL (4.30-5.90); RDW 13.5 % (11.5-15.5); WBC 6.1 k/uL (3.8-10.6)
[2020-05-04 17:03] LABS: Carbon Dioxide 47 mmol/L (22-30)
[2020-05-04] MEDS ORDERED: BACITRACIN ZINC 500 UNIT/GM OINT 28.4 GM TUBE TOPICAL ONE (18:36)
[2020-05-04] MEDS ORDERED: BACITRACIN OINT 1 EACH PACKET TOPICAL ONE (18:50)
--- NOTE | 2020-05-04 18:54 | CT ---
EXAMINATION TYPE: CT chest angio for PE DATE OF EXAM: 05/04/2020 COMPARISON: 04/04/2020 HISTORY: Shortness of breath. CT DLP: 217 mGycm Automated exposure control for dose reduction was used. CONTRAST: Performed with IV Contrast, patient injected with 40ml mL of Isovue 370. Our 3-D post processed images. There is diffuse pulmonary emphysema. This is more noticeable in the left upper lobe. There is some l inear scarring and atelectasis in the lingula left upper lobe. There is patchy pleural thickening and atelectasis and infiltrate at the posterior lung bases. There is some mild reticular nodular infiltr ate in the superior segment left lower lobe adjacent to the pleura. There is left upper chest tube. I see no pneumothorax. Chest tube appears in good position along the left anterior chest wall. There is no mediastinal adenopathy. There are no hilar masses. Thoracic aorta is atheromatous. There is no aneurysm or dissection. There is normal contrast opacification of the pulmonary arteries. There are no filling defects. Thoracic vertebra show normal alignment. There is mild spurring in the mid thoracic spine. There is n o paraspinal mass. The ribs appear intact. IMPRESSION: No evidence of pulmonary embolism. Emphysema. Bilateral scarring and atelectasis as above at the lung bases and also left upper lobe. No suspicious pulmonary mass.
[2020-05-04] MEDS ORDERED: NALOXONE 0.4 MG/ML 1 ML VIAL IV PRN (18:56)
[2020-05-04] MEDS ORDERED: methylPREDNISolone SOD SUCCI 125 MG/2 ML VIAL IV STA (18:58)
[2020-05-04 19:51] LABS: ABG Base Excess 29.6 mmol/L; ABG Oxygen Saturation 87.7 % (94-97); ABG PH 7.47 (7.35-7.45); ABG TCO2 56 mmol/L (19-24); Allen Test Performed? Yes
[2020-05-04 19:53] LABS: ABG HCO3 53 mmol/L (21-25); ABG PCO2 74 mmHg (35-45); ABG PO2 52 mmHg (83-108)
[2020-05-04] MEDS: IPRATROPIUM-ALBUTEROL 3 ML NEB INHALATION SCH (20:31)
[2020-05-04] MEDS ORDERED: IPRATROPIUM-ALBUTEROL 3 ML NEB INHALATION PRN (20:41)
--- NOTE | 2020-05-04 20:46 | P.HPIM ---
History of Present Illness H&P Date: 05/04/20 The patient is 79-year-old male with a PMH of end-stage COPD, chronic hypoxic and hypercapnic respiratory failure on home AVAPS, hypertension, and tobacco abuse who was brought into the ED for confusion and hypoxia. The history was supplemented by the daughter at the bedside reports that the patient had begun seeing things and was speaking incoherently. She checked his SpO2 and it was around 70-80%, at which time she activated EMS. Reports that his drains roughly 50 and rales of blood-tinged fluid from the thoravent daily with no recent change. Upon arrival, EMS reportedly placed the patient on 6 L after which his SpO2 improved to 99%. At time of interview, the patient notes that he is feeling better and back to his baseline and no longer confused. He denied any active complai was negative for pulmonary embolism nts. Denied shortness of breath, chest pain, fever, chills, cough. Denied nausea, vomiting, dizziness, or headache. Of note, the patient was recently discharged from [facility] after prolonged stay on 04/19. During that hospitalization, the patient had experienced a spontaneous pneumothorax for which a thoravent was placed. In the emergency room a chest CTA with EKG showing sinus rhythm with marked sinus arrhythmia at 98 bpm with a rightward axis. ABG revealed a pCO2 of 74. Further laboratory evaluation revealed a sodium 137, potassium 4.5, chloride 83, CO2 47, BUN 33, creatinine 0.7, with glucose 117. Review of Systems Pertinent positives and negatives as discussed in HPI, a complete review of systems was performed and all other systems are negative. Past Medical History Past Medical History: COPD, Eye Disorder, Hypertension, Thyroid Disorder History of Any Multi-Drug Resistant Organisms: None Reported Past Surgical History: No Surgical Hx Reported Past Psychological History: Anxiety Past Alcohol Use History: None Reported Past Drug Use History: None Reported - Past Family History family Family Medical History: Unable to Obtain Medications and Allergies Home Medications Medication Instructions Recorded Confirmed Type Albuterol Sulfate [Albuterol 2 puff PO RT-Q4H PRN 04/04/20 05/04/20 History Sulfate Hfa] Aspirin 81 mg PO DAILY 04/04/20 05/04/20 History Isosorbide Mononitrate ER [Imdur] 60 mg PO DAILY 04/04/20 05/04/20 History Levothyroxine Sodium 112 mcg PO DAILY 04/04/20 05/04/20 History Amiodarone [Cordarone] 200 mg PO BID #60 tab 04/19/20 05/04/20 Rx Apixaban [Eliquis] 5 mg PO BID #60 tab 04/19/20 05/04/20 Rx Budesonide [Pulmicort] 0.5 mg INHALATION RT-BID #60 ampul 04/19/20 05/04/20 Rx Formoterol Fumarate [Perforomist] 20 mcg INHALATION RT-BID #60 nebu 04/19/20 05/04/20 Rx Furosemide [Lasix] 40 mg PO DAILY #30 tab 04/19/20 05/04/20 Rx Ipratropium-Albuterol Nebulize 3 ml INHALATION Q4HR PRN #90 neb 04/19/20 05/04/20 Rx [Duoneb 0.5 mg-3 mg/3 ml Soln] Metoprolol Succinate (ER) [Toprol 25 mg PO DAILY #30 tab.er.24h 04/19/20 05/04/20 Rx XL] Theophylline 24 Hour [Royal-24] 300 mg PO DAILY #30 cap.er.24h 04/19/20 05/04/20 Rx Allergies Allergy/AdvReac Type Severity Reaction Status Date / Time No Known Allergies Allergy Verified 05/04/20 16:51 Physical Exam Vitals: Vital Signs Temp Pulse Resp BP Pulse Ox 05/04/20 19:58 97.9 F 93 22 123/71 95 05/04/20 18:56 97.3 F L 96 107/65 95 05/04/20 17:50 96 118/64 96 05/04/20 16:41 95 18 05/04/20 16:33 96 18 05/04/20 16:22 24 05/04/20 15:47 97.9 F 100 24 128/74 92 L Intake and Output 05/04/20 05/04/20 05/04/20 06:59 14:59 22:59 Other: Weight 48.988 kg General: Thin elderly male, non toxic, no distress Derm: Thin skin with bilateral upper extremity ecchymosis, warm, dry Head: atraumatic, normocephalic, symmetric Eyes: EOMI, no lid lag, anicteric sclera, pupils equal round reactive to light ENT: Nose and ears atraumatic, no thrush, no pharyngeal erythema Neck: No thyromegaly, no cervical lymphadenopathy, trachea midline, supple Mouth: no lip lesion, mucus membranes moist Cardiovascular: S1S2 reg, no murmur, positive posterior tibial pulse bilateral, no edema, capillary refill less than 2 seconds Lungs: Poor air entry otilio, no rhonchi, no rales, no conversational dyspnea, L sided thoravent in place Abdominal: soft, nontender to palpation, no guarding, no appreciable organomegaly, normal bowel sounds Ext: no gross muscle atrophy, muscle strength 4 out of 5 in all 4 extremities grossly, no contractures, Neuro: CN II-XI grossly intact, light touch intact all 4 extremities, finger to nose within normal limits, Psych: Alert, awake, oriented to person, place, and time Results CBC & Chem 7: 05/04/20 16:16 05/04/20 16:16 Labs: Abnormal Lab Results - Last 24 Hours (Table) 05/04/20 05/04/20 05/04/20 Range/Units 16:16 16:16 19:47 Lymphocytes # 0.6 L (1.0-4.8) k/uL ABG pH 7.47 H (7.35-7.45) ABG pCO2 74 H* (35-45) mmHg ABG pO2 52 L* (83-108) mmHg ABG HCO3 53 H* (21-25) mmol/L ABG Total CO2 56 H (19-24) mmol/L ABG O2 Saturation 87.7 L (94-97) % Chloride 83 L (98-107) mmol/L Carbon Dioxide 47 H* (22-30) mmol/L BUN 33 H (9-20) mg/dL Glucose 117 H (74-99) mg/dL Total Protein 6.1 L (6.3-8.2) g/dL Albumin 3.4 L (3.5-5.0) g/dL Assessment and Plan Plan: Shortness of breath, likely acute COPD exacerbation -Continue with Solu-Medrol -DuoNeb's [id number] and as needed -Pulmonary consult -Briefly discussed the case with Dr. John who recommended to continue the patient on previous AVAPS settings -Supplemental oxygen -Hold theophylline for now pending levels Chronic hypercapnic and hypoxic respiratory failure -C/w AVAPS Chronic conditions: Paroxysmal A. fib, abdominal aortic aneurysm, carotid stenosis, hypothyroidism -Continue with home Eliquis -Patient was recommended for outpatient vascular surgery follow-up for AAA and carotid stenosis DVT prophylaxis -Eliquis The patient is admitted with an anticipated greater than 2 midnight stay for evaluation of acute COPD exacerbation CODE STATUS: Full Code Discussed with: Patient, Daughter Anticipated discharge date: 3-[address]: Home A total of 45 minutes was spent on the care of this complex patient more than 50% of the time was spent in counseling and care coordination.
[2020-05-04] MEDS: APIXABAN 5 MG TAB PO SCH (21:16)
[2020-05-04] MEDS: AMIODARONE 200 MG TAB PO SCH (21:16)
[2020-05-05] MEDS: IPRATROPIUM-ALBUTEROL 3 ML NEB INHALATION SCH ×7 (00:16→23:50)
[2020-05-05] MEDS: methylPREDNISolone SOD SUCCI 40 MG/ML 1 ML VIAL IV SCH ×3 (00:22→16:13)
[2020-05-05 04:41] LABS: ABG Base Excess 25.6 mmol/L; ABG Oxygen Saturation 96.4 % (94-97); ABG PH 7.43 (7.35-7.45); ABG PO2 86 mmHg (83-108); ABG TCO2 52 mmol/L (19-24); Allen Test Performed? Yes
[2020-05-05 04:49] LABS: ABG HCO3 50 mmol/L (21-25); ABG PCO2 76 mmHg (35-45)
[2020-05-05] MEDS: LEVOTHYROXINE 112 MCG TAB PO SCH (05:49)
[2020-05-05] MEDS: ISOSORBIDE MONONITRATE ER 60 MG TAB.ER.24H PO SCH (08:02)
[2020-05-05] MEDS: APIXABAN 5 MG TAB PO SCH ×2 (08:02→21:14)
[2020-05-05] MEDS: ASPIRIN 81 MG PO SCH (08:02)
[2020-05-05] MEDS: FUROSEMIDE 40 MG TAB PO SCH (08:02)
[2020-05-05] MEDS: THEOPHYLLINE 24 HOUR 300 MG CAP.ER.24H PO SCH (08:02)
[2020-05-05] MEDS: AMIODARONE 200 MG TAB PO SCH ×2 (08:02→21:14)
[2020-05-05] MEDS: METOPROLOL SUCCINATE (ER) 25 MG TAB.ER.24H PO SCH (08:03)
[2020-05-05] MEDS: FORMOTEROL FUMARATE 20 MCG/2 ML NEBU INHALATION SCH ×2 (08:35→19:34)
[2020-05-05] MEDS: BUDESONIDE 0.5 MG/2 ML NEBU INHALATION SCH ×2 (08:35→19:34)
[2020-05-05 08:43] LABS: Basophils % (A) 0 %; Eosinophils % (A) 0 %; HCT 43.7 % (39.0-53.0); HGB 13.3 gm/dL (13.0-17.5); Hypochromasia Moderate; Lymphocytes # (A) 0.3 k/uL (1.0-4.8); Lymphocytes % (A) 5 %; MCH 30.1 pg (25.0-35.0); MCHC 30.3 g/dL (31.0-37.0); MCV 99.2 fL (80.0-100.0); Mean Platelet Volume 7.9; Monocytes # (A) 0.1 k/uL (0-1.0); Monocytes % (A) 1 %; Neutrophils # (A) 5.9 k/uL (1.3-7.7); Neutrophils % (A) 93 %; Platelet Count 211 k/uL (150-450); RDW 13.3 % (11.5-15.5); WBC 6.4 k/uL (3.8-10.6)
[2020-05-05 08:47] LABS: African American GFR (CKD) >90 (>60 ml/min/1.73 sqM); Blood Urea Nitrogen 38 mg/dL (9-20); Calcium 8.6 mg/dL (8.4-10.2); Chloride 85 mmol/L (98-107); Glucose 117 mg/dL (74-99); Non-African American GFR(CKD) 82 (>60 ml/min/1.73 sqM); Potassium 4.5 mmol/L (3.5-5.1); Sodium 137 mmol/L (137-145)
[2020-05-05 08:53] LABS: Anion Gap 5 mmol/L
[2020-05-05 08:57] LABS: Carbon Dioxide 47 mmol/L (22-30)
--- NOTE | 2020-05-05 10:34 | P.PN ---
Subjective Progress Note Date: 05/05/20 Patient is awake and alert. He appeared confused. He denies any shortness of breath. No acute events overnight reported by nursing staff. Objective - Vital Signs Vital signs: Vital Signs Temp 98.1 F 05/05/20 07:00 Pulse 90 05/05/20 09:02 Resp 18 05/05/20 07:00 BP 138/85 05/05/20 07:00 Pulse Ox 95 05/05/20 07:00 Intake & Output 05/04/20 05/05/20 05/05/20 18:59 06:59 18:59 Weight 48.988 kg 48.988 kg Other: Voiding Method Urinal # Voids 1 - Exam General: The patient is awake and alert, in no distress Eye: there is normal conjunctiva bilaterally. Neck: The neck is supple, there is no JVD. Cardiovascular: Normal S1-S2, no S3-S4, no murmurs. Respiratory: Lungs with end expiratory wheezing all over the chest Gastrointestinal: Abdomen is soft, nontender Musculoskeletal: There is no pedal edema. Neurological:. Speech is normal. Skin: Skin is warm and dry - Labs CBC & Chem 7: 05/05/20 07:22 05/05/20 07:22 Labs: Abnormal Lab Results - Last 24 Hours (Table) 05/04/20 05/04/20 05/04/20 Range/Units 16:16 16:16 19:47 MCHC (31.0-37.0) g/dL Lymphocytes # 0.6 L (1.0-4.8) k/uL ABG pH 7.47 H (7.35-7.45) ABG pCO2 74 H* (35-45) mmHg ABG pO2 52 L* (83-108) mmHg ABG HCO3 53 H* (21-25) mmol/L ABG Total CO2 56 H (19-24) mmol/L ABG O2 Saturation 87.7 L (94-97) % Chloride 83 L (98-107) mmol/L Carbon Dioxide 47 H* (22-30) mmol/L BUN 33 H (9-20) mg/dL Glucose 117 H (74-99) mg/dL Total Protein 6.1 L (6.3-8.2) g/dL Albumin 3.4 L (3.5-5.0) g/dL 05/05/20 05/05/20 05/05/20 Range/Units 04:38 07:22 07:22 MCHC 30.3 L (31.0-37.0) g/dL Lymphocytes # 0.3 L (1.0-4.8) k/uL ABG pH (7.35-7.45) ABG pCO2 76 H* (35-45) mmHg ABG pO2 (83-108) mmHg ABG HCO3 50 H* (21-25) mmol/L ABG Total CO2 52 H (19-24) mmol/L ABG O2 Saturation (94-97) % Chloride 85 L (98-107) mmol/L Carbon Dioxide 47 H* (22-30) mmol/L BUN 38 H (9-20) mg/dL Glucose 117 H (74-99) mg/dL Total Protein (6.3-8.2) g/dL Albumin (3.5-5.0) g/dL Assessment and Plan Assessment: Shortness of breath with acute COPD exacerbation -If and Solu-Medrol 125 mg IV in the ER. Currently on Solu-Medrol 40 mg IV every 8 hours. -DuoNeb's [id number] and as needed -Pulmonary consult pending -Supplemental oxygen -Theophylline Chronic hypercapnic and hypoxic respiratory failure -C/w AVAPS Acute toxo metabolic encephalopathy -Probably secondary to hypercapnia. Baseline mentation is not known to me. No family member at bedside. Brain MRI done in March showed chronic small vessel ischemia with no acute intracranial finding Chronic conditions: Paroxysmal A. fib on anticoagulation with Eliquis, abdominal aortic aneurysm, carotid stenosis, hypothyroidism -Continue with home Eliquis -Patient was recommended for outpatient vascular surgery follow-up for AAA and carotid stenosis DVT prophylaxis -Eliquis
[2020-05-05 10:47] VITALS: BMI 19.1
--- NOTE | 2020-05-05 13:03 | P.CNPUL ---
History of Present Illness Consult date: 05/05/20 Requesting physician: Pam Zee Reason for consult: dyspnea Chief complaint: Shortness of breath History of present illness: 79-year-old white male patient of Dr. Spencer, who has recently been hospitalized for acute exacerbation of COPD, and patient did have a spontaneous secondary left-sided pneumothorax, with placement of small bore chest tube Thoravent, with which patient was discharged home. One way valve was placed into Thoravent upon discharge. And patient had an upcoming appointment with the CT surgeon Dr. Gordon this week on Sunday for possible discontinuation of the chest tube. Patient also has not seen Dr. Prieto in the office and he has upcoming appointment with him on 05/07/2020. Patient has advanced COPD, with chronic hypoxic and hypercapnic respiratory failure, and he was sent home on AVAPS, which she was encouraged to wear at bedtime and as needed during the day. Patient was discharged home on 04/19/2020. He is chronically debilitated, has chronic exertional dyspnea. Is a former smoker, other medical history includes hypertension, hypothyroidism, anxiety, and patient had an episode of SVT/A. fib with RVR during his previous admission and was started on oral anticoagulation in the form of Eliquis. He is also on oral Cordarone for rate control. On 05/04/2028 patient was brought into the hospital by an ambulance for evaluation of increasing shortness of breath, and soreness over his left chest wall. The chest tube has been placed for the past 3 weeks, his has been draining it every day at home, getting approximately 50 ML of fluid. Yesterday patient was noted to be hypoxemic on his normal 3 L of oxygen, his pulse ox was 80%, patient was increasing confused, hallucinating. He denied any cough, denies any hemoptysis, no fever or chills. No nausea vomiting or diarrhea. Apparently patient also sustained a fall yesterday, with no evidence of blunt head trauma or loss of consciousness. Chest x-ray showed tiny left apical pneumothorax, with mild pleural reaction at the lung bases. His admission lab work showed CBC within normal limits with exception of lymphocytes which were 0.6, his blood gases showed pO2 of 52, pCO2 of 74, and pH of 7.47 and this was done and FiO2 of 32%, and is consistent with chronic hypoxemic and hypercapnic respiratory failure with metabolic alkalosis, patient was placed on AVAPS. Sodium was 137, potassium is 4.5, chloride is 83, CO2 is 47, B1 is 33 creatinine 0.87, troponin is negative at 0.013, proBNP was 867, theophylline level is 13.5. CTA chest was obtained showing no evidence of pulmonary embolism, emphysema, and bilateral scarring and atelectasis at the lung bases and at the left upper lobe. No suspicious pulmonary masses were noted. Review of Systems All systems: negative Constitutional: Denies chills, Denies fever Eyes: denies blurred vision, denies pain Ears, nose, mouth and throat: Denies headache, Denies sore throat Cardiovascular: Reports chest pain, Denies shortness of breath Respiratory: Reports dyspnea, Denies cough Gastrointestinal: Denies abdominal pain, Denies diarrhea, Denies nausea, Denies vomiting Musculoskeletal: Denies myalgias Integumentary: Denies pruritus, Denies rash Neurological: Reports change in mentation, Reports confusion, Reports gait dysfunction, Denies numbness, Denies weakness Psychiatric: Denies anxiety, Denies depression Endocrine: Denies fatigue, Denies weight change Past Medical History Past Medical History: COPD, Eye Disorder, Hypertension, Thyroid Disorder History of Any Multi-Drug Resistant Organisms: None Reported Past Surgical History: No Surgical Hx Reported Past Psychological History: Anxiety Past Alcohol Use History: None Reported Past Drug Use History: None Reported - Past Family History family Family Medical History: Unable to Obtain Medications and Allergies Home Medications Medication Instructions Recorded Confirmed Type Albuterol Sulfate [Albuterol 2 puff PO RT-Q4H PRN 04/04/20 05/04/20 History Sulfate Hfa] Aspirin 81 mg PO DAILY 04/04/20 05/04/20 History Isosorbide Mononitrate ER [Imdur] 60 mg PO DAILY 04/04/20 05/04/20 History Levothyroxine Sodium 112 mcg PO DAILY 04/04/20 05/04/20 History Amiodarone [Cordarone] 200 mg PO BID #60 tab 04/19/20 05/04/20 Rx Apixaban [Eliquis] 5 mg PO BID #60 tab 04/19/20 05/04/20 Rx Budesonide [Pulmicort] 0.5 mg INHALATION RT-BID #60 ampul 04/19/20 05/04/20 Rx Formoterol Fumarate [Perforomist] 20 mcg INHALATION RT-BID #60 nebu 04/19/20 05/04/20 Rx Furosemide [Lasix] 40 mg PO DAILY #30 tab 04/19/20 05/04/20 Rx Ipratropium-Albuterol Nebulize 3 ml INHALATION Q4HR PRN #90 neb 04/19/20 05/04/20 Rx [Duoneb 0.5 mg-3 mg/3 ml Soln] Metoprolol Succinate (ER) [Toprol 25 mg PO DAILY #30 tab.er.24h 04/19/20 05/04/20 Rx XL] Theophylline 24 Hour [Royal-24] 300 mg PO DAILY #30 cap.er.24h 04/19/20 05/04/20 Rx Allergies Allergy/AdvReac Type Severity Reaction Status Date / Time No Known Allergies Allergy Verified 05/04/20 16:51 Physical Exam Vitals: Vital Signs Temp Pulse Pulse Resp BP BP Pulse Ox 05/05/20 12:05 92 05/05/20 11:52 92 05/05/20 09:02 90 05/05/20 08:51 92 05/05/20 08:48 92 05/05/20 08:38 88 05/05/20 07:00 98.1 F 97 18 138/85 95 05/05/20 04:50 92 05/05/20 04:40 92 05/05/20 01:20 97.5 F L 80 18 129/73 95 05/05/20 00:33 96 05/05/20 00:18 92 05/04/20 20:41 90 20 05/04/20 20:31 92 20 05/04/20 19:58 97.9 F 93 22 123/71 95 05/04/20 18:56 97.3 F L 96 107/65 95 05/04/20 17:50 96 118/64 96 05/04/20 16:41 95 18 05/04/20 16:33 96 18 05/04/20 16:22 24 05/04/20 15:47 97.9 F 100 24 128/74 92 L Intake and Output 05/04/20 05/05/20 05/05/20 22:59 06:59 14:59 Other: Voiding Method Urinal # Voids 1 Weight 48.988 kg 48.988 kg GENERAL EXAM: Alert, confused, 79-year-old white male, resting in bed, currently on 3 L of oxygen pulse ox of 95%, comfortable in no apparent distress. HEAD: Normocephalic/atraumatic. EYES: Normal reaction of pupils, equal size. Conjunctiva pink, sclera white. NOSE: Clear with pink turbinates. THROAT: No erythema or exudates. NECK: No masses, no JVD, no thyroid enlargement, no adenopathy. CHEST: No chest wall deformity. Symmetrical expansion. Left chest Thoravent in place with one way valve without fluctuation of diaphragm LUNGS: Equal air entry with scattered rhonchi, loose congested cough CVS: Regular rate and rhythm, normal S1 and S2, no gallops, no murmurs, no rubs ABDOMEN: Soft, nontender. No hepatosplenomegaly, normal bowel sounds, no guarding or rigidity. EXTREMITIES: No clubbing, no edema, no cyanosis, 2+ pulses and upper and lower extremities. MUSCULOSKELETAL: Muscle strength and tone normal. SPINE: No scoliosis or deformity SKIN: No rashes CENTRAL NERVOUS SYSTEM: Alert and oriented -1. No focal deficits, tone is normal in all 4 extremities. Results - Laboratory Findings CBC and BMP: 05/05/20 07:22 05/05/20 07:22 ABG ABG pH 7.43 (7.35-7.45) 05/05/20 04:38 ABG pCO2 76 mmHg (35-45) H* 05/05/20 04:38 ABG pO2 86 mmHg (83-108) 05/05/20 04:38 ABG O2 Saturation 96.4 % (94-97) 05/05/20 04:38 PT/INR, D-dimer PT 9.9 sec (9.0-12.0) 05/04/20 16:16 INR 1.0 (<1.2) 05/04/20 16:16 Abnormal lab findings: Abnormal Labs 05/04/20 05/04/20 05/04/20 16:16 16:16 19:47 MCHC Lymphocytes # 0.6 L ABG pH 7.47 H ABG pCO2 74 H* ABG pO2 52 L* ABG HCO3 53 H* ABG Total CO2 56 H ABG O2 Saturation 87.7 L Chloride 83 L Carbon Dioxide 47 H* BUN 33 H Glucose 117 H Total Protein 6.1 L Albumin 3.4 L 05/05/20 05/05/20 05/05/20 04:38 07:22 07:22 MCHC 30.3 L Lymphocytes # 0.3 L ABG pH ABG pCO2 76 H* ABG pO2 ABG HCO3 50 H* ABG Total CO2 52 H ABG O2 Saturation Chloride 85 L Carbon Dioxide 47 H* BUN 38 H Glucose 117 H Total Protein Albumin - Diagnostic Findings Chest x-ray: report reviewed, image reviewed CT scan - chest: report reviewed, image reviewed Additional studies: EKG reviewed Assessment and Plan Plan: Assessment: #1. Dyspnea with acute on chronic hypoxemia, related to acute exacerbation of COPD #2. Recent hospitalization for COPD exacerbation and left spontaneous pneumothorax, discharged home on 04/19/[address] in place #3. Recent history of pneumothorax, admission chest x-ray showing tiny left apical pneumothorax, mild pleural reaction at the lung bases. Chest CTA shows emphysema, bilateral scarring and atelectasis at the lung bases and left upper lobe, and the left lung appears to be inflated, Thoravent in place, with one-way valve in place, with no fluctuation of the diaphragm #4. Acute on chronic hypoxic and hypercapnic respiratory failure related to advanced COPD on home oxygen at 3 L, and home AVAPS #5. Paroxysmal atrial fibrillation, on Eliquis, currently in sinus mechanism #6. Ex-smoker #7. Chronic metabolic alkalosis related to chronic hypercapnic respiratory failure #8. Abdominal aortic aneurysm #9. Confusion, mental status changes, likely related to acute on chronic hypoxic respiratory failure Plan: Continue current medical treatment, IV steroids, theophylline, nebulized bronchodilators, chest x-ray and CTA chest have been reviewed, left lung is inflated, there is no fluctuation the diaphragm on the left Thoravent. We will put a non-vented cap on the Thoravent, repeat chest x-ray in the morning, if it remains fully inflated, we will discontinue the Thoravent. Maintain safety precautions, continue AVAPS with target volume 350, EPAP 5, min P 6, max P 15, Fio2 35% at bedtime and as needed during the day. Follow-up chest x-ray in the morning. Provide incentive spirometry, encourage deep breathing and coughing. I performed a history & physical examination of the patient and discussed their management with my nurse practitioner, Violet Richard. I reviewed the nurse practitioner's note and agree with the documented findings and plan of care. Lung sounds are positive for diffuse rhonchi. The findings and the impression was discussed with the patient. I attest to the documentation by the nurse practitioner. Time with Patient: Greater than 30
[2020-05-06] MEDS: methylPREDNISolone SOD SUCCI 40 MG/ML 1 ML VIAL IV SCH ×3 (00:09→21:08)
[2020-05-06] MEDS: IPRATROPIUM-ALBUTEROL 3 ML NEB INHALATION SCH ×6 (03:22→23:32)
[2020-05-06] MEDS: LEVOTHYROXINE 112 MCG TAB PO SCH (04:37)
[2020-05-06 07:39] LABS: Basophils % (A) 0 %; Eosinophils % (A) 0 %; HCT 37.3 % (39.0-53.0); HGB 11.7 gm/dL (13.0-17.5); Hypochromasia Moderate; Lymphocytes # (A) 0.3 k/uL (1.0-4.8); Lymphocytes % (A) 3 %; MCH 30.9 pg (25.0-35.0); MCHC 31.5 g/dL (31.0-37.0); Mean Platelet Volume 7.9; Monocytes # (A) 0.4 k/uL (0-1.0); Monocytes % (A) 4 %; Neutrophils % (A) 92 %; Platelet Count 183 k/uL (150-450); RBC 3.81 m/uL (4.30-5.90); RDW 13.4 % (11.5-15.5); WBC 8.7 k/uL (3.8-10.6)
[2020-05-06 08:03] LABS: African American GFR (CKD) >90 (>60 ml/min/1.73 sqM); Blood Urea Nitrogen 48 mg/dL (9-20); Calcium 8.6 mg/dL (8.4-10.2); Chloride 86 mmol/L (98-107); Glucose 132 mg/dL (74-99); Non-African American GFR(CKD) 82 (>60 ml/min/1.73 sqM); Potassium 3.8 mmol/L (3.5-5.1); Sodium 137 mmol/L (137-145)
[2020-05-06 08:15] LABS: Anion Gap 4 mmol/L
[2020-05-06 08:25] LABS: Carbon Dioxide 47 mmol/L (22-30)
--- NOTE | 2020-05-06 08:27 | XR ---
EXAMINATION TYPE: XR chest 1V portable DATE OF EXAM: 05/06/2020 COMPARISON: 05/04/2020 HISTORY: difficulty breathing TECHNIQUE: Single frontal view of the chest is obtained. FINDINGS: Diffuse emphysematous changes with bibasilar subsegmental consolidation and left-sided ed st tube. There is no sizable pneumothorax on today's exam. Atherosclerotic change aorta. Arthropathy of the shoulders. No overt failure.. IMPRESSION: 1. COPD with by basilar atelectasis favored over infiltrate. 2. No sizable pneumothorax on today's exam
[2020-05-06] MEDS: FUROSEMIDE 40 MG TAB PO SCH (08:40)
[2020-05-06] MEDS: ASPIRIN 81 MG PO SCH (08:40)
[2020-05-06] MEDS: APIXABAN 5 MG TAB PO SCH ×2 (08:40→21:08)
[2020-05-06] MEDS: ISOSORBIDE MONONITRATE ER 60 MG TAB.ER.24H PO SCH (08:40)
[2020-05-06] MEDS: AMIODARONE 200 MG TAB PO SCH ×2 (08:40→21:08)
[2020-05-06] MEDS: METOPROLOL SUCCINATE (ER) 25 MG TAB.ER.24H PO SCH (08:40)
[2020-05-06] MEDS: THEOPHYLLINE 24 HOUR 300 MG CAP.ER.24H PO SCH (08:41)
[2020-05-06] MEDS: BUDESONIDE 0.5 MG/2 ML NEBU INHALATION SCH ×2 (09:06→19:43)
[2020-05-06] MEDS: FORMOTEROL FUMARATE 20 MCG/2 ML NEBU INHALATION SCH ×2 (09:07→19:44)
--- NOTE | 2020-05-06 11:46 | P.PN ---
Subjective Progress Note Date: 05/06/20 Principal diagnosis: CC: Shortness of breath Patient reports that he is close to his baseline. He is AAO 2 this morning and mildly confused. His mental status appears to be at his baseline. Patient states that he wishes to BiPAP for 2 hours at nighttime and takes it out because it is uncomfortable. I consultation and told him that he needs to keep the BiPAP on all night. Objective - Vital Signs Vital signs: Vital Signs Temp 97.9 F 05/06/20 07:00 Pulse 92 05/06/20 09:20 Resp 18 05/06/20 07:00 BP 131/65 05/06/20 07:00 Pulse Ox 94 L 05/06/20 07:00 Intake & Output 05/05/20 05/06/20 05/06/20 18:59 06:59 18:59 Intake Total 820 Output Total 550 Balance 820 -550 Weight 48.988 kg Intake: Oral 820 Output: Urine 550 Other: Voiding Method Urinal Urinal # Voids 3 - Exam General examination - Alert and Oriented 3 in NAD, appears chronically debilitated Heart - + S1S2 no murmurs Lungs - diminished breath sounds bilaterally Abdomen soft NT ND +ve BS Extremities - No edema CAFE COOK - Moving all 4 extremities spontaneously Psych - mildly confused - Labs CBC & Chem 7: 05/06/20 06:51 05/06/20 06:51 Labs: Abnormal Lab Results - Last 24 Hours (Table) 05/06/20 05/06/20 Range/Units 06:51 06:51 RBC 3.81 L (4.30-5.90) m/uL Hgb 11.7 L (13.0-17.5) gm/dL Hct 37.3 L (39.0-53.0) % Neutrophils # 8.0 H (1.3-7.7) k/uL Lymphocytes # 0.3 L (1.0-4.8) k/uL Chloride 86 L (98-107) mmol/L Carbon Dioxide 47 H* (22-30) mmol/L BUN 48 H (9-20) mg/dL Glucose 132 H (74-99) mg/dL Assessment and Plan Assessment: Shortness of breath with acute COPD exacerbation -If and Solu-Medrol 125 mg IV in the ER. Currently on Solu-Medrol 40 mg IV every 8 hours-> titrated down to every 8 hours. -DuoNeb's [id number] and as needed -Outpatient pulmonology recommendations -Supplemental oxygen -Theophylline Chronic hypercapnic and hypoxic respiratory failure -C/w AVAPS Acute toxo metabolic encephalopathy -Probably secondary to hypercapnia. Baseline mentation is not known to me. No family member at bedside. Brain MRI done in March showed chronic small vessel ischemia with no acute intracranial finding. Patient is a 3 this morning. He appears to be at his baseline. Chronic conditions: Paroxysmal A. fib on anticoagulation with Eliquis, abdominal aortic aneurysm, carotid stenosis, hypothyroidism -Continue with home Eliquis -Patient was recommended for outpatient vascular surgery follow-up for AAA and carotid stenosis DVT prophylaxis -Eliquis Anticipated patient be ready for discharge in the next 24-48 hours.
--- NOTE | 2020-05-06 12:06 | P.PN ---
Subjective Progress Note Date: 05/06/20 Principal diagnosis: Shortness of breath 79-year-old white male patient of Dr. Spencer, who has recently been hospitalized for acute exacerbation of COPD, and patient did have a spontaneous secondary left-sided pneumothorax, with placement of small bore chest tube Thoravent, with which patient was discharged home. One way valve was placed into Thoravent upon discharge. And patient had an upcoming appointment with the CT surgeon Dr. Gordon this week on Sunday for possible discontinuation of the chest tube. Patient also has not seen Dr. Prieto in the office and he has upcoming appointment with him on 05/07/2020. Patient has advanced COPD, with chronic hypoxic and hypercapnic respiratory failure, and he was sent home on AVAPS, which she was encouraged to wear at bedtime and as needed during the day. Patient was discharged home on 04/19/2020. He is chronically debilitated, has chronic exertional dyspnea. Is a former smoker, other medical history includes hypertension, hypothyroidism, anxiety, and patient had an episode of SVT/A. fib with RVR during his previous admission and was started on oral anticoagulation in the form of Eliquis. He is also on oral Cordarone for rate control. On 05/04/2028 patient was brought into the hospital by an ambulance for evaluation of increasing shortness of breath, and soreness over his left chest wall. The chest tube has been placed for the past 3 weeks, his has been draining it every day at home, getting approximately 50 ML of fluid. Yesterday patient was noted to be hypoxemic on his normal 3 L of oxygen, his pulse ox was 80%, patient was increasing confused, hallucinating. He denied any cough, denies any hemoptysis, no fever or chills. No nausea vomiting or diarrhea. Apparently patient also sustained a fall yesterday, with no evidence of blunt head trauma or loss of consciousness. Chest x-ray showed tiny left apical pneumothorax, with mild pleural reaction at the lung bases. His admission lab work showed CBC within normal limits with exception of lymphocytes which were 0.6, his blood gases showed pO2 of 52, pCO2 of 74, and pH of 7.47 and this was done and FiO2 of 32%, and is consistent with chronic hypoxemic and hypercapnic respiratory failure with metabolic alkalosis, patient was placed on AVAPS. Sodium was 137, potassium is 4.5, chloride is 83, CO2 is 47, B1 is 33 creatinine 0.87, troponin is negative at 0.013, proBNP was 867, theophylline level is 13.5. CTA chest was obtained showing no evidence of pulmonary embolism, emphysema, and bilateral scarring and atelectasis at the lung bases and at the left upper lobe. No suspicious pulmonary masses were noted. On 05/06/2020 patient seen in follow-up and general medical surgical floor. he is awake and alert, in no acute distress, he is on 3 L of oxygen with a pulse ox of 94%, afebrile, hemodynamically stable, breathing is comfortable, no worsening dyspnea, today's chest x-ray reviewed showing COPD with bibasilar atelectasis and no evidence of sizable pneumothorax. Thoravent was capped yesterday, left lung stayed reexpanded. No acute events overnight. Today's labs reviewed. Objective - Vital Signs Vital signs: Vital Signs Temp 97.9 F 05/06/20 07:00 Pulse 92 05/06/20 09:20 Resp 18 05/06/20 07:00 BP 131/65 05/06/20 07:00 Pulse Ox 94 L 05/06/20 07:00 Intake & Output 05/05/20 05/06/20 05/06/20 18:59 06:59 18:59 Intake Total 820 Output Total 550 Balance 820 -550 Weight 48.988 kg Intake: Oral 820 Output: Urine 550 Other: Voiding Method Urinal Urinal # Voids 3 - Exam GENERAL EXAM: Alert, confused, 79-year-old white male, resting in bed, currently on 3 L of oxygen pulse ox of 94%, comfortable in no apparent distress. HEAD: Normocephalic/atraumatic. EYES: Normal reaction of pupils, equal size. Conjunctiva pink, sclera white. NOSE: Clear with pink turbinates. THROAT: No erythema or exudates. NECK: No masses, no JVD, no thyroid enlargement, no adenopathy. CHEST: No chest wall deformity. Symmetrical expansion. Left chest Thoravent in place with non-vented valve without fluctuation of diaphragm LUNGS: Equal air entry with no rhonchi, no wheezing, loose congested cough CVS: Regular rate and rhythm, normal S1 and S2, no gallops, no murmurs, no rubs ABDOMEN: Soft, nontender. No hepatosplenomegaly, normal bowel sounds, no guarding or rigidity. EXTREMITIES: No clubbing, no edema, no cyanosis, 2+ pulses and upper and lower extremities. MUSCULOSKELETAL: Muscle strength and tone normal. SPINE: No scoliosis or deformity SKIN: No rashes CENTRAL NERVOUS SYSTEM: Alert and oriented -1. No focal deficits, tone is normal in all 4 extremities. - Labs CBC & Chem 7: 05/06/20 06:51 05/06/20 06:51 Labs: Abnormal Lab Results - Last 24 Hours (Table) 05/06/20 05/06/20 Range/Units 06:51 06:51 RBC 3.81 L (4.30-5.90) m/uL Hgb 11.7 L (13.0-17.5) gm/dL Hct 37.3 L (39.0-53.0) % Neutrophils # 8.0 H (1.3-7.7) k/uL Lymphocytes # 0.3 L (1.0-4.8) k/uL Chloride 86 L (98-107) mmol/L Carbon Dioxide 47 H* (22-30) mmol/L BUN 48 H (9-20) mg/dL Glucose 132 H (74-99) mg/dL Assessment and Plan Plan: Assessment: #1. Dyspnea with acute on chronic hypoxemia, related to acute exacerbation of COPD #2. Recent hospitalization for COPD exacerbation and left spontaneous pneumothorax, discharged home on 04/19/[address]. Thoravent ME'ed today on 05/06/2020 #3. Recent history of pneumothorax, admission chest x-ray showing tiny left apical pneumothorax, mild pleural reaction at the lung bases. Chest CTA shows emphysema, bilateral scarring and atelectasis at the lung bases and left upper lobe, and the left lung appears to be inflated, Thoravent in place, with one-way valve in place, with no fluctuation of the diaphragm #4. Acute on chronic hypoxic and hypercapnic respiratory failure related to advanced COPD on home oxygen at 3 L, and home AVAPS #5. Paroxysmal atrial fibrillation, on Eliquis, currently in sinus mechanism #6. Ex-smoker #7. Chronic metabolic alkalosis related to chronic hypercapnic respiratory failure #8. Abdominal aortic aneurysm #9. Confusion, mental status changes, likely related to acute on chronic hypoxic respiratory failure, improved Plan: Continue current medical treatment, follow-up chest x-ray has been reviewed, Thoravent capped since yesterday, left lung has remained reexpanded, Thoravent discontinued. Continue APAP support, continue nebulized bronchodilators, if patient remains stable may consider discharge home today or tomorrow. I performed a history & physical examination of the patient and discussed their management with my nurse practitioner, Violet Richard. I reviewed the nurse practitioner's note and agree with the documented findings and plan of care. Lung sounds are positive for diffuse rhonchi. The findings and the impression was discussed with the patient. I attest to the documentation by the nurse practitioner. Time with Patient: Less than 30
--- NOTE | 2020-05-06 13:21 | XR ---
EXAMINATION TYPE: XR chest 1V portable DATE OF EXAM: 05/06/2020 CLINICAL HISTORY: Status post Thoravent removal TECHNIQUE: Portable frontal upright view of the chest obtained COMPARISON: Chest radiograph 05/06/2020 FINDINGS: Interval removal of left sided Thoravent catheter no evidence of pneumothorax. Many black curvilinear densities overlying the left lateral chest and upper abdomen are related to skin folds. T he lungs are hyperexpanded with interstitial coarsening. The cardiomediastinal silhouette is within n ormal limits for size. Pulmonary vasculature is normal. There is increased silhouetting of the right hemidiaphragm and triangular opacity of the right lung base likely representing right lower lobe atel ectasis. IMPRESSION: 1. Interval removal of left sided Thoravent catheter no evidence of pneumothorax. 2. Increased right lower lobe atelectasis versus comparison 7:28 AM today.
[2020-05-07] MEDS: IPRATROPIUM-ALBUTEROL 3 ML NEB INHALATION SCH ×4 (03:18→15:28)
[2020-05-07] MEDS: LEVOTHYROXINE 112 MCG TAB PO SCH (06:18)
[2020-05-07] MEDS: BUDESONIDE 0.5 MG/2 ML NEBU INHALATION SCH (07:33)
[2020-05-07] MEDS: FORMOTEROL FUMARATE 20 MCG/2 ML NEBU INHALATION SCH (07:34)
[2020-05-07] MEDS: AMIODARONE 200 MG TAB PO SCH (08:33)
[2020-05-07] MEDS: METOPROLOL SUCCINATE (ER) 25 MG TAB.ER.24H PO SCH (08:33)
[2020-05-07] MEDS: FUROSEMIDE 40 MG TAB PO SCH (08:33)
[2020-05-07] MEDS: methylPREDNISolone SOD SUCCI 40 MG/ML 1 ML VIAL IV SCH (08:33)
[2020-05-07] MEDS: ISOSORBIDE MONONITRATE ER 60 MG TAB.ER.24H PO SCH (08:33)
[2020-05-07] MEDS: APIXABAN 5 MG TAB PO SCH (08:34)
[2020-05-07] MEDS: ASPIRIN 81 MG PO SCH (08:34)
[2020-05-07] MEDS: THEOPHYLLINE 24 HOUR 300 MG CAP.ER.24H PO SCH (08:34)
[2020-05-07 08:36] LABS: Basophils % (A) 0 %; Eosinophils % (A) 0 %; HGB 11.9 gm/dL (13.0-17.5); Hypochromasia Moderate; Lymphocytes # (A) 0.3 k/uL (1.0-4.8); Lymphocytes % (A) 4 %; MCH 29.4 pg (25.0-35.0); MCHC 30.5 g/dL (31.0-37.0); MCV 96.4 fL (80.0-100.0); Mean Platelet Volume 7.9; Monocytes # (A) 0.4 k/uL (0-1.0); Monocytes % (A) 6 %; Neutrophils # (A) 6.2 k/uL (1.3-7.7); Neutrophils % (A) 89 %; Platelet Count 210 k/uL (150-450); RBC 4.04 m/uL (4.30-5.90); RDW 13.5 % (11.5-15.5); WBC 6.9 k/uL (3.8-10.6)
[2020-05-07 09:21] LABS: African American GFR (CKD) >90 (>60 ml/min/1.73 sqM); Blood Urea Nitrogen 50 mg/dL (9-20); Calcium 8.7 mg/dL (8.4-10.2); Chloride 91 mmol/L (98-107); Glucose 94 mg/dL (74-99); Non-African American GFR(CKD) 85 (>60 ml/min/1.73 sqM); Potassium 4.4 mmol/L (3.5-5.1); Sodium 140 mmol/L (137-145)
[2020-05-07 09:28] LABS: Anion Gap 2 mmol/L
[2020-05-07 09:30] LABS: Carbon Dioxide 47 mmol/L (22-30)
--- NOTE | 2020-05-07 09:57 | CT ---
EXAMINATION TYPE: CT brain wo con DATE OF EXAM: 05/07/2020 HISTORY: fall and hit head on Eliquis CT DLP: 1055.4 mGycm. Automated Exposure Control for Dose Reduction was Utilized. TECHNIQUE: CT scan of the head is performed without contrast. COMPARISON: CT brain 04/04/2020 FINDINGS: There is no acute intracranial hemorrhage, midline shift, or mass effect identified. There is redemon strated volume loss. Patchy hypodensities of the white matter likely sequela of chronic microvascular ischemic changes. The ventricles, sulci, and cisterns are unchanged in size and configuration. No extra-axial fluid collection. Bones and extracranial soft tissues are intact. The globes are gross ly symmetric. Visualized sinuses and mastoid air cells are clear. IMPRESSION: No acute intracranial hemorrhage, midline shift, or mass effect.
--- NOTE | 2020-05-07 11:23 | P.DS ---
Providers Date of admission: 05/04/20 18:59 Expected date of discharge: 05/07/20 Attending physician: Ciaran Early MD Consults: 05/04/20 18:57 Consult Physician Urgent Consulting Provider: Christiano Prieto Consult Reason/Comments: AECOPD, left sided chest tube Do you want consulting provider notified?: Yes Primary care physician: Mateus [facility] Course: Discharge Diagnosis: [#COPD exacerbation #Recent diagnosis of left-sided pneumothorax presenting with small left-sided pneumothorax on admission chest x-ray #Chronic hypercapnic and hypoxic respiratory failure #Acute toxic metabolic encephalopathy likely due to hypoxia #Atrial fibrillation #Abdominal aortic aneurysm #Carotid stenosis #Hypothyroidism] Hospital Course: [Patient is a 79-year-old male with a past medical history of end-stage COPD, chronic hypoxic and hypercapnic respiratory failure on 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 Patient was discharged with a small bore chest tube Thoravent and he was instructed to follow-up with CT surgeon Dr. Gordon for possible discontinuation of chest tube however patient presented to the hospital before his appointment. Patient was brought in by the ambulance for shortness of breath. Patient was found to be hypoxic on his normal 3 L of oxygen. Patient was also confused. In the ED patient's chest x-ray showed tiny left apical pneumothorax. Patient CT of chest was negative for pulmonary embolism. Patient was admitted for COPD exacerbation and also for the small pneumothorax. Patient was being followed by pulmonology. Patient's Thoravent was capped. Chest x-ray showed that the left lung remained expanded so Thoravent was discontinued. Patient was also treated for COPD exacerbation with steroids and breathing treatments. At the time of discharge patient was satting well on his home O2 and he was mentating well with mild confusion which is likely his baseline. He was AAO 3. Patient was deemed stable for discharge by pulmonology. Patient instructed to follow-up with his multi skilled operator. 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 Patient Condition at Discharge: Stable Plan - Discharge Summary New Discharge Prescriptions: New predniSONE 50 mg PO DAILY #5 tab Continue Isosorbide Mononitrate ER [Imdur] 60 mg PO DAILY Albuterol Sulfate [Albuterol Sulfate Hfa] 2 puff PO RT-Q4H PRN PRN Reason: Shortness Of Breath Levothyroxine Sodium 112 mcg PO DAILY Aspirin 81 mg PO DAILY Amiodarone [Cordarone] 200 mg PO BID #60 tab Apixaban [Eliquis] 5 mg PO BID #60 tab Furosemide [Lasix] 40 mg PO DAILY #30 tab Formoterol Fumarate [Perforomist] 20 mcg INHALATION RT-BID #60 nebu Budesonide [Pulmicort] 0.5 mg INHALATION RT-BID #60 ampul Theophylline 24 Hour [Ryoal-24] 300 mg PO DAILY #30 cap.er.24h Metoprolol Succinate (ER) [Toprol XL] 25 mg PO DAILY #30 tab.er.24h Ipratropium-Albuterol Nebulize [Duoneb 0.5 mg-3 mg/3 ml Soln] 3 ml INHALATION Q4HR PRN #90 neb PRN Reason: SOB or wheezing Discharge Medication List Albuterol Sulfate [Albuterol Sulfate Hfa] 2 puff PO RT-Q4H PRN 04/04/20 [History] Aspirin 81 mg PO DAILY 04/04/20 [History] Isosorbide Mononitrate ER [Imdur] 60 mg PO DAILY 04/04/20 [History] Levothyroxine Sodium 112 mcg PO DAILY 04/04/20 [History] Amiodarone [Cordarone] 200 mg PO BID #60 tab 04/19/20 [Rx] Apixaban [Eliquis] 5 mg PO BID #60 tab 04/19/20 [Rx] Budesonide [Pulmicort] 0.5 mg INHALATION RT-BID #60 ampul 04/19/20 [Rx] Formoterol Fumarate [Perforomist] 20 mcg INHALATION RT-BID #60 nebu 04/19/20 [Rx] Furosemide [Lasix] 40 mg PO DAILY #30 tab 04/19/20 [Rx] Ipratropium-Albuterol Nebulize [Duoneb 0.5 mg-3 mg/3 ml Soln] 3 ml INHALATION Q4HR PRN #90 neb 04/19/20 [Rx] Metoprolol Succinate (ER) [Toprol XL] 25 mg PO DAILY #30 tab.er.24h 04/19/20 [Rx] Theophylline 24 Hour [Royal-24] 300 mg PO DAILY #30 cap.er.24h 04/19/20 [Rx] predniSONE 50 mg PO DAILY #5 tab 05/07/20 [Rx] Follow up Appointment(s)/Referral(s): [facility], [NON-STAFF] - Mateus Spencer MD [Primary Care Provider] - 1-2 days Christiano Prieto MD [STAFF PHYSICIAN] - 1 Week Discharge Disposition: HOME WITH HOME HEALTH SERVICES
--- NOTE | 2020-05-07 13:58 | P.PN ---
Subjective Progress Note Date: 05/07/20 Principal diagnosis: COPD exacerbation, left-sided pneumothorax 79-year-old white male patient of Dr. Spencer, who has recently been hospitalized for acute exacerbation of COPD, and patient did have a spontaneous secondary left-sided pneumothorax, with placement of small bore chest tube Thoravent, with which patient was discharged home. One way valve was placed into Thoravent upon discharge. And patient had an upcoming appointment with the CT surgeon Dr. Gordon this week on Sunday for possible discontinuation of the chest tube. Patient also has not seen Dr. Prieto in the office and he has upcoming appointment with him on 05/07/2020. Patient has advanced COPD, with chronic hypoxic and hypercapnic respiratory failure, and he was sent home on AVAPS, which she was encouraged to wear at bedtime and as needed during the day. Patient was discharged home on 04/19/2020. He is chronically debilitated, has chronic exertional dyspnea. Is a former smoker, other medical history includes hypertension, hypothyroidism, anxiety, and patient had an episode of SVT/A. fib with RVR during his previous admission and was started on oral anticoagulation in the form of Eliquis. He is also on oral Cordarone for rate control. On 05/04/2028 patient was brought into the hospital by an ambulance for evaluation of increasing shortness of breath, and soreness over his left chest wall. The chest tube has been placed for the past 3 weeks, his has been draining it every day at home, getting approximately 50 ML of fluid. Yesterday patient was noted to be hypoxemic on his normal 3 L of oxygen, his pulse ox was 80%, patient was increasing confused, hallucinating. He denied any cough, denies any hemoptysis, no fever or chills. No nausea vomiting or diarrhea. Apparently patient also sustained a fall yesterday, with no evidence of blunt head trauma or loss of consciousness. Chest x-ray showed tiny left apical pneumothorax, with mild pleural reaction at the lung bases. His admission lab work showed CBC within normal limits with exception of lymphocytes which were 0.6, his blood gases showed pO2 of 52, pCO2 of 74, and pH of 7.47 and this was done and FiO2 of 32%, and is consistent with chronic hypoxemic and hypercapnic respiratory failure with metabolic alkalosis, patient was placed on AVAPS. Sodium was 137, potassium is 4.5, chloride is 83, CO2 is 47, B1 is 33 creatinine 0.87, troponin is negative at 0.013, proBNP was 867, theophylline level is 13.5. CTA chest was obtained showing no evidence of pulmonary embolism, emphysema, and bilateral scarring and atelectasis at the lung bases and at the left upper lobe. No suspicious pulmonary masses were noted. On 05/06/2020 patient seen in follow-up and general medical surgical floor. he is awake and alert, in no acute distress, he is on 3 L of oxygen with a pulse ox of 94%, afebrile, hemodynamically stable, breathing is comfortable, no worsening dyspnea, today's chest x-ray reviewed showing COPD with bibasilar atelectasis and no evidence of sizable pneumothorax. Thoravent was capped yesterday, left lung stayed reexpanded. No acute events overnight. Today's labs reviewed. The patient is seen today 05/07/2020 in follow-up on the regular medical floor. He is awake and alert in no acute distress. He did sustain a fall earlier this morning. Computed tomography scan of the head was negative for acute abnormality. The patient remains on Eliquis. Thoravent was removed yesterday. No worsening shortness of breath, cough or congestion. Follow-up chest x-ray revealed no evidence of pneumothorax. Objective - Vital Signs Vital signs: Vital Signs Temp 98.0 F 05/07/20 07:00 Pulse 90 05/07/20 12:01 Resp 22 05/07/20 12:01 BP 149/76 05/07/20 07:00 Pulse Ox 94 L 05/07/20 07:00 Intake & Output 05/06/20 05/07/20 05/07/20 18:59 06:59 18:59 Other: Voiding Method Urinal Urinal # Voids 4 2 # Bowel Movements 1 - Exam GENERAL EXAM: Alert, confused, 79-year-old white male, resting in bed, currently on 3 L of oxygen pulse ox of 94%, comfortable in no apparent distress. HEAD: Normocephalic/atraumatic. EYES: Normal reaction of pupils, equal size. Conjunctiva pink, sclera white. NOSE: Clear with pink turbinates. THROAT: No erythema or exudates. NECK: No masses, no JVD, no thyroid enlargement, no adenopathy. CHEST: No chest wall deformity. Symmetrical expansion. Left chest Thoravent removed LUNGS: Equal air entry with no rhonchi, no wheezing, loose congested cough CVS: Regular rate and rhythm, normal S1 and S2, no gallops, no murmurs, no rubs ABDOMEN: Soft, nontender. No hepatosplenomegaly, normal bowel sounds, no guarding or rigidity. EXTREMITIES: No clubbing, no edema, no cyanosis, 2+ pulses and upper and lower extremities. MUSCULOSKELETAL: Muscle strength and tone normal. SPINE: No scoliosis or deformity SKIN: No rashes CENTRAL NERVOUS SYSTEM: Alert and oriented -1. No focal deficits, tone is normal in all 4 extremities. - Labs CBC & Chem 7: 05/07/20 07:06 05/07/20 07:06 Labs: Abnormal Lab Results - Last 24 Hours (Table) 05/07/20 05/07/20 Range/Units 07:06 07:06 RBC 4.04 L (4.30-5.90) m/uL Hgb 11.9 L (13.0-17.5) gm/dL MCHC 30.5 L (31.0-37.0) g/dL Lymphocytes # 0.3 L (1.0-4.8) k/uL Chloride 91 L (98-107) mmol/L Carbon Dioxide 47 H* (22-30) mmol/L BUN 50 H (9-20) mg/dL Assessment and Plan Assessment: #1. Dyspnea with acute on chronic hypoxemia, related to acute exacerbation of COPD #2. Recent hospitalization for COPD exacerbation and left spontaneous pneumothorax, discharged home on 04/19/[address] in [address]. Thoravent CO'ed today on 05/06/2020 #3. Recent history of pneumothorax, admission chest x-ray showing tiny left apical pneumothorax, mild pleural reaction at the lung bases. Chest CTA shows emphysema, bilateral scarring and atelectasis at the lung bases and left upper lobe, and the left lung appears to be inflated, Thoravent in place, with one-way valve in place, with no fluctuation of the diaphragm #4. Acute on chronic hypoxic and hypercapnic respiratory failure related to advanced COPD on home oxygen at 3 L, and home AVAPS #5. Paroxysmal atrial fibrillation, on Eliquis, currently in sinus mechanism #6. Ex-smoker #7. Chronic metabolic alkalosis related to chronic hypercapnic respiratory failure #8. Abdominal aortic aneurysm #9. Confusion, mental status changes, likely related to acute on chronic hypoxic respiratory failure, improved Plan: The patient was seen and evaluated by Dr. Schaefer He is cleared for discharge from the pulmonary standpoint Continue home AVAPS and home oxygen Follow-up in the office in 1-2 weeks' time I, the cosigning physician, performed a history & physical examination of the patient. Lungs sounds with few scattered rhonchi. Maintaining good O2 saturations in the 90s on 3 L/m per nasal cannula. I discussed the assessment and plan of care with my nurse practitioner, Delisa Bush. I attest to the above note as dictated by her.
[2020-05-07 15:03] VITALS: BP 155/87; RESP 20; TEMP 97.5
[2020-05-07 15:44] VITALS: PULSE 100
== END 2020-05-07 17:43 | disposition home health service (06) | DRG 190 ==
LOC: EC 15:44 → 4SSUR 18:59
PROVIDERS: ADMIT Family Medicine; ATTEND Family Medicine
DX: J43.9 Emphysema, unspecified (principal); J96.21 Acute and chronic respiratory failure with hypoxia; J96.22 Acute and chronic respiratory failure with hypercapnia; G92 Toxic encephalopathy; J93.83 Other pneumothorax; E87.3 Alkalosis; J98.11 Atelectasis; Z20.828 Contact with and (suspected) exposure to other viral communicable diseases; Z99.81 Dependence on supplemental oxygen; I71.4 Abdominal aortic aneurysm, without rupture; I48.0 Paroxysmal atrial fibrillation; Z51.5 Encounter for palliative care; I10 Essential (primary) hypertension; E03.9 Hypothyroidism, unspecified; F41.9 Anxiety disorder, unspecified; I65.29 Occlusion and stenosis of unspecified carotid artery; R53.81 Other malaise; R40.2362 Coma scale, best motor response, obeys commands, at arrival to emergency department; R40.2142 Coma scale, eyes open, spontaneous, at arrival to emergency department; R40.2252 Coma scale, best verbal response, oriented, at arrival to emergency department; H57.9 Unspecified disorder of eye and adnexa; W19.XXXA Unspecified fall, initial encounter; Z79.82 Long term (current) use of aspirin; Z79.899 Other long term (current) drug therapy; Z79.890 Hormone replacement therapy; Z79.01 Long term (current) use of anticoagulants; Z79.51 Long term (current) use of inhaled steroids; Z87.891 Personal history of nicotine dependence
CPT/HCPCS: 36415; 36600; 70450; 71045; 71046; 71275; 80048; 80053; 80198; 82140; 82805; 83605; 83880; 84484; 85025; 85610; 85730; 93005; 94640; 94660; 96374; 99285